=== PATIENT | male | born 1950 | race Caucasian/White ===

== ENCOUNTER → 2017-08-05 16:13 | Outpatient (CLI) | payer MEDICARE, OTHER, SELFPAY ==
[2017-08-05 18:33] LABS: ALB/GLOB Ratio 0.9 RATIO (0.9-2.4); AST(SGOT) 23 U/L (15-37); Alanine Aminotransfer ALT/SGPT 37 U/L (16-61); Albumin, Serum 3.6 g/dL (3.2-5.0); Alkaline Phosphatase 44 U/L (45-117); Anion Gap 8 (5-15); BUN 13 mg/dL (7-18); BUN/Creat Ratio 15.8 RATIO (10-20); Calcium,Total 9.3 mg/dL (8.5-10.1); Chloride 107 mmol/L (98-107); Creatinine, Serum 0.82 mg/dL (0.70-1.30); EST Glomerular Filtration Rate 99 mL/min (>60); Est Glom Filt Rate - Afr Amer 120 mL/min (>60); Globulin 3.8 g/dL (2.2-4.2); Glucose 101 mg/dL (74-106); Potassium 3.9 mmol/L (3.5-5.1); Protein, Total 7.4 g/dL (6.4-8.2); Sodium Level 143 mmol/L (136-145)
== END ==
PROVIDERS: Family Provider Family Medicine; PCP Family Medicine; Visit Provider Family Medicine
DX: B35.1 Tinea unguium (principal)
CPT/HCPCS: 36415; 80053

== ENCOUNTER → 2018-02-19 14:05 | Outpatient (CLI) | payer MEDICARE, OTHER, SELFPAY ==
[2018-02-19 16:17] LABS: Microalbumin,Random Urine 33.4 mg/L (NO RANGE EST.); Microalbumin:Creatinine Ratio 25.3 mg/g CRE (<30 mg/g CRE)
[2018-02-19 16:40] LABS: AST(SGOT) 34 U/L (15-37); Alanine Aminotransfer ALT/SGPT 45 U/L (16-61); Albumin, Serum 3.5 g/dL (3.2-5.0); Alkaline Phosphatase 46 U/L (45-117); Anion Gap 10 (5-15); BUN 20 mg/dL (7-18); BUN/Creat Ratio 20.8 RATIO (10-20); Bilirubin, Direct 0.09 mg/dL (0.00-0.30); Chloride 103 mmol/L (98-107); Cholesterol 228 mg/dL (200); Creatinine, Serum 0.96 mg/dL (0.70-1.30); EST Glomerular Filtration Rate 83 mL/min (>60); Est Glom Filt Rate - Afr Amer 100 mL/min (>60); Globulin 3.9 g/dL (2.2-4.2); Glucose 130 mg/dL (74-106); High Density Lipoprotein 30 mg/dL; Potassium 4.3 mmol/L (3.5-5.1); Protein, Total 7.4 g/dL (6.4-8.2); Sodium Level 140 mmol/L (136-145); Triglycerides 635 mg/dL
== END ==
PROVIDERS: Family Provider Family Medicine; PCP Family Medicine; Visit Provider Family Medicine
DX: E11.9 Type 2 diabetes mellitus without complications (principal); Z79.4 Long term (current) use of insulin
CPT/HCPCS: 36415; 80048; 80061; 80076; 82043; 82570

== ENCOUNTER → 2018-04-30 09:54 | Outpatient (CLI) | payer MEDICARE, OTHER, SELFPAY ==
[2017-11-23 15:59] VITALS: BMI 45.4
[2018-04-30 14:00] LABS: Anion Gap 9 (5-15); BUN 14 mg/dL (7-18); BUN/Creat Ratio 14.6 RATIO (10-20); Calcium,Total 9.2 mg/dL (8.5-10.1); Chloride 105 mmol/L (98-107); Cholesterol 118 mg/dL (200); Creatinine, Serum 0.96 mg/dL (0.70-1.30); EST Glomerular Filtration Rate 83 mL/min (>60); Est Glom Filt Rate - Afr Amer 100 mL/min (>60); Glucose 160 mg/dL (74-106); High Density Lipoprotein 26 mg/dL; Potassium 4.5 mmol/L (3.5-5.1); Sodium Level 139 mmol/L (136-145); Triglycerides 276 mg/dL; Very Low Density Lipoprotein 55 mg/dL (5-40)
--- OUTSIDE RECORDS SUMMARY | 2018-06-16 00:13 | XMS RPT_ITS ---
:1950 Author Organization OHIP Care Team Providers Name Role Phone Koko Hamilton Attending Unavailable Koko Hamilton Primary Care Unavailable Koko Hamilton Attending Unavailable Koko Hamilton Referring Unavailable Koko Hamilton Primary Care Unavailable Koko Hamilton Attending Unavailable Koko Hamilton Primary Care Unavailable Koko Wu Attending Unavailable Koko Hamilton Referring Unavailable Azeem Kincaid Attending Unavailable Koko Hamilton Referring Unavailable Alfonso, Koko Primary Care Unavailable Hamilton, Koko Attending Unavailable Hamilton, Koko Primary Care Unavailable PROBLEMS PROBLEMS DATE TYPE CONDITION / CODE ATTENDING STATUS SOURCE 05/14/2018 Unknown R79.89 - Other Koko Hamilton specified abnormal Community findings of blood Hospital chemistry / Repository R79.89(ICD-10) 04/30/2018 Unknown E11.9 - Type 2 Koko Hamilton diabetes mellitus Community without Hospital complications / Repository E11.9(ICD-10) 04/30/2018 Unknown E78.5 - Koko Hamilton Hyperlipidemia, Community unspecified / Hospital E78.5(ICD-10) Repository 04/30/2018 Unknown N52.9 - Male Koko Hamilton erectile Community dysfunction, Hospital unspecified / Repository N52.9(ICD-10) 08/25/2017 Unknown B35.1 - Tinea Koko Hamilton unguium / Community B35.1(ICD-10) Hospital Repository PROCEDURES PROCEDURES No Procedure Records FoundRESULTS RESULTS TESTOSTERONE, SERUM TOTAL Collected: 05/14/2018 Status: F Source: [place] 1:16 PM [facility] [place], [place] REPOSITORY TYPE CODE TESTS RESULT OUT OF REFERENCE UNITS RANGE LAB L509.3000 ng/dL Testosterone Normal 564.02 Result Comment: NORMAL REFERENCE RANGES MALE AGE <50 123.06 - 813.86 ng/dL MALE AGE >50 89.98 - 780.10 ng/dL FEMALE PREMENOPAUSE AGE 21 - 60 9.01 - 47.94 ng/dL FEMALE POSTMENOPAUSE AGE 45 - 89 <7.00 - 45.62 ng/dL REFERENCE RANGE AND METHODOLOGY CHANGED 05/06/2017 Performed By: #### L509.3000 #### [facility] [place], [address] BASIC METABOLIC Collected: 04/30/2018 Status: F Source: [place] PROFILE (BMP) 9:55 AM [facility] [place], [place] REPOSITORY TYPE CODE TESTS RESULT OUT OF RANGE REFERENCE UNITS LAB L501.0100 74-106 mg/dL High GLU 160 Result Comment: Fasting Glucose result greater than or equal to 126 mg/dL suggests DIABETES MELLITUS per A.D.A. criteria. Please note revised GLUCOSE reference range effective 2017. LAB L501.1000 7-18 mg/dL Normal BUN 14 LAB L501.1100 0.70-1.30 mg/dL Normal CREAT,SERUM 0.96 Result Comment: The validity of the calculated GFR AND GFRAA in patients over 70 years has not been determined. Clinical correlation is essential. LAB L501.1110 >60 mL/min Normal EST GFR 83 Result Comment: Non- GFR Calc LAB L501.1115 >60 mL/min Normal EST GFR - AA 100 Result Comment: GFR Calc LAB L501.1300 10-20 RATIO Normal BUN/CRE 14.6 LAB L501.2200 8.5-10.1 mg/dL CA Normal 9.2 LAB L501.5300 136-145 mmol/L NA Normal 139 LAB L501.5600 3.5-5.1 mmol/L K Normal 4.5 LAB L501.5900 98-107 mmol/L CL Normal 105 LAB L501.6100 21.0-32.0 mmol/L Normal CO2 25.0 LAB L501.6200 5-15 Normal GAP 9 Performed By: #### L500.2500, L500.4100 #### [facility] [address] [place], [address] LIPID PROFILE Collected: 04/30/2018 Status: F Source: [place] 9:55 AM [facility] [place], [place] REPOSITORY TYPE CODE TESTS RESULT OUT OF RANGE REFERENCE UNITS LAB L501.4900 200 mg/dL Normal CHOL 118 Result Comment: <200 mg/dL Desirable 200-240 mg/dL Borderline >240 mg/dL High Risk LAB L501.5000 mg/dL High TRIG 276 Result Comment: The drugs N-Acetylcysteine and Metamizole may falsely depress this assay. Serum Triglycerides Reference Interval Normal <150 mg/dL Borderline high 150 - 199 mg/dL High 200 - 499 mg/dL Very High > or = 500 mg/dL LAB L501.6400 mg/dL Low HDL 26 Result Comment: The drugs N-Acetylcysteine and Metamizole may falsely depress this assay. Reference Range HDL <40 mg/dL Low HDL Cholesterol HDL >or= 60 mg/dL High HDL Cholesterol LAB L501.6500 0-130 mg/dL Normal LDL 37 LAB L501.6600 5-40 mg/dL High VLDL 55 Performed By: #### L500.2500, L500.4100 #### [facility] [address] [place], [address] TESTOSTERONE, SERUM TOTAL Collected: 04/30/2018 Status: F Source: [place] 9:55 AM [facility] [place] [place] REPOSITORY TYPE CODE TESTS RESULT OUT OF REFERENCE UNITS RANGE LAB L509.3000 ng/dL Testosterone Normal 92.17 Result Comment: NORMAL REFERENCE RANGES MALE AGE <50 123.06 - 813.86 ng/dL MALE AGE >50 89.98 - 780.10 ng/dL FEMALE PREMENOPAUSE AGE 21 - 60 9.01 - 47.94 ng/dL FEMALE POSTMENOPAUSE AGE 45 - 89 <7.00 - 45.62 ng/dL REFERENCE RANGE AND METHODOLOGY CHANGED 05/06/2017 Performed By: #### L509.3000 #### [facility] [address] [place], [address] MICROALB:CREAT Collected: 02/19/2018 Status: F Source: [place] RATIO,RANDOM UR 2:06 PM [facility] [place], [place] REPOSITORY TYPE CODE TESTS RESULT OUT OF RANGE REFERENCE UNITS LAB L501.1200 NO RANGE EST. mg/dL Normal UR CREAT 132.00 LAB L502.0500 NO RANGE EST. mg/L Normal 33.4 MICROALBUMIN ,UR LAB L502.0600 <30 mg/g CRE mg/g CRE Normal 25.3 MALB:CREAT Performed By: #### L502.0250 #### [facility] [address] [place], [address] BASIC METABOLIC Collected: 02/19/2018 Status: F Source: [place] PROFILE (BMP) 2:06 PM [facility] [place] [place] REPOSITORY TYPE CODE TESTS RESULT OUT OF RANGE REFERENCE UNITS LAB L501.0100 74-106 mg/dL High GLU 130 Result Comment: Fasting Glucose result greater than or equal to 126 mg/dL suggests DIABETES MELLITUS per A.D.A. criteria. Please note revised GLUCOSE reference range effective 2017. LAB L501.1000 7-18 mg/dL High BUN 20 LAB L501.1100 0.70-1.30 mg/dL Normal CREAT,SERUM 0.96 Result Comment: The validity of the calculated GFR AND GFRAA in patients over 70 years has not been determined. Clinical correlation is essential. LAB L501.1110 >60 mL/min Normal EST GFR 83 Result Comment: Non- GFR Calc LAB L501.1115 >60 mL/min Normal EST GFR - AA 100 Result Comment: GFR Calc LAB L501.1300 10-20 RATIO High BUN/CRE 20.8 LAB L501.2200 8.5-10.1 mg/dL CA Normal 10.0 LAB L501.5300 136-145 mmol/L NA Normal 140 LAB L501.5600 3.5-5.1 mmol/L K Normal 4.3 LAB L501.5900 98-107 mmol/L CL Normal 103 LAB L501.6100 21.0-32.0 mmol/L Normal CO2 27.0 LAB L501.6200 5-15 Normal GAP 10 Performed By: #### L500.2500, L500.3400, L500.4100 #### [facility] [address] [place], [place], [id number] LIVER PROFILE Collected: 02/19/2018 Status: F Source: [place] 2:06 PM [facility] [place] [place] REPOSITORY TYPE CODE TESTS RESULT OUT OF RANGE REFERENCE UNITS LAB L501.1500 6.4-8.2 g/dL Normal T PROT 7.4 LAB L501.1800 3.2-5.0 g/dL Normal ALB 3.5 LAB L501.1950 2.2-4.2 g/dL Normal GLOB 3.9 LAB L501.4100 15-37 U/L Normal AST 34 LAB L501.4305 45-117 U/L Normal ALK P 46 LAB L501.4405 16-61 U/L Normal ALT 45 LAB L501.4600 0.20-1.00 mg/dL Normal T BILI 0.40 LAB L501.4700 0.00-0.30 mg/dL Normal D BILI 0.09 Performed By: #### L500.2500, L500.3400, L500.4100 #### [facility] [address] [place], [address] LIPID PROFILE Collected: 02/19/2018 Status: F Source: [place] 2:06 PM [facility] [place] [place] REPOSITORY TYPE CODE TESTS RESULT OUT OF RANGE REFERENCE UNITS LAB L501.4900 200 mg/dL High CHOL 228 Result Comment: <200 mg/dL Desirable 200-240 mg/dL Borderline >240 mg/dL High Risk LAB L501.5000 mg/dL High TRIG 635 Result Comment: The drugs N-Acetylcysteine and Metamizole may falsely depress this assay. TRIGLYCERIDE IS GREATER THAN 400 mg/dL. LDL RESULT IS INVALID AND WILL NOT BE REPORTED. Serum Triglycerides Reference Interval Normal <150 mg/dL Borderline high 150 - 199 mg/dL High 200 - 499 mg/dL Very High > or = 500 mg/dL LAB L501.6400 mg/dL Low HDL 30 Result Comment: The drugs N-Acetylcysteine and Metamizole may falsely depress this assay. Reference Range HDL <40 mg/dL Low HDL Cholesterol HDL >or= 60 mg/dL High HDL Cholesterol LAB L501.6500 0-130 mg/dL Test Normal not performed LDL LAB L501.6600 5-40 mg/dL Test Normal not performed VLDL Performed By: #### L500.2500, L500.3400, L500.4100 #### [facility] [address] [place], [address] CARDIOLOGY VISIT Observed: 11/24/2017 Status: F Source: [place] REPORT 8:06 AM [facility] [place], [place] REPOSITORY [facility] [address] [place] [address] OFFICE VISIT Date of Service: 11/23/17 MR#: [id number] Acct: [id number] Name: IAN ROCHA Rep #: [id number] : 1950 Provider: ROBBY Kincaid Age/Sex: 67/M Location: [facility] Status: Signed HPI HPI Details: IAN ROCHA, is a 67 M who presents to the office today for a cardiovascular outpatient follow-up. He has a history of coronary artery disease status post CABG with MERRITT to LAD, SVG to OM, and SVG to RCA in December 2010 and subsequent PCI to RCA and diagonal branch, ischemic mediated cardiomyopathy, aortic valve disease status post aortic valve replacement this bioprosthetic valve in 2010, hypertension, and hyperlipidemia. Pt. denies chest, arm, jaw, or neck discomfort. His exercise tolerance is stable. He is hoping to begin with Silver Sneakers. Pt. denies symptoms of CHF, palpitations, lightheadedness, dizziness, near syncope, or syncopal episodes. Pt. denies edema or claudication issues. Pt. denies orthopnea, PND, fever, chills, blood in urine, blood in stool, myalgia, or unexplainable fatigue. He states infrequent shock noted in his chest that resolves quickly. This occurs randomly and without any secondary symptoms. This occurs approximately 3 times a month. Intake Vital Signs11/23/17 Blood Pressure 140/80 Intake Visit Reasons: 6 M Room Service Attendant Required: No Accompanied by: none Is patient in pain?: No Allergies hydrocodone Allergy (Verified 11/23/17 16:01) rash morphine Allergy (Verified 11/23/17 16:01) Vomiting Medications furosemide 20 mg tablet 20 mg PO QDAY #90 tab 08/21/17 [Rx Confirmed 11/23/17] potassium chloride ER 10 mEq tablet,extended release 10 meq PO QDAY #90 tab 08/21/17 [Rx Confirmed 11/23/17] metoprolol tartrate 100 mg tablet 100 mg PO BID #180 tab 09/14/17 [Rx Confirmed 11/23/17] amoxicillin 500 mg tablet 2 g PO ONCE #8 tab 11/23/17 [Rx Confirmed 11/23/17] clopidogrel 75 mg tablet 75 mg PO QDAY 11/23/17 [History Confirmed 11/23/17] isosorbide mononitrate ER 60 mg tablet,extended release 24 hr 60 mg PO QDAY 11/23/17 [History Confirmed 11/23/17] lisinopril 10 mg tablet 10 mg PO QDAY 11/23/17 [History Confirmed 11/23/17] lysine 500 mg tablet 500 mg PO QDAY 11/23/17 [History Confirmed 11/23/17] metformin 1,000 mg tablet 1,000 mg PO BID 11/23/17 [History Confirmed 11/23/17] multivitamin,nz-zgky-kkainnob tablet 1 tab PO QDAY 11/23/17 [History Confirmed 11/23/17] Ejection fraction %: 50 to 54 PFSH Medical History HLD (hyperlipidemia) (Chronic) Hypertension (Chronic) Benign prostate hyperplasia (Chronic) Surgical History H/O aortic valve replacement (Resolved) Hx of CABG (Resolved) History of tonsillectomy (Resolved) Family History Father CAD (coronary artery disease) Mother CAD (coronary artery disease) Social History Smoking Status: Never smoker ROS Const Const: Negative for fatigue, weakness, body ache, fever(s) or chills ENT ENT: Negative for dizziness Cardio Chest Pain: No Palpitations: Yes Edema: None Muscle aches with walking: None Resp Respiratory: Negative for SOB with activity, SOB at rest, SOB orthopnea\SOB lying down or paroxysmal nocturnal dyspnea GI GI: Negative nausea, black,tarry stools, bright, red blood in stools or vomiting blood/hematemesis : Negative for hematuria or frequent nighttime urination/ nocturia Musc Musc: Negative for muscle aches/ myalgia Skin Skin: Negative non-healing lesions or rash Neuro Neuro: Negative for weakness, dizziness, lightheadedness, near syncope, syncope or orthostatic symptoms Endo Endo: Negative for fatigue Allergy Allergy/Immunology: Negative for rash Cardiology Exam Const Appearance: cooperative, healthy appearing, comfortable and no acute distress Nutritional Appearance: obese Orientation: alert, awake and oriented x3 Head Head: normal to inspection Ears: hearing grossly normal bilaterally Nose: external nose normal Face and Sinus: face symmetric Mouth: oral mucosae normal Eyes General: appearance normal, both eyes and all related structures Eyelids: eyelids normal Neck Neck: no JVD and normal visual inspection Carotids: normal carotid upstroke Chest Chest inspection: normal inspection of the chest and normal respiratory effort; negative cough Auscultation: Bilateral: Clear to Auscultation Cardio Rate: regular rate Rhythm: regular rhythm Heart sounds: S1 normal and S2 normal; negative rub or gallop GI GI: normal to inspection and obese Neuro General: alert, awake, oriented x3 and CN's II-XI intact bilaterally Skin Skin: no rashes or lesions noted Extremities Pulses: Normal: Right Posterior Tibial Pulse, Left Posterior Tibial Pulse, Right Radial Pulse, Left Radial Pulse Lower Extremity Edema: None: Bilateral Psych Psychological: normal affect Supplemental Info Echocardiogram from August 2016 showed mild segmental systolic dysfunction (see wall motion), estimated ejection fraction of 50%, mild mitral annular calcification, trivial mitral valve insufficiency, trivial tricuspid valve insufficiency,and aortic valve not well visualized, however, based upon the 2D echocardiographic images obtained and spectral Doppler information obtained, there appears to be a stable bioprosthetic aortic valve apparatus. Heart catheterization from May 2014 at [facility] showed patent MERRITT to LAD, patent stents diagonal branch stent placed in February 2014 as widely patent, patent SVG to OM with 50% lesion at the aortic anastomosis, patent stents to mid RCA, and SVG to RCA known to be occluded. Medical management was recommended. Stress test from April 2014 showed peak EKG with continued nonspecific ST and T-wave abnormality and nuclear images associated with myocardial ischemia involving portions of the basal to mid anterolateral segments as well as the basal towards distal lateral and inferolateral segments with ejection fraction reported 50%. Assessment AND Plan 1. Atherosclerosis of blackfeet coronary artery of blackfeet heart without angina pectoris I25.10 S/P CABG with MERRITT to LAD, SVG to OM, and SVG to RCA in December 2010; PCI to RCA and diagonal branch; Plan Patient heart catheterization from May 2014 showed patent MERRITT to LAD, patent stents to diagonal branch, patent SVG to OM with 50% lesion at the aortic anastomosis site, patent stents to mid RCA, and known occlusion of the SVG to RCA. Medical therapy was recommended. Patient denies any chest pain, arm pain, jaw pain, neck pain, worsening shortness of breath, or fatigue suggestive of angina at this time. We will continue to monitor this. We will not make any medication regimen changes and will continue risk factor modification. 2. Hx of CABG Z95.1 S/P MERRITT to LAD, SVG to OM, and SVG to RCA in December 2010; Plan He will continue current treatment plan as outlined above. 3. Ischemic cardiomyopathy I25.5 Plan Patient's most recent echocardiogram from August 2016 showed ejection fraction of 50%. Patient denies any worsening shortness of breath. He does acknowledge some baseline shortness of breath due to inactivity, previous extensive smoking history, and obesity. He will continue current beta-yohan, SYLVIA inhibitor, and diuretic. We will continue to monitor this through history, exam, and repeat echocardiogram as needed. 4. H/O aortic valve replacement Z95.2 S/P bioprosthetic aortic valve replacement; Plan Patient's most recent echocardiogram from August 2016 was a technically difficult study but showed a stable bioprosthetic aortic valve apparatus. He will continue current medications and we will continue to monitor this. He will continue with [facility] antibiotic prophylaxis. 5. Essential hypertension I10 Plan Patient's blood pressure remains on the higher end of expected range. He was asked to continue to monitor this and contact our office if it increases or remains elevated. Hopefully as he increases/improves his overall activity this will also improve his blood pressure. At this time we will not make any medication regimen changes and will continue to monitor. 6. Pure hypercholesterolemia E78.00; E78.0 Plan Patient states this is being monitored by primary care physician. His most recent lipid panel from January 2017 showed cholesterol 199, HDL: 37, LDL: 104, and triglycerides: 289. His statin medication has been adjusted/discontinued by primary care physician due to possible leg discomfort. He was asked to discuss non-statin medication with primary care physician. Plan Detail Other Medications New: Discontinued: Additional Comments Thank you for allowing us to participate in the patients plan of care, if you have any questions please do not hesitate to call. This note was generated using a voice recognition system and there may be incorrect words, spelling or punctuation that were not noted when reviewing the office note prior to saving. 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) Coding Level of Care Code Off vis,est,level 3 Diagnoses Atherosclerosis of blackfeet coronary artery of blackfeet heart without angina pectoris I25.10 Hx of CABG Z95.1 Ischemic cardiomyopathy I25.5 H/O aortic valve replacement Z95.2 Essential hypertension I10 Hypertension type: essential hypertension Pure hypercholesterolemia E78.00; E78.0 Hyperlipidemia type: pure hypercholesterolemia Coding Level of Care Code Off vis,est,level 3 Diagnoses Atherosclerosis of blackfeet coronary artery of blackfeet heart without angina pectoris I25.10 Hx of CABG Z95.1 Ischemic cardiomyopathy I25.5 H/O aortic valve replacement Z95.2 Essential hypertension I10 Hypertension type: essential hypertension Pure hypercholesterolemia E78.00; E78.0 Hyperlipidemia type: pure hypercholesterolemia 11/24/17 0806 <Electronically signed by Azeem EARL> Date Azeem EARL Cosigner Signature: Date (if applicable) CC: Koko Hamilton MD COMPREHENSIVE METABOLIC Collected: 08/05/2017 Status: F Source: [place] 4:15 PM [facility] [place] [place] REPOSITORY TYPE CODE TESTS RESULT OUT OF RANGE REFERENCE UNITS LAB L501.0100 74-106 mg/dL Normal GLU 101 Result Comment: Fasting Glucose result from 100 to 125 mg/dL suggests IMPAIRED HOMEOSTASIS per A.D.A. criteria. Please note revised GLUCOSE reference range effective 2017. LAB L501.1000 7-18 mg/dL Normal BUN 13 LAB L501.1100 0.70-1.30 mg/dL Normal CREAT,SERUM 0.82 Result Comment: The validity of the calculated GFR AND GFRAA in patients over 70 years has not been determined. Clinical correlation is essential. LAB L501.1110 >60 mL/min Normal EST GFR 99 Result Comment: Non- GFR Calc LAB L501.1115 >60 mL/min Normal EST GFR - AA 120 Result Comment: GFR Calc LAB L501.1300 10-20 RATIO Normal BUN/CRE 15.8 LAB L501.1500 6.4-8.2 g/dL T Normal PROT 7.4 LAB L501.1800 3.2-5.0 g/dL Normal ALB 3.6 LAB L501.1950 2.2-4.2 g/dL Normal GLOB 3.8 LAB L501.2000 0.9-2.4 RATIO Normal A/G 0.9 LAB L501.2200 8.5-10.1 mg/dL CA Normal 9.3 LAB L501.4100 15-37 U/L Normal AST 23 LAB L501.4305 45-117 U/L Low ALK P 44 LAB L501.4405 16-61 U/L Normal ALT 37 Result Comment: Please note revised ALT reference range effective 2017. LAB L501.4600 0.20-1.00 mg/dL Normal T BILI 0.30 LAB L501.5300 136-145 mmol/L Normal NA 143 LAB L501.5600 3.5-5.1 mmol/L Normal K 3.9 LAB L501.5900 98-107 mmol/L Normal CL 107 LAB L501.6100 21.0-32.0 mmol/L Normal CO2 28.0 LAB L501.6200 5-15 Normal GAP 8 Performed By: #### L500.4050 #### [facility] [address] [place], [address] ALLERGIES ALLERGIES DATE TYPE / CODE NAME / CODE REACTION SEVERITY SOURCE 11/23/2017 Drug morphine/F00 Vomiting Unknown [facility] Allergy/4160 [id number]([facility] [address]382(SNOMED RM) Repository CT) 11/23/2017 Drug hydrocodone/ Rash Unknown [facility] Allergy/4160 [id number]([facility] [address]1448(SNOMED XNORM) Repository CT) ENCOUNTERS ENCOUNTERS ADMIT/DISCHARGE ACCOUNT ADMITTING ENCOUNTER LOCATION SOURCE NUMBER CLASS 05/14/2018 [id number] Ambulatory [facility] 4 [facility] ing:MTLAB Repository 04/30/2018 [id number] Ambulatory [facility] 1 [facility] ing:MFPLAB Repository 02/19/2018 [id number] [facility] ing:MFPLAB Repository 11/23/2017/ [id number] Ambulatory B[facility]:[place] 8 8 [place] Repository 11/09/2017 [id number] Ambulatory [facility] [place] 7 [place] Repository 08/05/2017 [id number] Ambulatory [facility] 3 [facility] ing:MFPLAB Repository PAYERS PAYERS ENCOUNTER GUARANTOR PAYER SUBSCRIBER SOURCE 05/14/2018 IAN Hoffman Primary IAN [place] [id number] Insurance:MEDICARE BRITTB: [facility] JOSE JUAN, PART A olic [id number] [address]Xey: Number: Repository [id number] () Date:2018-05-14 05/14/2018 Secondary IAN [place] Insurance:ASHANTItin LOPEZ: [facility] Number: [id number] Hospital [id number] Repository Date:[id number], [place] [address]AA: 05/14/2018 Tertiary NOT GIVENUNK [place] Insurance:SELF PAY [facility] Number: Effective Repository Date:2018-05-14 04/30/2018 IAN E Primary IAN E [place] [id number] Insurance:MEDICARE COLLINSDOB: [facility] KAT QUISPE, PART A [facility] [id number] [address]Vcd: Number: Repository [id number] (HP) Date:2018-04-30 04/30/2018 Secondary IAN E [place] Insurance:AARPPolicy COLLINSDOB: Community Number: [id number] Hospital [id number] Repository Date:[id number] [facility] [address], [place] [address]LP: 04/30/2018 Tertiary NOT GIVENUNK [place] Insurance:SELF PAY [facility] Number: Effective Repository Date:2018-04-30 02/19/2018 IAN E Primary IAN E [place] [id number] Insurance:MEDICARE COLLINSDOB: [facility] KAT QUISPE, PART A [facility] [id number] [address]Kzv: Number: Repository [id number] (HP) Date:2018-02-19 02/19/2018 Secondary IAN E [place] Insurance:AARPPolicy COLLINSDOB: Community Number: [id number] Hospital [id number] Repository Date:[id number] [facility] [address], [place] [address]YU: 02/19/2018 Tertiary NOT GIVENUNK [place] Insurance:SELF PAY [facility] Number: Effective Repository Date:2018-02-19 11/23/2017 IAN E Primary IAN E [place] [id number] Insurance:MEDICARE COLLINSDOB: [facility] KAT QUISPE, PART A [facility] [id number] [facility] [address]Mnk: Number: Repository [id number] (HP) Date:2017-10-29 11/23/2017 Secondary IAN E [place] Insurance:AARPPolicy AJDOB: Community Number: [id number] Hospital [id number] Repository Date:6962-98-06YS [address], [place] [address]QG: 11/23/2017 Tertiary NOT GIVENUNK [place] Insurance:SELF PAY [facility]: Effective Repository Date:2017-11-23 11/09/2017 Ian E Primary Ian E [place] [id number] Insurance:AARPPolicy CollinsDOB: [facility] Kat Quispe, Number: [id number] [facility] [address]Wwd: [id number] Repository Date:3064-09-84[address], [place] [address]NH: 11/09/2017 Secondary Ian E Grace Insurance:MEDICARE CollinsDOB: Community PART A [facility] [id number] Hospital Number: Repository [id number] Date:2017-05-06 11/09/2017 Tertiary NOT GIVENUNK [place] Insurance:SELF PAY [facility] Number: Effective Repository Date:2017-05-06 08/05/2017 Ian E Primary Ian E Grace [id number] Insurance:MEDICARE [place]: [facility] Jose Juan, PART A [id number] [address]Muw: Number: Repository [id number] () Date:2017-08-05 08/05/2017 Secondary Ian E [place] Insurance:AARPPolicy [place]DOB: Community Number: [id number] [facility] [id number] Repository Date:[id number], [place] [address]XN: 08/05/2017 Tertiary NOT GIVENUNK [place] Insurance:SELF PAY [facility]: Effective Repository Date:2017-08-05
== END ==
PROVIDERS: Family Provider Family Medicine; PCP Family Medicine; Visit Provider Family Medicine
DX: E11.9 Type 2 diabetes mellitus without complications (principal); E78.5 Hyperlipidemia, unspecified; N52.9 Male erectile dysfunction, unspecified
CPT/HCPCS: 36415; 80048; 80061; 84403

== ENCOUNTER → 2018-05-14 13:07 | Outpatient (CLI) | payer MEDICARE, OTHER, SELFPAY ==
[2017-11-23 15:59] VITALS: BMI 45.4
== END ==
PROVIDERS: Family Provider Family Medicine; PCP Family Medicine; Referring Provider Family Medicine; Visit Provider Family Medicine
DX: R79.89 Other specified abnormal findings of blood chemistry (principal)
CPT/HCPCS: 36415; 84403

== ENCOUNTER → 2018-06-23 17:39 | Outpatient (CLI) | payer MEDICARE, OTHER, SELFPAY ==
[2017-11-23 15:59] VITALS: BMI 45.4
== END ==
PROVIDERS: Family Provider Family Medicine; PCP Family Medicine; Visit Provider Nurse Practitioner Family
DX: S31.809A Unspecified open wound of unspecified buttock, initial encounter (principal)
CPT/HCPCS: 87070; 87077; 87186; 87205

== ENCOUNTER → 2018-08-12 09:25 | Outpatient (CLI) | payer MEDICARE, OTHER, SELFPAY ==
[2018-07-08 08:45] VITALS: BMI 44.3
--- NOTE | 2018-08-12 09:27 | ECHOCS_ITS ---
Reason For Study: SOB Procedure This was a 2D Doppler, Color Flow transthoracic echocardiogram. The study was technically difficult. Contrast injection was performed. Exam performed in department. Left Ventricle Mild segmental systolic dysfunction (see wall motion). The estimated ejection fraction is 45 %. Diastolic function is indeterminate. Mid-Lateral : Hypokinetic. Mid-Posterior: Hypokinetic. Mid- Inferior: Hypokinetic. Mid-inferoseptal : Hypokinetic. Mid-anteroseptal : Hypokinetic. Anterior Mathias : Hypokinetic. Septal [place] : Hypokinetic. Right Ventricle Normal RV size. Normal systolic function. Atria The left atrium is mildly enlarged. Normal right atrium. No doppler evidence for ASD. Mitral Valve There is mild mitral annular calcification. Extension of the mitral annular calcification onto the posterior mitral valve leaflet. Trivial mitral valve insufficiency. Tricuspid Valve The tricuspid valve is not well visualized. Aortic Valve The aortic valve is not well visualized. Pulmonic Valve The pulmonic valve is not well visualized. Great Vessels Borderline enlarged aortic root. Pericardium/Pleural No pericardial effusion. Medication 22 gauge I.V. with prn adaptor inserted into right arm. Diluted definity 6ml given slow IV push to enhance endocardial definition. MMode/2D Measurements & Calculations LVOT diam: 2.2 cm Ao root diam: 3.9 cm LVOT area: 3.8 cm2 Doppler Measurements & Calculations MV E max slick: 49.5 cm/sec Lat Peak E' Slick: 5.9 cm/sec Med Peak E' Slick: 5.8 cm/sec MV A max slick: 82.6 cm/sec E/E' lat: 8.4 E/E' med: 8.5 MV E/A: 0.60 Ao V2 max: 239.8 cm/sec LV V1 max: 106.3 cm/sec SV(LVOT): 81.7 ml Ao max P.1 mmHg LV V1 max P.5 mmHg Ao V2 mean: 170.0 cm/sec LV V1 mean P.4 mmHg Ao mean P.9 mmHg LV V1 mean: 73.2 cm/sec Ao V2 VTI: 47.4 cm LV V1 VTI: 21.6 cm ABDI(I,D): 1.7 cm2 ABDI(V,D): 1.7 cm2 Interpretation Summary The study was technically difficult. Contrast injection was performed. Mild segmental systolic dysfunction (see wall motion). The estimated ejection fraction is 45 %. The left atrium is mildly enlarged. There is mild mitral annular calcification. Extension of the mitral annular calcification onto the posterior mitral valve leaflet. Trivial mitral valve insufficiency. The aortic valve is not well visualized, however, based upon the 2D echocardiographic imgaes obtained and spectral doppler information obtained, there appears to be a stable bioprosthetic aortic valve apparatus. Borderline enlarged aortic root. Diastolic function is indeterminate. Ordering Physician: Azeem Kincaid/Koko Wu Referring Physician: Koko Hamilton Performed By: Pearl Weaver RDCS
== END ==
PROVIDERS: Family Provider Family Medicine; PCP Family Medicine; Referring Provider Nurse Practitioner Family; Visit Provider Nurse Practitioner Family
DX: I25.10 Atherosclerotic heart disease of native coronary artery without angina pectoris (principal); R06.09 Other forms of dyspnea; Z95.2 Presence of prosthetic heart valve
CPT/HCPCS: 93306; Q9957; A4216; C8929

== ENCOUNTER → 2018-10-28 10:55 | Outpatient (CLI) | payer MEDICARE, OTHER, SELFPAY ==
[2018-07-08 08:45] VITALS: BMI 44.3
[2018-10-28 12:41] LABS: AST(SGOT) 23 U/L (15-37); Alanine Aminotransfer ALT/SGPT 31 U/L (16-61); Albumin, Serum 3.2 g/dL (3.2-5.0); Alkaline Phosphatase 52 U/L (45-117); Anion Gap 10 (5-15); BUN 17 mg/dL (7-18); BUN/Creat Ratio 20.1 RATIO (10-20); Bilirubin, Direct 0.13 mg/dL (0.00-0.30); Calcium,Total 9.5 mg/dL (8.5-10.1); Chloride 106 mmol/L (98-107); Cholesterol 136 mg/dL (200); Creatinine, Serum 0.85 mg/dL (0.70-1.30); EST Glomerular Filtration Rate 96 mL/min (>60); Est Glom Filt Rate - Afr Amer 116 mL/min (>60); Globulin 4.3 g/dL (2.2-4.2); Glucose 121 mg/dL (74-106); High Density Lipoprotein 32 mg/dL; PSA,Total - Annual Screen 2.08 ng/mL (0.00-4.00); Protein, Total 7.5 g/dL (6.4-8.2); Sodium Level 142 mmol/L (136-145); Triglycerides 197 mg/dL; Very Low Density Lipoprotein 39 mg/dL (5-40)
== END ==
PROVIDERS: Family Provider Family Medicine; PCP Family Medicine; Referring Provider Family Medicine; Visit Provider Family Medicine
DX: E11.9 Type 2 diabetes mellitus without complications (principal); N40.0 Benign prostatic hyperplasia without lower urinary tract symptoms; E29.1 Testicular hypofunction; Z12.5 Encounter for screening for malignant neoplasm of prostate
CPT/HCPCS: 36415; 80048; 80061; 80076; 84153; 84403; G0103

== ENCOUNTER → 2019-01-28 14:08 | Outpatient (CLI) | payer MEDICARE, OTHER, SELFPAY ==
[2018-12-22 15:57] VITALS: BMI 45.4
[2019-01-28 15:51] LABS: ALB/GLOB Ratio 0.9 RATIO (0.9-2.4); AST(SGOT) 28 U/L (15-37); Alanine Aminotransfer ALT/SGPT 38 U/L (16-61); Albumin, Serum 3.7 g/dL (3.2-5.0); Alkaline Phosphatase 51 U/L (45-117); Anion Gap 7 (5-15); BUN 21 mg/dL (7-18); BUN/Creat Ratio 21.2 RATIO (10-20); Calcium,Total 9.9 mg/dL (8.5-10.1); Chloride 109 mmol/L (98-107); Cholesterol 140 mg/dL (200); Creatinine, Serum 0.99 mg/dL (0.70-1.30); EST Glomerular Filtration Rate 80 mL/min (>60); Est Glom Filt Rate - Afr Amer 96 mL/min (>60); Globulin 4.2 g/dL (2.2-4.2); Glucose 115 mg/dL (74-106); High Density Lipoprotein 35 mg/dL; Magnesium 2.1 mg/dL (1.6-2.6); Potassium 4.5 mmol/L (3.5-5.1); Protein, Total 7.9 g/dL (6.4-8.2); Sodium Level 142 mmol/L (136-145); Triglycerides 240 mg/dL; Very Low Density Lipoprotein 48 mg/dL (5-40)
[2019-01-29 08:42] LABS: Vitamin B12 533 pg/mL (211-911)
== END ==
PROVIDERS: Family Provider Family Medicine; PCP Family Medicine; Referring Provider Family Medicine; Visit Provider Family Medicine
DX: E11.65 Type 2 diabetes mellitus with hyperglycemia (principal); I10 Essential (primary) hypertension; R25.2 Cramp and spasm
CPT/HCPCS: 36415; 80053; 80061; 82607; 83735

== ENCOUNTER → 2019-02-28 11:57 | Outpatient (CLI) | payer MEDICARE, OTHER, SELFPAY ==
[2018-12-22 15:57] VITALS: BMI 45.4
== END ==
PROVIDERS: Family Provider Family Medicine; PCP Family Medicine; Visit Provider Family Medicine
DX: R79.89 Other specified abnormal findings of blood chemistry (principal)
CPT/HCPCS: 36415; 84403

== ENCOUNTER → 2019-05-06 10:49 | Outpatient (CLI) | payer MEDICARE, OTHER, SELFPAY ==
[2018-12-22 15:57] VITALS: BMI 45.4
== END ==
PROVIDERS: Family Provider Family Medicine; PCP Family Medicine; Referring Provider Family Medicine; Visit Provider Family Medicine
DX: R79.89 Other specified abnormal findings of blood chemistry (principal)
CPT/HCPCS: 36415; 84403

== ENCOUNTER 2019-07-14 23:15 | Inpatient (IN) | payer MEDICARE, OTHER, SELFPAY ==
[2019-07-13 15:24] VITALS: BMI 45.7
[2019-07-14 23:15] VITALS: BP 156/95; PULSE 78; RESP 24; TEMP 35.7; O2SAT 85; BMI 46.3
[2019-07-14 23:20] VITALS: PULSE 75; RESP 12; RESP 24; O2SAT 97
[2019-07-14 23:22] VITALS: PULSE 75; RESP 24; O2SAT 94
--- NOTE | 2019-07-14 23:22 | EKG12_ITS ---
Test Reason : CP/SOB Blood Pressure : / mmHG Vent. Rate : 075 BPM Atrial Rate : 075 BPM P-R Int : 178 ms QRS Dur : 118 ms QT Int : 396 ms P-R-T Axes : 057 031 124 degrees QTc Int : 442 ms Normal sinus rhythm Incomplete left bundle branch block T wave abnormality, consider lateral ischemia vs IVCD Abnormal ECG Confirmed by JOSE ALBERTO VICENTE, JOSE JUAN ([id number]), graphics editor YESIKA FLORES ([id number]) on 07/18/2019 9:57:35 AM Referred By: NOAH Confirmed By:JOSE JUAN ABRAMS MD
--- NOTE | 2019-07-14 23:25 | RAD_ITS ---
STUDY: X-RAY CHEST REASON FOR EXAM: Male, 69 years old. Chest pain and shortness of breath. TECHNIQUE: Single AP portable view of the chest. COMPARISON: 06/09/2014. FINDINGS: The lungs are hyperexpanded. There are coarsened interstitial markings suggestive of mild chronic fibrosis. Stable small scattered granulomas. No gross focal infiltrates. No gross effusions. There is moderate cardiac enlargement. Previous median sternotomy. Normal mediastinum and paul. Normal visualized pulmonary arteries. Normal visualized aortic arch and descending thoracic aorta. Normal visualized thoracic spine. Normal visualized ribs, clavicles, and shoulders. There is no demonstrated abnormality of the visualized soft tissue structures of the upper abdomen. RAD/Chest 1 View (Portable) IMPRESSION: Probable COPD with mild fibrosis. Cardiomegaly. No gross acute chest disease. Electronically Signed: Justus Deal MD at 23:47 EST , Service support ,
[2019-07-14 23:26] VITALS: O2SAT 97
[2019-07-14 23:35] VITALS: BP 153/76; PULSE 75
[2019-07-14] MEDS: Nitroglycerin Oint 1 INCH PACKET TRANSDERM. (23:35)
[2019-07-14 23:51] LABS: Absolute Lymphocyte Count 1.53 X10^3/uL (0.83-4.51); Absolute Neutrophil Count 11.2 X10^3/uL (2.0-7.7); Basophil# 0.07 X10^3/uL; Basophil% 0.5 % (0-1); Eosinophil# 0.36 X10^3/uL; Eosinophils% 2.5 % (0-5); Hematocrit 54.9 % (40-54); Hemoglobin 16.9 g/dL (13.0-16.5); Lymphocyte # 1.53 X10^3/ul (4.0); Lymphocyte % 10.5 % (19-41); Mean Corp Hgb Conc 30.8 g/dL (32-36); Mean Corpuscular Hgb 27.5 pg (27.0-32.0); Mean Corpuscular Volume 89.4 fL (80-94); Mean Platelet Vol. 10.4 fl (6.2-12.0); Monocyte# 1.45 X10^3/uL; Monocyte% 9.9 % (0-10); NRBC Flagged by Analyzer 0 % (0-5); Neutrophil # 11.15 X10^3/uL (2.7-7.7); Neutrophil % 76.1 % (47-70); Platelet Count 208 K/mm3 (150-450); RBC Distribution Width CV 15.1 % (11.6-14.6); RBC Distribution Width SD 47.7 fl (35.1-43.9); Red Blood Count 6.14 M/mm3 (4.6-6.2); White Blood Count 14.6 K/mm3 (4.4-11.0)
[2019-07-14 23:53] LABS: Anion Gap 5 (5-15); BUN 20 mg/dL (7-18); BUN/Creat Ratio 16.5 RATIO (10-20); Chloride 107 mmol/L (98-107); Creatinine, Serum 1.21 mg/dL (0.70-1.30); EST Glomerular Filtration Rate 63 mL/min (>60); Est Glom Filt Rate - Afr Amer 76 mL/min (>60); Estimated Creatinine Clearance 61.37 ml/min; Glucose 137 mg/dL (74-106); Potassium 4.3 mmol/L (3.5-5.1); Sodium Level 140 mmol/L (136-145)
[2019-07-15] VITALS (18 sets, daily range): BP systolic 104–177; BP diastolic 55–97; PULSE 66–78; RESP 12–25; TEMP 36–36.9; O2SAT 92–97; BMI 44.4
[2019-07-15 00:01] LABS: Allen Test POS; Base Excess 2 mmol/L (-2 to +2); Bicarbonate 28.1 mmol/L (22-26); Blood Gas Specimen Type ART; EPAP 6; FI02 50; IPAP 15; PO2 116 mmHG (75-100); RR 12; SITE L Radial; SO2 98 % (95-99); Time Given 2348; Total Carbon Dioxide 30 mmol/L; pCO2 58.5 mmHg (35-45); pH 7.29 (7.35-7.45)
[2019-07-15 00:08] LABS: BNP,B-Type NATRIURETIC PEPTIDE 202.3 pg/mL (0-100)
--- NOTE | 2019-07-15 00:14 | CT_ITS ---
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 TECHNIQUE: CT angiogram images of the chest were obtained with 100 mL Isovue-370 IV contrast as per pulmonary angiogram protocol. 3D MIP images used to aid in evaluation for pulmonary embolism. Number of images including paperwork: [phone] A radiation dose optimization technique was used for this scan. COMPARISON: None FINDINGS: PULMONARY ARTERIES: No pulmonary arterial filling defects. AORTA AND GREAT VESSELS: Unremarkable. HEART/PERICARDIUM: Moderately enlarged. Coronary calcifications. Aortic valve prosthesis. MEDIASTINUM: Unremarkable. ADENOPATHY: No pathologic appearing adenopathy. THYROID: 11 mm low-density right thyroid lobe nodule. LUNG PARENCHYMA: Interstitial septal thickening and groundglass opacities, right greater than left and most pronounced in the upper lobes. PLEURAL SPACES: Small right pleural effusion. UPPER ABDOMEN: 1.9 x 0.9 cm left adrenal nodule, nonspecific by density measurement. OSSEOUS AND SOFT TISSUE STRUCTURES: No acute skeletal findings. Degenerative changes. CT/CTA Chest W/WO Contrast IMPRESSION: 1. No pulmonary embolus detected. 2. Interstitial infiltrates, possibly asymmetric edema, pneumonia or other cause of interstitial infiltrate. Individualized dose optimization techniques were used for this CT. at 0209 Reported and signed by: Maryuri Angel MD Electronically Signed: Maryuri Angel MD at 2:09 EST Tel , Service support ,
--- NOTE | 2019-07-15 00:17 | ED.VISSUMM ---
- ER Visit Summary Date of Service: 07/15/19 Chief Complaint: Shortness of breath and chest tightness History of Present Illness: The patient is a 69 M with shortness of breath and chest tightness. Symptoms started about an hour prior to arrival. Nothing seemed to bring them on or make them worse. He took nitro with no improvement. EMS found him to have a pulse ox of 50% on room air, and he was started on CPAP. Repeat pulse ox was 91%, and he was feeling better. He denies any history of CHF, COPD, PE. He does have a history of coronary disease with stents and bypass. He is on aspirin and Plavix. Former smoker. Physical Examination: Afebrile and vital signs unremarkable except for a respiratory rate of 24. Patient appears mildly short of breath, speaking in brief sentences. Lungs are coarse rales bilaterally. Heart regular. Abdomen soft. Lower extremities show 1+ pitting edema, symmetric, nontender. Test Results: EKG showed sinus rhythm at a rate of 75 with nonspecific T wave changes and incomplete left bundle branch block pattern. White count 14.6, hemoglobin 16.9, glucose 137, BUN 20, troponin normal, BNP 202. pH 7.29, CO2 58.5, O2 116. Chest x-ray showed chronic changes, enlarged cardiac silhouette, and findings suggestive of COPD. Emergency Department Course and Treatment: Patient presents with chest pain, shortness of breath, hypoxia, coarse breath sounds, and edema. There was concern for CHF. He was treated with aspirin and nitroglycerin topical. He was placed on BiPAP. He did well on BiPAP and was increasingly comfortable. He had normal vitals on reevaluation. X-ray and BNP were not consistent with CHF. He had an echo about a year ago that showed an ejection fraction of 45%. He may have some underlying COPD and was treated with Solu-Medrol. White count 14.6, but he has no other infectious symptoms, fevers, etc. Troponin normal. Patient has a respiratory acidosis. No signs of pneumonia, heart failure. He may have some underlying COPD. I was concerned with the acuity of this and the level of hypoxia. CTA was ordered. There was no PE. He has bilateral edema versus infiltrates on the right greater than the left. Not convinced that he has a sudden onset of pneumonia. He does not have fevers, cough, sputum. I discussed this with the hospitalist and we will not administer antibiotics at this time. Patient is stable and doing well on BiPAP. He will be admitted to the PCU. Treatment Plan: As above Disposition: Admit Impression: Hypoxic respiratory failure This note was generated with [employer] dictation software. It may contain incorrect words, spelling, and punctuation that were not noted in review of the chart prior to signing ED Disposition - Plan for ED Patient: Referrals: Koko Hamilton MD [Primary Care Provider] -
[2019-07-15] MEDS: MethylPREDNISolone 125 MG/2 ML Vial IV (00:42)
--- NOTE | 2019-07-15 05:24 | HP.PCM_ITS ---
History of Present Illness Date of Admission: 07/15/19 Chief Complaint: shortness of breath, chest pain The patient is a 69 year old M with a PMH as outlined. He was admitted via the ED on 07/14/2019 with a complaint of acute onset of shortness of breath. He was in bed ~ 9pm on the day of presentation when he suddenly became short of breath. He had associated chest pain which was pressurelike, with no aggravating or relieving factors. He had a cough, no dizziness or lightheadedness, palpitations, diarrhea or vomiting. Review of systems is otherwise negative. [] Past Medical History Past Medical History (Chronic Problems): Chronic Problems (Last Reviewed 12/22/18 @ 16:02 by Danica Savage) Presence of stent in coronary artery (Chronic ~03/03/14) PTCA/ANY to mid RCA 03/18/11 @ [facility]; PTCA/ANY to the mid RCA 06/20/11 @ [facility]; PTCA/ANY to diagonal branch of LAD 03/03/14 @ [facility] History of aortic valve replacement with bioprosthetic valve (Chronic ~01/09/11) 29mm Medtronic tissue valve 01/09/11 @ [facility] Pure hypercholesterolemia (Chronic) Essential hypertension (Chronic) Atherosclerosis of [place] coronary artery of [place] heart without angina pectoris (Chronic) S/P CABG with MERRITT to LAD, SVG to OM, and SVG to RCA in December 2010; PCI to RCA and diagonal branch; Medical History: Medical History (Last Reviewed 12/22/18 @ 16:02 by Danica Savage) Presence of stent in coronary artery (Chronic) Onset Date: ~03/03/14 Z95.5 PTCA/ANY to mid RCA 03/18/11 @ [facility]; PTCA/ANY to the mid RCA 06/20/11 @ [facility]; PTCA/ANY to diagonal branch of LAD 03/03/14 @ [facility] Pure hypercholesterolemia (Chronic) E78.00 Essential hypertension (Chronic) I10 Atherosclerosis of [place] coronary artery of [place] heart without angina pectoris (Chronic) I25.10 S/P CABG with MERRITT to LAD, SVG to OM, and SVG to RCA in December 2010; PCI to RCA and diagonal branch; Benign prostate hyperplasia Allergies hydrocodone Allergy (Verified 07/14/19 23:38) rash rash morphine Allergy (Verified 07/14/19 23:38) Vomiting Home Medications: Ambulatory Orders Medication Instructions Recorded clopidogrel 75 mg tablet 75 mg PO QDAY 11/23/17 lysine 500 mg tablet 500 mg PO QDAY 11/23/17 metformin 1,000 mg tablet 1,000 mg PO BID 11/23/17 multivitamin,nl-xkab-rgirayen 1 tab PO QDAY 11/23/17 ascorbic acid (vitamin C) 500 mg 500 mg PO DAILY 07/08/18 tablet aspirin 81 mg tablet,delayed 81 mg PO DAILY 07/08/18 release calcium carbonate-vitamin D3 600 1 tab PO BID 07/08/18 mg (1,500 mg)-800 unit tablet omega-3 fatty acids 1,000 mg 1,000 mg PO BID cap 07/08/18 capsule vitamin E (dl, acetate) 400 unit 400 unit PO DAILY 07/08/18 capsule docusate sodium 50 mg capsule 50 mg PO DAILY 12/22/18 glimepiride 1 mg tablet 1 mg PO QAM 12/22/18 lisinopril 20 mg tablet 20 mg PO DAILY 12/22/18 rosuvastatin 5 mg tablet 5 mg PO .4xweek tab 12/22/18 sennosides 8.6 mg tablet 8.6 mg PO DAILY tab 12/22/18 tamsulosin 0.4 mg capsule 0.4 mg PO DAILY 12/22/18 nitroglycerin 0.4 mg sublingual 0.4 mg SUBLINGUAL Q5-15M PRN #25 07/13/19 tablet tab Dapagliflozin Propanediol [Farxiga] 10 mg PO DAILY 07/14/19 Isosorbide Mononitrate [Isosorbide 60 mg PO QDAY 07/14/19 Mononitrate ER] Furosemide [Lasix] 20 mg PO QDAY 07/15/19 Metoprolol Tartrate [Lopressor 100 mg PO BID 07/15/19 (beta yohan)] Potassium Chloride [K-Tab ER] 10 meq PO QDAY 07/15/19 Surgical History: Surgical History (Last Reviewed 12/22/18 @ 16:02 by Danica Savage) History of aortic valve replacement with bioprosthetic valve (Chronic) Onset Date: ~01/09/11 Z95.3 29mm Medtronic tissue valve 01/09/11 @ [facility] Hx of CABG (Resolved) Onset Date: ~01/09/11 Z95.1 CABG x4- MERRITT to LAD, SVG to OM, and SVG to RCA 01/09/11 @ [facility] Presence of coronary angioplasty implant and graft Onset Date: ~03/03/14 Z95.5 PTCA/ANY to mid RCA 03/18/11 @ [facility]; PTCA/ANY to the mid RCA 06/20/11 @ [facility]; PTCA/ANY to diagonal branch of LAD 03/03/14 @ [facility] History of right hip replacement Onset Date: 03/28/09 Z96.641 History of tonsillectomy Z90.89 Surgical History: total hip arthroplasty Smoking Status: Former smoker Tobacco Use: Non-smoker Alcohol: None Drugs: None - *Family History Maternal Family History: Family History (Last Reviewed 12/22/18 @ 16:03 by Danica Savage) Father CAD (coronary artery disease) Mother CAD (coronary artery disease) Review of Systems Constitutional: Denies: Anorexia, Chills, Fever, Malaise, Weight Change HEENT: Denies: Head Aches, Sinus Congestion, Sinus Drainage Cardiovascular: Reports: Chest Pain. Denies: Chest Pressure, Chest Tightness, Heaviness, Light Headedness, Orthopnea, Palpitations, Paroxysmal Noc. Dyspnea, Syncope Respiratory: Reports: Shortness of Breath, Shortness of breath at rest, Shortness of breath upon exertion. Denies: Cough, Sputum production Gastrointestinal: Denies: Abdominal Pain, Nausea, Vomiting Genitourinary: Denies: Dysuria Musculoskeletal: Denies: Joint Pain, Joint Tenderness Skin: Denies: Rash, Wounds Neurological: Denies: Numbness, Tingling, Focal weakness Psychiatric: Denies: Anxiety, Depression, Homicidal Ideations, Suicidal Ideations Hematologic/ Lymphatic: Denies: Easy Bruising, Easy Bleeding VTE Information - Inpt Only VTE Present on Admission: No VTE Pharm Prophylaxis ordered?: Yes - Physical Exam Vitals/I&O's: Vital Signs Temp Pulse Resp BP Pulse Ox 98.4 F 77 22 H 164/82 H 94 07/15/19 04:41 07/15/19 04:41 07/15/19 04:41 07/15/19 04:41 07/15/19 04:41 Oxygen Delivery Method Bi-pap Weight: 327 lb 6.183 oz Body Mass Index (BMI) 44.4 General: Alert, Oriented x3, Cooperative, No apparent distress, - - obese HEENT: Atraumatic, PERRLA, EOMI, Normocephalic Oral: Moist Mucosa Neck: Supple, No JVD, Negative Carotid Bruits Lungs: - - decreased breath sounds bibasally, few coarse crackles bibasally. on BIPAP Cardiovascular: Regular rate, Regular Rhythm, Normal S1, Normal S2, No murmurs Abdomen: Bowel Sounds Present, Soft, Non Tender, Non-Distended, No Hepato- splenomegaly Extremities: No clubbing, No cyanosis, No edema, Capillary Refill Less than 3 Seconds Skin: No rashes, No breakdown Musculoskeletal: No Tenderness to Palpation of Joints or Extremities Lymphatic: No Cervical, Supraclavicular, or Inguinal Adenopathy Neurological: Cranial nerves II-XII grossly intact, Neuro grossly intact, Motor Exam 5/5 strength throughout Psych/Mental Status: Normal Affect, Appropriate, Alert and oriented to time, place, person, mood and affect Laboratory Results 07/14/19 23:25: WBC 14.6 H, RBC 6.14, Hgb 16.9 H, Hct 54.9 H, MCV 89.4, MCH 27.5, MCHC 30.8 L, RDW Std Deviation 47.7 H, RDW Coeff of Jacquelyn 15.1 H, Plt Count 208, MPV 10.4, Immature Gran % (Auto) 0.500, Neut % (Auto) 76.1 H, Lymph % (Auto) 10.5 L, [place] % (Auto) 9.9, Eos % (Auto) 2.5, Baso % (Auto) 0.5, Absolute Neuts (auto) 11.2 H, Absolute Lymphs (auto) 1.53, Nucleated RBC % 0 07/14/19 23:25: Sodium 140, Potassium 4.3, Chloride 107, Carbon Dioxide 28.0, Anion Gap 5, BUN 20 H, Creatinine 1.21, Estim Creat Clear Calc 61.37, Est GFR (MDRD) Af Amer 76, Est GFR (MDRD) Non-Af 63, BUN/Creatinine Ratio 16.5, Glucose 137 H, Calcium 9.0, Troponin I < 0.015 07/14/19 23:25: B-Natriuretic Peptide 202.3 H 07/14/19 23:55: Specimen Type ART, Sample Site L Radial, pH 7.29 L, Bicarbonate Actual 28.1 H, POC Total CO2 30, Base Excess 2, O2 Saturation 98, O2 % 50, ABG pCO2 58.5 H, ABG pO2 116 H, Pastor Test POS, Respiration Rate 12, O2 Delivery Device Bi / C PAP, EPAP 6, IPAP 15, Blood Gas Notified Whom ED MD, Blood Gas Notified Time 2344 Diagnostic Data Chest X-Ray 07/14/19 23:25 IMPRESSION: Probable COPD with mild fibrosis. Cardiomegaly. No gross acute chest disease. Electronically Signed: Justus Deal MD at 23:47 EST , Service support , Chest CTA 07/15/19 00:14 IMPRESSION: 1. No pulmonary embolus detected. 2. Interstitial infiltrates, possibly asymmetric edema, pneumonia or other cause of interstitial infiltrate. Individualized dose optimization techniques were used for this CT. at 0209 Reported and signed by: Maryuri Angel MD Electronically Signed: Maryuri Angel MD at 2:09 EST Tel , Service support , Current Medications Sodium Chloride () 10 - 40 ml IV UD PRN PRN Reason: SALINE FLUSH Assessment/Plan All Active Problems (Last Reviewed 12/22/18 @ 16:02 by Danica Savage) Hx of CABG (Resolved ~01/09/11) 69 y/o admitted with a complaint of shortness of breath and chest pain. 1. Acute on chronic HFrEF * admit to PCU with telemetry * BNP was 203 * CTA of chest showed no PE, but showed interstitial infiltrates, possibly asymmetric edema, pneumonia or other cause of interstitial infiltrate. * CXR showed probable COPD with mild fibrosis and cardiomegaly but no gross acute chest disease. * wbc is 14 * start diuresis with IV lasix 40mg bid; strict input output chart * fluid restriction to 1500 cc daily. * last 2D echo(08/03): EF of 45%, with indeterminate diastolic function, and mildly enlarge left atrium, with borderline enlarged aortic root, with stable bioprosthetic aortic valve apparatus * repeat 2D echo * will cycle troponins * even though wbc is 14, patient has no cough and no fever, and shortness of breath was acute. I don't suspect a pneumonia at this time,so will hold off on antibiotics. * BiPAP PRN, breathing treatments. Titrate oxygen to maintain saturation above 90%. * 2. Chest pain to rule out ACS: * Initial troponin was negative and EKG showed no acute ST changes. * We will cycle troponins. * If troponins are negative, for stress test in the morning. 3. CAD s/p stents and CABG. On aspirin and Plavix. Also on statin and lisinopril and metoprolol. 4. Type 2 diabetes mellitus: On dapagliflozin and glimepiride. Insulin sliding scale. Accu-Cheks AC at bedtime. 5. Hypertension: On metoprolol and lisinopril. 6. History of aortic stenosis status post aortic valve replacement bioprosthetic valve: Stable. 7. History of EILEEN: On CPAP at home. DVT prophylaxis: Lovenox. CODE STATUS: Full code * Patient counseled extensively about different types of CODE STATUS including full code, DNR CCA and DNR CCA. Patient elects to be full code. Total jozq-rv-[id number] time 16 minutes. Code Visit Inpatient E&M: 41108 Init Hosp L3 Procedures: 50898 Advncd Care Plan 30 Min
--- NOTE | 2019-07-15 05:55 | ECHOCS_ITS ---
Reason For Study: Dyspnea/SOB Procedure This was a 2D Doppler, Color Flow transthoracic echocardiogram. The study was technically difficult. Contrast injection was performed. Exam performed portable in patient room. Left Ventricle Normal LV size. Mild segmental systolic dysfunction (see wall motion). The estimated ejection fraction is 40 %. There is evidence of diastolic dysfunction. Anterio-Basal: Hypokinetic. Basal inferoseptal: Hypokinetic. Mid-Anterior : Hypokinetic. Mid-Posterior: Hypokinetic. Mid-Inferior: Hypokinetic. Mid-inferoseptal : Hypokinetic. Mid-anteroseptal : Hypokinetic. Anterior [place] : Hypokinetic. Inferior [place] : Hypokinetic. Septal [place] : Hypokinetic. Right Ventricle Normal RV size. Normal systolic function. Atria The left atrium is mildly enlarged. Normal right atrium. No doppler evidence for ASD. Mitral Valve There is mild to moderate mitral annular calcification. Extension of the mitral annular calcification onto the posterior mitral valve leaflet. Trivial mitral valve insufficiency. Tricuspid Valve The tricuspid valve is not well visualized. Trivial tricuspid valve insufficiency. Unable to estimate RV systolic pressure/pulmonary artery pressure due to technically difficult study. Aortic Valve The aortic valve is not well visualized. Pulmonic Valve The pulmonic valve is not well visualized. Great Vessels The aortic root is not well visualized. Pericardium/Pleural No pericardial effusion. Medication Diluted definity 3ml given slow IV push to enhance endocardial definition. MMode/2D Measurements & Calculations LVIDd: 5.6 cm FS: 22.4 % LVOT diam: 2.2 cm LVIDs: 4.3 cm LVOT area: 3.7 cm2 LAV(MOD-bp): 104.5 ml LA A4 area: 30.7 cm2 LAV(MOD-bp) Indexed: 39.8 ml/m2 LAV(MOD-sp2): 85.0 ml LAV(MOD-sp4): 122.1 ml Time Measurements MV dec time: 0.17 sec Doppler Measurements & Calculations MV E max slick: 125.7 cm/sec Lat Peak E' Slick: 6.1 cm/sec Med Peak E' Slick: 4.7 cm/sec MV A max slick: 65.9 cm/sec E/E' lat: 20.7 E/E' med: 26.7 MV E/A: 1.9 MV V2 max: 147.3 cm/sec MV P1/2t max slick: 148.3 cm/sec Ao V2 max: 344.8 cm/sec MV max P.7 mmHg MV P1/2t: 95.8 msec Ao max P.5 mmHg MV V2 mean: 65.6 cm/sec Ao V2 mean: 247.4 cm/sec MV mean P.2 mmHg MV dec slope: 453.3 cm/sec2 Ao mean P.9 mmHg MV V2 VTI: 47.1 cm MVA(P1/2t): 2.3 cm2 Ao V2 VTI: 89.3 cm MVA(VTI): 1.9 cm2 BADI(I,D): 0.99 cm2 ABDI(V,D): 1.1 cm2 LV V1 max: 105.2 cm/sec SV(LVOT): 88.6 ml PA V2 max: 101.1 cm/sec LV V1 max P.4 mmHg LV V1 mean P.3 mmHg LV V1 mean: 69.5 cm/sec LV V1 VTI: 23.9 cm Interpretation Summary The study was technically difficult. Contrast injection was performed. Mild segmental systolic dysfunction (see wall motion). The estimated ejection fraction is 40 %. The left atrium is mildly enlarged. There is mild to moderate mitral annular calcification. Extension of the mitral annular calcification onto the posterior mitral valve leaflet. Trivial mitral valve insufficiency. Trivial tricuspid valve insufficiency. Unable to estimate RV systolic pressure/pulmonary artery pressure due to technically difficult study. There is evidence of diastolic dysfunction. The aortic valve is not well visualized, however, based upon the 2D echocardiographic imgaes obtained there appears to be a stable bioprosthetic aortic valve apparatus with spectral Doppler findings compatible with moderate aortic valve stenosis. Ordering Physician: Flora Maldonado Referring Physician: Koko Hamilton Performed By: Josh Alberts RCS
[2019-07-15] MEDS: Insulin Lispro 100 UNIT/ML INSULN.PEN SC ×4 (06:18→21:02)
[2019-07-15 06:19] LABS: Anion Gap 7 (5-15); BUN 21 mg/dL (7-18); BUN/Creat Ratio 18.9 RATIO (10-20); Calcium,Total 8.7 mg/dL (8.5-10.1); Chloride 106 mmol/L (98-107); Creatinine, Serum 1.11 mg/dL (0.70-1.30); EST Glomerular Filtration Rate 70 mL/min (>60); Est Glom Filt Rate - Afr Amer 85 mL/min (>60); Estimated Creatinine Clearance 68.94 ml/min; Glucose 160 mg/dL (74-106); Potassium 5.2 mmol/L (3.5-5.1); Sodium Level 138 mmol/L (136-145)
[2019-07-15 07:01] LABS: Bedside Glucose 155 mg/dL (70-110)
--- NOTE | 2019-07-15 07:15 | NURSING ---
Pt states he is refusing stress test if that were to be ordered for the day.
[2019-07-15] MEDS: Multivitamins,Ther W-Minerals Tablet 1 TABLET PO (08:16)
[2019-07-15] MEDS: Glimepiride 1 MG Tablet PO (08:16)
[2019-07-15 08:18] LABS: Absolute Lymphocyte Count 0.65 X10^3/uL (0.83-4.51); Absolute Neutrophil Count 9.5 X10^3/uL (2.0-7.7); Basophil# 0.02 X10^3/uL; Basophil% 0.2 % (0-1); Hematocrit 55.4 % (40-54); Hemoglobin 17.2 g/dL (13.0-16.5); Lymphocyte # 0.65 X10^3/ul (4.0); Lymphocyte % 6.3 % (19-41); Mean Corpuscular Hgb 27.3 pg (27.0-32.0); Mean Corpuscular Volume 87.8 fL (80-94); Mean Platelet Vol. 9.9 fl (6.2-12.0); Monocyte# 0.08 X10^3/uL; Monocyte% 0.8 % (0-10); NRBC Flagged by Analyzer 0 % (0-5); Neutrophil # 9.51 X10^3/uL (2.7-7.7); Neutrophil % 92.1 % (47-70); Platelet Count 190 K/mm3 (150-450); RBC Distribution Width CV 14.9 % (11.6-14.6); RBC Distribution Width SD 46.4 fl (35.1-43.9); Red Blood Count 6.31 M/mm3 (4.6-6.2); White Blood Count 10.3 K/mm3 (4.4-11.0)
[2019-07-15] MEDS: Clopidogrel Bisulfate 75 MG Tablet PO (09:40)
[2019-07-15] MEDS: Ascorbic Acid 500 MG Tablet PO (09:40)
[2019-07-15] MEDS: Aspirin E.C. 81 MG Tablet PO (09:40)
[2019-07-15] MEDS: Isosorbide Mononitrate 60 MG Tablet PO (09:41)
[2019-07-15] MEDS: Metoprolol Tartrate 100 MG Tablet PO ×2 (09:41→21:01)
[2019-07-15] MEDS: Lisinopril 20 MG Tablet PO (09:41)
[2019-07-15] MEDS: Docusate Sodium 100 MG/10 ML UDC 50 MG PO (09:41)
[2019-07-15] MEDS: Tamsulosin HCl 0.4 MG Capsule PO (09:41)
[2019-07-15] MEDS: Vitamin E 400 UNITS Capsule PO (09:41)
[2019-07-15] MEDS: Empagliflozin 25 MG Tablet PO (09:42)
[2019-07-15] MEDS: Calcium Carb/Vitamin D 1 TABLET Tablet PO ×2 (09:43→21:01)
[2019-07-15] MEDS: Senna Tablet 1 TABLET PO (09:45)
[2019-07-15] MEDS: Furosemide 40 MG/4 ML Vial IV ×2 (09:45→16:52)
[2019-07-15 11:15] LABS: Bedside Glucose 267 mg/dL (70-110)
--- NOTE | 2019-07-15 11:20 | CASEMGMT ---
[facility] EVENT MARKETING COORDINATOR CM to room to meet with patient for initial transition planning/care coordination assessment. SCARLET ATWOOD introduced self and role at [facility]. Pt voices understanding and consents to assessment at this time. Pt sitting on edge of bed in no distress at this time. at bedside. Pt is A/O at this time and answers all questions appropriately. Care providers, pharmacy, and demographics verified/updated at this time. PCP: Dr Koko Hamilton Specialists: Dr Wu--cardiology Preferred Pharmacy: [facility] Prescription Benefit: Yes Living Will/HPOA: Has both LW and Healthcare POA, who is his , Joann. LNOK: , Joann Living Arrangements: Lives in one-story home w/his . Independent prior to admission. DME: States has the following DME: Glucometer, CPAP through [employer]. Does not have home O2 . Given list of local DME companies. Preference is [employer]. Pt states he also has available/but does not use: walker, cane, W/C. Pt states no need for further DME at this time. HHC/SNF: No history of SNF. Has had HHC in the past after hip surgery. Pt wishes to return home and states has no concerns with going home at time of discharge. Pt states does not smoke or drink ETOH. CM to follow for home oxygen needs and any further discharge planning/needs. Pt voices no further concerns/needs at this time. Advised pt to ask for CM if any further questions/concerns/needs arise. Voices understanding. PLAN: Home. May need home O2 testing completed prior to d/c. If qualifies for Home O2, preference is [employer]. Batsheva HINOJOSAN SCARLET ATWOOD
--- NOTE | 2019-07-15 11:33 | PCM.PN.BLA ---
Progress Note Patient is a 69-year-old gentleman who presented with progressive shortness of breath and assessment of acute congestive heart failure made admitted to monitored bed for further management GENERAL: cooperative HEENT: Atraumatic; EYES; Anicteric, Normal Conjunctiva NECK; supple, normal thyroid, RESPIRATORY: Diminished to auscultation CARDIOVASCULAR: Regular S1 S2, GI: soft, normoactive bowel sounds, : No Renal angle tenderness; EXTREMITIES: No edema, no clubbing, MUSCULOSKELETAL: no muscle waisting NEURO: Awake; no lateralizing signs. SKIN: No Rash PSYCH; Flat affect . Acute on chronic congestive heart failure with reduced ejection fraction ?Admitted to monitored bed managed with IV Lasix in addition to strict input and output fluid restriction with consultation placed to cardiology 2. Chest pain ?Admitted to monitored bed ordered serial cardiac enzymes to rule out NV 3. Coronary artery disease ?With previous stents and CABG patient is on dual antiplatelet therapy in addition to statin SYLVIA inhibitor is on beta-blockers 4. Diabetes mellitus type 2 Controlled continue patient home medication in addition to Accu-Cheks before meals and at bedtime with sliding scale coverage 5. Hypertension ~ blood pressure controlled, home medications continued with dose adjustment as needed 6. Obstructive sleep apnea ?On Pap at home 7. Valvular heart disease ?With history of aortic stenosis with previous aortic valve replacement with bioprosthetic material currently remained stable 8. DVT prophylaxis - Lovenox STROKE Vital Signs/Narrative: Vital Signs Temp Pulse Resp BP Pulse Ox 07/15/19 09:41 72 07/15/19 09:34 97.9 F 72 18 177/79 H 96 07/15/19 08:10 97.9 F 72 20 H 162/97 H 92
[2019-07-15 17:15] LABS: Bedside Glucose 159 mg/dL (70-110)
--- NOTE | 2019-07-15 18:36 | PCM.CONS.C ---
Problem List (1) CHF (congestive heart failure) Status: Acute Qualifiers: Heart failure type: systolic Heart failure chronicity: acute on chronic Qualified Code(s): I50.23 - Acute on chronic systolic (congestive) heart failure (2) Cardiomyopathy Status: Chronic (3) CAD (coronary artery disease) Status: Chronic Qualifiers: Coronary Disease-Associated Artery/Lesion type: [place] artery [place] vs. transplanted heart: [place] heart (4) Presence of stent in coronary artery Status: Chronic Comment: PTCA/ANY to mid RCA 03/18/11 @ [facility]; PTCA/ANY to the mid RCA 06/20/11 @ [facility]; PTCA/ANY to diagonal branch of LAD 03/03/14 @ [facility] (5) Hx of CABG Status: Resolved Comment: CABG x4- MERRITT to LAD, SVG to OM, and SVG to RCA 01/09/11 @ [facility] (6) History of aortic valve replacement with bioprosthetic valve Status: Chronic Comment: 29mm Medtronic tissue valve 01/09/11 @ [facility] (7) Pure hypercholesterolemia Status: Chronic (8) Essential hypertension Status: Chronic Reason for Consult Date of Consultation: 07/15/19 History of Present Illness: The patient is a 69 year old white male with a past medical history of CAD, ischemic mediated cardiomyopathy, chronic systolic CHF, PCI, CABG, status post AVR-bioprosthetic, hyperlipidemia, and hypertension who presents for findings of acute on chronic systolic mediated CHF. The patient states for some time now he has been feeling somewhat more short of breath and dyspneic. However he states last night it became very prominent. He asked his spouse to call the EMS and have him brought to the hospital. He was evaluated and thought to have findings of acute on chronic systolic mediated CHF. He states that he was feeling full in the chest. He was having more difficulty breathing. He did not necessarily have chest discomfort as he has had in the past with respect to his underlying CAD process. He did not complain of nausea, emesis, or diaphoresis. He states he has fat legs but did not think they were becoming edematous. He denies near syncope or syncope. He does note that he uses nitroglycerin sublingual at home on a as needed basis. This is not new for him. However he states his use increased recently somewhat. His troponin I levels have been negative. His BNP level was somewhat elevated. His ECG demonstrated sinus rhythm with the appearance of an incomplete left bundle branch block and nonspecific ST and T wave abnormality. His chest x-ray suggested findings compatible with CHF. He was placed in the PCU for further evaluation and care. He has been treated with diuretic therapy. He states overall since his diuresis he feels he is breathing so much better than he has over the last few weeks and/or 1 to 2 months. [] Past Medical History Allergies/Adverse Reactions: Allergies hydrocodone Allergy (Verified 07/14/19 23:38) rash rash morphine Allergy (Verified 07/14/19 23:38) Vomiting Home Medications: Ambulatory Orders Medication Instructions Recorded clopidogrel 75 mg tablet 75 mg PO QDAY 11/23/17 lysine 500 mg tablet 500 mg PO QDAY 11/23/17 metformin 1,000 mg tablet 1,000 mg PO BID 11/23/17 multivitamin,fj-wpef-[id number] 1 tab PO QDAY 11/23/17 ascorbic acid (vitamin C) 500 mg 500 mg PO DAILY 07/08/18 tablet aspirin 81 mg tablet,delayed 81 mg PO DAILY 07/08/18 release calcium carbonate-vitamin D3 600 1 tab PO BID 07/08/18 mg (1,500 mg)-800 unit tablet omega-3 fatty acids 1,000 mg 1,000 mg PO BID cap 07/08/18 capsule vitamin E (dl, acetate) 400 unit 400 unit PO DAILY 07/08/18 capsule docusate sodium 50 mg capsule 50 mg PO DAILY 12/22/18 glimepiride 1 mg tablet 1 mg PO QAM 12/22/18 lisinopril 20 mg tablet 20 mg PO DAILY 12/22/18 rosuvastatin 5 mg tablet 5 mg PO QHS tab 12/22/18 sennosides 8.6 mg tablet 8.6 mg PO DAILY tab 12/22/18 tamsulosin 0.4 mg capsule 0.4 mg PO DAILY 12/22/18 nitroglycerin 0.4 mg sublingual 0.4 mg SUBLINGUAL Q5-15M PRN #25 07/13/19 tablet tab Dapagliflozin Propanediol [Farxiga] 10 mg PO DAILY 07/14/19 Isosorbide Mononitrate [Isosorbide 60 mg PO QDAY 07/14/19 Mononitrate ER] Furosemide [Lasix] 20 mg PO QDAY 07/15/19 Metoprolol Tartrate [Lopressor 100 mg PO BID 07/15/19 (beta yohan)] Potassium Chloride [K-Tab ER] 10 meq PO QDAY 07/15/19 Past Medical History (Chronic Problems): Chronic Problems (Last Reviewed 12/22/18 @ 16:02 by Danica Savage) Cardiomyopathy (Chronic) CAD (coronary artery disease) (Chronic) Presence of stent in coronary artery (Chronic ~03/03/14) PTCA/ANY to mid RCA 03/18/11 @ [facility]; PTCA/ANY to the mid RCA 06/20/11 @ [facility]; PTCA/ANY to diagonal branch of LAD 03/03/14 @ [facility] History of aortic valve replacement with bioprosthetic valve (Chronic ~01/09/11) 29mm Medtronic tissue valve 01/09/11 @ [facility] Pure hypercholesterolemia (Chronic) Essential hypertension (Chronic) Atherosclerosis of [place] coronary artery of [place] heart without angina pectoris (Chronic) S/P CABG with MERRITT to LAD, SVG to OM, and SVG to RCA in December 2010; PCI to RCA and diagonal branch; Surgical History: total hip arthroplasty - *Family History Maternal Family History: Family History (Last Reviewed 12/22/18 @ 16:03 by Danica Savage) Father CAD (coronary artery disease) Mother CAD (coronary artery disease) Smoking Status: Former smoker Tobacco Use: Non-smoker Alcohol: None Drugs: None Review of Systems - Review of Systems General: Denies: Fever, Night Sweats, Fatigue Cardiovascular: Reports: Chest Discomfort, Shortness of Breath, Shortness of Breath at Rest, Shortness of Breath with Exertion, Peripheral Edema. Denies: Orthopnea, PND, Palpitations, Lightheadedness, Dizziness, Near Syncope, Syncope Respiratory: Reports: Cough, Shortness of Breath. Denies: Sputum Production, Hemoptysis Gastrointestinal: Denies: Hematemesis, Hematochezia, Melena Genitourinary: Denies: Dysuria, Hematuria Skin: Denies: Rash Subjectve: This is a 69-year-old white male who appears to be resting reasonably comfortably at the moment in no acute distress. Objective: Vital Signs Temp Pulse Resp BP Pulse Ox 98.3 F 72 18 116/59 L 92 07/15/19 15:34 07/15/19 15:34 07/15/19 15:34 07/15/19 15:34 07/15/19 15:34 Oxygen Flow Rate (L/min) 6 Oxygen Delivery Method Nasal Cannula Weight: 327 lb 6.183 oz Body Mass Index (BMI) 44.4 Intake and Output for Last 24 Hours 07/13/19 07/14/19 07/15/19 23:59 23:59 23:59 Intake Total 860 / 860 Output Total 3580 / 3580 Balance -2720 / -2720 General: Awake, Alert, Oriented x 3, Cooperative, No Acute Distress, Obese HEENT: Atraumatic, Normocephalic, PERRL, EOMI, Sclera Non Icteric Oral: Moist Mucosa Neck: Supple, Good ROM, No JVD Lungs: Diminished Rupesh Bases Cardiovascular: Regular Rhythm, Normal S1, Normal S2 Abdomen: Bowel Sounds Present, Soft, Non Tender Extremities: Mild RLE Edema, Mild LLE Edema Psych/Mental Status: Appropriate 07/14/19 23:25: WBC 14.6 H, RBC 6.14, Hgb 16.9 H, Hct 54.9 H, MCV 89.4, MCH 27.5, MCHC 30.8 L, Plt Count 208, MPV 10.4, Immature Gran % (Auto) 0.500, Neut % (Auto) 76.1 H, Lymph % (Auto) 10.5 L, [place] % (Auto) 9.9, Eos % (Auto) 2.5, Baso % (Auto) 0.5, Absolute Neuts (auto) 11.2 H, Nucleated RBC % 0 07/14/19 23:25: Sodium 140, Potassium 4.3, Chloride 107, Carbon Dioxide 28.0, Anion Gap 5, BUN 20 H, Creatinine 1.21, Est GFR (MDRD) Af Amer 76, Est GFR (MDRD) Non-Af 63, BUN/Creatinine Ratio 16.5, Glucose 137 H, Calcium 9.0, Troponin I < 0.015 07/14/19 23:25: B-Natriuretic Peptide 202.3 H 07/14/19 23:55: pH 7.29 L, Bicarbonate Actual 28.1 H, POC Total CO2 30, Base Excess 2, O2 Saturation 98, ABG pCO2 58.5 H, ABG pO2 116 H, Pastor Test POS 07/15/19 05:45: Sodium 138, Potassium 5.2 H, Chloride 106, Carbon Dioxide 25.0, Anion Gap 7, BUN 21 H, Creatinine 1.11, Est GFR (MDRD) Af Amer 85, Est GFR (MDRD) Non-Af 70, BUN/Creatinine Ratio 18.9, Glucose 160 H, Calcium 8.7, Troponin I < 0.015 07/15/19 08:00: WBC 10.3, RBC 6.31 H, Hgb 17.2 H, Hct 55.4 H, MCV 87.8, MCH 27.3, MCHC 31.0 L, Plt Count 190, MPV 9.9, Immature Gran % (Auto) 0.600, Neut % (Auto) 92.1 H, Lymph % (Auto) 6.3 L, [place] % (Auto) 0.8, Eos % (Auto) 0.0, Baso % (Auto) 0.2, Absolute Neuts (auto) 9.5 H, Nucleated RBC % 0 07/15/19 08:00: Troponin I < 0.015 07/15/19 11:27: Troponin I < 0.015 Rhythm: Sinus rhythm EKG: As noted above ECHO: 08-02-18 Interpretation Summary The study was technically difficult. Contrast injection was performed. Mild segmental systolic dysfunction (see wall motion). The estimated ejection fraction is 45 %. The left atrium is mildly enlarged. There is mild mitral annular calcification. Extension of the mitral annular calcification onto the posterior mitral valve leaflet. Trivial mitral valve insufficiency. The aortic valve is not well visualized, however, based upon the 2D echocardiographic imgaes obtained and spectral doppler information obtained, there appears to be a stable bioprosthetic aortic valve apparatus. Borderline enlarged aortic root. Diastolic function is indeterminate. Stress Test: 05-02-14 EXERCISE TOLERANCE TEST: The patient underwent pharmacologic (regadenoson) evaluation with a peak heart rate of 76 beats per minute (48% predicted maximum heart rate) and a peak blood pressure of 138/82 mmHg. The baseline ECG demonstrated sinus bradycardia with nonspecific ST and T-wave abnormality. The peak pharmacologic ECG demonstrated continued nonspecific ST and T-wave abnormality. There was an occasional PVC pretest, occasional PAC/PVC during infusion, and occasional PAC/PVC during recovery. There was no report of chest discomfort during pharmacologic infusion or recovery. The examination was discontinued secondary to completion of protocol. IMPRESSION: 1. Pharmacologic (regadenoson) evaluation. 2. Peak pharmacologic ECG with continued nonspecific ST and T-wave abnormality. 3. Occasional PVC pretest, occasional PAC/PVC during infusion, and occasional PAC/PVC during recovery. 4. Nuclear images pending. MYOCARDIAL PERFUSION IMAGING STUDY: TECHNIQUE: The patient was injected with 14.9 mCi of Tc99m Cardiolite and subsequently rest SPECT Cardiolite nuclear imaging was obtained in the horizontal long, vertical long, and short axes views. The patient underwent pharmacologic (regadenoson) evaluation with a peak heart rate of 76 beats per minute (48% predicted maximum heart rate) and a peak blood pressure of 138/82 mmHg. The patient was injected with 44.8 mCi of Tc99m Cardiolite and subsequently stress SPECT Cardiolite nuclear imaging was obtained in the horizontal long, vertical long, and short axes views. A gated Cardiolite study at peak stress was obtained. INTERPRETATION: Rest and stress SPECT Cardiolite nuclear imaging both demonstrate an element of extracardiac/hepatic and gastrointestinal tracer uptake near the inferior segments. Both images demonstrate diminished tracer uptake in portions of the basal anterior, anterolateral, and inferolateral segments which appears to extend into the mid segments and subsequently into the distal lateral inferolateral segments all of which appear to be more prominent following stress as opposed to rest. There are similar type findings on the resting and stress polar map images. There is notation of diminished end systolic thickening and brightening in the aforementioned mentioned areas. The gated Cardiolite study demonstrates myocardial thickening and inward wall motion. The reported LVEF is 50%. The aforementioned changes are potentially compatible with an area of previous myocardial injury/infarction in the basal towards mid inferolateral segments with associated myocardial ischemia involving portions of the basal towards mid anterior/anterolateral segments as well as the basal towards distal lateral/inferolateral segments. IMPRESSION: 1. Rest and stress SPECT Cardiolite nuclear imaging demonstrate myocardial perfusion changes appearing compatible with an area of previous myocardial injury/infarction involving portions of the basal towards mid inferolateral segments with associated changes compatible with myocardial ischemia involving portions of the basal to mid anterolateral segments as well as the basal towards distal lateral and inferolateral segments. 2. The gated Cardiolite study reports an LVEF of 50%. Cardiac Cath: May,: [facility] Summary: Patent MERRITT to the LAD, patent stents to the diagonal branch placed in February 2014, patent SVG to the OM with 50% lesion at the aortic anastomosis, patent stents to the mid RCA, SVG to the RCA known to be occluded CT Surgery: December,: MERRITT to the LAD, SVG to the OM, and SVG to the RCA Chest x-ray: As noted above: Please see official report Assessment/Plan 1. Acute on chronic systolic mediated CHF The patient has acute on chronic systolic mediated CHF. Based upon his history this may have been progressing for some time now and became more prominent last night. At the present time he is being monitored. He is being treated medically with IV diuretics. He has had improvement in his symptoms with diuresis. He will continue medical management with adjustment. 2. Ischemic mediated cardiomyopathy He does have an underlying ischemic mediated cardiomyopathy. In the past it has been mild. This can be reassessed with an echocardiogram based upon his ongoing acute symptoms, etc. This may help guide further evaluation and care. 3. CAD status post PCI status post CABG He has extensive underlying coronary artery disease/graft vessel disease. He has been evaluated in the past at [facility] in the cardiac catheterization laboratory. At the present time his troponin I levels are negative. He will continue to be monitored. He will continue medical therapy. He will have a follow-up echocardiogram in an attempt to reassess his left ventricular wall motion and systolic function. If the patient requires reevaluation in the cardiac catheterization laboratory then he should be considered for transfer back to [facility], based upon his complex cardiovascular disease process requiring tertiary care center evaluation/intervention in the past, for further evaluation and care. 4. Aortic valve replacement-bioprosthetic He does have a bioprosthetic aortic valve. He will need to be followed. An echocardiogram can reassess his valvular anatomy and function as best as possible. He will continue AHA antibiotic prophylaxis. 5. Hyperlipidemia He will continue risk factor modification medical therapy. 6. Hypertension His blood pressure can be followed. His medications can be adjusted as needed. Comment: The patient's case has been discussed and reviewed with the patient and his spouse. This note was generated using a voice recognition system and there may be incorrect words, spelling or punctuation that were not noted when reviewing the office note prior to saving.
--- NOTE | 2019-07-15 20:24 | CPS ---
pt on own cpap machine with 6L bled in
[2019-07-15] MEDS: Atorvastatin Calcium 10 MG Tablet PO (21:01)
[2019-07-15 21:46] LABS: Bedside Glucose 213 mg/dL (70-110)
[2019-07-16] VITALS (15 sets, daily range): BP systolic 102–140; BP diastolic 52–66; PULSE 56–76; RESP 15–17; TEMP 36.6–36.9; O2SAT 91–96
[2019-07-16 06:36] LABS: Bedside Glucose 127 mg/dL (70-110)
[2019-07-16 07:04] LABS: Anion Gap 7 (5-15); BUN 43 mg/dL (7-18); BUN/Creat Ratio 29.3 RATIO (10-20); Calcium,Total 8.6 mg/dL (8.5-10.1); Chloride 104 mmol/L (98-107); Creatinine, Serum 1.47 mg/dL (0.70-1.30); EST Glomerular Filtration Rate 51 mL/min (>60); Est Glom Filt Rate - Afr Amer 61 mL/min (>60); Estimated Creatinine Clearance 52.06 ml/min; Glucose 126 mg/dL (74-106); Potassium 4.3 mmol/L (3.5-5.1); Sodium Level 140 mmol/L (136-145)
[2019-07-16] MEDS: Glimepiride 1 MG Tablet PO (08:10)
[2019-07-16] MEDS: Multivitamins,Ther W-Minerals Tablet 1 TABLET PO (08:10)
[2019-07-16] MEDS: Docusate Sodium 100 MG/10 ML UDC 50 MG PO (10:14)
[2019-07-16] MEDS: Aspirin E.C. 81 MG Tablet PO (10:15)
[2019-07-16] MEDS: Tamsulosin HCl 0.4 MG Capsule PO (10:15)
[2019-07-16] MEDS: Isosorbide Mononitrate 60 MG Tablet PO (10:15)
[2019-07-16] MEDS: Vitamin E 400 UNITS Capsule PO (10:15)
[2019-07-16] MEDS: Calcium Carb/Vitamin D 1 TABLET Tablet PO ×2 (10:16→22:04)
[2019-07-16] MEDS: Ascorbic Acid 500 MG Tablet PO (10:16)
[2019-07-16] MEDS: Senna Tablet 1 TABLET PO (10:16)
[2019-07-16] MEDS: Clopidogrel Bisulfate 75 MG Tablet PO (10:17)
[2019-07-16] MEDS: Metoprolol Tartrate 100 MG Tablet PO ×2 (10:17→22:04)
[2019-07-16] MEDS: Enoxaparin 40 MG/0.4 ML Syringe SC (10:20)
[2019-07-16 11:11] LABS: Bedside Glucose 197 mg/dL (70-110)
[2019-07-16] MEDS: Insulin Lispro 100 UNIT/ML INSULN.PEN SC ×2 (12:13→17:46)
--- NOTE | 2019-07-16 13:30 | PCM.PROGNOTE ---
<Leila Younger - Last Filed: 07/16/19 13:39> Patient Problems: Active and Suspected Problems (Last Reviewed 12/22/18 @ 16:02 by Danica Savage) CHF (congestive heart failure) (Acute) Subjective: Patient seen and examined. Reports improvement in breathing. Denies chest pain or other complaints. - Physical Exam Vitals/I&O's: Vital Signs Temp Pulse Resp BP Pulse Ox 98.2 F 68 17 102/52 L 93 07/16/19 10:07 07/16/19 10:17 07/16/19 10:07 07/16/19 10:17 07/16/19 10:07 Oxygen Flow Rate (L/min) 2 Oxygen Delivery Method Nasal Cannula Weight: 327 lb 6.183 oz Body Mass Index (BMI) 44.4 Intake and Output for Last 24 Hours 07/14/19 07/15/19 07/16/19 23:59 23:59 23:59 Intake Total 1220 / 1220 865 / 865 Output Total 4380 / 4380 1000 / 1000 Balance -3160 / -3160 -135 / -135 General: Alert, Oriented x3, Cooperative HEENT: Atraumatic, PERRLA, EOMI, Normocephalic Neck: Supple, No JVD, Negative Carotid Bruits Lungs: Clear to auscultation, Normal air movement Cardiovascular: Regular rate, Regular Rhythm, Normal S1, Normal S2, No murmurs Abdomen: Bowel Sounds Present, Soft, Non Tender, Non-Distended, Obese Extremities: No clubbing, No cyanosis, No edema, Capillary Refill Less than 3 Seconds Skin: No rashes, No breakdown Musculoskeletal: No Tenderness to Palpation of Joints or Extremities Neurological: Cranial nerves II-XII grossly intact, Neuro grossly intact Psych/Mental Status: Normal Affect, Appropriate Laboratory Results 07/15/19 16:51: POC Glucose 159 H 07/15/19 20:59: POC Glucose 213 H 07/16/19 06:11: Sodium 140, Potassium 4.3, Chloride 104, Carbon Dioxide 29.0, Anion Gap 7, BUN 43 H, Creatinine 1.47 H, Estim Creat Clear Calc 52.06, Est GFR (MDRD) Af Amer 61, Est GFR (MDRD) Non-Af 51 L, BUN/Creatinine Ratio 29.3 H, Glucose 126 H, Calcium 8.6 07/16/19 06:32: POC Glucose 127 H 07/16/19 11:05: POC Glucose 197 H Current Medications Acetaminophen (Tylenol) 650 mg PO Q6H PRN PRN PRN Reason: Pain Score 1-10/Temp > 100.7 F Albuterol Sulfate (Ventolin Aerosols) 2.5 mg INHALATION Q2H PRN PRN PRN Reason: SOB/Wheezing Ascorbic Acid (Vitamin C) 500 mg PO DAILY [facility] Last Admin: 07/16/19 10:16 Dose: 500 mg Documented by: Aspirin (Ecotrin) 81 mg PO DAILY [facility] Last Admin: 07/16/19 10:15 Dose: 81 mg Documented by: Atorvastatin Calcium (Lipitor) 10 mg PO QHS [facility] Last Admin: 07/15/19 21:01 Dose: 10 mg Documented by: Calcium/Vitamin D (Os-Guero 500mg + D) 1 tablet PO BID [facility] Last Admin: 07/16/19 10:16 Dose: 1 tablet Documented by: Clopidogrel Bisulfate (Plavix) 75 mg PO DAILY [facility] Last Admin: 07/16/19 10:17 Dose: 75 mg Documented by: Docusate Sodium (Colace Syrup) 50 mg PO DAILY [facility] Last Admin: 07/16/19 10:14 Dose: 50 mg Documented by: Empagliflozin (Jardiance) 25 mg PO MoWeFr [facility] Last Admin: 07/15/19 09:42 Dose: 25 mg Documented by: Enoxaparin Sodium (Lovenox) 40 mg SC DAILY [facility] Last Admin: 07/16/19 10:20 Dose: 40 mg Documented by: Furosemide (Lasix) 40 mg IV BIDLX [facility] Last Admin: 07/16/19 12:53 Dose: Not Given Documented by: Glimepiride (Amaryl) 1 mg PO DAILYCM [facility] Last Admin: 07/16/19 08:10 Dose: 1 mg Documented by: Glucagon () 1 mg IM .X1 PRN PRN Reason: Hypoglycemia Guaifenesin (Robitussin) 20 ml PO Q4H PRN PRN PRN Reason: COUGH Dextrose (Dextrose 10%-Water) 250 mls @ 999 mls/hr IV .Q16M PRN; Protocol PRN Reason: HYPOGLYCEMIA Insulin Human Lispro (Humalog Kwmanjulapen (Bkc)) 0 unit [facility]; Protocol Last Admin: 07/16/19 12:13 Dose: 2 u Documented by: Isosorbide Mononitrate (Imdur) 60 mg PO DAILY [facility] Last Admin: 07/16/19 10:15 Dose: 60 mg Documented by: Lisinopril (Zestril) 20 mg PO DAILY [facility] Last Admin: 07/16/19 12:53 Dose: Not Given Documented by: Metoprolol Tartrate (Lopressor (Beta Wong)) 100 mg PO BID [facility] Last Admin: 07/16/19 10:17 Dose: 100 mg Documented by: Multivitamins/Minerals (Multivitamin With Minerals (Bkc)) 1 tablet PO DAILY@0800 [facility] Last Admin: 07/16/19 08:10 Dose: 1 tablet Documented by: Nitroglycerin (Nitrostat) 0.4 mg SUBLINGUAL Q5M PRN PRN Reason: CARDIAC/CHEST PAIN Ondansetron HCl (Zofran) 4 mg IV Q8H PRN PRN PRN Reason: NAUSEA/VOMITING Potassium Chloride (K-Dur) 10 meq PO DAILY [facility] Last Admin: 07/16/19 10:15 Dose: 10 meq Documented by: Senna (Senokot) 1 tablet PO DAILY [facility] Last Admin: 07/16/19 10:16 Dose: 1 tablet Documented by: Sodium Chloride () 10 - 40 ml IV UD PRN PRN Reason: SALINE FLUSH Tamsulosin HCl (Flomax) 0.4 mg PO DAILY [facility] Last Admin: 07/16/19 10:15 Dose: 0.4 mg Documented by: Vitamin E (Vitamin E) 400 units PO DAILY [facility] Last Admin: 07/16/19 10:15 Dose: 400 units Documented by: Medical Necessity - Tobacco Use Smoking Status: Former smoker Tobacco Use: Non-smoker Assessment/Plan All Active Problems (Last Reviewed 12/22/18 @ 16:02 by Danica Savage) CHF (congestive heart failure) (Acute) Hx of CABG (Resolved ~01/09/11) 1. Acute on chronic systolic CHF with acute hypoxic respiratory insufficiency-echocardiogram demonstrates an EF of 40%, stable bioprosthetic aortic valve. IV Lasix discontinued due to increasing creatinine. Transition to Lasix 40 mg p.o. twice daily. Cardiology following. Continue supplement oxygen to maintain O2 at or above 90%. Continue lisinopril. Strict I&O. Daily weight. Further recommendations per cardiology. 2. CAD with history of CABG and PCI-continue aspirin, statin, Plavix, beta-wong. Per cardiology, if patient requires repeat heart cath, recommendation will be to have this done at [facility] given complex history of cardiovascular disease. Troponin negative. EKG without acute changes. 3. Acute kidney injury-secondary to IV diuretic regimen. IV Lasix discontinued. Trend BMP. 4. History of aortic valve replacement with bioprosthetic valve 5. Hypertension-stable, continue metoprolol, lisinopril, isosorbide regimen. 6. Hyperlipidemia-continue statin. 7. Type 2 diabetes mellitus-continue oral regimen. Accu-Cheks with sliding scale insulin. 8. Morbid obesity-encouraged diet lifestyle modifications. 9. EILEEN-continue home CPAP regimen. 10. BPH-continue Flomax regimen. DVT prophylaxis- Lovenox sc This patient was seen by RAJAT Booker under the supervision of Dr. Streeter. <Junior Streeter - Last Filed: 07/16/19 14:28> - Physical Exam Vitals/I&O's: Vital Signs Temp Pulse Resp BP Pulse Ox 98.2 F 68 17 102/52 L 93 07/16/19 10:07 07/16/19 10:17 07/16/19 10:07 07/16/19 10:17 07/16/19 10:07 Oxygen Flow Rate (L/min) 2 Oxygen Delivery Method Nasal Cannula Weight: 148.5 kg Body Mass Index (BMI) 44.4 Intake and Output for Last 24 Hours 07/14/19 07/15/19 07/16/19 23:59 23:59 23:59 Intake Total 1220 / 1220 865 / 865 Output Total 4380 / 4380 1000 / 1000 Balance -3160 / -3160 -135 / -135 Laboratory Results 07/15/19 16:51: POC Glucose 159 H 07/15/19 20:59: POC Glucose 213 H 07/16/19 06:11: Sodium 140, Potassium 4.3, Chloride 104, Carbon Dioxide 29.0, Anion Gap 7, BUN 43 H, Creatinine 1.47 H, Estim Creat Clear Calc 52.06, Est GFR (MDRD) Af Amer 61, Est GFR (MDRD) Non-Af 51 L, BUN/Creatinine Ratio 29.3 H, Glucose 126 H, Calcium 8.6 07/16/19 06:32: POC Glucose 127 H 07/16/19 11:05: POC Glucose 197 H Current Medications Acetaminophen (Tylenol) 650 mg PO Q6H PRN PRN PRN Reason: Pain Score 1-10/Temp > 100.7 F Albuterol Sulfate (Ventolin Aerosols) 2.5 mg INHALATION Q2H PRN PRN PRN Reason: SOB/Wheezing Ascorbic Acid (Vitamin C) 500 mg PO DAILY [facility] Last Admin: 07/16/19 10:16 Dose: 500 mg Documented by: Aspirin (Ecotrin) 81 mg PO DAILY [facility] Last Admin: 07/16/19 10:15 Dose: 81 mg Documented by: Atorvastatin Calcium (Lipitor) 10 mg PO QHS [facility] Last Admin: 07/15/19 21:01 Dose: 10 mg Documented by: Calcium/Vitamin D (Os-Guero 500mg + D) 1 tablet PO BID [facility] Last Admin: 07/16/19 10:16 Dose: 1 tablet Documented by: Clopidogrel Bisulfate (Plavix) 75 mg PO DAILY [facility] Last Admin: 07/16/19 10:17 Dose: 75 mg Documented by: Docusate Sodium (Colace Syrup) 50 mg PO DAILY [facility] Last Admin: 07/16/19 10:14 Dose: 50 mg Documented by: Empagliflozin (Jardiance) 25 mg PO MoWeFr [facility] Last Admin: 07/15/19 09:42 Dose: 25 mg Documented by: Enoxaparin Sodium (Lovenox) 40 mg SC DAILY [facility] Last Admin: 07/16/19 10:20 Dose: 40 mg Documented by: Furosemide (Lasix) 40 mg PO BID@1000,1800 [facility] Furosemide (Lasix) 40 mg IV DAILY [facility] Last Admin: 07/16/19 08:10 Dose: 1 mg Documented by: Glucagon () 1 mg IM .X1 PRN PRN Reason: Hypoglycemia Guaifenesin (Robitussin) 20 ml PO Q4H PRN PRN PRN Reason: COUGH Dextrose (Dextrose 10%-Water) 250 mls @ 999 mls/hr IV .Q16M PRN; Protocol PRN Reason: HYPOGLYCEMIA Insulin Human Lispro (Humalog Kwikpen (Bkc)) 0 unit [facility]; Protocol Last Admin: 07/16/19 12:13 Dose: 2 u Documented by: Isosorbide Mononitrate (Imdur) 60 mg PO DAILY [facility] Last Admin: 07/16/19 10:15 Dose: 60 mg Documented by: Lisinopril (Zestril) 20 mg PO DAILY [facility] Last Admin: 07/16/19 12:53 Dose: Not Given Documented by: Metoprolol Tartrate (Lopressor (Beta Wong)) 100 mg PO BID [facility] Last Admin: 07/16/19 10:17 Dose: 100 mg Documented by: Multivitamins/Minerals (Multivitamin With Minerals (Bkc)) 1 tablet PO DAILY@0800 [facility] Last Admin: 07/16/19 08:10 Dose: 1 tablet Documented by: Nitroglycerin (Nitrostat) 0.4 mg SUBLINGUAL Q5M PRN PRN Reason: CARDIAC/CHEST PAIN Ondansetron HCl (Zofran) 4 mg IV Q8H PRN PRN PRN Reason: NAUSEA/VOMITING Potassium Chloride (K-Dur) 10 meq PO DAILY [facility] Last Admin: 07/16/19 10:15 Dose: 10 meq Documented by: Senna (Senokot) 1 tablet PO DAILY [facility] Last Admin: 07/16/19 10:16 Dose: 1 tablet Documented by: Sodium Chloride () 10 - 40 ml IV UD PRN PRN Reason: SALINE FLUSH Tamsulosin HCl (Flomax) 0.4 mg PO DAILY [facility] Last Admin: 07/16/19 10:15 Dose: 0.4 mg Documented by: Vitamin E (Vitamin E) 400 units PO DAILY [facility] Last Admin: 07/16/19 10:15 Dose: 400 units Documented by: Assessment/Plan This patient was seen in conjunction with RAJAT Booker . I have independently interviewed and examined the patient and reviewed pertinent historical, laboratory, and other data. Please refer to RAJAT Booker note for details of this patient's presentation, findings, and recommendations. I have reviewed RAJAT Booker note and concur with documented findings. In brief, patient a 69-year-old gentleman who presented with progressive shortness of breath and assessment of acute congestive heart failure made admitted to monitored bed for further management 07/16/2019: Patient kidney function did worsen with diuretics Lasix dose subsequently adjusted repeat labs ordered for a.m. for subsequent monitoring Physical Examination: GENERAL: cooperative HEENT: Atraumatic; EYES; Anicteric, Normal Conjunctiva NECK; supple, normal thyroid, RESPIRATORY: Diminished to auscultation CARDIOVASCULAR: Regular S1 S2, GI: soft, normoactive bowel sounds, : No Renal angle tenderness; EXTREMITIES: No edema, no clubbing, MUSCULOSKELETAL: no muscle waisting NEURO: Awake; no lateralizing signs. SKIN: No Rash PSYCH; Flat affect Assessment: 1. Acute on chronic congestive heart failure with reduced ejection fraction 2. Chest pain 3. Coronary artery disease?With previous stents and CABG 4. Diabetes mellitus type 2 5. Hypertension 6. Obstructive sleep apnea 7. Valvular heart disease?With history of aortic stenosis with previous aortic valve replacement with bioprosthetic 8. DVT prophylaxis Recommendations: 1. I have discussed the results of my overview and impressions with the patient 2. Options for management were reviewed Code Visit Inpatient E&M: 80886 Subs Hosp L3
--- NOTE | 2019-07-16 16:24 | PCM.PN.CARD ---
Subjectve: The patient is awake and alert. He does believe his breathing has improved overall. He describes no other ongoing chest discomfort, nausea, emesis, or diaphoretic spells. Objective: Vital Signs Temp Pulse Resp BP Pulse Ox 98.2 F 67 17 102/52 L 93 07/16/19 10:07 07/16/19 15:17 07/16/19 10:07 07/16/19 10:17 07/16/19 10:07 Oxygen Flow Rate (L/min) 4 Oxygen Delivery Method Nasal Cannula Weight: 327 lb 6.183 oz Body Mass Index (BMI) 44.4 Intake and Output for Last 24 Hours 07/14/19 07/15/19 07/16/19 23:59 23:59 23:59 Intake Total 1220 / 1220 865 / 865 Output Total 4380 / 4380 1000 / 1000 Balance -3160 / -3160 -135 / -135 General: Awake, Alert, Oriented x 3, Cooperative, No Acute Distress, Obese HEENT: Atraumatic, Normocephalic, PERRL, EOMI, Sclera Non Icteric Oral: Moist Mucosa Neck: Supple, Good ROM, No JVD Lungs: Rales - Rupesh Bases Cardiovascular: Regular Rhythm, Normal S1, Normal S2 Abdomen: Bowel Sounds Present, Soft, Non Tender Extremities: Trace RLE Edema, Trace LLE Edema Psych/Mental Status: Appropriate 07/16/19 06:11: Sodium 140, Potassium 4.3, Chloride 104, Carbon Dioxide 29.0, Anion Gap 7, BUN 43 H, Creatinine 1.47 H, Est GFR (MDRD) Af Amer 61, Est GFR (MDRD) Non-Af 51 L, BUN/Creatinine Ratio 29.3 H, Glucose 126 H, Calcium 8.6 Rhythm: Sinus rhythm ECHO: Interpretation Summary The study was technically difficult. Contrast injection was performed. Mild segmental systolic dysfunction (see wall motion). The estimated ejection fraction is 40 %. The left atrium is mildly enlarged. There is mild to moderate mitral annular calcification. Extension of the mitral annular calcification onto the posterior mitral valve leaflet. Trivial mitral valve insufficiency. Trivial tricuspid valve insufficiency. Unable to estimate RV systolic pressure/pulmonary artery pressure due to technically difficult study. There is evidence of diastolic dysfunction. The aortic valve is not well visualized, however, based upon the 2D echocardiographic imgaes obtained there appears to be a stable bioprosthetic aortic valve apparatus with spectral Doppler findings compatible with moderate aortic valve stenosis. Medical Necessity - Tobacco Use Smoking Status: Former smoker Tobacco Use: Non-smoker Assessment/Plan 1. Acute on chronic systolic mediated CHF The patient has acute on chronic systolic mediated CHF. Based upon his history this may have been progressing for some time now and became more prominent last night. At the present time he is being monitored. He is being treated medically with diuretics. He has had improvement in his symptoms with diuresis. He will continue medical management with adjustment. 2. Ischemic mediated cardiomyopathy He does have an underlying ischemic mediated cardiomyopathy. In the past it has been mild. Based upon his transthoracic echocardiogram his estimated LVEF appears to be approximately 40%. He is continuing medical management at this time. 3. CAD status post PCI status post CABG He has extensive underlying coronary artery disease/graft vessel disease. He has been evaluated in the past at [facility] in the cardiac catheterization laboratory. At the present time his troponin I levels are negative. He will continue to be monitored. He will continue medical therapy. He will have a follow-up echocardiogram in an attempt to reassess his left ventricular wall motion and systolic function. If the patient requires reevaluation in the cardiac catheterization laboratory then he should be considered for transfer back to [facility], based upon his complex cardiovascular disease process requiring tertiary care center evaluation/intervention in the past, for further evaluation and care. 4. Aortic valve replacement-bioprosthetic He does have a bioprosthetic aortic valve. He will need to be followed. Based upon his transthoracic echocardiogram, as best as can be visualized, his aortic valve appears to be stable at this time. There does appear to be an element of bioprosthetic aortic valve related aortic stenosis, however, not severe or critical. He will continue AHA antibiotic prophylaxis. 5. Hyperlipidemia He will continue risk factor modification medical therapy. 6. Hypertension His blood pressure can be followed. His medications can be adjusted as needed. Overall, at the present time, the patient will continue to be monitored. He will continue medical therapy with diuresis in order to improve his pulmonary disease process. He states he would like to continue medical therapy and hopefully not have to be further evaluated with diagnostic cardiac catheterization. Comment: The patient's case has been discussed and reviewed with the patient and his spouse. This note was generated using a voice recognition system and there may be incorrect words, spelling or punctuation that were not noted when reviewing the office note prior to saving.
[2019-07-16 17:45] LABS: Bedside Glucose 173 mg/dL (70-110)
[2019-07-16] MEDS: Furosemide 40 MG Tablet PO (17:46)
[2019-07-16] MEDS: Atorvastatin Calcium 10 MG Tablet PO (22:04)
[2019-07-16 22:30] LABS: Bedside Glucose 137 mg/dL (70-110)
[2019-07-17] VITALS (15 sets, daily range): BP systolic 98–126; BP diastolic 43–69; PULSE 56–76; RESP 15–18; TEMP 36.6–36.9; O2SAT 84–96
[2019-07-17 07:05] LABS: Bedside Glucose 95 mg/dL (70-110)
[2019-07-17 07:54] LABS: Anion Gap 5 (5-15); BUN 43 mg/dL (7-18); BUN/Creat Ratio 38.4 RATIO (10-20); Calcium,Total 8.9 mg/dL (8.5-10.1); Chloride 106 mmol/L (98-107); Creatinine, Serum 1.12 mg/dL (0.70-1.30); EST Glomerular Filtration Rate 69 mL/min (>60); Est Glom Filt Rate - Afr Amer 84 mL/min (>60); Estimated Creatinine Clearance 68.32 ml/min; Glucose 103 mg/dL (74-106); Potassium 4.3 mmol/L (3.5-5.1); Sodium Level 140 mmol/L (136-145)
[2019-07-17] MEDS: Glimepiride 1 MG Tablet PO (07:59)
[2019-07-17] MEDS: Multivitamins,Ther W-Minerals Tablet 1 TABLET PO (07:59)
[2019-07-17] MEDS: Enoxaparin 40 MG/0.4 ML Syringe SC (09:22)
[2019-07-17] MEDS: Calcium Carb/Vitamin D 1 TABLET Tablet PO ×2 (09:22→21:54)
[2019-07-17] MEDS: Senna Tablet 1 TABLET PO (09:23)
[2019-07-17] MEDS: Docusate Sodium 100 MG/10 ML UDC 50 MG PO (09:23)
[2019-07-17] MEDS: Ascorbic Acid 500 MG Tablet PO (09:23)
[2019-07-17] MEDS: Vitamin E 400 UNITS Capsule PO (09:23)
[2019-07-17] MEDS: Clopidogrel Bisulfate 75 MG Tablet PO (09:24)
[2019-07-17] MEDS: Tamsulosin HCl 0.4 MG Capsule PO (09:24)
[2019-07-17] MEDS: Aspirin E.C. 81 MG Tablet PO (09:24)
[2019-07-17] MEDS: Isosorbide Mononitrate 60 MG Tablet PO (09:25)
[2019-07-17] MEDS: Furosemide 40 MG/4 ML Vial IV ×2 (10:33→20:38)
[2019-07-17] MEDS: Metoprolol Tartrate 100 MG Tablet PO ×2 (10:33→21:54)
[2019-07-17] MEDS: 0.9% Saline Lock 10 ML Syringe IV ×2 (10:34→20:37)
[2019-07-17] MEDS: Insulin Lispro 100 UNIT/ML INSULN.PEN SC ×2 (11:40→21:54)
[2019-07-17 11:46] LABS: Bedside Glucose 170 mg/dL (70-110)
--- NOTE | 2019-07-17 12:10 | PN.CARD_ITS ---
Subjectve: The patient is awake and alert. He had been up and ambulating. He states overall his breathing has improved. However, without oxygen his O2 levels were reported as dropping to approximately 84%. Objective: Vital Signs Temp Pulse Resp BP Pulse Ox 97.8 F 71 17 126/69 H 95 07/17/19 09:01 07/17/19 10:33 07/17/19 09:01 07/17/19 10:33 07/17/19 09:18 Oxygen Flow Rate (L/min) [ 2 AMBULATION with Oxygen] Oxygen Flow Rate (L/min) 4 Oxygen Delivery Method Room Air Weight: 324 lb 8.327 oz Body Mass Index (BMI) 44.4 Intake and Output for Last 24 Hours 07/15/19 07/16/19 07/17/19 23:59 23:59 23:59 Intake Total 1220 / 1220 1165 / 1615 1150 / 1150 Output Total 4380 / 4380 1700 / 2550 2750 / 2750 Balance -3160 / -3160 -535 / -935 -1600 / -1600 General: Awake, Alert, Oriented x 3, Cooperative, No Acute Distress, Obese HEENT: Atraumatic, Normocephalic, PERRL, EOMI, Sclera Non Icteric Oral: Moist Mucosa Neck: Supple, Good ROM, No JVD Lungs: Diminished Rupesh Bases Cardiovascular: Regular Rhythm, Normal S1, Normal S2 Abdomen: Bowel Sounds Present, Soft, Non Tender, Obese Extremities: Trace RLE Edema, Trace LLE Edema Neurological: No Focal Motor or Sensory Deficit Psych/Mental Status: Appropriate 07/17/19 06:56: Sodium 140, Potassium 4.3, Chloride 106, Carbon Dioxide 29.0, Anion Gap 5, BUN 43 H, Creatinine 1.12, Est GFR (MDRD) Af Amer 84, Est GFR (MDRD) Non-Af 69, BUN/Creatinine Ratio 38.4 H, Glucose 103, Calcium 8.9 Rhythm: Sinus rhythm Medical Necessity - Tobacco Use Smoking Status: Former smoker Tobacco Use: Non-smoker Assessment/Plan 1. Acute on chronic systolic mediated CHF The patient has acute on chronic systolic mediated CHF. Based upon his history this may have been progressing for some time now and became more prominent last night. At the present time he is being monitored. He is being treated medically with diuretics. He has had improvement in his symptoms with diuresis. However, he still has diminished breath sounds and he becomes hypoxic upon ambulation without oxygen therapy. Present time he will continue diuretic management. Hopefully this will help improve his volume status and pulmonary/oxygenation status. 2. Ischemic mediated cardiomyopathy He does have an underlying ischemic mediated cardiomyopathy. In the past it has been mild. Based upon his transthoracic echocardiogram his estimated LVEF appears to be approximately 40%. He is continuing medical management at this time. 3. CAD status post PCI status post CABG He has extensive underlying coronary artery disease/graft vessel disease. He has been evaluated in the past at [facility] in the cardiac catheterization laboratory. At the present time his troponin I levels are negative. He will continue to be monitored. He will continue medical therapy. If the patient requires reevaluation in the cardiac catheterization laboratory then he should be considered for transfer back to [facility], based upon his complex cardiovascular disease process requiring tertiary care center evaluation/intervention in the past, for further evaluation and care. However, at the present time, the patient states he wants to continue conservative medical management and not proceed with repeat invasive evaluation. 4. Aortic valve replacement-bioprosthetic He does have a bioprosthetic aortic valve. He will need to be followed. Based upon his transthoracic echocardiogram, as best as can be visualized, his aortic valve appears to be stable at this time. There does appear to be an element of bioprosthetic aortic valve related aortic stenosis, however, not severe or critical. He will continue AHA antibiotic prophylaxis. 5. Hyperlipidemia He will continue risk factor modification medical therapy. 6. Hypertension His blood pressure can be followed. His medications can be adjusted as needed. Comment: The patient's case has been discussed and reviewed with the patient. This note was generated using a voice recognition system and there may be i ncorrect words, spelling or punctuation that were not noted when reviewing the office note prior to saving.
--- NOTE | 2019-07-17 13:05 | PCM.PROGNOTE ---
<Leila Younger - Last Filed: 07/17/19 13:08> Patient Problems: Active and Suspected Problems (Last Reviewed 12/22/18 @ 16:02 by Danica Savage) CHF (congestive heart failure) (Acute) Subjective: Patient seen and examined. Denies shortness of breath. Lower extremity swelling improved. Patient was noted to be hypoxic, 84% with ambulation. Plan to continue IV Lasix through today and reassess oxygen testing tomorrow. - Physical Exam Vitals/I&O's: Vital Signs Temp Pulse Resp BP Pulse Ox 97.8 F 72 17 126/69 H 95 07/17/19 09:01 07/17/19 12:45 07/17/19 09:01 07/17/19 10:33 07/17/19 09:18 Oxygen Flow Rate (L/min) [ 2 AMBULATION with Oxygen] Oxygen Flow Rate (L/min) 4 Oxygen Delivery Method Room Air Weight: 324 lb 8.327 oz Body Mass Index (BMI) 44.4 Intake and Output for Last 24 Hours 07/15/19 07/16/19 07/17/19 23:59 23:59 23:59 Intake Total 1220 / 1220 1165 / 1615 1150 / 1150 Output Total 4380 / 4380 1700 / 2550 2750 / 2750 Balance -3160 / -3160 -535 / -935 -1600 / -1600 General: Alert, Oriented x3, Cooperative HEENT: Atraumatic, PERRLA, EOMI, Normocephalic Neck: Supple, No JVD, Negative Carotid Bruits Lungs: Clear to auscultation, Normal air movement Cardiovascular: Regular rate, Regular Rhythm, Normal S1, Normal S2, No murmurs Abdomen: Bowel Sounds Present, Soft, Non Tender, Non-Distended Extremities: No clubbing, No cyanosis, No edema, Capillary Refill Less than 3 Seconds Skin: No rashes, No breakdown Musculoskeletal: No Tenderness to Palpation of Joints or Extremities Neurological: Cranial nerves II-XII grossly intact, Neuro grossly intact Psych/Mental Status: Normal Affect, Appropriate Laboratory Results 07/16/19 17:42: POC Glucose 173 H 07/16/19 22:21: POC Glucose 137 H 07/17/19 06:56: Sodium 140, Potassium 4.3, Chloride 106, Carbon Dioxide 29.0, Anion Gap 5, BUN 43 H, Creatinine 1.12, Estim Creat Clear Calc 68.32, Est GFR (MDRD) Af Amer 84, Est GFR (MDRD) Non-Af 69, BUN/Creatinine Ratio 38.4 H, Glucose 103, Calcium 8.9 07/17/19 07:00: POC Glucose 95 07/17/19 11:36: POC Glucose 170 H Current Medications Acetaminophen (Tylenol) 650 mg PO Q6H PRN PRN PRN Reason: Pain Score 1-10/Temp > 100.7 F Albuterol Sulfate (Ventolin Aerosols) 2.5 mg INHALATION Q2H PRN PRN PRN Reason: SOB/Wheezing Ascorbic Acid (Vitamin C) 500 mg PO DAILY [facility] Last Admin: 07/17/19 09:23 Dose: 500 mg Documented by: Aspirin (Ecotrin) 81 mg PO DAILY [facility] Last Admin: 07/17/19 09:24 Dose: 81 mg Documented by: Atorvastatin Calcium (Lipitor) 10 mg PO QHS [facility] Last Admin: 07/16/19 22:04 Dose: 10 mg Documented by: Calcium/Vitamin D (Os-Guero 500mg + D) 1 tablet PO BID [facility] Last Admin: 07/17/19 09:22 Dose: 1 tablet Documented by: Clopidogrel Bisulfate (Plavix) 75 mg PO DAILY [facility] Last Admin: 07/17/19 09:24 Dose: 75 mg Documented by: Docusate Sodium (Colace Syrup) 50 mg PO DAILY [facility] Last Admin: 07/17/19 09:23 Dose: 50 mg Documented by: Empagliflozin (Jardiance) 25 mg PO MoWeFr [facility] Last Admin: 07/15/19 09:42 Dose: 25 mg Documented by: Enoxaparin Sodium (Lovenox) 40 mg SC DAILY [facility] Last Admin: 07/17/19 09:22 Dose: 40 mg Documented by: [facility] ([facility]l) [facility] Last Admin: 07/17/19 07:59 Dose: 1 mg Documented by: Glucagon () 1 mg IM .X1 PRN PRN Reason: Hypoglycemia Guaifenesin (Robitussin) 20 ml PO Q4H PRN PRN PRN Reason: COUGH Dextrose (Dextrose 10%-Water) 250 mls @ 999 mls/hr IV .Q16M PRN; Protocol PRN Reason: HYPOGLYCEMIA Insulin Human Lispro (Humalog Kwikpen (Bkc)) 0 unit SC ACHS [facility]; Protocol Last Admin: 07/17/19 11:40 Dose: 2 u Documented by: Isosorbide Mononitrate (Imdur) 60 mg PO DAILY [facility] Last Admin: 07/17/19 09:25 Dose: 60 mg Documented by: Lisinopril (Zestril) 10 mg PO DAILY [facility] Metoprolol Tartrate (Lopressor (Beta Wong)) 100 mg PO BID [facility] Last Admin: 07/17/19 10:33 Dose: 100 mg Documented by: Multivitamins/Minerals (Multivitamin With Minerals (Bkc)) 1 tablet PO DAILY@0800 [facility] Last Admin: 07/17/19 07:59 Dose: 1 tablet Documented by: Nitroglycerin (Nitrostat) 0.4 mg SUBLINGUAL Q5M PRN PRN Reason: CARDIAC/CHEST PAIN Ondansetron HCl (Zofran) 4 mg IV Q8H PRN PRN PRN Reason: NAUSEA/VOMITING Potassium Chloride (K-Dur) 10 meq PO DAILY [facility] Last Admin: 07/17/19 09:23 Dose: 10 meq Documented by: Senna (Senokot) 1 tablet PO DAILY [facility] Last Admin: 07/17/19 09:23 Dose: 1 tablet Documented by: Sodium Chloride () 10 - 40 ml IV UD PRN PRN Reason: SALINE FLUSH Last Admin: 07/17/19 10:34 Dose: 20 ml Documented by: Tamsulosin HCl (Flomax) 0.4 mg PO DAILY [facility] Last Admin: 07/17/19 09:24 Dose: 0.4 mg Documented by: Vitamin E (Vitamin E) 400 units PO DAILY [facility] Last Admin: 07/17/19 09:23 Dose: 400 units Documented by: Medical Necessity - Tobacco Use Smoking Status: Former smoker Tobacco Use: Non-smoker Assessment/Plan All Active Problems (Last Reviewed 12/22/18 @ 16:02 by Danica Savage) CHF (congestive heart failure) (Acute) Hx of CABG (Resolved ~01/09/11) 1. Acute on chronic systolic CHF with acute hypoxic respiratory insufficiency-echocardiogram demonstrates an EF of 40%, stable bioprosthetic aortic valve. Continue IV Lasix 40 mg twice daily today with transition to oral Lasix 40 mg twice daily tomorrow which will continue at discharge. Cardiology following. Continue supplement oxygen to maintain O2 at or above 90%. Continue lisinopril. Strict I&O. Daily weight. Patient was noted to be hypoxic with ambulation today. Will need ambulatory pulse ox prior to discharge. 2. CAD with history of CABG and PCI-continue aspirin, statin, Plavix, beta-wong. Per cardiology, if patient requires repeat heart cath, recommendation will be to have this done at [facility] given complex history of cardiovascular disease. Troponin negative. EKG without acute changes. 3. Acute kidney injury-resolved, trend BMP. 4. History of aortic valve replacement with bioprosthetic valve 5. Hypertension-stable, continue metoprolol, lisinopril, isosorbide regimen. 6. Hyperlipidemia-continue statin. 7. Type 2 diabetes mellitus-continue oral regimen. Accu-Cheks with sliding scale insulin. 8. Morbid obesity-encouraged diet lifestyle modifications. 9. EILEEN-continue home CPAP regimen. 10. BPH-continue Flomax regimen. DVT prophylaxis- Lovenox sc This patient was seen by RAJAT Booker under the supervision of Dr. Streeter. <Junior Streeter - Last Filed: 07/17/19 13:28> - Physical Exam Vitals/I&O's: Vital Signs Temp Pulse Resp BP Pulse Ox 97.8 F 72 17 126/69 H 95 07/17/19 09:01 07/17/19 12:45 07/17/19 09:01 07/17/19 10:33 07/17/19 09:18 Oxygen Flow Rate (L/min) [ 2 AMBULATION with Oxygen] Oxygen Flow Rate (L/min) 4 Oxygen Delivery Method Room Air Weight: 147.2 kg Body Mass Index (BMI) 44.4 Intake and Output for Last 24 Hours 07/15/19 07/16/19 07/17/19 23:59 23:59 23:59 Intake Total 1220 / 1220 1165 / 1615 1150 / 1150 Output Total 4380 / 4380 1700 / 2550 2750 / 2750 Balance -3160 / -3160 -535 / -935 -1600 / -1600 Laboratory Results 07/16/19 17:42: POC Glucose 173 H 07/16/19 22:21: POC Glucose 137 H 07/17/19 06:56: Sodium 140, Potassium 4.3, Chloride 106, Carbon Dioxide 29.0, Anion Gap 5, BUN 43 H, Creatinine 1.12, Estim Creat Clear Calc 68.32, Est GFR (MDRD) Af Amer 84, Est GFR (MDRD) Non-Af 69, BUN/Creatinine Ratio 38.4 H, Glucose 103, Calcium 8.9 07/17/19 07:00: POC Glucose 95 07/17/19 11:36: POC Glucose 170 H Current Medications Acetaminophen (Tylenol) 650 mg PO Q6H PRN PRN PRN Reason: Pain Score 1-10/Temp > 100.7 F Albuterol Sulfate (Ventolin Aerosols) 2.5 mg INHALATION Q2H PRN PRN PRN Reason: SOB/Wheezing Ascorbic Acid (Vitamin C) 500 mg PO DAILY [facility] Last Admin: 07/17/19 09:23 Dose: 500 mg Documented by: Aspirin (Ecotrin) 81 mg PO DAILY [facility] Last Admin: 07/17/19 09:24 Dose: 81 mg Documented by: Atorvastatin Calcium (Lipitor) 10 mg PO QHS [facility] Last Admin: 07/16/19 22:04 Dose: 10 mg Documented by: Calcium/Vitamin D (Os-Guero 500mg + D) 1 tablet PO BID [facility] Last Admin: 07/17/19 09:22 Dose: 1 tablet Documented by: Clopidogrel Bisulfate (Plavix) 75 mg PO DAILY [facility] Last Admin: 07/17/19 09:24 Dose: 75 mg Documented by: Docusate Sodium (Colace Syrup) 50 mg PO DAILY [facility] Last Admin: 07/17/19 09:23 Dose: 50 mg Documented by: Empagliflozin (Jardiance) 25 mg PO MoWeFr [facility] Last Admin: 07/15/19 09:42 Dose: 25 mg Documented by: Enoxaparin Sodium (Lovenox) 40 mg SC DAILY [facility] Last Admin: 07/17/19 09:22 Dose: 40 mg Documented by: Furosemide (Lasix) 40 mg IV BID [facility] Glimepiride (Amaryl) [facility] Last Admin: 07/17/19 07:59 Dose: 1 mg Documented by: Glucagon () 1 mg IM .X1 PRN PRN Reason: Hypoglycemia Guaifenesin (Robitussin) 20 ml PO Q4H PRN PRN PRN Reason: COUGH Dextrose (Dextrose 10%-Water) 250 mls @ 999 mls/hr IV .Q16M PRN; Protocol PRN Reason: HYPOGLYCEMIA Insulin Human Lispro (Humalog Kwikpen (Bkc)) 0 unit SC ACHS [facility]; Protocol Last Admin: 07/17/19 11:40 Dose: 2 u Documented by: Isosorbide Mononitrate (Imdur) 60 mg PO DAILY [facility] Last Admin: 07/17/19 09:25 Dose: 60 mg Documented by: Lisinopril (Zestril) 10 mg PO DAILY [facility] Metoprolol Tartrate (Lopressor (Beta Wong)) 100 mg PO BID [facility] Last Admin: 07/17/19 10:33 Dose: 100 mg Documented by: Multivitamins/Minerals (Multivitamin With Minerals (Bkc)) 1 tablet PO DAILY@0800 [facility] Last Admin: 07/17/19 07:59 Dose: 1 tablet Documented by: Nitroglycerin (Nitrostat) 0.4 mg SUBLINGUAL Q5M PRN PRN Reason: CARDIAC/CHEST PAIN Ondansetron HCl (Zofran) 4 mg IV Q8H PRN PRN PRN Reason: NAUSEA/VOMITING Potassium Chloride (K-Dur) 10 meq PO DAILY [facility] Last Admin: 07/17/19 09:23 Dose: 10 meq Documented by: Senna (Senokot) 1 tablet PO DAILY [facility] Last Admin: 07/17/19 09:23 Dose: 1 tablet Documented by: Sodium Chloride () 10 - 40 ml IV UD PRN PRN Reason: SALINE FLUSH Last Admin: 07/17/19 10:34 Dose: 20 ml Documented by: Tamsulosin HCl (Flomax) 0.4 mg PO DAILY [facility] Last Admin: 07/17/19 09:24 Dose: 0.4 mg Documented by: Vitamin E (Vitamin E) 400 units PO DAILY [facility] Last Admin: 07/17/19 09:23 Dose: 400 units Documented by: Assessment/Plan This patient was seen in conjunction with RAJAT Booker . I have independently interviewed and examined the patient and reviewed pertinent historical, laboratory, and other data. Please refer to RAJAT Booker note for details of this patient's presentation, findings, and recommendations. I have reviewed RAJAT Booker note and concur with documented findings. In brief, patient a 69-year-old gentleman who presented with progressive shortness of breath and assessment of acute congestive heart failure made admitted to monitored bed for further management 07/16/2019: Patient kidney function did worsen with diuretics Lasix dose subsequently adjusted repeat labs ordered for a.m. for subsequent monitoring 07/17/2019: Patient seen admits to improvements in his breathing status however still remains significantly hypoxic. Did discuss with cardiology plan is to observe patient for at least one additional day. Patient will be assessed for home oxygen if need be on 07/18/2019. Physical Examination: GENERAL: cooperative HEENT: Atraumatic; EYES; Anicteric, Normal Conjunctiva NECK; supple, normal thyroid, RESPIRATORY: Diminished to auscultation CARDIOVASCULAR: Regular S1 S2, GI: soft, normoactive bowel sounds, : No Renal angle tenderness; EXTREMITIES: No edema, no clubbing, MUSCULOSKELETAL: no muscle waisting NEURO: Awake; no lateralizing signs. SKIN: No Rash PSYCH; Flat affect Assessment: 1. Acute on chronic congestive heart failure with reduced ejection fraction 2. Chest pain 3. Coronary artery disease?With previous stents and CABG 4. Diabetes mellitus type 2 5. Hypertension 6. Obstructive sleep apnea 7. Valvular heart disease?With history of aortic stenosis with previous aortic valve replacement with bioprosthetic 8. DVT prophylaxis Recommendations: 1. I have discussed the results of my overview and impressions with the patient 2. Options for management were reviewed Code Visit Inpatient E&M: 44129 Subs Hosp L2
[2019-07-17 17:11] LABS: Bedside Glucose 120 mg/dL (70-110)
[2019-07-17] MEDS: Atorvastatin Calcium 10 MG Tablet PO (21:54)
[2019-07-17 21:55] LABS: Bedside Glucose 180 mg/dL (70-110)
--- NOTE | 2019-07-17 22:01 | CPS ---
pt using own cpap machine. bleeding in 2L o2
[2019-07-18] VITALS (10 sets, daily range): BP systolic 108–130; BP diastolic 58–79; PULSE 58–78; RESP 18; TEMP 36.5–36.8; O2SAT 85–94
[2019-07-18 06:34] LABS: Anion Gap 8 (5-15); BUN 39 mg/dL (7-18); BUN/Creat Ratio 33.9 RATIO (10-20); Chloride 104 mmol/L (98-107); Creatinine, Serum 1.15 mg/dL (0.70-1.30); EST Glomerular Filtration Rate 67 mL/min (>60); Est Glom Filt Rate - Afr Amer 81 mL/min (>60); Estimated Creatinine Clearance 66.54 ml/min; Glucose 125 mg/dL (74-106); Sodium Level 140 mmol/L (136-145)
[2019-07-18 06:36] LABS: Bedside Glucose 120 mg/dL (70-110)
[2019-07-18] MEDS: Glimepiride 1 MG Tablet PO (08:15)
[2019-07-18] MEDS: Multivitamins,Ther W-Minerals Tablet 1 TABLET PO (08:15)
--- NOTE | 2019-07-18 09:24 | PCM.PN.CARD ---
Subjectve: The patient is awake and alert. He states his breathing is better overall. He has ambulated. When he ambulates his O2 saturation decreases to less than 90%. Objective: Vital Signs Temp Pulse Resp BP Pulse Ox 97.9 F 58 L 18 122/61 H 93 07/18/19 02:10 07/18/19 02:59 07/18/19 02:10 07/18/19 02:10 07/18/19 07:38 Oxygen Flow Rate (L/min) [ 3 AMBULATION with Oxygen] Oxygen Flow Rate (L/min) [ 0 AMBULATING on Room Air] Oxygen Flow Rate (L/min) [At 0 REST on Room Air] Oxygen Flow Rate (L/min) 2 Oxygen Delivery Method Nasal Cannula Weight: 324 lb 8.327 oz Body Mass Index (BMI) 44.4 Intake and Output for Last 24 Hours 07/16/19 07/17/19 07/18/19 23:59 23:59 23:59 Intake Total 1165 / 1615 1630 / 1630 370 / 370 Output Total 1700 / 2550 3900 / 3900 1725 / 1725 Balance -535 / -935 -2270 / -2270 -1355 / -1355 General: Awake, Alert, Oriented x 3, Cooperative, No Acute Distress, Obese HEENT: Atraumatic, Normocephalic, PERRL, EOMI, Sclera Non Icteric Oral: Moist Mucosa Neck: Supple, Good ROM, No JVD Lungs: Clear to auscultation Cardiovascular: Regular Rhythm, Normal S1, Normal S2 Abdomen: Bowel Sounds Present, Soft, Non Tender Extremities: Trace RLE Edema, Trace LLE Edema Neurological: No Focal Motor or Sensory Deficit Psych/Mental Status: Appropriate 07/18/19 05:26: Sodium 140, Potassium 4.0, Chloride 104, Carbon Dioxide 28.0, Anion Gap 8, BUN 39 H, Creatinine 1.15, Est GFR (MDRD) Af Amer 81, Est GFR (MDRD) Non-Af 67, BUN/Creatinine Ratio 33.9 H, Glucose 125 H, Calcium 9.0 Rhythm: Sinus rhythm Medical Necessity - Tobacco Use Smoking Status: Former smoker Tobacco Use: Non-smoker Assessment/Plan 1. Acute on chronic systolic mediated CHF The patient has acute on chronic systolic mediated CHF. Based upon his history this may have been progressing for some time now and became more prominent last night. At the present time he is being monitored. He is being treated medically with diuretics. He has had improvement in his symptoms with diuresis. However, he still has diminished breath sounds and he becomes hypoxic upon ambulation without oxygen therapy. He will continue medical therapy, however, he may need home O2 therapy as well. 3. CAD status post PCI status post CABG He has extensive underlying coronary artery disease/graft vessel disease. He has been evaluated in the past at [facility] in the cardiac catheterization laboratory. At the present time his troponin I levels are negative. He will continue to be monitored. He will continue medical therapy. If the patient requires reevaluation in the cardiac catheterization laboratory then he should be considered for transfer back to [facility], based upon his complex cardiovascular disease process requiring tertiary care center evaluation/intervention in the past, for further evaluation and care. However, at the present time, the patient states he wants to continue conservative medical management and not proceed with repeat invasive evaluation. 4. Aortic valve replacement-bioprosthetic He does have a bioprosthetic aortic valve. He will need to be followed. Based upon his transthoracic echocardiogram, as best as can be visualized, his aortic valve appears to be stable at this time. There does appear to be an element of bioprosthetic aortic valve related aortic stenosis, however, not severe or critical. He will continue AHA antibiotic prophylaxis. 5. Hyperlipidemia He will continue risk factor modification medical therapy. 6. Hypertension His blood pressure can be followed. His medications can be adjusted as needed. Comment: The patient's case has been discussed and reviewed with the patient. This note was generated using a voice recognition system and there may be incorrect words, spelling or punctuation that were not noted when reviewing the office note prior to saving.
[2019-07-18] MEDS: Docusate Sodium 100 MG/10 ML UDC 50 MG PO (10:13)
[2019-07-18] MEDS: Aspirin E.C. 81 MG Tablet PO (10:13)
[2019-07-18] MEDS: Isosorbide Mononitrate 60 MG Tablet PO (10:13)
[2019-07-18] MEDS: Tamsulosin HCl 0.4 MG Capsule PO (10:13)
[2019-07-18] MEDS: Furosemide 40 MG/4 ML Vial IV (10:14)
[2019-07-18] MEDS: Empagliflozin 25 MG Tablet PO (10:14)
[2019-07-18] MEDS: Enoxaparin 40 MG/0.4 ML Syringe SC (10:14)
[2019-07-18] MEDS: Metoprolol Tartrate 100 MG Tablet PO (10:14)
[2019-07-18] MEDS: Vitamin E 400 UNITS Capsule PO (10:15)
[2019-07-18] MEDS: Senna Tablet 1 TABLET PO (10:15)
[2019-07-18] MEDS: Calcium Carb/Vitamin D 1 TABLET Tablet PO (10:15)
[2019-07-18] MEDS: Ascorbic Acid 500 MG Tablet PO (10:15)
[2019-07-18] MEDS: Clopidogrel Bisulfate 75 MG Tablet PO (10:15)
[2019-07-18] MEDS: 0.9% Saline Lock 10 ML Syringe IV (10:21)
[2019-07-18] MEDS: Lisinopril 10 MG Tablet PO (10:29)
--- NOTE | 2019-07-18 10:30 | CASEMGMT ---
Addendum entered by Ольга Klein 07/18/19 13:30: Pt is agreeable to OP therapy at [facility] and would like order faxed to them at this time. [facility]. Pt already had etank delivered and pt states no further questions/concerns/needs at this time. Jw NOVAK CM Original Note: Pt does qualify for home oxygen at this time, 3liters with ambulation, and preference is for [employer]. Referral faxed to [facility] at this time and call to [employer] to notify of referral at this time and discharge. This [facility] to check in with pt regarding OP therapy recommendations at discharge and to update on home oxygen. Jw NOVAK CM
[2019-07-18 11:40] LABS: Bedside Glucose 138 mg/dL (70-110)
--- NOTE | 2019-07-18 11:55 | PCM.DC ---
- Discharge Diagnoses Current Active Problems: Current Active and Chronic Problems (Last Reviewed 12/22/18 @ 16:02 by Danica Savage) CHF (congestive heart failure) (Acute) Cardiomyopathy (Chronic) CAD (coronary artery disease) (Chronic) You will use the following diet at home:: Cardiac Discharge Activity: Return to Normal Activity Call your doctor if you observe: Shortness of breath, Dizziness, Fainting spells, Chest pain Additional Instructions: Home Lasix regimen increased to 40 mg twice daily. No Rx given due to patient having large supply of 20 mg tablets at home. Allergies/Adverse Reactions: Allergies hydrocodone Allergy (Verified 07/14/19 23:38) rash rash morphine Allergy (Verified 07/14/19 23:38) Vomiting Medications to take at Discharge clopidogrel 75 mg tablet 75 mg PO QDAY 11/23/17 lysine 500 mg tablet 500 mg PO QDAY 11/23/17 metformin 1,000 mg tablet 1,000 mg PO BID 11/23/17 multivitamin,[id number] 1 tab PO QDAY 11/23/17 ascorbic acid (vitamin C) 500 mg tablet 500 mg PO DAILY 07/08/18 aspirin 81 mg tablet,delayed release 81 mg PO DAILY 07/08/18 calcium carbonate-vitamin D3 600 mg (1,500 mg)-800 unit tablet 1 tab PO BID 07/08/18 omega-3 fatty acids 1,000 mg capsule 1,000 mg PO BID cap 07/08/18 vitamin E (dl, acetate) 400 unit capsule 400 unit PO DAILY 07/08/18 docusate sodium 50 mg capsule 50 mg PO DAILY 12/22/18 glimepiride 1 mg tablet 1 mg PO QAM 12/22/18 rosuvastatin 5 mg tablet 5 mg PO QHS tab 12/22/18 sennosides 8.6 mg tablet 8.6 mg PO DAILY tab 12/22/18 tamsulosin 0.4 mg capsule 0.4 mg PO DAILY 12/22/18 nitroglycerin 0.4 mg sublingual tablet 0.4 mg SUBLINGUAL Q5-15M PRN #25 tab 07/13/19 Dapagliflozin Propanediol [Farxiga] 10 mg PO DAILY 07/14/19 Isosorbide Mononitrate [Isosorbide Mononitrate ER] 60 mg PO QDAY 07/14/19 Metoprolol Tartrate [Lopressor (beta yohan)] 100 mg PO BID 07/15/19 Potassium Chloride [K-Tab ER] 10 meq PO QDAY 07/15/19 Furosemide [Lasix] 40 mg PO BID #0 07/18/19 Lisinopril [Zestril] 10 mg PO DAILY #30 tab 07/18/19 The following prescriptions were given: Lisinopril [Zestril] 10 mg PO DAILY #30 tab Transmission Status: Pending to [facility] Primary Care Physician: Koko Hamilton MD [Primary Care Provider] - Please follow up with your Primary Care Physician in: 1 Week Test Results: Test results from this visit will be discussed in further detail at your follow-up appointment, if applicable. Please Follow Up With: Azeem Kincaid NP-C When: 2 Weeks Proposed Discharge Date: 07/18/19
--- NOTE | 2019-07-18 12:00 | PCM.DC.SUM ---
<Leila Younger - Last Filed: 07/18/19 12:12> Discharge Date and Diagnosis Date of Admission: 07/15/19 Date of Discharge: 07/18/19 - Primary Discharge Diagnosis Active and Suspected Problems (Last Reviewed 12/22/18 @ 16:02 by Danica Savage) 1. Acute on chronic systolic CHF with acute hypoxic respiratory insufficiency 2. CAD with history of CABG and PCI 3. Acute kidney injury-resolved. 4. History of aortic valve replacement with bioprosthetic valve 5. Hypertension 6. Hyperlipidemia 7. Type 2 diabetes mellitus 8. Morbid obesity 9. EILEEN 10. BPH - Secondary Discharge Diagnosis Chronic Problems (Last Reviewed 12/22/18 @ 16:02 by Danica Savage) Cardiomyopathy (Chronic) CAD (coronary artery disease) (Chronic) Presence of stent in coronary artery (Chronic ~03/03/14) PTCA/ANY to mid RCA 03/18/11 @ [facility]; PTCA/ANY to the mid RCA 06/20/11 @ [facility]; PTCA/ANY to diagonal branch of LAD 03/03/14 @ [facility] History of aortic valve replacement with bioprosthetic valve (Chronic ~01/09/11) 29mm Medtronic tissue valve 01/09/11 @ [facility] Pure hypercholesterolemia (Chronic) Essential hypertension (Chronic) Atherosclerosis of upper [place] coronary artery of upper [place] heart without angina pectoris (Chronic) S/P CABG with MERRITT to LAD, SVG to OM, and SVG to RCA in December 2010; PCI to RCA and diagonal branch; Hospital Course and Treatment Imaging Results: Diagnostic Data Chest X-Ray 07/14/19 23:25 IMPRESSION: Probable COPD with mild fibrosis. Cardiomegaly. No gross acute chest disease. Electronically Signed: Justus Deal MD at 23:47 EST , Service support , Chest CTA 07/15/19 00:14 IMPRESSION: 1. No pulmonary embolus detected. 2. Interstitial infiltrates, possibly asymmetric edema, pneumonia or other cause of interstitial infiltrate. Individualized dose optimization techniques were used for this CT. at 0209 Reported and signed by: Maryuri Angel MD Electronically Signed: Maryuri Angel MD at 2:09 EST Tel , Service support , Dr. Wu- Cardiology Operations: None Procedures: 2-D Echocardiogram Summary of Care Provided: The patient is a 69 year old M admitted 07/15/2019 due to shortness of breath and chest pain. 1. Acute on chronic systolic CHF with acute hypoxic respiratory insufficiency-echocardiogram demonstrates an EF of 40%, stable bioprosthetic aortic valve. Cardiology consulted during admission, patient follows with Dr. Wu. Patient continues to have hypoxia with exertion and will require supplemental oxygen at discharge. Continue 3 L nasal cannula with exertion. Oxygen stable at rest. Patient is ambulatory in the home. Home Lasix increased to 40 mg twice daily. Continue lisinopril at reduced 10 mg daily. Follow-up with cardiology in 2 weeks. 2. CAD with history of CABG and PCI-continue aspirin, statin, Plavix, beta-wong. Per cardiology, if patient requires repeat heart cath, recommendation will be to have this done at [facility] given complex history of cardiovascular disease. Troponin negative. EKG without acute changes. Continue outpatient follow-up. 3. Acute kidney injury-resolved. 4. History of aortic valve replacement with bioprosthetic valve 5. Hypertension-stable, continue metoprolol, lisinopril, isosorbide regimen. 6. Hyperlipidemia-continue statin. 7. Type 2 diabetes mellitus-continue oral regimen. 8. Morbid obesity-encouraged diet lifestyle modifications. 9. EILEEN-continue home CPAP regimen. 10. BPH-continue Flomax regimen. General: Alert, Oriented x3, Cooperative HEENT: Atraumatic, PERRLA, EOMI, Normocephalic Neck: Supple, No JVD, Negative Carotid Bruits Lungs: Clear to auscultation, Normal air movement Cardiovascular: Regular rate, Regular Rhythm, Normal S1, Normal S2, No murmurs Abdomen: Bowel Sounds Present, Soft, Non Tender, Non-Distended Extremities: No clubbing, No cyanosis, No edema, Capillary Refill Less than 3 Seconds Skin: No rashes, No breakdown Musculoskeletal: No Tenderness to Palpation of Joints or Extremities Neurological: Cranial nerves II-XII grossly intact, Neuro grossly intact Psych/Mental Status: Normal Affect, Appropriate Patient seen and examined prior to discharge. Physical assessment as noted above. Patient is stable for discharge with follow up recommendations as noted above. This patient was seen by RAJAT Booker under the supervision of Dr. Medrano. - Physical Exam Vitals/I&O's: Vital Signs Temp Pulse Resp BP Pulse Ox 97.7 F L 66 18 130/79 H 92 07/18/19 10:10 07/18/19 10:14 07/18/19 10:10 07/18/19 10:10 07/18/19 10:10 Oxygen Flow Rate (L/min) [ 3 AMBULATION with Oxygen] Oxygen Flow Rate (L/min) [ 0 AMBULATING on Room Air] Oxygen Flow Rate (L/min) [At 0 REST on Room Air] Oxygen Flow Rate (L/min) 2 Oxygen Delivery Method Room Air Weight: 324 lb 8.327 oz Body Mass Index (BMI) 44.4 Intake and Output for Last 24 Hours 07/16/19 07/17/19 07/18/19 23:59 23:59 23:59 Intake Total 1165 / 1615 1630 / 1630 370 / 370 Output Total 1700 / 2550 3900 / 3900 1725 / 1725 Balance -535 / -935 -2270 / -2270 -1355 / -1355 Laboratory Results 07/17/19 17:07: POC Glucose 120 H 07/17/19 21:49: POC Glucose 180 H 07/18/19 05:26: Sodium 140, Potassium 4.0, Chloride 104, Carbon Dioxide 28.0, Anion Gap 8, BUN 39 H, Creatinine 1.15, Estim Creat Clear Calc 66.54, Est GFR (MDRD) Af Amer 81, Est GFR (MDRD) Non-Af 67, BUN/Creatinine Ratio 33.9 H, Glucose 125 H, Calcium 9.0 07/18/19 06:28: POC Glucose 120 H 07/18/19 11:36: POC Glucose 138 H Current Medications Acetaminophen (Tylenol) 650 mg PO Q6H PRN PRN PRN Reason: Pain Score 1-10/Temp > 100.7 F Albuterol Sulfate (Ventolin Aerosols) 2.5 mg INHALATION Q2H PRN PRN PRN Reason: SOB/Wheezing Ascorbic Acid (Vitamin C) 500 mg PO DAILY [facility] Last Admin: 07/18/19 10:15 Dose: 500 mg Documented by: Aspirin (Ecotrin) 81 mg PO DAILY [facility] Last Admin: 07/18/19 10:13 Dose: 81 mg Documented by: Atorvastatin Calcium (Lipitor) 10 mg PO QHS [facility] Last Admin: 07/17/19 21:54 Dose: 10 mg Documented by: Calcium/Vitamin D (Os-Guero 500mg + D) 1 tablet PO BID [facility] Last Admin: 07/18/19 10:15 Dose: 1 tablet Documented by: Clopidogrel Bisulfate (Plavix) 75 mg PO DAILY [facility] Last Admin: 07/18/19 10:15 Dose: 75 mg Documented by: Docusate Sodium (Colace Syrup) 50 mg PO DAILY [facility] Last Admin: 07/18/19 10:13 Dose: 50 mg Documented by: Empagliflozin (Jardiance) 25 mg PO MoWeFr [facility] Last Admin: 07/18/19 10:14 Dose: 25 mg Documented by: Enoxaparin Sodium (Lovenox) 40 mg SC DAILY [facility] Last Admin: 07/18/19 10:14 Dose: 40 mg Documented by: Furosemide (Lasix) 40 mg IV BID [facility] Last Admin: 07/18/19 10:14 Dose: 40 mg Documented by: Glimepiride (Amaryl) 1 mg PO DAILYCM [facility] Last Admin: 07/18/19 08:15 Dose: 1 mg Documented by: Glucagon () 1 mg IM .X1 PRN PRN Reason: Hypoglycemia Guaifenesin (Robitussin) 20 ml PO Q4H PRN PRN PRN Reason: COUGH Dextrose (Dextrose 10%-Water) 250 mls @ 999 mls/hr IV .Q16M PRN; Protocol PRN Reason: HYPOGLYCEMIA Insulin Human Lispro (Humalog Kwikpen (Bkc)) 0 unit SC ACHS [facility]; Protocol Last Admin: 07/18/19 11:43 Dose: Not Given Documented by: Isosorbide Mononitrate (Imdur) 60 mg PO DAILY [facility] Last Admin: 07/18/19 10:13 Dose: 60 mg Documented by: Lisinopril (Zestril) 10 mg PO DAILY [facility] Last Admin: 07/18/19 10:29 Dose: 10 mg Documented by: Metoprolol Tartrate (Lopressor (Beta Wong)) 100 mg PO BID [facility] Last Admin: 07/18/19 10:14 Dose: 100 mg Documented by: Multivitamins/Minerals (Multivitamin With Minerals (Bkc)) 1 tablet PO DAILY@0800 [facility] Last Admin: 07/18/19 08:15 Dose: 1 tablet Documented by: Nitroglycerin (Nitrostat) 0.4 mg SUBLINGUAL Q5M PRN PRN Reason: CARDIAC/CHEST PAIN Ondansetron HCl (Zofran) 4 mg IV Q8H PRN PRN PRN Reason: NAUSEA/VOMITING Potassium Chloride (K-Dur) 10 meq PO DAILY [facility] Last Admin: 07/18/19 10:14 Dose: 10 meq Documented by: Senna (Senokot) 1 tablet PO DAILY [facility] Last Admin: 07/18/19 10:15 Dose: 1 tablet Documented by: Sodium Chloride () 10 - 40 ml IV UD PRN PRN Reason: SALINE FLUSH Last Admin: 07/18/19 10:21 Dose: 10 ml Documented by: Tamsulosin HCl (Flomax) 0.4 mg PO DAILY [facility] Last Admin: 07/18/19 10:13 Dose: 0.4 mg Documented by: Vitamin E (Vitamin E) 400 units PO DAILY [facility] Last Admin: 07/18/19 10:15 Dose: 400 units Documented by: Discharge Diet: Low fat/ Low Cholesterol, 8 Cup Fluid Restriciton, 2000 mg Sodium Diet Discharge Activity: Return to Normal Activity Call your doctor if you observe: Shortness of breath, Dizziness, Fainting spells, Chest pain Home Medications: Medications to take at Discharge clopidogrel 75 mg tablet 75 mg PO QDAY 11/23/17 lysine 500 mg tablet 500 mg PO QDAY 11/23/17 metformin 1,000 mg tablet 1,000 mg PO BID 11/23/17 multivitamin,ib-ynnl-aenmmpau 1 tab PO QDAY 11/23/17 ascorbic acid (vitamin C) 500 mg tablet 500 mg PO DAILY 07/08/18 aspirin 81 mg tablet,delayed release 81 mg PO DAILY 07/08/18 calcium carbonate-vitamin D3 600 mg (1,500 mg)-800 unit tablet 1 tab PO BID 07/08/18 omega-3 fatty acids 1,000 mg capsule 1,000 mg PO BID cap 07/08/18 vitamin E (dl, acetate) 400 unit capsule 400 unit PO DAILY 07/08/18 docusate sodium 50 mg capsule 50 mg PO DAILY 12/22/18 glimepiride 1 mg tablet 1 mg PO QAM 12/22/18 rosuvastatin 5 mg tablet 5 mg PO QHS tab 12/22/18 sennosides 8.6 mg tablet 8.6 mg PO DAILY tab 12/22/18 tamsulosin 0.4 mg capsule 0.4 mg PO DAILY 12/22/18 nitroglycerin 0.4 mg sublingual tablet 0.4 mg SUBLINGUAL Q5-15M PRN #25 tab 07/13/19 Dapagliflozin Propanediol [Farxiga] 10 mg PO DAILY 07/14/19 Isosorbide Mononitrate [Isosorbide Mononitrate ER] 60 mg PO QDAY 07/14/19 Metoprolol Tartrate [Lopressor (beta wong)] 100 mg PO BID 07/15/19 Potassium Chloride [K-Tab ER] 10 meq PO QDAY 07/15/19 Furosemide [Lasix] 40 mg PO BID #0 07/18/19 Lisinopril [Zestril] 10 mg PO DAILY #30 tab 07/18/19 Following Prescrptions Were Given to Patient: Lisinopril [Zestril] 10 mg PO DAILY #30 tab Transmission Status: Received by [facility] Primary Care Physician: Koko Hamilton MD [Primary Care Provider] - Please follow up with your Primary Care Physician in: 1 Week Please Follow Up With: Azeem Kincaid NP-C When: 2 Weeks Disposition: Home Minutes spent on discharge:: 35 Patient Condition:: Stable Medical Necessity - Tobacco Use Smoking Status: Former smoker Tobacco Use: Non-smoker Meaningful Use Info Meaningful Use Diagnoses (Choose all that apply): CHF - CHF SYLVIA/ARB ordered at discharge?: Yes Documented LVEF (%): 40 <True Medrano - Last Filed: 07/18/19 16:51> Discharge Date and Diagnosis - Secondary Discharge Diagnosis Chronic Problems (Last Reviewed 12/22/18 @ 16:02 by Danica Savage) Cardiomyopathy (Chronic) CAD (coronary artery disease) (Chronic) Presence of stent in coronary artery (Chronic ~03/03/14) PTCA/ANY to mid RCA 03/18/11 @ [facility]; PTCA/ANY to the mid RCA 06/20/11 @ [facility]; PTCA/ANY to diagonal branch of LAD 03/03/14 @ [facility] History of aortic valve replacement with bioprosthetic valve (Chronic ~01/09/11) 29mm Medtronic tissue valve 01/09/11 @ [facility] Pure hypercholesterolemia (Chronic) Essential hypertension (Chronic) Atherosclerosis of [place] coronary artery of [place] heart without angina pectoris (Chronic) S/P CABG with MERRITT to LAD, SVG to OM, and SVG to RCA in December 2010; PCI to RCA and diagonal branch; Hospital Course and Treatment Operations: None Procedures: 2-D Echocardiogram Summary of Care Provided: Patient seen and examined independently. Data reviewed. I agree with the above note by the nurse practitioner. The patient is a 69 year old M presents with shortness of breath and chest pain. Patient was found to have CHF. Echocardiogram showed ejection fraction of 40%. Cardiology was consulted. Patient's furosemide was increased to 40 mg twice daily. Patient to follow-up with cardiology as outpatient. Patient did have some chest pain but the troponins were negative. Cardiology recommended patient does have recurrent chest pain to follow-up with cardiology at [facility] given his complex cardiac history. [] - Physical Exam Vitals/I&O's: Vital Signs Temp Pulse Resp BP Pulse Ox 36.8 C 69 18 108/58 L 93 07/18/19 15:22 07/18/19 15:22 07/18/19 15:22 07/18/19 15:22 07/18/19 15:22 Oxygen Flow Rate (L/min) [ 3 AMBULATION with Oxygen] Oxygen Flow Rate (L/min) [ 0 AMBULATING on Room Air] Oxygen Flow Rate (L/min) [At 0 REST on Room Air] Oxygen Flow Rate (L/min) 2 Oxygen Delivery Method Room Air Weight: 147.2 kg Body Mass Index (BMI) 44.4 Intake and Output for Last 24 Hours 07/16/19 07/17/19 07/18/19 23:59 23:59 23:59 Intake Total 1165 / 1615 1630 / 1630 985 / 985 Output Total 1700 / 2550 3900 / 3900 3600 / 3600 Balance -535 / -935 -2270 / -2270 -2615 / -2615 General: Alert, No apparent distress HEENT: Atraumatic, Normocephalic Oral: Moist Mucosa, No Gingival or Mucosal Lesions/ Ulcerations Neck: No Nodes, Trachea Midline Lungs: Clear to auscultation, Normal air movement, No rhonchi, No wheeze, No rales Cardiovascular: Regular rate, Regular Rhythm, Normal S1, Normal S2 Abdomen: Bowel Sounds Present, Soft, Non Tender, Non-Distended, No Hepato-splenomegaly, Obese Laboratory Results 07/17/19 17:07: POC Glucose 120 H 07/17/19 21:49: POC Glucose 180 H 07/18/19 05:26: Sodium 140, Potassium 4.0, Chloride 104, Carbon Dioxide 28.0, Anion Gap 8, BUN 39 H, Creatinine 1.15, Estim Creat Clear Calc 66.54, Est GFR (MDRD) Af Amer 81, Est GFR (MDRD) Non-Af 67, BUN/Creatinine Ratio 33.9 H, Glucose 125 H, Calcium 9.0 07/18/19 06:28: POC Glucose 120 H 07/18/19 11:36: POC Glucose 138 H Discharge Diet: Low fat/ Low Cholesterol, 8 Cup Fluid Restriciton, 2000 mg Sodium Diet Discharge Activity: Return to Normal Activity Call your doctor if you observe: Shortness of breath, Dizziness, Fainting spells, Chest pain Minutes spent on discharge:: 35 Patient Condition:: Stable Medical Necessity - Tobacco Use Smoking Status: Former smoker Tobacco Use: Non-smoker Meaningful Use Info Meaningful Use Diagnoses (Choose all that apply): CHF - CHF SYLVIA/ARB ordered at discharge?: Yes Documented LVEF (%): 40 Code Visit Inpatient E&M: 45005 Disch Hosp
--- NOTE | 2019-07-18 12:30 | PHA.DC.MR ---
Pharmacy Service has performed discharge medication reconciliation for this patient. The patient's discharge medication list was reviewed for discrepancies and discrepancies were resolved. Home Medications clopidogrel 75 mg tablet 75 mg PO QDAY 11/23/17 lysine 500 mg tablet 500 mg PO QDAY 11/23/17 metformin 1,000 mg tablet 1,000 mg PO BID 11/23/17 multivitamin,ml-okib-eoncsfrk 1 tab PO QDAY 11/23/17 ascorbic acid (vitamin C) 500 mg tablet 500 mg PO DAILY 07/08/18 aspirin 81 mg tablet,delayed release 81 mg PO DAILY 07/08/18 calcium carbonate-vitamin D3 600 mg (1,500 mg)-800 unit tablet 1 tab PO BID 07/08/18 omega-3 fatty acids 1,000 mg capsule 1,000 mg PO BID cap 07/08/18 vitamin E (dl, acetate) 400 unit capsule 400 unit PO DAILY 07/08/18 docusate sodium 50 mg capsule 50 mg PO DAILY 12/22/18 glimepiride 1 mg tablet 1 mg PO QAM 12/22/18 rosuvastatin 5 mg tablet 5 mg PO QHS tab 12/22/18 sennosides 8.6 mg tablet 8.6 mg PO DAILY tab 12/22/18 tamsulosin 0.4 mg capsule 0.4 mg PO DAILY 12/22/18 nitroglycerin 0.4 mg sublingual tablet 0.4 mg SUBLINGUAL Q5-15M PRN #25 tab 07/13/19 Dapagliflozin Propanediol [Farxiga] 10 mg PO DAILY 07/14/19 Isosorbide Mononitrate [Isosorbide Mononitrate ER] 60 mg PO QDAY 07/14/19 Metoprolol Tartrate [Lopressor (beta yohan)] 100 mg PO BID 07/15/19 Potassium Chloride [K-Tab ER] 10 meq PO QDAY 07/15/19 Furosemide [Lasix] 40 mg PO BID #0 07/18/19 Lisinopril [Zestril] 10 mg PO DAILY #30 tab 07/18/19
--- NOTE | 2019-07-19 15:44 | CASEMGMT ---
[facility] Discharge F/U Phone Call LACE: 11 Strata: 3 Discharge date: 07/18/19 Call date: 07/19/19 Call time: 1544 Duration: 2 min Admission dx: CHF exacerbation Pt states is doing 'just fine' since discharge. Pt states no questions regarding discharge instructions or medications at this time. Pt states has f/u with PCP on 07/22/19 and then cardiology next week. Pt states plans to keep appt's. Pt states no suggestions for [facility] at this time and states 'Everything went pretty well.' Pt voices no further questions/concerns/needs at this time. SStaten [facility]
== END 2019-07-18 15:59 | disposition home or self-care (01) | DRG 291 ==
LOC: ED 07-15 02:13 → PCU 07-15 03:37
PROVIDERS: Internal Medicine; Internal Medicine Cardiovascular Disease; Nurse Practitioner Family; Admitting Provider Student in an Organized Health Care Education/Training Program; Emergency Provider Emergency Medicine; PCP Family Medicine
DX: I11.0 Hypertensive heart disease with heart failure (principal); J96.01 Acute respiratory failure with hypoxia; Z68.41 Body mass index [BMI] 40.0-44.9, adult; N17.9 Acute kidney failure, unspecified; I50.23 Acute on chronic systolic (congestive) heart failure; G47.33 Obstructive sleep apnea (adult) (pediatric); E11.9 Type 2 diabetes mellitus without complications; I25.10 Atherosclerotic heart disease of native coronary artery without angina pectoris; I25.5 Ischemic cardiomyopathy; E78.5 Hyperlipidemia, unspecified; E66.01 Morbid (severe) obesity due to excess calories; N40.0 Benign prostatic hyperplasia without lower urinary tract symptoms; Z95.1 Presence of aortocoronary bypass graft; Z95.3 Presence of xenogenic heart valve; Z87.891 Personal history of nicotine dependence; Z79.84 Long term (current) use of oral hypoglycemic drugs; Z95.5 Presence of coronary angioplasty implant and graft
CPT/HCPCS: 36415; 36600; 71045; 71275; 80048; 82803; 82962; 83880; 84484; 85025; 93005; 93306; 94002; 94003; 97110; 97116; 97162; 97165; 97530; 99251; 99285; Q9957; Q9967; A4216; C8929; G0463; J1940

== ENCOUNTER 2019-07-29 07:55 | Outpatient (RCR) | payer MEDICARE, OTHER, SELFPAY ==
[2019-07-15 04:00] VITALS: BMI 44.4
--- NOTE | 2019-07-29 08:49 | HP.PTEVAL ---
Patient's Visit Information JUNIOR ROCHA is a 69 year old M referred to Physical Therapy by RAJAT Booker with a diagnosis of Debility CHF. Date of Evaluation: 07/29/19 Physical Therapist: True Henry, TERRYT, OCS, CSCS - Visit Plan Frequency: 3x /Week Duration: 2-4 Weeks Plan: 3x/week for 3-4 weeks for ... 1. machine based adn Nustep/recumbent bike strength and conditioning f LE and core adn Posture adn progress to I ensuring safety with oxygen and HR. HS and gastroc stretching. - Subjective Subjective: 2 weeks ago yesterday had respiratory heart failure. sOB for years and oxygen level at 92% for years. Got a lot of fluid on lungs and went to hospital and in there four days and put on oxygen. Then went home. Not feeling too bad. SOB walking 200 feet to [facility] room. Now on oxygen 2l/min. Now eating better at home. Activities are similar but was not doing alot. 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 Basic ADLs are getting done. Outdoor work would be tough right now and has hired it done for last 2-3 years. Sleep is fairly well, up 2-3 x at night which is normal for him. Stairs at home are 3 to get in house without railing and not a problem. Holds door jamb. No regular exercises. 2008 YUNIER R, no running alowed, no other precautions. Had CABGx 4 and stents 9-10 years ago. No precautions from heart doctor, careful with drinking. Would like to join and continue when done. - Objective 92 spo2 at rest on oxygen and 76 HR. at rest. After steps and 400 feet walking recovered to these numbers within one minute. Walks I carrying oxygen tank. Transfers without UE I. Steps with one rail reciprocally I. Needed a 2 minutes rest after 200 feet of walking due to back pain which is common for hime when standing or walking.. Mild SOB after walking steps but not bad. LE strength 4+/5 in knees and hip flexion, 4- in abd and ext. 4/5 in ankles. LE aROM WFL but HS and gastrocs moderately tight. UE AROM WFL except for right external rotation limited to neutral. Strength UE 4-/5 except external rotation 3-. Has h/o RC problems for ten years and this movement is typical for him. 2/3 patella and achilles reflexes. Sensation LE WNL to gross light touch. coordination to reciprocal toe and heel tap is good. VOR walking is safe and I. - Balance Scores Functional Gait Assessment Score: 26 % Disability: 13.3400 CATSIB Score (Max score 120 seconds): 120 - Goals Goal 1:: 28/30 FGA to limit fall risk Goal Time Frame: 4-6 Weeks Goal 2:: I appropr gym based ex to help minimize future problems Goal Time Frame: 4-6 Weeks Goal 3:: Pt feel 75% back to normal with mobility and ex Goal Time Frame: 4-6 Weeks Goal 4:: LEFS < 50% disability Goal Time Frame: 4-6 Weeks - Rehabilitation Potential Physical Therapy Diagnosis: debility Rehabilitation Potential: Fair - Anticipated Interventions Patient/Client Instruction: Educate patient on: Condition, Plan of Care For the Purpose of:: To improve muscle performance and motor function, To increase tolerance to activity/condition/position, To improve ability of physical actions for home/community/work/leisure Therapeutic Exercise to Include: Strength training, Flexibilty training, Gait and locomotor training, Dynamic Lumbar Stabilization For the Purpose of:: To improve muscle performance and motor function, To increase tolerance to activity/condition/position, To improve ability of physical actions for home/community/work/leisure Thank you for the opportunity to evaluate your patient. For Medicare and Medicare HMO plans, please review the plan of care and approve it. It will need to be FAXED BACK to us at [phone] for Medicare purposes. For Medicare only, by signing this I certify the plan of care. Please let me know if there are questions or concerns regarding this plan of care. Physician Signature: Date:
--- NOTE | 2019-08-02 13:59 | HP.OTEVAL_ITS ---
Patient's Visit Information JUNIOR ROCHA is a 69 year old M, referred to Occupational Therapy by RAJAT Booker, with a diagnosis of debility. Date of Evaluation: 07/29/19 Occupational Therapist: Danica Slade, KURTIS/Phil, CHT - Subjective Subjective: This 69 year old male was seen for OT eval for debility- pt states he was in the hospital for CHF for 4 days. pt states he was not on O2 prior to admit to hospital. pt states he can not stand for a length of time. Pt states he has ad. eq. from his hip replacement, walker,cane but does not use. right THR 2008. Open heart sx in 2010. 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 pt states he would like to get out and walk more- pt reports he does get SOB with ADLS but not more than prior to admit to hospital. - ROM ROM Comments: pt demo BUE ROM WNL - Strength Elbow: right 4+/5 left 4+/5 Home Health Manager: right 60# left 65# Lateral Pinch: right 12# left 10# Tripod Pinch: right 10# left 10# - Quick DASH-Disab of Arm,Shoulder& Hand Quick DASH Score: 18.1800 - Rehabilitation General Assessment: pt denies need for skilled OT services but to cont. with PT for gerneral strength/endurance to return to his PLOF. OT spoke with PT and Pt both agree with POC. - Visit Plan TEXT: Thank you for the opportunity to evaluate your patient. For Medicare and Medicare HMO plans, please review the plan of care and approve it. It will need to be FAXED BACK to us at [phone] for Medicare purposes. Please let me know if there are questions or concerns regarding this plan of care. Physician Signature: Date:
--- NOTE | 2020-01-13 08:11 | HP.PT.NRP ---
JUNIOR ROCHA was seen in my office for initial evaluation on 07/29/19. The following Plan of Care was established for this patient: Initial Frequency: 3x /Week Initial Duration: 2-4 Weeks Patient/Client Instruction: Educate patient on: Condition, Plan of Care For the Purpose of:: To improve muscle performance and motor function, To increase tolerance to activity/condition/position, To improve ability of physical actions for home/community/work/leisure Therapeutic Exercise to Include: Strength training, Flexibilty training, Gait and locomotor training, Dynamic Lumbar Stabilization For the Purpose of:: To improve muscle performance and motor function, To increase tolerance to activity/condition/position, To improve ability of physical actions for home/community/work/leisure This patient was last seen in our office 07/29/19. Pertinent comments regarding their Physical therapy will appear below: Pt seen for eval and POC established. He cancelled all visits due to virus scare. He was to call to return when desired. at this point, it has been over 5 months and I will discontinue due to nonattendance btu would be happy to see him again if found appropriate by physicain and if desired. At this point I will be discontinuing this patient from physical therapy. I would be happy to see this patient again in the future if found appropriate by the physician. Thank you! True Henry, DPT, OCS, CSCS
== END 2019-07-29 19:00 | disposition home or self-care (01) ==
LOC: PT 07:55
PROVIDERS: PCP Family Medicine; Referring Provider Family Medicine; Visit Provider Family Medicine
DX: I50.9 Heart failure, unspecified (principal); I42.9 Cardiomyopathy, unspecified; R53.81 Other malaise
CPT/HCPCS: 97162; 97166

== ENCOUNTER → 2020-11-15 08:43 | Outpatient (CLI) | payer MEDICARE, OTHER, SELFPAY ==
[2020-11-07 14:52] VITALS: BMI 43.5
--- NOTE | 2020-11-15 08:47 | ECHOCS_ITS ---
Reason For Study: AVR Procedure This was a 2D Doppler, Color Flow transthoracic echocardiogram. The exam was of poor technical quality due to body habitus and poor acoustic windows. The study was technically difficult. Contrast injection was performed. Exam performed in department. Left Ventricle Normal LV size. Mild segmental systolic dysfunction (see wall motion). The estimated ejection fraction is 45 %. Diastolic function is indeterminate. Mid-Anterior : Hypokinetic. Mid-Lateral : Hypokinetic. Mid-Posterior: Hypokinetic. Mid-inferoseptal : Hypokinetic. Mid-anteroseptal : Hypokinetic. Anterior [place] : Hypokinetic. Septal [place] : Hypokinetic. Right Ventricle Normal RV size. Normal systolic function. Atria The left atrium is mildly enlarged. Normal right atrium. No doppler evidence for ASD. Mitral Valve There is mild mitral annular calcification. Extension of the mitral annular calcification on the base of the posterior mitral valve leaflet. Trivial mitral valve insufficiency. Tricuspid Valve The tricuspid valve is not well visualized. Aortic Valve Based upon the 2D echocardiographic images obtained there appears to be a stable bioprosthetic aortic valve apparatus with mild focal aortic valve calcification and spectral Doppler findings compatible with mild to moderate aortic valve stenosis. Pulmonic Valve The pulmonic valve is not well visualized. Great Vessels The aortic root is not well visualized. Pericardium/Pleural No pericardial effusion. Medication 22 gauge I.V. with prn adaptor inserted into right arm. Diluted definity 6ml given slow IV push to enhance endocardial definition. MMode/2D Measurements & Calculations LVIDd: 5.0 cm IVSd: 0.97 cm LVOT diam: 2.2 cm LVIDs: 3.9 cm LVPWd: 1.1 cm RVDd: 3.5 cm FS: 22.3 % LVOT area: 3.7 cm2 LAV(MOD-bp): 83.8 ml LA A4 area: 22.5 cm2 LA dimension(2D): 5.7 cm LAV(MOD-bp) Indexed: 32.2 ml/m2 LAV(MOD-sp2): 105.6 ml LAV(MOD-sp4): 64.7 ml RA A4 area: 17.9 cm2 Time Measurements MV dec time: 0.18 sec Doppler Measurements & Calculations MV E max silck: 81.0 cm/sec Lat Peak E' Slick: 8.5 cm/sec Med Peak E' Slick: 4.3 cm/sec MV A max slick: 105.7 cm/sec E/E' lat: 9.6 E/E' med: 18.7 MV E/A: 0.77 MV V2 max: 103.6 cm/sec Ao V2 max: 266.8 cm/sec LV V1 max: 93.6 cm/sec MV max P.3 mmHg Ao max P.6 mmHg LV V1 max P.5 mmHg MV V2 mean: 62.7 cm/sec Ao V2 mean: 204.0 cm/sec LV V1 mean P.0 mmHg MV mean P.8 mmHg Ao mean P.1 mmHg LV V1 mean: 65.7 cm/sec MV V2 VTI: 24.1 cm Ao V2 VTI: 55.8 cm LV V1 VTI: 19.1 cm MVA(VTI): 3.0 cm2 ABDI(I,D): 1.3 cm2 ABDI(V,D): 1.3 cm2 SV(LVOT): 71.5 ml PA V2 max: 80.7 cm/sec ECHO/Echo Complete W/ Contrast Interpretation Summary The study was technically difficult. Contrast injection was performed. Mild segmental systolic dysfunction (see wall motion). The estimated ejection fraction is 45 %. The left atrium is mildly enlarged. There is mild mitral annular calcification. Extension of the mitral annular calcification on the base of the posterior mitr al valve leaflet. Trivial mitral valve insufficiency. Based upon the 2D echocardiographic images obtained there appears to be a stabl e bioprosthetic aortic valve apparatus with mild focal aortic valve calcification and spectral Doppler findings compatible with mild to moderate aortic valve stenosis. Diastolic function is indeterminate. Ordering Physician: Azeem Kincaid/Koko Wu Referring Physician: KOKO BARNES Performed By: Jeniffer Messer, RDCS, RVT
== END ==
PROVIDERS: PCP Family Medicine; Referring Provider Internal Medicine Cardiovascular Disease; Visit Provider Internal Medicine Cardiovascular Disease
DX: I25.10 Atherosclerotic heart disease of native coronary artery without angina pectoris (principal); E78.00 Pure hypercholesterolemia, unspecified; I10 Essential (primary) hypertension; I44.7 Left bundle-branch block, unspecified; I45.10 Unspecified right bundle-branch block; Z95.3 Presence of xenogenic heart valve; Z95.5 Presence of coronary angioplasty implant and graft; Z95.1 Presence of aortocoronary bypass graft
CPT/HCPCS: 93225; 93226; 93306; Q9957; A4216; C8929; J3490

== ENCOUNTER → 2021-03-04 09:08 | Outpatient (CLI) | payer MEDICARE, OTHER, SELFPAY ==
[2021-03-04 09:37] LABS: Bacteria 0 SEEN /hpf (None Seen); Mucous, Urine 0 SEEN /hpf (<or=2+); Red Blood Cells-Urine 0 SEEN /hpf (0-5); Squamous Epithelial Cells - UA 0 SEEN /hpf (0-5)
[2021-03-04 12:01] LABS: Hemoglobin 15.7 g/dL (13.0-16.5); Mean Corp Hgb Conc 34.1 g/dL (32-36); Mean Corpuscular Volume 93.7 fL (80-94); Mean Platelet Vol. 10.9 fl (6.2-12.0); Platelet Count 220 K/mm3 (150-450); RBC Distribution Width CV 12.5 % (11.6-14.6); RBC Distribution Width SD 42.8 fl (35.1-43.9); Red Blood Count 4.91 M/mm3 (4.6-6.2); White Blood Count 13.1 K/mm3 (4.4-11.0)
[2021-03-04 12:08] LABS: Color, Urine Yellow (Yellow); Glucose, Dipstick 250 mg/dl (Normal); Ketone-Dipstick Negative (Negative); Leukocyte Esterase-Dipstick 25 /ul (Negative); Nitrite-Dipstick Negative (Negative); Occult Blood-Urine Negative /ul (Negative); Protein-Dipstick Negative (Negative); Urine Bilirubin Dipstick Negative (Negative); Urine Clarity Clear (Clear); Urine Urobilinogen Normal (Normal)
[2021-03-04 12:12] LABS: Prothrombin Time (Protime)PT. 12.8 SECONDS (11.7-14.9)
[2021-03-04 12:14] LABS: White Blood Cells 0-5 SEEN /hpf (0-5)
[2021-03-04 13:14] LABS: Anion Gap 16 (5-15); BUN 34 mg/dL (7-18); BUN/Creat Ratio 25.8 RATIO (10-20); Calcium,Total 10.6 mg/dL (8.5-10.1); Chloride 97 mmol/L (98-107); Creatinine, Serum 1.32 mg/dL (0.70-1.30); EST Glomerular Filtration Rate 57 mL/min (>60); Est Glom Filt Rate - Afr Amer 69 mL/min (>60); Glucose 318 mg/dL (74-106); Potassium 4.5 mmol/L (3.5-5.1); Sodium Level 135 mmol/L (136-145)
== END ==
PROVIDERS: Nurse Practitioner Family; PCP Family Medicine; Referring Provider Physician Assistant Medical; Visit Provider Physician Assistant Medical
DX: I25.10 Atherosclerotic heart disease of native coronary artery without angina pectoris (principal); I25.5 Ischemic cardiomyopathy; I45.2 Bifascicular block; Z95.1 Presence of aortocoronary bypass graft; Z95.3 Presence of xenogenic heart valve; Z95.5 Presence of coronary angioplasty implant and graft
CPT/HCPCS: 36415; 80048; 81001; 85027; 85610

== ENCOUNTER 2021-03-07 08:04 | Day surgery (SDC) | payer MEDICARE, OTHER, SELFPAY ==
[2021-03-06 07:07] VITALS: BMI 42.5
--- NOTE | 2021-03-07 12:58 | PCM.OP.BLANK ---
Operative Report Date of Procedure: 03/07/21 The patient is referred for electrophysiology testing to evaluate change in the QRS pattern from his baseline right bundle branch block pattern. After informed consent the right and left groins were prepped and draped in usual sterile manner. Intermittent boluses of Versed and fentanyl used for sedation and analgesia. 1% subcutaneous like lidocaine was used for local anesthetic. Using the Seldinger technique a 12 [place] Tri-Port sheath was inserted into the right femoral vein. A 4 [place] quadripolar catheter was positioned in the high right atrium His bundle and the RV apex. Programmed stimulation was completed the high right atrium and the ventricle to assess the sinus AV node and ventricular conduction. The results of the EP study are as follows: WA 176, QRS 150 with a right bundle branch block pattern, QT 390. Sinus cycle length 890 AH 115 HV 68 to 74 ms. The maximum SNRT equals 1190, the corrected sinus node recovery time equals 300, the AV block cycle length equals 420 there was decremental retrograde conduction. The VA block cycle length equals 490 the AV node effective refractory period is [address] of 600 ms there is no infranodal block there is no splitting out of the hiss bundle. There is no inducible supraventricular or ventricular arrhythmias. Electrophysiologic testing was repeated during dobutamine 15 mcg/kg/min the AH was 80 the HV was 68 the sinus cycle length was 610 ms the AV block cycle length was 340 the AV node effective refractory period was less than [address] of 600 ms. Again there was no evidence of intra- or intrahis conduction delay there is no inducible supraventricular or ventricular arrhythmia Patient does not require a permanent pacemaker. Post procedure the 12 [place] sheath was removed and hemostasis was obtained..
== END 2021-03-07 15:31 | disposition home or self-care (01) ==
LOC: CLSP 08:05
PROVIDERS: Physician Assistant Medical; PCP Family Medicine; Referring Provider Internal Medicine Cardiovascular Disease; Visit Provider Internal Medicine Cardiovascular Disease
DX: I45.10 Unspecified right bundle-branch block (principal); J44.9 Chronic obstructive pulmonary disease, unspecified; Z95.1 Presence of aortocoronary bypass graft; Z95.2 Presence of prosthetic heart valve; I10 Essential (primary) hypertension; K21.9 Gastro-esophageal reflux disease without esophagitis; E11.9 Type 2 diabetes mellitus without complications; E78.5 Hyperlipidemia, unspecified; G47.33 Obstructive sleep apnea (adult) (pediatric)
CPT/HCPCS: 87635; 93620; 93623; 99152; 99153; C1730; C1894; C9803; J7030; J7040; Q9967; U0005; U0003

== ENCOUNTER → 2021-05-08 12:19 | Outpatient (CLI) | payer MEDICARE, OTHER, SELFPAY ==
[2021-05-08 15:34] LABS: AST(SGOT) 34 U/L (15-37); Alanine Aminotransfer ALT/SGPT 42 U/L (16-61); Albumin, Serum 3.3 g/dL (3.2-5.0); Alkaline Phosphatase 51 U/L (45-117); Anion Gap 10 (5-15); BUN 33 mg/dL (7-18); BUN/Creat Ratio 23.9 RATIO (10-20); Bilirubin, Direct 0.14 mg/dL (0.00-0.30); Calcium,Total 9.8 mg/dL (8.5-10.1); Chloride 100 mmol/L (98-107); Cholesterol 128 mg/dL (200); Creatinine, Serum 1.38 mg/dL (0.70-1.30); EST Glomerular Filtration Rate 54 mL/min (>60); Est Glom Filt Rate - Afr Amer 65 mL/min (>60); Globulin 4.1 g/dL (2.2-4.2); Glucose 422 mg/dL (74-106); High Density Lipoprotein 25 mg/dL; Potassium 4.9 mmol/L (3.5-5.1); Protein, Total 7.4 g/dL (6.4-8.2); Sodium Level 133 mmol/L (136-145); Triglycerides 529 mg/dL
== END ==
PROVIDERS: PCP Family Medicine; Referring Provider Family Medicine; Visit Provider Family Medicine
DX: E11.9 Type 2 diabetes mellitus without complications (principal)
CPT/HCPCS: 36415; 80048; 80061; 80076

== ENCOUNTER 2021-05-27 08:08 | Outpatient (CLI) | payer MEDICARE, OTHER, SELFPAY | END 2021-05-27 23:59 | disposition short-term general hospital (02) | LOC: LABSPEC 05-28 08:08 | PROVIDERS: Referring Provider Family Medicine; Visit Provider Family Medicine | DX: Z20.822 Contact with and (suspected) exposure to COVID-19 (principal) | CPT/HCPCS: 87635; U0003; U0005 ==

== ENCOUNTER 2021-07-16 06:42 | Day surgery (SDC) | payer MEDICARE, OTHER, SELFPAY ==
--- NOTE | 2021-07-16 | COLBX_PTH ---
PATIENT: JUNIOR ROCHA LOC: EN U#:[id number] AGE/SX: 71/M ROOM: RE07/16/[address]: Dr. Handy Cervantes MD : 1950 BED: DIS: 07/16/2021 SPEC #: [id number] RECD: 07/16/21 09:23 STATUS: RAHEL RODRIGUEZ #: [id number] PHILL: 07/16/21 00:[address]: Handy Cervantes DEPT: SURGICAL PATHOLOGY RECD BY: Bradley Barger ENTERED: 07/16/21 10:55 SP TYPE: COLON BX OTHR DR: Dr. Koko Hamilton MD Tissues: Cecum, NOS Procedures: Surgery Specimen Level IV HEADER OPERATION: Colonoscopy (MAC) PRE-OP DIAGNOSIS: Screen for colon cancer TISSUE SUBMITTED: Cecum polyp MICROSCOPIC DIAGNOSIS Cecal polyp, biopsy: Fragment of benign colonic mucosa. Fecal debris. AM:rosa 07/17/2021 MICROSCOPIC DESCRIPTION Slides are reviewed. GROSS DESCRIPTION Received in fixative is one container labeled with the patient's name and designated cecum polyp. The specimen consists of multiple irregular fragments of vergara soft tissue mixed with fecal material that in aggregate measure 2.5 x 0.2 x 0.1 cm. The specimen is totally submitted in one cassette. / SJ:rg 07/16/2021 TC:5 CPT: 75825
[2021-07-16 07:03] VITALS: BP 144/67; PULSE 62; RESP 16; TEMP 35.8; O2SAT 96; BMI 40.9
[2021-07-16] MEDS: Lactated Ringers 1,000 ML 15 ML IV (07:11)
--- NOTE | 2021-07-16 07:13 | PCM.HP.BLA ---
History and Physical Date of Admission: 07/16/21 Intake Vital Signs 07/08/21 10:17 Height 6 ft Weight: 304 lb BMI 41.2 BP 114/68 Blood Pressure Location Rt brachial Position Sitting Respiration 18 Intake Visit Reasons: COLONOSCOPY Chief Complaint: SOB Allergies hydrocodone Allergy (Verified 07/08/21 10:09) rash morphine Allergy (Verified 07/08/21 10:09) Vomiting Medications clopidogrel 75 mg tablet 75 mg PO QDAY 11/23/17 [History Confirmed 07/08/21] lysine 500 mg tablet 500 mg PO QDAY 11/23/17 [History Confirmed 07/08/21] metformin 1,000 mg tablet 1,000 mg PO BID 11/23/17 [History Confirmed 07/08/21] multivitamin,px-bvkp-mucvukbn 1 tab PO QDAY 11/23/17 [History Confirmed 07/08/21] ascorbic acid (vitamin C) 500 mg tablet 500 mg PO DAILY 07/08/18 [History Confirmed 07/08/21] aspirin 81 mg tablet,delayed release 81 mg PO DAILY 07/08/18 [History Confirmed 07/08/21] omega-3 fatty acids 1,000 mg capsule 1,000 mg PO BID cap 07/08/18 [History Confirmed 07/08/21] vitamin E (dl, acetate) 180 mg (400 unit) capsule 400 unit PO DAILY 07/08/18 [History Confirmed 07/08/21] docusate sodium 50 mg capsule 50 mg PO DAILY 12/22/18 [History Confirmed 07/08/21] glimepiride 1 mg tablet 1 mg PO QAM 12/22/18 [History Confirmed 07/08/21] sennosides 8.6 mg tablet 8.6 mg PO DAILY tab 12/22/18 [History Confirmed 07/08/21] tamsulosin 0.4 mg capsule 0.4 mg PO DAILY 12/22/18 [History Confirmed 07/08/21] lisinopril 10 mg tablet 10 mg PO DAILY #90 tab 08/15/19 [Rx Confirmed 07/08/21] allopurinol 100 mg tablet 100 mg PO DAILY 05/02/20 [History Confirmed 07/08/21] calcium carbonate 600 mg-vitamin D3 20 mcg (800 unit) tablet 1 tab PO DAILY tab 05/02/20 [History Confirmed 07/08/21] rosuvastatin 5 mg tablet 5 mg PO 4XW tab 05/02/20 [History Confirmed 07/08/21] sitagliptin 50 mg tablet 50 mg PO DAILY 05/02/20 [History Confirmed 07/08/21] metoprolol tartrate 100 mg tablet 100 mg PO BID #180 tab 08/13/20 [Rx Confirmed 07/08/21] nitroglycerin 0.4 mg sublingual tablet 0.4 mg SUBLINGUAL Q5-15M PRN #25 tab 10/09/20 [Rx Confirmed 07/08/21] potassium chloride 10 mEq tablet,extended release 10 meq PO DAILY #90 tab 12/10/20 [Rx Confirmed 07/08/21] isosorbide mononitrate 60 mg tablet,extended release 24 hr 60 mg PO QDAY #90 tab 03/07/21 [Rx Confirmed 07/08/21] furosemide 40 mg tablet 40 mg PO BID #180 tab 06/14/21 [Rx Confirmed 07/08/21] cholecalciferol (vitamin D3) 50 mcg (2,000 unit) capsule 50 mcg PO DAILY 07/08/21 [History Confirmed 07/08/21] [facility] Medical History Atherosclerosis of [place] coronary artery of [place] heart without angina pectoris Benign prostate hyperplasia Essential hypertension Presence of stent in coronary artery (~03/03/14) Pure hypercholesterolemia Surgical History History of aortic valve replacement with bioprosthetic valve (~01/09/11) History of right hip replacement (03/28/09) History of tonsillectomy Hx of CABG (~01/09/11) Presence of coronary angioplasty implant and graft (~03/03/14) Family History Father CAD (coronary artery disease) Mother CAD (coronary artery disease) Social History Smoking Status: Former smoker how long ago did patient quit smokin.5 years ago alcohol intake: current alcohol intake frequency: holidays/special occasions only caffeine: Yes Type: coffee Number of servings: 1 HPI HPI HPI: JUNIOR ROCHA, is a 71 M who presents to the office today for screening colonoscopy. The patient's last colonoscopy was 12 years ago. Patient is not having any abdominal pain or blood in his stool. Patient has no family history of colon cancer. ROS General General: Yes weight change and fatigue; No appetite, colon cancer, breast cancer or weakness HEENT HEENT: No difficulty swallowing, eye injury, eye surgery, swollen glands or hoarseness Endo Endocrine: Yes diabetes mellitus; No thyroid disease, thyroid cancer, Hair loss, heat intolerance or cold intolerance Skin Skin: No rash or changing moles Breast Breast: No left breast lump, right breast lump, nipple discharge, breast pain, abnormal mammogram, abnormal US or breast enlargement Musc Musculoskeletal: Yes back problems and gout; No arthritis, rheumatoid arthritis or joint pain Cardio Cardiovascular: Yes murmur, heart disease, high blood pressure and heart stent; No pacemaker, atrial fibrillation, heart attack, palpitations, shortness of breat with exertion or chest pain Psych Psychiatric: No depression, anxiety or hearing voices Resp Respiratory: Yes shortness of breath, Yes sleep apnea, No cough, Yes COPD, No asthma, No emphysema and No wheezing Gastro Gastrointestinal: No abdominal pain, No nausea or vomiting, Yes diarrhea, Yes constipation, No blood in stool, Yes acid reflux, No hemorrhoids, No ulcers, No gallbladder problem and No black,tarry stools [place] Hematologic: Yes blood thinners, No blood disorders, No bleeding, No anemia and No blood clots Neuro Neurologic: No system reviewed and no additional complaints, except as documented, No as per HPI, No abnormal gait, No abnormal hearing, No abnormal movements, No abnormal speech, No behavioral changes, No burning sensations, No confusion, No convulsions, No disequilibrium, No dizziness, No localized weakness, No frequent falls, No headache(s), No lack of coordination, No loss of vision, No memory loss, No numbness, No other visual disturbances, No radicular pain, No restless legs, No sensory deficit, No syncope, No tingling, No tremor(s), No weakness and No other Exam Const General: cooperative Orientation: alert and oriented x3 HENMT Head: normal to inspection Neck Neck: normal visual inspection and full ROM Chest Chest palpation & inspection: normal inspection of the chest Resp Effort & Inspection: normal respiratory effort Auscultation: clear to auscultation bilaterally Cardio Rate: regular rate Rhythm: regular rhythm GI Inspection: non-distended Palpation: soft and nontender Skin General: no rashes or lesions noted Neuro General: patient alert and patient oriented x3 Extrem General: full ROM Psych Appearance: grossly normal Mental Status: mental status grossly normal Assessment and Plan Assessment and Plan (1) Screen for colon cancer: Status: Acute Plan - Dr. Handy Cervantes MD: Patient requires screening colonoscopy. I discussed performing this on Plavix as the risk of bleeding is low for screening procedure and he does have a heart history. I explained endoscopy in detail to the patient. I explained the risks including but not limited to stroke or heart attack with anesthesia, perforation of the GI tract, bleeding, infection. I explained that any of these could necessitate further emergency surgery. The patient understands and all questions were answered sufficiently. The patient wishes to proceed with procedure. Handy Cervantes MD Pager: [facility] [address] [place] [address], [address] [place] [address] Office: I have re-examined the patient. There are no clinical changes since date of exam.
[2021-07-16 07:31] LABS: Bedside Glucose 137 mg/dL (70-110)
--- NOTE | 2021-07-16 08:13 | OP.COLON_ITS ---
Patient Name: Ian Daugherty Procedure Date: 07/16/2021 7:49 AM Date of : 1950 Age: 71 Procedure: Colonoscopy Indications: Screening for colorectal malignant neoplasm Providers: Handy Cervantes MD Medicines: Monitored Anesthesia Care Patient Profile: This is a 71 year old male. Refer to note in patient chart for documentation of history and physical. Last Colonoscopy: 10 years ago. Complications: No immediate complications. Procedure: Pre-Anesthesia Assessment: - Prior to the procedure, a History and Physical was performed, and patient medications and allergies were reviewed. The patient's tolerance of previous anesthesia was also reviewed. The risks and benefits of the procedure and the sedation options and risks were discussed with the patient. All questions were answered, and informed consent was obtained. Prior Anticoagulants: The patient has taken Plavix (clopidogrel), last dose was day of procedure. After reviewing the risks and benefits, the patient was deemed in satisfactory condition to undergo the procedure. After I obtained informed consent, the scope was passed under direct vision. Throughout the procedure, the patient's blood pressure, pulse, and oxygen saturations were monitored continuously. The pediatric colonoscope was introduced through the anus and advanced to the cecum, identified by appendiceal orifice and ileocecal valve. The colonoscopy was performed without difficulty. The patient tolerated the procedure well. The quality of the bowel preparation was good. Scope In: 7:56:24 AM Scope Withdrawal Time 0 hours 7 minutes 46 seconds Scope Out: 8:09:10 AM Total Procedure Duration Time 0 hours 12 minutes 46 seconds Findings: A small polyp was found in the cecum. The polyp was removed with a hot snare. Resection and retrieval were complete. The exam was otherwise without abnormality on direct and retroflexion views. Impression: - One small polyp in the cecum, removed with a hot snare. Resected and retrieved. - The examination was otherwise normal on direct and retroflexion views. Recommendation: - Discharge patient to home. - Resume previous diet. - Continue present medications. - Await pathology results. - Repeat colonoscopy in 5 years for surveillance. Procedure Code(s): --- Professional --- 61374, 33, Colonoscopy, flexible; with removal of tumor(s), polyp(s), or other lesion(s) by snare technique Diagnosis Code(s): --- Professional --- Z12.11, Encounter for screening for malignant neoplasm of colon D12.0, Benign neoplasm of cecum CPT copyright 2017 [employer]. All rights reserved. The codes documented in this report are preliminary and upon master barber review may be revised to meet current compliance requirements. Handy Cervantes MD 07/16/2021 8:13:16 AM This report has been signed electronically. Number of Addenda: 0 Note Initiated On: 07/16/2021 7:49 AM
--- NOTE | 2021-07-16 08:14 | OP.CCLET_ITS ---
07/16/2021 Koko Hamilton MD [address] [place] [address] Re : Colonoscopy procedure for Ian Daugherty Dear Dr. Hamilton This procedure was performed on Friday, July 16, 2021. My impressions and recommendations are as follows: Impressions : - One small polyp in the cecum, removed with a hot snare. Resected and retrieved. - The examination was otherwise normal on direct and retroflexion views. Recommendations : - Discharge patient to home. - Resume previous diet. - Continue present medications. - Await pathology results. - Repeat colonoscopy in 5 years for surveillance. My findings are described in the full procedure note, which is enclosed. If I can be of further assistance, please feel free to contact me at Doctor phone number(s): , Work: . Sincerely, Handy Cervantes MD 07/16/2021 8:13:16 AM This report has been signed electronically.
[2021-07-16 08:15] VITALS: BP 144/67; BP 76/46; PULSE 58; RESP 16; TEMP 36.4; O2SAT 92
[2021-07-16 08:20] VITALS: BP 144/67; BP 92/59; PULSE 61; RESP 16; O2SAT 94
[2021-07-16 08:25] VITALS: BP 100/62; BP 144/67; PULSE 60; RESP 16; O2SAT 92
[2021-07-16 08:30] VITALS: BP 101/63; BP 144/67; PULSE 60; RESP 16; TEMP 36.1; O2SAT 95
[2021-07-16 08:50] VITALS: BP 144/67
== END 2021-07-16 23:59 | disposition home or self-care (01) ==
LOC: EN 06:44 → AC 06:46
PROVIDERS: PCP Family Medicine; Referring Provider Family Medicine; Visit Provider Surgery
PROC: 0DJD8ZZ Inspection of Lower Intestinal Tract, Via Natural or Artificial Opening Endoscopic (ICD-10-PCS; CPT 45378; principal; 2021-07-16 07:55)
DX: Z12.11 Encounter for screening for malignant neoplasm of colon (principal); D12.0 Benign neoplasm of cecum; R06.02 Shortness of breath; I10 Essential (primary) hypertension; E78.00 Pure hypercholesterolemia, unspecified; N40.0 Benign prostatic hyperplasia without lower urinary tract symptoms; I25.10 Atherosclerotic heart disease of native coronary artery without angina pectoris; Z87.891 Personal history of nicotine dependence
CPT/HCPCS: 45385; 82962; 88305; J7120

== ENCOUNTER 2021-08-20 11:29 | Outpatient (CLI) | payer MEDICARE, OTHER, SELFPAY ==
[2021-08-20 15:35] LABS: Hemoglobin A1c 8.3 % (3.8-5.6)
== END 2021-08-20 23:59 | disposition home or self-care (01) ==
LOC: MFPLAB 11:36
PROVIDERS: PCP Family Medicine; Referring Provider Family Medicine; Visit Provider Family Medicine
DX: E11.9 Type 2 diabetes mellitus without complications (principal)
CPT/HCPCS: 36415; 83036

== ENCOUNTER → 2021-09-17 | Outpatient (CLI) | payer MEDICARE, OTHER, SELFPAY ==
[2021-09-17 12:43] LABS: Anion Gap 10 (5-15); BUN 18 mg/dL (7-18); BUN/Creat Ratio 16.1 RATIO (10-20); Calcium,Total 9.6 mg/dL (8.5-10.1); Chloride 104 mmol/L (98-107); Creatinine, Serum 1.12 mg/dL (0.70-1.30); EST Glomerular Filtration Rate 69 mL/min (>60); Est Glom Filt Rate - Afr Amer 83 mL/min (>60); Glucose 171 mg/dL (74-106); Potassium 4.1 mmol/L (3.5-5.1); Sodium Level 138 mmol/L (136-145)
== END | disposition home or self-care (01) ==
LOC: MFPLAB 10:43
PROVIDERS: PCP Family Medicine; Referring Provider Family Medicine; Visit Provider Family Medicine
DX: M79.606 Pain in leg, unspecified (principal)
CPT/HCPCS: 36415; 80048

== ENCOUNTER → 2021-10-24 | Outpatient (CLI) | payer MEDICARE, OTHER, SELFPAY ==
[2021-10-24 12:45] LABS: Microalbumin,Random Urine 6.2 mg/L (NO RANGE EST.)
[2021-10-24 13:06] LABS: Anion Gap 9 (5-15); BUN 24 mg/dL (7-18); BUN/Creat Ratio 21.2 RATIO (10-20); Calcium,Total 10.3 mg/dL (8.5-10.1); Chloride 102 mmol/L (98-107); Cholesterol 219 mg/dL (200); Creatinine, Serum 1.13 mg/dL (0.70-1.30); EST Glomerular Filtration Rate 68 mL/min (>60); Est Glom Filt Rate - Afr Amer 82 mL/min (>60); Glucose 169 mg/dL (74-106); High Density Lipoprotein 32 mg/dL; Potassium 4.1 mmol/L (3.5-5.1); Sodium Level 137 mmol/L (136-145); Triglycerides 383 mg/dL; Very Low Density Lipoprotein 77 mg/dL (5-40)
[2021-10-24 13:18] LABS: Hemoglobin A1c 8.6 % (3.8-5.6)
== END | disposition home or self-care (01) ==
LOC: MFPLAB 11:09
PROVIDERS: PCP Family Medicine; Referring Provider Family Medicine; Visit Provider Family Medicine
DX: E11.9 Type 2 diabetes mellitus without complications (principal)
CPT/HCPCS: 36415; 80048; 80061; 82043; 82570; 83036

== ENCOUNTER → 2021-11-29 | Outpatient (CLI) | payer MEDICARE, OTHER, SELFPAY | END | disposition home or self-care (01) | LOC: US 08:23 | PROVIDERS: PCP Family Medicine; Referring Provider Internal Medicine Cardiovascular Disease; Visit Provider Internal Medicine Cardiovascular Disease | DX: I25.10 Atherosclerotic heart disease of native coronary artery without angina pectoris (principal) ==

== ENCOUNTER → 2022-02-13 | Outpatient (CLI) | payer MEDICARE, OTHER, SELFPAY ==
[2022-02-13 12:55] LABS: AST(SGOT) 19 U/L (15-37); Alanine Aminotransfer ALT/SGPT 25 U/L (16-61); Albumin, Serum 3.4 g/dL (3.2-5.0); Alkaline Phosphatase 47 U/L (45-117); Cholesterol 145 mg/dL (200); Globulin 4.3 g/dL (2.2-4.2); High Density Lipoprotein 37 mg/dL; Protein, Total 7.7 g/dL (6.4-8.2); Triglycerides 266 mg/dL; Very Low Density Lipoprotein 53 mg/dL (5-40)
== END | disposition home or self-care (01) ==
LOC: LAB 11:16
PROVIDERS: PCP Family Medicine; Referring Provider Internal Medicine Cardiovascular Disease; Visit Provider Internal Medicine Cardiovascular Disease
DX: E78.00 Pure hypercholesterolemia, unspecified (principal); I25.10 Atherosclerotic heart disease of native coronary artery without angina pectoris
CPT/HCPCS: 36415; 80061; 80076

== ENCOUNTER → 2022-02-27 | Outpatient (CLI) | payer MEDICARE, OTHER, SELFPAY | END | disposition home or self-care (01) | LOC: SL 11:32 | PROVIDERS: PCP Family Medicine; Referring Provider Internal Medicine Critical Care Medicine; Visit Provider Internal Medicine Critical Care Medicine | DX: R09.02 Hypoxemia (principal) | CPT/HCPCS: 94762 ==

== ENCOUNTER → 2022-03-12 | Outpatient (CLI) | payer MEDICARE, OTHER, SELFPAY ==
--- NOTE | 2022-03-12 17:21 | PFTCOMP_ITS ---
COMPLETE PULMONARY FUNCTION TEST INTERPRETATION Brief HPI: Patient is a 71-year-old male, currently under the care of myself, who presents to [facility] for complete pulmonary function tests secondary to diagnosis of hypoxemia. Respiratory therapist reports good effort and reproducible results. Interpretation: Forced expiration spirometry shows a moderately severe large airways obstructive ventilatory defect with an FEV1 of 57% predicted. There is no significant bronchodilator response by strict ATS criteria. Spirograms are of good quality and plateau slowly, indicating slowly emptying areas of the lungs. The respiratory flow volume loop shows decreased expiratory flow rates at all lung volumes consistent with airway obstruction. Lung volumes by body plethysmography show a decreased total lung capacity at 5.05 L, 72% predicted. All other lung volumes are reduced symmetrically. Diffusion capacity by carbon monoxide is decreased at 60% predicted. The airway resistance is slightly elevated. No previous pulmonary function tests were available for review. Impression: Irreversible moderately severe mixed ventilatory defect with a symmetric reduction diffusing capacity
== END | disposition home or self-care (01) ==
LOC: PSN 06:52
PROVIDERS: PCP Family Medicine; Referring Provider Internal Medicine Critical Care Medicine; Visit Provider Internal Medicine Critical Care Medicine
DX: R09.02 Hypoxemia (principal)
CPT/HCPCS: 94060; 94726; 94729

== ENCOUNTER → 2022-03-14 | Outpatient (CLI) | payer MEDICARE, OTHER, SELFPAY ==
[2022-03-14 12:52] VITALS: PULSE 64; PULSE 67; PULSE 69; PULSE 71; PULSE 76; PULSE 81; PULSE 89; O2SAT 88; O2SAT 91; O2SAT 92; O2SAT 93; O2SAT 94; O2SAT 95
--- NOTE | 2022-03-14 12:54 | CPS ---
Patient stated that he is a new setup for oxygen at night with his CPAP, he will be wearing 3 lpm HS. Testing was started on room air, SpO2 93%. Patient walked about 250 ft by the 2nd minute, SpO2 91%. Patient wanted to take a break at this time. SpO2 dropped to 88% while sitting and maintained 88% for 30 seconds. Placed patient on 2 lpm O2 before starting to walk again. Patient then walked another consecutive 268 ft on 2 lpm O2 before wanting to take another break, SpO2 94%. Patient did not want to start again before the 6 minutes ended. [place] SpO2 while on oxygen 91%. Patient stated that is the extent of his normal exertion.
--- NOTE | 2022-03-18 10:06 | PCM.PSN.6M ---
PSN 6 Minute Walk Test 6 Minute Walk Test 6 Minute Walk Test: 6 Minute Walk Test PSN:6-Minute Walk Test Start: 03/14/22 12:52 Freq: Status: Active Protocol: RESP.6MINW Document 03/14/22 12:52 ROB (Rec: 03/14/22 13:03 ROB [id number]) 6 Minute Walk Test Date Performed 03/14/22 Time Performed 12:30 Height 6 ft Weight: 295 lb Weight in Pounds 295.[address]: Yusef Singleton Assistive device used: None Pre-test Oxygen Delivery Method Room Air Pulse Ox (%) 93 Pulse Rate (60-100 beats/min) 64 Dyspnea Gretta Scale (0-10) 0 Exertion Gretta Scale (6-20) 6 1st minute Oxygen Delivery Method Room Air Pulse Ox (%) 92 Pulse Rate (60-100 beats/min) 81 2nd minute Oxygen Delivery Method Room Air Pulse Ox (%) 91 Pulse Rate (60-100 beats/min) 89 3rd minute Oxygen Delivery Method Room Air Pulse Ox (%) 88 Pulse Rate (60-100 beats/min) 76 Dyspnea Gretta Scale (0-10) 4 Number of Rests Taken 1 4th minute Oxygen Flow Rate (L/min) (L/min) 2 Oxygen Delivery Method Nasal Cannula Pulse Ox (%) 94 Pulse Rate (60-100 beats/min) 81 5th minute Oxygen Flow Rate (L/min) (L/min) 2 Oxygen Delivery Method Nasal Cannula Pulse Ox (%) 91 Pulse Rate (60-100 beats/min) 71 6th minute Oxygen Flow Rate (L/min) (L/min) 2 Oxygen Delivery Method Nasal Cannula Pulse Ox (%) 93 Pulse Rate (60-100 beats/min) 69 Dyspnea Gretta Scale (0-10) 4 Exertion Gretta Scale (6-20) 14 Number of Rests Taken 1 Post-test Oxygen Flow Rate (L/min) (L/min) 2 Oxygen Delivery Method Nasal Cannula Pulse Ox (%) 95 Pulse Rate (60-100 beats/min) 67 Full Laps Walked 8 Partial Lap, Number of Tiles Walked 46 Total Distance Walked (ft) 518 03/14/22 12:54 Cardiopulmonary Services by Anna Ramirez Patient stated that he is a new setup for oxygen at night with his CPAP, he will be wearing 3 lpm HS. Testing was started on room air, SpO2 93%. Patient walked about 250 ft by the 2nd minute, SpO2 91%. Patient wanted to take a break at this time. SpO2 dropped to 88% while sitting and maintained 88% for 30 seconds. Placed patient on 2 lpm O2 before starting to walk again. Patient then walked another consecutive 268 ft on 2 lpm O2 before wanting to take another break, SpO2 94%. Patient did not want to start again before the 6 minutes ended. Kasia SpO2 while on oxygen 91%. Patient stated that is the extent of his normal exertion. Initialized on 03/14/22 12:54 - END OF NOTE Interpretation Interpretation: 100The patient ambulated 18 feet over the course of 6 minutes beginning on room air without assistive devices. Pretesting oxygen saturation was noted to be 93% on room air. With ambulation, the kasia oxygen saturation was 88%. 2 L/min of supplemental oxygen was applied and the patient was able to complete the remainder of the test while maintaining appropriate oxygen saturations. Recommendations Recommendations: 2 L/min of supplemental oxygen should be utilized with exertion.
== END | disposition home or self-care (01) ==
LOC: PSN 12:22
PROVIDERS: PCP Family Medicine; Visit Provider Internal Medicine Critical Care Medicine
DX: R09.02 Hypoxemia (principal)
CPT/HCPCS: 94618

== ENCOUNTER → 2022-06-03 | Outpatient (CLI) | payer MEDICARE, OTHER, SELFPAY ==
--- NOTE | 2022-06-03 10:50 | ECHOCS_ITS ---
Reason For Study: CHF Procedure This was a 2D Doppler, Color Flow transthoracic echocardiogram. The study was technically difficult. Due to body habitus. Contrast injection was performed. Exam performed in department. Left Ventricle Based upon the 2D echocardiographic and contrast enhanced images obtained there appears to be grossly normal left ventricular size with left ventricular regional wall motion abnormalities and mild left ventricular systolic dysfunction. The estimated ejection fraction is 50 %. Diastolic function is indeterminate. Mid-Anterior : Hypokinetic. Mid-Lateral : Hypokinetic. Mid-Inferior: Hypokinetic. Mid-inferoseptal : Hypokinetic. Mid-anteroseptal : Hypokinetic. Right Ventricle Based upon the 2D echocardiographic images obtained there appears to be grossly normal right ventricular size and systolic function. Atria The left atrium is mildly enlarged. Normal right atrium. No doppler evidence for ASD. Mitral Valve There is mild mitral annular calcification. Extension of the mitral annular calcification onto the base of the posterior mitral valve leaflet. Trivial mitral valve insufficiency. Tricuspid Valve Normal tricuspid valve. Trivial tricuspid valve insufficiency. Aortic Valve The aortic valve apparatus is not well visualized, however, based upon the 2D echocardiographic images obtained and spectral Doppler information obtained there appears to be a stable bioprosthetic aortic valve apparatus with mild to moderate associated aortic valve stenosis. Pulmonic Valve The pulmonic valve is not well visualized. Great Vessels The aortic root is not well visualized. Pericardium/Pleural No pericardial effusion. Medication 22 gauge I.V. with prn adaptor inserted into right arm. Diluted definity 3.5ml given slow IV push to enhance endocardial definition. MMode/2D Measurements & Calculations LVOT diam: 2.2 cm LAV(MOD-bp): 84.3 ml LVAd ap4: 47.4 cm2 LVOT area: 3.9 cm2 LAV(MOD-bp) Indexed: 33.2 ml/m2 LVLd ap4: 9.3 cm LAV(MOD-sp2): 97.5 ml EDV(MOD-sp4): 205.8 ml LAV(MOD-sp4): 72.1 ml EDV(sp4-el): 204.2 ml LVAs ap4: 32.9 cm2 LVLs ap4: 8.3 cm ESV(MOD-sp4): 111.0 ml ESV(sp4-el): 110.9 ml EF(MOD-sp4): 46.1 % EF(sp4-el): 45.7 % LVAd ap2: 28.6 cm2 SV(MOD-sp4): 94.8 ml SV(MOD-sp2): 37.6 ml LVLd ap2: 8.8 cm EDV(MOD-sp2): 79.5 ml EDV(sp2-el): 78.8 ml LVAs ap2: 18.9 cm2 LVLs ap2: 7.2 cm ESV(MOD-sp2): 41.9 ml ESV(sp2-el): 42.2 ml EF(MOD-sp2): 47.2 % SV(sp4-el): 93.3 ml LA A4 area: 22.6 cm2 RA A4 area: 19.5 cm2 Time Measurements MV dec time: 0.18 sec Doppler Measurements & Calculations MV E max slick: 83.1 cm/sec Lat Peak E' Slick: 6.7 cm/sec Med Peak E' Slick: 4.8 cm/sec MV A max slick: 87.9 cm/sec E/E' lat: 12.4 E/E' med: 17.3 MV E/A: 0.95 Ao V2 max: 276.9 cm/sec LV V1 max: 77.8 cm/sec MV dec slope: 449.3 cm/sec2 Ao max P.7 mmHg LV V1 max P.4 mmHg Ao V2 mean: 206.5 cm/sec LV V1 mean P.6 mmHg Ao mean P.8 mmHg LV V1 mean: 60.3 cm/sec Ao V2 VTI: 63.6 cm LV V1 VTI: 18.8 cm AV (velocity ratio): 0.30 ABDI(I,D): 1.2 cm2 ABDI(V,D): 1.1 cm2 SV(LVOT): 74.2 ml PA V2 max: 101.9 cm/sec ECHO/Echo Complete W/ Contrast Interpretation Summary The study was technically difficult. Contrast injection was performed. Based upon the 2D echocardiographic and contrast enhanced images obtained there appears to be grossly normal left ventricular size with left ventricular regional wall motion abnormalities and mild left ventricular systolic dysfunction. The estimated ejection fraction is 50 %. The left atrium is mildly enlarged. There is mild mitral annular calcification. Extension of the mitral annular calcification onto the base of the posterior mi tral valve leaflet. Trivial mitral valve insufficiency. Trivial tricuspid valve insufficiency. The aortic valve apparatus is not well visualized, however, based upon the 2D e chocardiographic images obtained and spectral Doppler information obtained there appears to be a stable bioprosthetic aortic valve apparatus with mild to moderate associated aortic valve stenosis. Diastolic function is indeterminate. Ordering Physician: Koko Wu Referring Physician: Koko Hamilton Performed By: Nancy Herzog, RDCS, RVT
== END | disposition home or self-care (01) ==
LOC: CVS 10:49
PROVIDERS: PCP Family Medicine; Visit Provider Internal Medicine Cardiovascular Disease
DX: I50.23 Acute on chronic systolic (congestive) heart failure (principal); I25.5 Ischemic cardiomyopathy; I45.10 Unspecified right bundle-branch block; Z95.5 Presence of coronary angioplasty implant and graft; Z95.3 Presence of xenogenic heart valve; I10 Essential (primary) hypertension; I25.10 Atherosclerotic heart disease of native coronary artery without angina pectoris; Z95.1 Presence of aortocoronary bypass graft; E78.00 Pure hypercholesterolemia, unspecified
CPT/HCPCS: 93306; Q9957; A4216; C8929

== ENCOUNTER → 2022-08-08 | Outpatient (CLI) | payer MEDICARE, OTHER, SELFPAY ==
[2022-08-08 16:04] LABS: AST(SGOT) 30 U/L (15-37); Alanine Aminotransfer ALT/SGPT 37 U/L (16-61); Albumin, Serum 3.4 g/dL (3.2-5.0); Alkaline Phosphatase 46 U/L (45-117); Anion Gap 8 (5-15); BUN 36 mg/dL (7-18); BUN/Creat Ratio 29.8 RATIO (10-20); Bilirubin, Direct 0.11 mg/dL (0.00-0.30); Calcium,Total 9.1 mg/dL (8.5-10.1); Chloride 103 mmol/L (98-107); Cholesterol 147 mg/dL (200); Creatinine, Serum 1.21 mg/dL (0.70-1.30); EST Glomerular Filtration Rate 63 mL/min (>60); Est Glom Filt Rate - Afr Amer 76 mL/min (>60); Globulin 3.9 g/dL (2.2-4.2); Glucose 204 mg/dL (74-106); High Density Lipoprotein 33 mg/dL; Protein, Total 7.3 g/dL (6.4-8.2); Sodium Level 137 mmol/L (136-145); Triglycerides 339 mg/dL; Very Low Density Lipoprotein 68 mg/dL (5-40)
== END | disposition home or self-care (01) ==
LOC: MFPLAB 11:41
PROVIDERS: Internal Medicine Cardiovascular Disease; PCP Family Medicine; Visit Provider Family Medicine
DX: I10 Essential (primary) hypertension (principal)
CPT/HCPCS: 36415; 80048; 80061; 80076

== ENCOUNTER → 2022-12-03 | Outpatient (CLI) | payer MEDICARE, OTHER, SELFPAY ==
[2022-12-03 16:50] LABS: Absolute Lymphocyte Count 2.03 X10^3/uL (0.83-4.51); Absolute Neutrophil Count 9.9 X10^3/uL (2.0-7.7); Basophil# 0.05 X10^3/uL; Basophil% 0.4 % (0-1); Eosinophil# 0.57 X10^3/uL; Eosinophils% 4.1 % (0-5); Hemoglobin 14.1 g/dL (13.0-16.5); Lymphocyte # 2.03 X10^3/ul (0.83-4.51); Lymphocyte % 14.6 % (19-41); Mean Corp Hgb Conc 32.8 g/dL (32-36); Mean Corpuscular Hgb 31.4 pg (27.0-32.0); Mean Corpuscular Volume 95.8 fL (80-94); Mean Platelet Vol. 9.9 fl (6.2-12.0); Monocyte# 1.37 X10^3/uL; Monocyte% 9.8 % (0-10); NRBC Flagged by Analyzer 0 % (0-5); Neutrophil # 9.85 X10^3/uL (2.7-7.7); Neutrophil % 70.7 % (47-70); Platelet Count 190 K/mm3 (150-450); RBC Distribution Width CV 13.4 % (11.6-14.6); RBC Distribution Width SD 46.9 fl (35.1-43.9); Red Blood Count 4.49 M/mm3 (4.6-6.2); White Blood Count 13.9 K/mm3 (4.4-11.0)
[2022-12-03 17:14] LABS: Anion Gap 7 (5-15); BNP,B-Type NATRIURETIC PEPTIDE 102.9 pg/mL (0-100); BUN 24 mg/dL (7-18); BUN/Creat Ratio 22.2 RATIO (10-20); Calcium,Total 9.2 mg/dL (8.5-10.1); Chloride 106 mmol/L (98-107); Creatinine, Serum 1.08 mg/dL (0.70-1.30); EST Glomerular Filtration Rate 71 mL/min (>60); Est Glom Filt Rate - Afr Amer 86 mL/min (>60); Glucose 89 mg/dL (74-106); Potassium 4.5 mmol/L (3.5-5.1); Sodium Level 142 mmol/L (136-145)
== END | disposition home or self-care (01) ==
LOC: LAB 16:07
PROVIDERS: PCP Family Medicine; Referring Provider Physician Assistant Medical; Visit Provider Physician Assistant Medical
DX: R06.09 Other forms of dyspnea (principal); I50.23 Acute on chronic systolic (congestive) heart failure
CPT/HCPCS: 36415; 80048; 83880; 85025

== ENCOUNTER 2022-12-31 19:28 | Emergency (ER) | payer MEDICARE, OTHER, SELFPAY ==
[2022-12-31] VITALS (7 sets, daily range): BP systolic 110–163; BP diastolic 65–72; PULSE 81–86; RESP 16–18; TEMP 36.6; O2SAT 88–94; BMI 41.8
--- NOTE | 2022-12-31 19:42 | EKG12_ITS ---
Test Reason : CP Blood Pressure : / mmHG Vent. Rate : 083 BPM Atrial Rate : 083 BPM P-R Int : 206 ms QRS Dur : 156 ms QT Int : 424 ms P-R-T Axes : 061 204 044 degrees QTc Int : 498 ms Normal sinus rhythm Right bundle branch block Lateral infarct , age undetermined Abnormal ECG Confirmed by SUYAPA DANIELLE ([id number]), primer expeditor and drier ANUPAM CARRIZALES ([id number]) on 01/01/2023 11:34:37 AM Referred By: Jumana Confirmed By:SUYAPA DANIELLE
--- NOTE | 2022-12-31 19:47 | ED.VIS.CHEST ---
HPI History of Present Illness Chief Complaint: Chest Pain Informant: patient and spouse/S.O. Narrative Narrative: Transient chest pain a little over an hour ago while driving. Reports pressure in his chest relieved with 1 nitro. He takes aspirin and Plavix at home history of coronary disease. Four-vessel bypass 12 years ago subsequent to stent since then last time was 10 years ago. He is currently followed by Dr. Godinez. Last seen 3 to 4 weeks ago in the office. COPD CHF history of chronic 3 L oxygen at night then as needed. He was driving with his oxygen came in with continued oxygen. Denies cough. Currently asymptomatic. CVD Risk Factors: Positive for Hypertension, Diabetes, Hypercholesterolemia and Smoking [facility] Medical History Alcohol use Arthritis Atherosclerosis of [place] coronary artery of [place] heart without angina pectoris Back pain Benign prostate hyperplasia CAD (coronary artery disease) Cardiology follow-up encounter COPD (chronic obstructive pulmonary disease) CPAP (continuous positive airway pressure) dependence Diabetes Dietary restriction Essential hypertension Former smoker Gastric reflux High cholesterol History of CHF (congestive heart failure) History of echocardiogram History of Holter monitoring History of pain when walking Left bundle branch block Leg cramps Loss of consciousness Loss of hearing Presence of stent in coronary artery (~03/03/14) Prostate disease Pure hypercholesterolemia Shortness of breath on exertion Wears dentures Wears glasses Home Medications clopidogrel 75 mg tablet (Plavix) 75 mg PO QDAY antiplatelet 11/23/17 [History Last Taken Unknown] lysine 500 mg tablet 500 mg PO QDAY supplement 11/23/17 [History Last Taken Unknown] metformin 1,000 mg tablet 1,000 mg PO BID diabetes 11/23/17 [History Last Taken Unknown] multivitamin,nd-oviu-mfspqqur (Complete Multivitamin tablet) 1 tab PO QDAY supplement 11/23/17 [History Last Taken Unknown] ascorbic acid (vitamin C) 500 mg tablet 500 mg PO DAILY supplement 07/08/18 [History Last Taken Unknown] aspirin 81 mg tablet,delayed release (Adult Low Dose Aspirin) 81 mg PO DAILY antiplatelet 07/08/18 [History Last Taken Unknown] omega-3 fatty acids 1,000 mg capsule (Fish Oil Concentrate) 1,000 mg PO BID supplement 07/08/18 [History Last Taken Unknown] vitamin E (dl, acetate) 180 mg (400 unit) capsule 400 unit PO DAILY supplement 07/08/18 [History Last Taken Unknown] docusate sodium 50 mg capsule (Colace Clear) 50 mg PO .4XW stool softener 12/22/18 [History Last Taken Unknown] glimepiride 1 mg tablet 1 mg PO BID diabetes 12/22/18 [History Last Taken Unknown] sennosides 8.6 mg tablet (senna) 8.6 mg PO DAILY Check with primary doctor 12/22/18 [History Last Taken Unknown] tamsulosin 0.4 mg capsule 0.4 mg PO DAILY Check with primary doctor 12/22/18 [History Last Taken Unknown] lisinopril 10 mg tablet 10 mg PO DAILY #90 tabs 08/15/19 [Rx Last Taken 07/16/21] allopurinol 100 mg tablet 100 mg PO DAILY 05/02/20 [History Last Taken Unknown] calcium carbonate 600 mg-vitamin D3 20 mcg (800 unit) tablet 1 tab PO DAILY supplement 05/02/20 [History Last Taken Unknown] rosuvastatin 5 mg tablet 5 mg PO DAILY cholesterol 05/02/20 [History Last Taken Unknown] nitroglycerin 0.4 mg sublingual tablet (Nitrostat) 0.4 mg sublingual Q5-15M PRN chest pain #25 tabs 10/09/20 [Rx Last Taken Unknown] cholecalciferol (vitamin D3) 50 mcg (2,000 unit) capsule 50 mcg PO DAILY 07/08/21 [History Last Taken Unknown] valacyclovir 500 mg tablet 500 mg PO PRN PRN Cold Sores 07/15/21 [History Last Taken Unknown] finasteride 5 mg tablet 5 mg PO DAILY 11/08/21 [History Last Taken Unknown] famotidine 20 mg tablet (Pepcid) 20 mg PO .3XWEEK PRN 05/21/22 [History Last Taken Unknown] sitagliptin phosphate 50 mg tablet (Januvia) 50 mg PO DAILY 05/21/22 [History Last Taken Unknown] furosemide 40 mg tablet 40 mg PO BID #180 tabs 06/23/22 [Rx Last Taken Unknown] metoprolol tartrate 100 mg tablet 100 mg PO BID heart rate #180 tabs 09/08/22 [Rx Last Taken Unknown] potassium chloride 10 mEq tablet,extended release See Rx Instructions .Route .COMPLEX #90 tabs 11/05/22 [Rx Last Taken Unknown] insulin glargine 100 unit/mL subcutaneous solution (Lantus U-100 Insulin) 20 unit subcut DAILY 12/03/22 [History Last Taken Unknown] isosorbide mononitrate 60 mg tablet,extended release 24 hr 60 mg PO QDAY bp #90 tabs 12/05/22 [Rx Last Taken Unknown] Allergy/AdvReac Type Severity Reaction Status Date / Time hydrocodone Allergy rash Verified 12/31/22 19:29 morphine Allergy Vomiting Verified 12/31/22 19:29 Family History Father CAD (coronary artery disease) Mother CAD (coronary artery disease) Surgical History History of aortic valve replacement with bioprosthetic valve (~01/09/11) History of right hip replacement (03/28/09) History of tonsillectomy Hx of CABG (~01/09/11) Presence of coronary angioplasty implant and graft (~03/03/14) Social History Smoking Status: Former smoker how long ago did patient quit smokin.5 years ago alcohol intake: current alcohol intake frequency: holidays/special occasions only caffeine: Yes Type: coffee Number of servings: 1 ROS ROS ED Constitutional Constitutional ED: Denies chills, fever(s) or sweats Eyes Eyes: Denies change in vision ENT ENT ED: Denies dysphagia or sore throat Cardiovascular Cardiovascular: Reports chest pain; Denies leg edema, palpitations or racing heartbeat Respiratory/Chest Respiratory/Chest: Denies cough, dyspnea or dyspnea on exertion Gastrointestinal Gastrointestinal: Denies abdominal pain, diarrhea, nausea or vomiting Genitourinary Genitourinary ED: Denies dysuria, hematuria or urinary frequency Musculoskeletal Musculoskeletal: Denies back pain, extremity pain or neck pain Integumentary Denies rash or wounds Neurologic Neurologic: Denies headache(s), paresthesias or weakness EXAM Physical Exam Const Vital Signs: 12/31/22 19:29 12/31/22 19:28 12/31/22 19:28 Temperature 97.8 F Temperature Source Temporal Pulse Rate 86 Respiratory Rate 16 Respiratory Effort Normal Non-Labored Blood Pressure 163/72 H Blood Pressure Mean 102 Pulse Ox 88 91 Oxygen Delivery Method Room Air Nasal Cannula Oxygen Flow Rate (L/min) 3 12/31/22 19:49 12/31/22 20:28 12/31/22 21:28 Temperature Temperature Source Pulse Rate 82 83 Respiratory Rate 16 16 Respiratory Effort Blood Pressure 110/65 117/65 Blood Pressure Mean 80 82 Pulse Ox 94 93 93 Oxygen Delivery Method Nasal Cannula Room Air Room Air Oxygen Flow Rate (L/min) 2 12/31/22 22:40 12/31/22 22:56 Temperature Temperature Source Pulse Rate 81 83 Respiratory Rate 18 18 Respiratory Effort Blood Pressure 138/70 H 141/72 H Blood Pressure Mean 92 Pulse Ox 94 93 Oxygen Delivery Method Room Air Oxygen Flow Rate (L/min) Positive well nourished and well developed General Appearance ED: well developed and NAD HEENT Reports moist mucous membranes normocephalic and atraumatic Eyes PERRL, EOMs intact bilaterally and conjunctivae normal General Eye ED: Yes normal appearance of both eyes Neck no lymphadenopathy and supple General: Negative for tenderness Chest Wall Chest: Negative for tenderness Resp normal respiratory effort and normal air movement Effort and Inspection: symmetric chest movement; Negative for respiratory distress Cardio regular rate, regular rhythm and no murmurs Peripheral Pulses: pulses 2+ throughout GI normal to inspection, nondistended, normoactive bowel sounds and non-tender Palpation: Negative for guarding or rebound tenderness present Back/Spine no CVA tenderness and no thoracic nor lumbar tenderness Extremity normal to inspection General Extremety ED: Negative for edema or tenderness General Extremity: Negative for edema Neuro oriented x3 and no sensory deficits noted Sensorium / Orientation: awake and alert Skin no rashes or lesions noted and no wounds MDM MDM MDM Narrative Medical decision making narrative: Interventions / MDM: Differential diagnosis: Chest pain, right bundle branch block Diagnosis considered but do not suspect: No clinical heart failure, no clinical pneumonia My EKG interpretation: Sinus rate of 83, no ST changes. The right bundle branch block similar from EKG back in February 2021. Imaging independently reviewed and interpreted by myself: 2 view chest x-ray: No acute process also read by radiology. External documents reviewed: Test considered but not ordered:N/A ED course: Chest pain resolved. History of coronary disease. EKG chronic findings. Cardiac work-up initiated. Chest x-ray negative troponin negative x2. He remains symptom-free. Re-evaluation: stable discussed negative work-up outpatient follow-up with his cardiology team with strict return precautions. All questions were answered., Disposition discussed with patient/family/significant other: Patient and spouse Case discussed with consulting clinician: N/A This note was generated with [employer] dictation software. It may contain incorrect words, spelling, and punctuation that were not noted in checking the note before signing. Lab Data Attestation: I reviewed the patient's lab results. Labs: Laboratory Results - last 24 hr 12/31/22 12/31/22 19:35 22:10 WBC 10.4 RBC 4.61 Hgb 14.4 Hct 44.4 MCV 96.3 H MCH 31.2 MCHC 32.4 RDW Std Deviation 45.9 H RDW Coeff of Jacquelyn 13.1 Plt Count 170 MPV 10.8 Immature Gran % (Auto) 0.400 Neut % (Auto) 67.9 Lymph % (Auto) 17.7 L [place] % (Auto) 9.8 Eos % (Auto) 3.7 Baso % (Auto) 0.5 Absolute Neuts (auto) 7.1 Absolute Lymphs (auto) 1.84 Nucleated RBC % 0 Sodium 139 Potassium 4.1 Chloride 106 Carbon Dioxide 27.0 Anion Gap 6 BUN 29 H Creatinine 1.30 Estim Creat Clear Calc 56.38 Est GFR (MDRD) Af Amer 70 Est GFR (MDRD) Non-Af 58 L BUN/Creatinine Ratio 22.3 H Glucose 315 H Calcium 9.0 Troponin I High Sens 21 20 Radiography Diagnostic Testing: Clinical Impression(s) from Imaging Studies Chest X-Ray 12/31/22 20:10 IMPRESSION: No active pulmonary disease. Cardiomegaly. Electronically Signed: Ian Crook MD at 20:41 EDT , Discharge Plan Triage Chief Complaint: Chest Pain ED Provider: Elfego Denney Dx/Rx/DC Orders Clinical Impression: Chest pain, CAD (coronary artery disease), Right bundle branch block Instructions: ED Chest Pain, Uncertain Cause Prescriptions: No Action lysine 500 mg tablet 500 mg PO QDAY multivitamin,jt-dqot-pcnytvij tablet tablet 1 tab PO QDAY metformin 1,000 mg tablet 1,000 mg PO BID clopidogrel [Plavix] 75 mg tablet 75 mg PO QDAY tamsulosin 0.4 mg capsule 0.4 mg PO DAILY glimepiride 1 mg tablet 1 mg PO BID Colace Clear 50 mg capsule 50 mg PO .4XW sennosides [senna] 8.6 mg tablet 8.6 mg PO DAILY rosuvastatin 5 mg tablet 5 mg PO DAILY ascorbic acid (vitamin C) 500 mg tablet 500 mg PO DAILY vitamin E (dl, acetate) 400 unit capsule 400 unit PO DAILY omega-3 fatty acids [Fish Oil Concentrate] 1,000 mg capsule 1,000 mg PO BID aspirin [Adult Low Dose Aspirin] 81 mg tablet,delayed release (DR/EC) 81 mg PO DAILY calcium carbonate-vitamin D3 600 mg(1,500mg) -800 unit tablet 1 tab PO DAILY allopurinol 100 mg tablet 100 mg PO DAILY Januvia 50 mg tablet 50 mg PO DAILY finasteride 5 mg tablet 5 mg PO DAILY cholecalciferol (vitamin D3) 50 mcg (2,000 unit) capsule 50 mcg PO DAILY insulin glargine [Lantus U-100 Insulin] 100 unit/mL solution 20 unit subcut DAILY Rx Instructions: 40 units valacyclovir 500 mg Tablet 500 mg PO PRN PRN (Reason: Cold Sores) famotidine [Pepcid] 20 mg tablet 20 mg PO .3XWEEK PRN lisinopril 10 mg tablet 10 mg PO DAILY Qty: 90 3RF nitroglycerin [Nitrostat] 0.4 mg tablet, sublingual 0.4 mg SUBLINGUAL Q5-15M PRN (Reason: chest pain) Qty: 25 3RF furosemide 40 mg tablet 40 mg PO BID Qty: 180 3RF metoprolol tartrate 100 mg tablet 100 mg PO BID Qty: 180 3RF potassium chloride 10 mEq tablet extended release See Rx Instructions .ROUTE .COMPLEX Qty: 90 3RF Dose Instruction: TAKE 1 TABLET BY MOUTH EVERY DAY Rx Instructions: TAKE 1 TABLET BY MOUTH EVERY DAY isosorbide mononitrate 60 mg tablet extended release 24 hr 60 mg PO QDAY Qty: 90 3RF Primary Care Provider: Koko Hamilton Referrals: Tucker Godinez MD [Med Staff - Active Staff] - 3-5 Days Koko Hamilton MD [Primary Care Provider] - Activity Restrictions/Additional Instructions: Your cardiac work-up is negative today. EKG with known right bundle branch block. Chest x-ray negative. 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 Return if recurrent or worsening symptoms. Disposition Disposition: Home, Self Care Discharge Date/Time: 12/31/22 23:11
[2022-12-31 20:02] LABS: Absolute Lymphocyte Count 1.84 X10^3/uL (0.83-4.51); Absolute Neutrophil Count 7.1 X10^3/uL (2.0-7.7); Basophil# 0.05 X10^3/uL; Basophil% 0.5 % (0-1); Eosinophil# 0.38 X10^3/uL; Eosinophils% 3.7 % (0-5); Hematocrit 44.4 % (40-54); Hemoglobin 14.4 g/dL (13.0-16.5); Lymphocyte # 1.84 X10^3/ul (0.83-4.51); Lymphocyte % 17.7 % (19-41); Mean Corp Hgb Conc 32.4 g/dL (32-36); Mean Corpuscular Hgb 31.2 pg (27.0-32.0); Mean Corpuscular Volume 96.3 fL (80-94); Mean Platelet Vol. 10.8 fl (6.2-12.0); Monocyte# 1.02 X10^3/uL; Monocyte% 9.8 % (0-10); NRBC Flagged by Analyzer 0 % (0-5); Neutrophil # 7.06 X10^3/uL (2.7-7.7); Neutrophil % 67.9 % (47-70); Platelet Count 170 K/mm3 (150-450); RBC Distribution Width CV 13.1 % (11.6-14.6); RBC Distribution Width SD 45.9 fl (35.1-43.9); Red Blood Count 4.61 M/mm3 (4.6-6.2); White Blood Count 10.4 K/mm3 (4.4-11.0)
--- NOTE | 2022-12-31 20:10 | RAD_ITS ---
STUDY: X-RAY CHEST REASON FOR EXAM: Male, 72 years old. chest pain TECHNIQUE: PA and lateral views of the chest. COMPARISON: 07/14/2019 FINDINGS: Status post median sternotomy. The lungs are clear and expanded. There is no demonstrated pleural abnormality. There is moderate cardiac enlargement. Normal mediastinum and paul. Normal visualized pulmonary arteries. Normal visualized aortic arch and descending thoracic aorta. Normal visualized thoracic spine. Normal visualized ribs, clavicles, and shoulders. There is no demonstrated abnormality of the visualized soft tissue structures of the upper abdomen. RAD/Chest PA and Lateral IMPRESSION: No active pulmonary disease. Cardiomegaly. Electronically Signed: Ian Crook MD at 20:41 EDT ,
[2022-12-31 20:22] LABS: Anion Gap 6 (5-15); BUN 29 mg/dL (7-18); BUN/Creat Ratio 22.3 RATIO (10-20); Chloride 106 mmol/L (98-107); EST Glomerular Filtration Rate 58 mL/min (>60); Est Glom Filt Rate - Afr Amer 70 mL/min (>60); Estimated Creatinine Clearance 56.38 ml/min; Glucose 315 mg/dL (74-106); Potassium 4.1 mmol/L (3.5-5.1); Sodium Level 139 mmol/L (136-145); Troponin-I HS (w/2H Reflex) 21 pg/mL (3.0-78.0)
--- NOTE | 2022-12-31 21:40 | ED.RN ---
PT ASKED THIS RN IF HE COULD TAKE HIS NIGHT TIME MEDICATION. DR. DUONG SAID IT WAS OK AT THIS TIME. PT ASKED IF WE SUPPLY HIS MEDICATION. RN INFORMED HIM WE DO NOT UNLESS HE WOULD BE ADMITTED TO HOSPITAL. PT INFORMED HE CAN TAKE MEDICATION WHEN HE IS D/C HOME
[2022-12-31 21:50] LABS: Reflex Troponin-HS? (from REC) Y
[2022-12-31 22:34] LABS: Troponin-I HS 20 pg/mL (3.0-78.0)
== END 2022-12-31 23:11 | disposition home or self-care (01) ==
PROVIDERS: Emergency Provider Emergency Medicine; PCP Family Medicine; Visit Provider Emergency Medicine
DX: R07.9 Chest pain, unspecified (principal); J44.9 Chronic obstructive pulmonary disease, unspecified; I11.0 Hypertensive heart disease with heart failure; I50.9 Heart failure, unspecified; E11.9 Type 2 diabetes mellitus without complications; Z79.4 Long term (current) use of insulin; Z87.891 Personal history of nicotine dependence; I25.10 Atherosclerotic heart disease of native coronary artery without angina pectoris; E78.00 Pure hypercholesterolemia, unspecified; I45.10 Unspecified right bundle-branch block; Z79.82 Long term (current) use of aspirin; Z79.02 Long term (current) use of antithrombotics/antiplatelets; Z99.81 Dependence on supplemental oxygen; Z79.899 Other long term (current) drug therapy; Z79.84 Long term (current) use of oral hypoglycemic drugs; N40.0 Benign prostatic hyperplasia without lower urinary tract symptoms; K21.9 Gastro-esophageal reflux disease without esophagitis; Z95.3 Presence of xenogenic heart valve; Z96.641 Presence of right artificial hip joint; Z95.5 Presence of coronary angioplasty implant and graft
CPT/HCPCS: 71046; 80048; 84484; 85025; 93005; 99284; A4216

== ENCOUNTER → 2023-01-14 | Outpatient (CLI) | payer MEDICARE, OTHER, SELFPAY ==
--- NOTE | 2023-01-14 12:27 | STRESSREP_ITS ---
Stress Test Report Date: 01/14/2023 Procedure: Pharmacologic stress nuclear imaging study Indications: Chest pain Consent: Per the patient Procedure: The patient underwent pharmacologic (Regadenoson 0.4mg ) evaluation with a peak heart rate of 81 beats per minute (54%predicted maximal heart rate) and a peak blood pressure of 162/74 mmHg. The baseline ECG demonstrated sinus rhythm with right bundle branch block. The peak pharmacologic ECG demonstrated no ischemic changes. There were no cardiac dysrhythmias pretest, during pharmacologic infusion, or recovery. There was no complaint of chest discomfort during pharmacologic infusion or recovery. The patient was injected with 14.8 millicuries of technetium 99m Cardiolite and subsequently rest SPECT Cardiolite nuclear imaging was obtained in the horizontal long, vertical long, and short axis views. The patient underwent pharmacologic (Regadenoson) evaluation. The patient was injected with 44.7 millicuries of technetium 99m Cardiolite and subsequently stress SPECT Cardiolite nuclear imaging was obtained in the horizontal long, vertical long, and short axis views. A gated Cardiolite study at peak stress was obtained. The examination was stopped secondary to completion of protocol. Rest and stress SPECT Cardiolite nuclear imaging status post realignment, normalization, and attenuation correction demonstrate moderate size mid lateral wall infarct with moderate dianelys-infarct ischemia. There is end systolic thickening and brightening. The gated Cardiolite study demonstrates myocardial thickening and inward wall motion. The reported LVEF is 43%. Impression: 1. Pharmacologic (Regadenoson) evaluation 2. Peak pharmacologic ECG with no ischemic changes. 3. There were no cardiac dysrhythmias pretest, during pharmacologic infusion, or recovery. 5. Lateral infarct with moderate dianelys-infarct ischemia. 6. The gated Cardiolite study reports an LVEF of 43%. This note was generated with Se[employer] software. It may contain incorrect words, spelling, and punctuation that were not noted in checking the note before signing.
== END | disposition home or self-care (01) ==
LOC: CVS 06:06
PROVIDERS: PCP Family Medicine; Referring Provider Physician Assistant Medical; Visit Provider Physician Assistant Medical
DX: R07.9 Chest pain, unspecified (principal); I25.10 Atherosclerotic heart disease of native coronary artery without angina pectoris; Z95.5 Presence of coronary angioplasty implant and graft
CPT/HCPCS: 78452; 93017; A9500; A4216; J2785

== ENCOUNTER → 2023-04-22 | Outpatient (CLI) | payer MEDICARE, OTHER, SELFPAY ==
--- NOTE | 2023-04-24 13:46 | PFTCOMP_ITS ---
COMPLETE PULMONARY FUNCTION TEST INTERPRETATION Brief HPI: Patient is a 72-year-old male, currently under the care of myself, who presents to [facility] for complete pulmonary function tests secondary to diagnosis of hypoxemia. Respiratory therapist reports good effort and reproducible results. Interpretation: Forced expiration spirometry shows a mild large airways obstructive ventilatory defect with an FEV1 of 76% predicted. There is no significant bronchodilator response by strict ATS criteria. Spirograms are of good quality and plateau slowly, indicating slowly emptying areas of the lungs. The respiratory flow volume loop shows decreased expiratory flow rates at high lung volumes consistent with small airways obstruction. Lung volumes by body plethysmography show a normal total lung capacity at 5.72 L, 91% predicted. All other lung volumes are within normal limits. Diffusion capacity by carbon monoxide is severely decreased at 44% predicted. The airway resistance is elevated. Compared to previous pulmonary function tests from 03/12/2022, there is been a significant improvement in spirometry and lung volumes, but DLCO is decreased. Impression: Irreversible mild large airways obstructive ventilatory defect with a disproportionate reduction in diffusion capacity and changes compared to previous study
== END | disposition home or self-care (01) ==
LOC: PSN 07:51
PROVIDERS: PCP Family Medicine; Referring Provider Internal Medicine Critical Care Medicine; Visit Provider Internal Medicine Critical Care Medicine
DX: R09.02 Hypoxemia (principal)
CPT/HCPCS: 94060; 94726; 94729

== ENCOUNTER → 2023-04-29 | Outpatient (CLI) | payer MEDICARE, OTHER, SELFPAY ==
[2023-04-29 12:27] LABS: Anion Gap 8 (5-15); BUN 26 mg/dL (7-18); Calcium,Total 9.1 mg/dL (8.5-10.1); Chloride 108 mmol/L (98-107); Cholesterol 131 mg/dL (200); Creatinine, Serum 1.13 mg/dL (0.70-1.30); EST Glomerular Filtration Rate 68 mL/min (>60); Est Glom Filt Rate - Afr Amer 82 mL/min (>60); Glucose 111 mg/dL (74-106); High Density Lipoprotein 34 mg/dL; Potassium 4.3 mmol/L (3.5-5.1); Sodium Level 141 mmol/L (136-145); Triglycerides 255 mg/dL; Very Low Density Lipoprotein 51 mg/dL (5-40)
== END | disposition home or self-care (01) ==
LOC: MFPLAB 10:34
PROVIDERS: PCP Family Medicine; Visit Provider Family Medicine
DX: E11.65 Type 2 diabetes mellitus with hyperglycemia (principal)
CPT/HCPCS: 36415; 80048; 80061

== ENCOUNTER → 2023-11-04 | Outpatient (CLI) | payer MEDICARE, OTHER, SELFPAY ==
[2023-11-04 13:02] LABS: Anion Gap 10 (5-15); BUN 28 mg/dL (7-18); BUN/Creat Ratio 21.4 RATIO (10-20); Calcium,Total 9.8 mg/dL (8.5-10.1); Chloride 110 mmol/L (98-107); Cholesterol 139 mg/dL (200); Creatinine, Serum 1.31 mg/dL (0.70-1.30); EST Glomerular Filtration Rate 57 mL/min (>60); Est Glom Filt Rate - Afr Amer 69 mL/min (>60); Glucose 125 mg/dL (74-106); High Density Lipoprotein 37 mg/dL; Potassium 4.5 mmol/L (3.5-5.1); Sodium Level 143 mmol/L (136-145); Triglycerides 208 mg/dL; Very Low Density Lipoprotein 42 mg/dL (5-40)
== END | disposition home or self-care (01) ==
LOC: MFPLAB 09:52
PROVIDERS: PCP Family Medicine; Visit Provider Family Medicine
DX: E11.9 Type 2 diabetes mellitus without complications (principal)
CPT/HCPCS: 36415; 80048; 80061

== ENCOUNTER → 2024-02-01 | Outpatient (CLI) | payer MEDICARE, OTHER, SELFPAY ==
[2024-02-01 15:27] LABS: Hemoglobin A1c 6.8 % (3.8-5.6)
[2024-02-01 15:34] LABS: Anion Gap 7 (5-15); BUN 25 mg/dL (7-18); BUN/Creat Ratio 19.8 RATIO (10-20); Calcium,Total 9.1 mg/dL (8.5-10.1); Chloride 106 mmol/L (98-107); Cholesterol 149 mg/dL (200); Creatinine, Serum 1.26 mg/dL (0.70-1.30); EST Glomerular Filtration Rate 60 mL/min (>60); Est Glom Filt Rate - Afr Amer 72 mL/min (>60); Glucose 108 mg/dL (74-106); High Density Lipoprotein 38 mg/dL; Potassium 4.1 mmol/L (3.5-5.1); Sodium Level 139 mmol/L (136-145); Triglycerides 307 mg/dL; Very Low Density Lipoprotein 61 mg/dL (5-40)
== END | disposition home or self-care (01) ==
LOC: MFPLAB 11:05
PROVIDERS: PCP Family Medicine; Visit Provider Registered Nurse
DX: Z12.5 Encounter for screening for malignant neoplasm of prostate (principal); E11.9 Type 2 diabetes mellitus without complications
CPT/HCPCS: 36415; 80048; 80061; 83036; 84153; G0103

== ENCOUNTER → 2024-02-17 | Outpatient (CLI) | payer MEDICARE, OTHER, SELFPAY ==
--- NOTE | 2024-02-17 14:38 | CT_ITS ---
STUDY: LOW DOSE CT LUNG CANCER SCREENING REASON FOR EXAM: Male, 73 years old. screening. RADIATION DOSAGE (If Supplied By Facility): CTDIvol = ( 3.18 ) mGy, DLP = ( 112.78 ) mGycm TECHNIQUE: No contrast was administered. Low dose technique was utilized (average mAS-38 and kVp 120). 1.25 mm axial source images with a slice interval of 1.25-mm were reconstructed in lung windows. 2.5 mm axial source images with a slice interval of 2.5-mm were reconstructed in lung windows. 5.0 mm axial source images with a slice interval of 5.0-mm were reconstructed in soft tissue windows. COMPARISON: 07/15/2019 Emphysema: Mild emphysema. No noncalcified nodule or mass. Endobronchial lesion: None Aorta: Calcified plaque within the aortic arch but no thoracic aortic aneurysm. CORONARY ARTERIES: Coronary artery calcification is seen. Heart: No cardiomegaly. Pulmonary artery: Normal Mediastinal nodes: Normal Other chest and abdominal findings: Status post median sternotomy. CT/Low Dose CT Lung Screening IMPRESSION: Lung-RADS category 1 - Continue annual screening with LDCT in 12 months. IMPORTANT NOTES FOR USE: ACR Lung-RADS Version 1.1 Assessment Categories Release Date: 2018 Category: Coded 0-4 bases on nodule(s) with highest degree of suspicion. Negative screen is defined as categories 1 and 2; a positive screen is defined as categories 3 and 4. Category 3 and 4A nodules that are unchanged on interval CT should be coded as category 2, and individuals returned to screening in 12 months. Category 4X: Category 3 or 4 nodules with additional imaging findings that increase the suspicion of lung cancer, such as spiculation, GGN that doubles in size in 1 year, enlarged lymph notes, etc. Category Modifiers: S (significant finding unrelated to lung cancer) Electronically Signed: Ian Crook MD at 13:49 EDT ,
== END | disposition home or self-care (01) ==
LOC: CT 14:36
PROVIDERS: PCP Family Medicine; Referring Provider Registered Nurse; Visit Provider Registered Nurse
DX: Z12.2 Encounter for screening for malignant neoplasm of respiratory organs (principal); Z87.891 Personal history of nicotine dependence
CPT/HCPCS: 71271

== ENCOUNTER → 2024-07-28 | Outpatient (CLI) | payer MEDICARE, OTHER, SELFPAY ==
[2024-07-28 15:30] LABS: Microalbumin,Random Urine < 12.0 mg/L (NO RANGE EST.); Microalbumin:Creatinine Ratio UNABLE TO CALCULATE mg/g CRE
[2024-07-28 20:47] LABS: ALB/GLOB Ratio 1.1 RATIO (0.9-2.4); AST(SGOT) 20 U/L (<=37); Alanine Aminotransfer ALT/SGPT 10 U/L (<=46); Albumin, Serum 4.1 g/dL (3.4-4.8); Alkaline Phosphatase 55 U/L (40-129); Anion Gap 19 (5-15); BUN 33 mg/dL (4-19); BUN/Creat Ratio 23.9 RATIO (10-20); Carbon Dioxide 20.8 mmol/L (21.0-32.0); Chloride 100 mmol/L (98-108); Cholesterol 140 mg/dL (<=200); Creatinine, Serum 1.37 mg/dL (0.70-1.20); EST Glomerular Filtration Rate 54 (>60); Globulin 3.8 g/dL (2.2-4.2); Glucose 45 mg/dL (70-99); High Density Lipoprotein 37 mg/dL; Low Density Lipoprotein Calc. 60 mg/dL; Potassium 4.6 mmol/L (3.3-5.1); Protein, Total 7.9 g/dL (5.9-8.4); Sodium Level 140 mmol/L (133-145); Total Bilirubin 0.28 mg/dL (0.00-1.30); Triglycerides 215 mg/dL; Very Low Density Lipoprotein 43 mg/dL (5-40); cholesterol:hdl ratio screen 3.83
== END | disposition home or self-care (01) ==
LOC: MFPLAB 11:20
PROVIDERS: PCP Family Medicine; Referring Provider Family Medicine; Visit Provider Family Medicine
DX: E11.65 Type 2 diabetes mellitus with hyperglycemia (principal)
CPT/HCPCS: 36415; 80053; 80061; 82043; 82570

== ENCOUNTER 2024-10-05 09:32 | Inpatient (IN) | payer MEDICARE, OTHER, SELFPAY ==
[2024-10-05] VITALS (21 sets, daily range): BP systolic 96–124; BP diastolic 41–90; PULSE 16–117; RESP 13–20; TEMP 36.6–37.6; O2SAT 86–98; BMI 41.9; BMI 42.2
--- NOTE | 2024-10-05 09:35 | EDS_ITS ---
HPI History of Present Illness Chief Complaint: Chest Pain [facility] Medical History (Reviewed 07/22/24 @ 12:59 by Allison Jordan [employer]IC GENERAL WORKER, L[employer]OGRAPHIC GENERAL WORKER-C) Loss of hearing Wears glasses Wears dentures Alcohol use Diabetes Arthritis Prostate disease High cholesterol Back pain Loss of consciousness Dietary restriction Gastric reflux Former smoker CPAP (continuous positive airway pressure) dependence COPD (chronic obstructive pulmonary disease) Shortness of breath on exertion Leg cramps History of pain when walking History of Holter monitoring History of echocardiogram Cardiology follow-up encounter History of CHF (congestive heart failure) Left bundle branch block CAD (coronary artery disease) Presence of stent in coronary artery (~03/03/14) Pure hypercholesterolemia Essential hypertension Atherosclerosis of [place] coronary artery of shosh[place]ann[place] heart without angina pe ctoris Benign prostate hyperplasia Home Medications ?Medication ?Instructions ?Recorded ?Last Taken ?Type clopidogrel 75 mg tablet (Plavix) 75 mg PO QDAY antipl atelet 11/23/17 Unknown History lysine 500 mg tablet 500 mg PO QDAY supplement Unknown History metformin 1,000 mg tablet 1,000 mg PO BID diabetes 02/02 Unknown History multivitamin,[id number]-fwtt-[id number] 1 tab PO QDAY supplement 11/23/17 Unknown History (Complete Multivitamin tablet) ascorbic acid (vitamin C) 500 mg 500 mg PO DAILY suppl ement 07/08/18 Unknown History tablet aspirin 81 mg tablet,delayed 81 mg PO DAILY antiplatel et 07/08/18 Unknown History release (Adult Low Dose Aspirin) omega-3 fatty acids 1,000 mg 1,000 mg PO BID supplemen t 07/08/18 Unknown History capsule (Fish Oil Concentrate) vitamin E (dl, acetate) 180 mg 400 unit PO DAILY suppl ement 07/08/18 Unknown History (400 unit) capsule docusate sodium 50 mg capsule 50 mg PO .4XW stool soft ener 12/22/18 Unknown History (Colace Clear) sennosides 8.6 mg tablet (senna) 8.6 mg PO DAILY Check with primary 12/22/18 Unknown History doctor tamsulosin 0.4 mg capsule 0.4 mg PO DAILY Check with p rimary 12/22/18 Unknown History doctor lisinopril 10 mg tablet 10 mg PO DAILY #90 tabs 07/1820 07/16/21 Rx allopurinol 100 mg tablet 100 mg PO DAILY 05/02/20 Unk nown History calcium 600 mg (as 1 tab PO DAILY supplement Unknown History carbonate)-vitamin D3 20 mcg (800 unit) tablet rosuvastatin 5 mg tablet 5 mg PO DAILY cholesterol Unknown History cholecalciferol (vitamin D3) 50 50 mcg PO DAILY Unknown History mcg (2,000 unit) capsule valacyclovir 500 mg tablet 500 mg PO PRN PRN Cold Sore s 07/15/21 Unknown History finasteride 5 mg tablet 5 mg PO DAILY 11/08/21 Unkno wn History famotidine 20 mg tablet (Pepcid) 20 mg PO .3XWEEK PRN 05/21/22 Unknown History metoprolol tartrate 100 mg tablet 100 mg PO BID heart rate #180 tabs 07/01/23 Unknown Rx nitroglycerin 0.4 mg sublingual 0.4 mg sublingual Q5-1 5M PRN chest 08/04/23 Unknown Rx tablet (Nitrostat) pain #25 tabs potassium chloride 10 mEq See Rx Instructions .Route 0 09/07/23 Unknown Rx tablet,extended release .COMPLEX #90 tabs isosorbide mononitrate 60 mg 60 mg PO DAILY #90 TABLET S 11/23/23 Unknown Rx tablet,extended release 24 hr furosemide 40 mg tablet 40 mg PO BID #180 TABLETS Unknown Rx amoxicillin 875 mg-potassium 1 tab PO BID 07/22/24 Unk nown History clavulanate 125 mg tablet glimepiride 4 mg tablet 4 mg PO BID 07/22/24 Unknown History insulin glargine 100 unit/mL (3 50 unit subcut QDAY Unknown History mL) subcutaneous pen (Lantus Solostar U-100 Insulin) sitagliptin phosphate 100 mg 100 mg PO QDAY 07/22/24 U nknown History tablet (Januvia) Allergy/AdvReac Type Severity Reaction Status Date / Time hydrocodone Allergy rash Verified 10/05/24 09:33 morphine Allergy Vomiting Verified 10/05/24 09:33 Family History Father CAD (coronary artery disease) Mother CAD (coronary artery disease) Other Atherosclerosis of [place] coronary artery of sh[place] heart without angina pectoris Surgical History (Reviewed 07/22/24 @ 12:59 by Allison Jordan L[employer]APHIC GENERAL WORKER, LITHOGRAPHIC GENERAL WORKER-C) Presence of coronary angioplasty implant and graft (~03/03/14) History of aortic valve replacement with bioprosthetic valve (~01/09/11) History of right hip replacement (03/28/09) Hx of CABG (~01/09/11) History of tonsillectomy Social History (Reviewed 07/22/24 @ 12:59 by Allison Jordan L[employer]OGRAPHIC GENERAL WORKER, LITHOGRAPHIC GENERAL WORKER-C) Smoking Status: Former smoker how long ago did patient quit smokin.5 years ago alcohol intake: current alcohol intake frequency: holidays/special occasions only caffeine: Yes Type: coffee Number of servings: 1 EXAM Physical Exam Const Vital Signs: 10/05/24 09:34 10/05/24 09:38 10/05/24 09:42 Temperature 98.4 F Temperature Source Oral Pulse Rate 101 H Respiratory Rate 18 Respiratory Effort Normal Blood Pressure 124/73 H Blood Pressure Mean 90 Pulse Ox 86 93 Oxygen Delivery Method Room Air Nasal Cannula Oxygen Flow Rate (L/min) 4 10/05/24 10:02 10/05/24 10:14 10/05/24 10:32 Temperature 98.6 F 98.4 F Temperature Source Oral Oral Pulse Rate 16 L 85 Respiratory Rate 18 18 Respiratory Effort Blood Pressure 111/90 H 106/78 Blood Pressure Mean 97 87 Pulse Ox 94 92 Oxygen Delivery Method Nasal Cannula Room Air Nasal Cannula Oxygen Flow Rate (L/min) 4 2 10/05/24 10:35 10/05/24 11:00 10/05/24 11:30 Temperature 98.6 F 98.4 F Temperature Source Oral Oral Pulse Rate 85 78 Respiratory Rate 20 H 16 Respiratory Effort Blood Pressure 108/71 104/68 Blood Pressure Mean 83 80 Pulse Ox 92 88 98 Oxygen Delivery Method Nasal Cannula Nasal Cannula Room Air Oxygen Flow Rate (L/min) 1 3 10/05/24 12:00 10/05/24 12:30 10/05/24 13:00 Temperature Temperature Source Pulse Rate 89 82 80 Respiratory Rate 18 20 H 15 Respiratory Effort Blood Pressure 109/76 103/62 Blood Pressure Mean 87 75 Pulse Ox 98 96 93 Oxygen Delivery Method Room Air Nasal Cannula Oxygen Flow Rate (L/min) 4 10/05/24 13:30 10/05/24 14:00 Temperature Temperature Source Pulse Rate 79 80 Respiratory Rate 18 20 H Respiratory Effort Blood Pressure 106/57 L 108/66 Blood Pressure Mean 73 79 Pulse Ox 93 92 Oxygen Delivery Method Oxygen Flow Rate (L/min) [facility] [place] Narrative Medical decision making narrative: HISTORY OF PRESENT ILLNESS: Chief complaint: Chest pain, right leg pain 74-year-old male presents with chest pain and right leg pain. Patient states over the last 2 weeks that intermittent to a 10 chest pain that is not exertional and does not pleuritic or radiating. He notes no chest pain currently did have a touch this morning. He really presented because he has severe right leg pain that started couple days ago. No inciting event. No falls. Notes pain from his right knee down to his mid calf. Notes slight swelling in the right leg. Denies history of blood clots. Denies history of peripheral vascular disease. REVIEW OF SYSTEMS: Pertinent positives: Chest pain, right leg pain Pertinent negatives: New shortness of breath, cough, fever, syncope PHYSICAL EXAM: Nursing triage notes reviewed, Vital signs reviewed Constitutional: please see mdm HENT: MMM, nasal cannula in place Eyes: Pupils equal round and reactive to light, Extraocular muscles intact Neck: No stridor, no JVD, full neck ROM Lungs: Clear to auscultation, No wheezing or rales. No increased work of breathing, no conversational dyspnea, no accessory muscle use, no nasal flaring. No respiratory distress noted Heart: Regular rate and rhythm, No murmurs, No rubs and No gallops, 2+ distal pulses (radial, femoral, posterior tibial) in all extremities Abdomen: Soft, there is no tenderness, rigidity, rebound or guarding, no obvious peritoneal signs, no palpable pulsatile abdominal masses, no auscultated abdominal bruit : No CVAT Extremities: Slight swelling in right lower extremity compared to left, bilateral lower extremities are warm and well-perfused. Right knee TTP. Right knee TTP with flexion extension, pain limited range of motion. Right knee with palpable effusion, no obvious overlying cellulitis noted. Noted dopplerable and palpable pulse right lower extremity. Neuro: No new focal neurological deficits, cranial nerves II through XII intact, 5/5 strength in all present extremities. Intact sensation to light touch in all present extremities, 2+ reflexes bilateral patella tendons. Skin: No rash or lesions noted MEDICAL DECISION MAKING: Chief Complaint: please see HPI External records reviewed: Reviewed echocardiogram from 2022 with a ejection fraction of 50% Factors affecting care: Hyperlipidemia, COPD, CHF, CAD status post stent in 2014 status post CABG, hyperlipidemia, hypertension. Reviewed prior cardiology note from 2022 Social determinants of health: Former smoker History obtained from others: Consults: Hospitalist (Dr. Gimenez) MDM Narrative: Patient was initially hemodynamically stable saturating well on his home oxygen. Lungs were clear. He did have right knee and right calf pain. Right lower extremity well-perfused. I was able to Doppler and palpate pulses in the right lower extremity had good capillary refill (less than 2 seconds). The right knee did appear tender to palpation, slightly edematous. I considered the following differential diagnosis: ACS, arrhythmia, anemia, PE, aortic dissection, arterial occlusion, DVT, septic arthritis, muscle strain I obtained a broad lab and imaging workup to further elucidate etiology of his complaints. Initially treat the patient's pain with IV Dilaudid and Zofran. ALL IMAGES (IF OBTAINED) HAVE BEEN PERSONALLY REVIEWED AND INTERPRETED BY MYSELF. EKG with normal sinus rhythm rate of 98, left axis deviation, right bundle branch block, no STEMI CBC with leukocytosis suggestive of systemic inflammation, mild anemia, similar to baseline, no thrombocytopenia D-dimer elevated consistent with Increased clot breakdown will perform CT scan of the chest abdomen pelvis given report of chest pain and leg pain BMP without significant electrolyte abnormalities, baseline CKD High-sensitivity troponin is negative, no evidence of myocardial ischemia BNP elevated consistent with volume overload Chest x-ray was read reviewed personally myself showed evidence of pulmonary edema. Radiologist showed cardiomegaly and pulmonary venous congestion co nsistent with likely CHF exacerbation CTA of the chest abdomen pelvis read was r communicated verbally by Dr. Landin and noted no obvious aortic dissection or PE. On reassessment patient's right knee still is tender, palpable effusion was noted. Slightly warm. His pain was out of report exam given he cannot fully flex his right knee. Given white count and no other explanation I did perform arthrocentesis to rule out septic arthritis and gouty arthritis. Arthrocentesis fluid analysis pending at this time. Discussed with hospitalist. We both agreed not to start antibiotics as the patient does have history of gout it could very well be gouty arthritis. Given the cell count and Gram stain come back within 1 to 2 hours without it was reasonable to wait on antibiotics at this time. Patient be admitted and hospitalist will follow-up on arthrocentesis studies and initiate appropriate microbial therapy as indicated. The procedure was performed by myself. Location: Right knee Consent: Questions were sought and answered, and consent was given for the procedure. Benefits and Risk: The risks (including but not limited pain, bleeding and infection) and benefits of arthrocentesis were discussed with the patient. Preparation: Under sterile technique the joint area was prepped and draped in standard bedside fashion. Anesthesia: The skin and deeper tissue was anesthetized with 1% lidocaine. Needle Wagner: 18-gauge Procedure Description: Patient was cleansed with chlorhexidine and Betadine. Right knee was placed in slight flexed position approximately 30 degrees. Sterile gloves were used to instill approximate 5 cc of 1% lidocaine with a 25- gauge needle. An 18-gauge needle was then used to aspirate the right knee joint with return of yellow fluid. Ultrasound Guidance: None Fluid Description: Yellow, slightly thick turbid and opaque looking synovial fluid. Wound Treatment: Dressing applied. The patient tolerated the procedure well without complications and my repeat neurovascular exam post-procedure is unchanged. The patient and/or family, caregivers express understanding. The patient and/or family, caregivers agrees with the plan. Shared decision making: I will have a discussion with the patient and or visitors regarding risk/benefits of further testing or admission. They will be made aware of of the risk/benefits inherent in this decision they will be given the opportunity to voice understanding. Total critical care time today provided was at least 0 minutes. This excludes separately billable procedures. Critical care time (if documented) is secondary to the patient having high probability of clinically significant/life threatening deterioration in the patient's condition which required my urgent intervention. Impression: 1. Chest pain 2. Acute right leg pain 3. History of CAD 4. History of gout 5. CHF exacerbation Dispo: Admit to PCU discussed with hospitalist This note was generated with iDub[employer] dictation software. It may contain incorrect words, spelling, and punctuation that were not noted in review of the chart prior to signing. Lab Data Labs: Laboratory Results - last 24 hr 10/05/24 10/05/24 09:27 12:35 WBC 16.4 H RBC 4.34 L Hgb 12.7 L Hct 39.5 L MCV 91.0 MCH 29.3 MCHC 32.2 RDW Std Deviation 50.4 H RDW Coeff of Jacquelyn 15.3 H Plt Count 240 MPV 9.7 Immature Gran % (Auto) 0.600 Neut % (Auto) 78.5 H Lymph % (Auto) 7.4 L Atkinson % (Auto) 11.4 H Eos % (Auto) 1.8 Baso % (Auto) 0.3 Absolute Neuts (auto) 12.9 H Absolute Lymphs (auto) 1.21 Nucleated RBC % 0 D-Dimer Quant (PE/DVT) 2.53 H* Sodium 140 Potassium 4.6 Chloride 102 Carbon Dioxide 22.8 Anion Gap 15 BUN 27 H Creatinine 1.30 H Estim Creat Clear Calc 72.37 Est GFR (MDRD) Non-Af 58 L BUN/Creatinine Ratio 21.1 H Glucose 209 H Calcium 9.5 Troponin T High Sens 39 H Troponin T Hi Sens 2 Hr 44 H NT pro BNP II 1832 H Radiography Diagnostic Testing: Clinical Impression(s) from Imaging Studies Chest X-Ray 10/05/24 09:49 IMPRESSION: Cardiomegaly with mild congestion. Reading Location: [facility] Knee X-Ray 10/05/24 09:50 IMPRESSION: Healing fracture of the proximal fibula. Reading Location: [facility] Discharge Plan Triage Chief Complaint: Chest Pain ED Provider: Kwesi Tilley Dx/Rx/DC Orders Prescriptions: No Action lysine 500 mg tablet 500 mg PO QDAY multivitamin,cw-[id number] [Complete Multivitamin] tablet 1 tab PO QDAY metformin 1,000 mg tablet 1,000 mg PO BID clopidogrel [Plavix] 75 mg tablet 75 mg PO QDAY tamsulosin 0.4 mg capsule 0.4 mg PO DAILY Colace Clear 50 mg capsule 50 mg PO .4XW sennosides [senna] 8.6 mg tablet 8.6 mg PO DAILY rosuvastatin 5 mg tablet 5 mg PO DAILY ascorbic acid (vitamin C) 500 mg tablet 500 mg PO DAILY vitamin E (dl, acetate) 400 unit capsule 400 unit PO DAILY omega-3 fatty acids [Fish Oil Concentrate] 1,000 mg capsule 1,000 mg PO BID aspirin [Adult Low Dose Aspirin] 81 mg tablet,delayed release (DR/EC) 81 mg PO DAILY calcium carbonate-vitamin D3 600 mg(1,500mg) -800 unit tablet 1 tab PO DAILY allopurinol 100 mg tablet 100 mg PO DAILY finasteride 5 mg tablet 5 mg PO DAILY cholecalciferol (vitamin D3) 50 mcg (2,000 unit) capsule 50 mcg PO DAILY glimepiride 4 mg tablet 4 mg PO BID Januvia 100 mg tablet 100 mg PO QDAY insulin glargine [Lantus Solostar U-100 Insulin] 100 unit/mL (3 mL) insulin pen 50 unit subcut QDAY amoxicillin-pot clavulanate 875-125 mg tablet 1 tab PO BID valacyclovir 500 mg Tablet 500 mg PO PRN PRN (Reason: Cold Sores) famotidine [Pepcid] 20 mg tablet 20 mg PO .3XWEEK PRN lisinopril 10 mg tablet 10 mg PO DAILY Qty: 90 3RF metoprolol tartrate 100 mg tablet 100 mg PO BID Qty: 180 3RF nitroglycerin [Nitrostat] 0.4 mg tablet, sublingual 0.4 mg SUBLINGUAL Q5-15M PRN (Reason: chest pain) Qty: 25 3RF potassium chloride 10 mEq tablet extended release See Rx Instructions .ROUTE .COMPLEX Qty: 90 3RF Dose Instruction: TAKE 1 TABLET BY MOUTH EVERY DAY Rx Instructions: TAKE 1 TABLET BY MOUTH EVERY DAY isosorbide mononitrate 60 mg tablet extended release 24 hr 60 mg PO DAILY Qty: 90 3RF furosemide 40 mg tablet 40 mg PO BID Qty: 180 3RF Primary Care Provider: Koko Hamilton Referrals: Koko Hamilton MD [Primary Care Provider] - Print Language: Indonesian
--- NOTE | 2024-10-05 09:49 | RAD_ITS ---
EXAM: XR Chest, 1 View CLINICAL INDICATION: CHEST PAIN TECHNIQUE: Frontal view of the chest. COMPARISON: No relevant prior studies available. FINDINGS: LUNGS AND PLEURAL SPACES: See below. HEART: Cardiomegaly with mild congestion. MEDIASTINUM: Unremarkable. Normal mediastinal contour. BONES/JOINTS: Unremarkable. No acute fracture. RAD/Chest 1 View (Portable) IMPRESSION: Cardiomegaly with mild congestion. Reading [facility]
--- NOTE | 2024-10-05 09:49 | EKG12_ITS ---
Test Reason : Blood Pressure : */* mmHG Vent. Rate : 98 BPM Atrial Rate : 98 BPM P-R Int : 190 ms QRS Dur : 152 ms QT Int : 380 ms P-R-T Axes : 37 181 28 degrees QTcB Int : 485 ms Normal sinus rhythm Right bundle branch block Lateral infarct , age undetermined Abnormal ECG Confirmed by KIRBY VICENTE, EASTON ([id number]), editor sound YESIKA FLORES ([id number]) on 10/11/2024 6:40:49 AM Referred By: Confirmed By: EASTON ORR MD
--- NOTE | 2024-10-05 09:49 | VDLE_ITS ---
Reason For Study Reason For Study: Right leg swelling RIGHT LEFT GSV is normal. CFV is compressible, spontaneous, phasic, competent, CFV is compressible, spontaneous, phasic, competent and demonstrates normal augmentation. and demonstrates normal augmentation. FV is compressible, spontaneous, phasic, competent and demonstrates normal augmentation. POP V is compressible, spontaneous, phasic, competent and demonstrates normal augmentation. T/P Trunk is compressible. PTV is compressible. RT PerV is compressible. Procedure This is a venous duplex using B-mode, color flow and spectral Doppler. Exam performed portable in ED. A preliminary report was called and/or faxed to [facility]. VL/Venous Duplex US, Unilateral Interpretation Summary Deep veins of the right lower extremity are patent and compressible segmentally . There is no evidence of right lower extremity deep vein thrombosis. The right great saphenous vein appears patent a nd compressible segmentally. Ordering Physician: Kwesi Tilley Referring Physician: Koko Hamilton Performed By: Ольга Hills RVT
--- NOTE | 2024-10-05 09:50 | RAD_ITS ---
EXAM: XR Right Knee Complete, 4 or More Views CLINICAL INDICATION: RIGHT KNEE PAIN TECHNIQUE: Four or more views of the right knee. COMPARISON: No relevant prior studies available. FINDINGS: BONES/JOINTS: Healing fracture of the proximal fibula. No dislocation. Severe degenerative changes of the femoropatellar joint space. SOFT TISSUES: Unremarkable. RAD/Knee 4 or More Views IMPRESSION: Healing fracture of the proximal fibula. Reading Location: [facility]
[2024-10-05] MEDS: Ondansetron 4 MG/2 ML Vial IV ×2 (10:01→19:44)
[2024-10-05] MEDS: HYDROmorphone 0.5 MG/0.5 ML SYRINGE IV (10:02)
[2024-10-05 10:03] LABS: Absolute Lymphocyte Count 1.21 X10^3/uL (0.83-4.51); Absolute Neutrophil Count 12.9 X10^3/uL (2.0-7.7); Basophil# 0.05 X10^3/uL; Basophil% 0.3 % (0-1); Eosinophil# 0.29 X10^3/uL; Eosinophils% 1.8 % (0-5); Hematocrit 39.5 % (40-54); Hemoglobin 12.7 g/dL (13.0-16.5); Lymphocyte # 1.21 X10^3/ul (0.83-4.51); Lymphocyte % 7.4 % (19-41); Mean Corp Hgb Conc 32.2 g/dL (32-36); Mean Corpuscular Hgb 29.3 pg (27.0-32.0); Mean Platelet Vol. 9.7 fl (6.2-12.0); Monocyte# 1.87 X10^3/uL; Monocyte% 11.4 % (0-10); NRBC Flagged by Analyzer 0 % (0-5); Neutrophil # 12.89 X10^3/uL (2.7-7.7); Neutrophil % 78.5 % (47-70); POSITIVE DIFFERENTIAL YES; Platelet Count 240 K/mm3 (150-450); RBC Distribution Width CV 15.3 % (11.6-14.6); RBC Distribution Width SD 50.4 fl (35.1-43.9); Red Blood Count 4.34 M/mm3 (4.6-6.2); White Blood Count 16.4 K/mm3 (4.4-11.0)
[2024-10-05 10:12] LABS: Differential Indicated SCAN CRITERIA MET
[2024-10-05 10:38] LABS: D-Dimer Quantitative (DVT/PE) 2.53 FEU/ug/m (0.27-0.49)
[2024-10-05 10:44] LABS: Anion Gap 15 (5-15); BUN 27 mg/dL (4-19); BUN/Creat Ratio 21.1 RATIO (10-20); Calcium,Total 9.5 mg/dL (7.6-11.0); Carbon Dioxide 22.8 mmol/L (21.0-32.0); Chloride 102 mmol/L (98-108); EST Glomerular Filtration Rate 58 (>60); Estimated Creatinine Clearance 72.37 ml/min (50-250); Glucose 209 mg/dL (70-99); Potassium 4.6 mmol/L (3.3-5.1); Sodium Level 140 mmol/L (133-145)
--- NOTE | 2024-10-05 11:04 | CT_ITS ---
PROCEDURE: CTA CHST, ABD, PEL W AND/OR WO 10/05/2024 REASON FOR EXAM: CHEST AND LEG PAIN, ELEVATED DIMER R/O DISSECT, PE TECHNIQUE: Chest abdomen and pelvis CT with intravenous contrast. Coronal and Sagittal reconstruction series were provided. One or more dose reduction techniques were used (e.g., Automated exposure control, adjustment of the mA and/or kV according to patient size, use of iterative reconstruction technique. PATIENT PREPARATION: Per protocol ORAL CONTRAST TYPE: None. CONTRAST: Isovue 370 VOLUME: 100 mL RADIATION DOSE SUMMARY: CTDlvol: 17.3 mGy DLP: 1509.03 mGycm COMPARISON: Prior chest radiograph done earlier in the day. FINDINGS: CHEST: Lines and tubes: None Mediastinum: Calcified mediastinal lymph nodes. Heart: Prior CABG. Coronary artery calcification. Thoracic Aorta: No thoracic aortic aneurysm or dissection. Atherosclerotic plaque formation of the aortic arch and descending thoracic aorta. Lungs and Airways: Mild linear scarring at the lung bases. Pleura: No pleural effusion. Bones: Degenerative changes of the spine. ABDOMEN AND PELVIS: Liver: Borderline hepatomegaly. Gallbladder: Small gallstones are seen along the dependent portion of the gallbladder lumen. Spleen: Calcified splenic granulomas. Pancreas: Normal size without evidence of mass surrounding inflammation or ductal dilation. Adrenals: Hypertrophy of the left adrenal gland. Kidneys: Normal renal sizes. No hydronephrosis. Bladder: Unremarkable Bowel: There is a 2.5 cm fat containing polyp in the 3rd portion of the duodenum. Vasculature: Mild diffuse atherosclerotic calcifications are noted. Peritoneum / Retroperitoneum: Unremarkable Bones: Degenerative changes of the spine. Status post right hip replacement. CT/CTA Chst, Abd, Pel W and/or WO IMPRESSION: No evidence of aortic dissection. No evidence of pulmonary embolism. Findings suggestive of a fat containing polyp in the 3rd portion of the duodenu m. Reading Location: [place] [id number]
[2024-10-05 11:09] LABS: Pro- Brain NATRIURETIC PEPTIDE 1832 pg/mL (<=900); Troponin T High Sensitivity 39 ng/L (<=22)
[2024-10-05 13:34] LABS: Troponin T High Sens 2 HR 44 ng/L (<=22)
[2024-10-05] MEDS: Lidocaine 1% (20 ml mdv) 20 ML Vial 5 ML INFILT (14:14)
[2024-10-05] MEDS: Furosemide 40 MG/4 ML Vial IV ×2 (14:41→17:33)
--- NOTE | 2024-10-05 14:50 | HP.PCM.HOS_ITS ---
HPI - General General Date of Admission: 10/05/24 Date of Service: 10/05/24 Chief Complaint: SOB, R knee pain HPI Narrative JUNIOR ROCHA, is a 74-year-old male with history of COPD with chronic hypoxic respiratory failure on 3 L home O2, CHF, CAD with stenting and CABG as well as previous aortic valve repair, BPH, EILEEN, diabetes, hypertension, gout who presented [facility] ED 10/05/2024 with chest pain and right leg pain. Over the past 2 weeks patient's had intermittent chest pain that is not exertional or radiating. Had no chest pain at the time of arrival but did have a touch this morning. Primary complaint is severe right leg pain that started a couple of days ago with no inciting incident or falls. The pain is from right knee down to mid calf with swelling. On arrival to the ED temperature 98.4 with heart rate of 101, blood pressure 124/73, respiratory rate 18 and pulse ox 86% on room air necessitating 4 L nasal cannula to achieve a saturation 93%, patient is on 3 L of home O2. Patient with white blood cell count of 16.4, hemoglobin 12.7, BUN of 27 with a creatinine of 1.3 which seems to be baseline. D-dimer 2.53 and troponin of 39 with a BNP of 1800. X-ray of the right lower extremity showed a healing fracture of the proximal fibula and severe degenerative changes of femoral patellar joint space. Chest x-ray revealed cardiomegaly with mild congestion. Patient had right knee arthrocentesis with culture studies pending. Additionally had CTA chest/abdomen/pelvis that per verbal report did not show any PE or dissection. Patient given a dose of IV Lasix for heart failure exacerbation and hospitalist contacted for admission for IV Lasix as well as further workup and management of right knee pain. Patient evaluated at bedside and reports that he has been worked up for TAVR and had a heart cath 2 weeks ago and did not require any stenting and has the TAVR scheduled for the of next month. He does note increased shortness of breath over the past several days, did have a little bit of cough yesterday that looked like cottage cheese. He reports when he has the feelings of chest discomfort they are very brief in nature and then are gone. The right knee started swelling and being painful a couple of days ago as well with no inciting injury. Patient feels slightly better after fluid aspiration but has not been up and walked on it. Patient receiving Lasix at time of exam. Denies any fevers or chills at home but did report earlier today he felt lightheaded and like he had blurred vision and he thought it was because he had not eaten [facility] Medical History (Reviewed 07/22/24 @ 12:59 by Allison Jordan CERTIFIED LEGAL SECRETARY SPECIALIST, CERTIFIED LEGAL SECRETARY SPECIALIST-C) Loss of hearing Wears glasses Wears dentures Alcohol use Diabetes Arthritis Prostate disease High cholesterol Back pain Loss of consciousness Dietary restriction Gastric reflux Former smoker CPAP (continuous positive airway pressure) dependence COPD (chronic obstructive pulmonary disease) Shortness of breath on exertion Leg cramps History of pain when walking History of Holter monitoring History of echocardiogram Cardiology follow-up encounter History of CHF (congestive heart failure) Left bundle branch block CAD (coronary artery disease) Presence of stent in coronary artery (~03/03/14) Pure hypercholesterolemia Essential hypertension Atherosclerosis of [place] coronary artery of [place] heart without angina pectoris Benign prostate hyperplasia Home Medications ?Medication ?Instructions ?Recorded ?Last Taken ?Type clopidogrel 75 mg tablet (Plavix) 75 mg PO QDAY antipl atelet 11/23/17 Unknown History lysine 500 mg tablet 500 mg PO QDAY supplement Unknown History metformin 1,000 mg tablet 1,000 mg PO BID diabetes 02/02 Unknown History multivitamin,[id number] 1 tab PO QDAY supplement 11/23/17 Unknown History (Complete Multivitamin tablet) ascorbic acid (vitamin C) 500 mg 500 mg PO DAILY suppl ement 07/08/18 Unknown History tablet aspirin 81 mg tablet,delayed 81 mg PO DAILY antiplatel et 07/08/18 Unknown History release (Adult Low Dose Aspirin) omega-3 fatty acids 1,000 mg 1,000 mg PO BID supplemen t 07/08/18 Unknown History capsule (Fish Oil Concentrate) vitamin E (dl, acetate) 180 mg 400 unit PO DAILY suppl ement 07/08/18 Unknown History (400 unit) capsule docusate sodium 50 mg capsule 50 mg PO .4XW stool soft ener 12/22/18 Unknown History (Colace Clear) sennosides 8.6 mg tablet (senna) 8.6 mg PO DAILY Check with primary 12/22/18 Unknown History doctor tamsulosin 0.4 mg capsule 0.4 mg PO DAILY Check with p herbie 12/22/18 Unknown History doctor lisinopril 10 mg tablet 10 mg PO DAILY #90 tabs 03/3 020 07/16/21 Rx allopurinol 100 mg tablet 100 mg PO Q12H 05/02/20 Unkn own History calcium 600 mg (as 1 tab PO DAILY supplement Unknown History carbonate)-vitamin D3 20 mcg (800 unit) tablet rosuvastatin 5 mg tablet 5 mg PO DAILY cholesterol Unknown History cholecalciferol (vitamin D3) 50 50 mcg PO DAILY Unknown History mcg (2,000 unit) capsule valacyclovir 500 mg tablet 500 mg PO PRN PRN Cold Sore s 07/15/21 Unknown History finasteride 5 mg tablet 5 mg PO DAILY 11/08/21 Unkno wn History famotidine 20 mg tablet (Pepcid) 20 mg PO .3XWEEK PRN 05/21/22 Unknown History metoprolol tartrate 100 mg tablet 100 mg PO BID heart rate #180 tabs 07/01/23 Unknown Rx nitroglycerin 0.4 mg sublingual 0.4 mg sublingual Q5-1 5M PRN chest 08/04/23 Unknown Rx tablet (Nitrostat) pain #25 tabs potassium chloride 10 mEq See Rx Instructions .Route 0 09/07/23 Unknown Rx tablet,extended release .COMPLEX #90 tabs isosorbide mononitrate 60 mg 60 mg PO DAILY #90 TABLET S 11/23/23 Unknown Rx tablet,extended release 24 hr furosemide 40 mg tablet 40 mg PO BID #180 TABLETS Unknown Rx amoxicillin 875 mg-potassium 1 tab PO BID 07/22/24 Unk nown History clavulanate 125 mg tablet glimepiride 4 mg tablet 4 mg PO BID 07/22/24 Unknown History insulin glargine 100 unit/mL (3 50 unit subcut QDAY Unknown History mL) subcutaneous pen (Lantus Solostar U-100 Insulin) sitagliptin phosphate 100 mg 100 mg PO QDAY 07/22/24 U nknown History tablet (Januvia) ergocalciferol (vitamin D2) 1,250 1,250 mcg PO QWEEK 0 10/05/24 Unknown History mcg (50,000 unit) capsule (Vitamin D2) Allergy/AdvReac Type Severity Reaction Status Date / Time hydrocodone Allergy rash Verified 10/05/24 09:33 morphine Allergy Vomiting Verified 10/05/24 09:33 Family History (Reviewed 07/22/24 @ 12:59 by Allison Jordan CERTIFIED LEGAL SECRETARY SPECIALIST, CERTIFIED LEGAL SECRETARY SPECIALIST-C) Father CAD (coronary artery disease) Mother CAD (coronary artery disease) Other Atherosclerosis [place] coronary artery of [place] heart without angina pectoris Surgical History (Reviewed 07/22/24 @ 12:59 by Allison Jordan CERTIFIED LEGAL SECRETARY SPECIALIST, CERTIFIED LEGAL SECRETARY SPECIALIST-C) Presence of coronary angioplasty implant and graft (~03/03/14) History of aortic valve replacement with bioprosthetic valve (~01/09/11) History of right hip replacement (03/28/09) Hx of CABG (~01/09/11) History of tonsillectomy Social History Smoking Status: Former smoker how long ago did patient quit smokin.5 years ago alcohol intake: current alcohol intake frequency: holidays/special occasions only caffeine: Yes Type: coffee Number of servings: 1 ROS ROS Narrative General: Denies fever/chills HENT: Denies headache, denies stuffy nose, denies sore throat EYES: Denies changes in vision Resp: Has had some cough for couple of days, also more short of breath Cardiac: Intermittently will get short episodes of chest discomfort with no association or radiation GI: Denies abdominal pain, denies changes in bowel : Denies changes in urination Extremity: Does not necessarily think he has more peripheral swelling MSK: Denies weakness, right knee pain and swelling Neuro: Denies any numbness/tingling Heme: Denies any bleeding or bruising Skin: Denies rashes Psychiatric: No complaints voiced Vital Signs Vital Signs Vital Signs: 10/05/24 09:34 10/05/24 09:38 10/05/24 09:42 Temperature 98.4 F Temperature Source Oral Pulse Rate 101 H Respiratory Rate 18 Respiratory Effort Normal Blood Pressure 124/73 H Blood Pressure Mean 90 Pulse Ox 86 93 Oxygen Delivery Method Room Air Nasal Cannula Oxygen Flow Rate (L/min) 4 10/05/24 10:02 10/05/24 10:14 10/05/24 10:32 Temperature 98.6 F 98.4 F Temperature Source Oral Oral Pulse Rate 16 L 85 Respiratory Rate 18 18 Respiratory Effort Blood Pressure 111/90 H 106/78 Blood Pressure Mean 97 87 Pulse Ox 94 92 Oxygen Delivery Method Nasal Cannula Room Air Nasal Cannula Oxygen Flow Rate (L/min) 4 2 10/05/24 10:35 10/05/24 11:00 10/05/24 11:30 Temperature 98.6 F 98.4 F Temperature Source Oral Oral Pulse Rate 85 78 Respiratory Rate 20 H 16 Respiratory Effort Blood Pressure 108/71 104/68 Blood Pressure Mean 83 80 Pulse Ox 92 88 98 Oxygen Delivery Method Nasal Cannula Nasal Cannula Room Air Oxygen Flow Rate (L/min) 1 3 10/05/24 12:00 10/05/24 12:30 10/05/24 13:00 Temperature Temperature Source Pulse Rate 89 82 80 Respiratory Rate 18 20 H 15 Respiratory Effort Blood Pressure 109/76 103/62 Blood Pressure Mean 87 75 Pulse Ox 98 96 93 Oxygen Delivery Method Room Air Nasal Cannula Oxygen Flow Rate (L/min) 4 10/05/24 13:30 10/05/24 14:00 10/05/24 14:30 Temperature Temperature Source Pulse Rate 79 80 84 Respiratory Rate 18 20 H 13 Respiratory Effort Blood Pressure 106/57 L 108/66 106/65 Blood Pressure Mean 73 79 78 Pulse Ox 93 92 93 Oxygen Delivery Method Nasal Cannula Oxygen Flow Rate (L/min) 4 Weight Weight: 140.2 kg Body Mass Index (BMI) 41.9 Physical Exam Narrative General: Alert, oriented, no apparent distress HEENT: Atraumatic, normocephalic Eyes: Anicteric, normal conjunctiva, extraocular movements grossly intact Neck: Supple Respiratory: Slight increased respiratory effort, diminished at the bases but suspect this is largely due to body habitus Cardiovascular: Regular rate and rhythm GI: Soft, nontender, nondistended Extremities: Trace bilateral lower extremity pitting edema Musculoskeletal: Moving all extremities but does have pain in the right knee with effusion noted, not overtly warm compared to left side Neuro: No overt focal neurological deficits Skin: No rashes appreciated Psych: Cooperative Results Lab / Micro Data 10/05/24 09:27 10/05/24 09:27 Labs: Laboratory Results - last 24 hr 10/05/24 09:27: WBC 16.4 H, RBC 4.34 L, Hgb 12.7 L, Hct 39.5 L, MCV 91.0, MCH 29.3, MCHC 32.2, RDW Std Deviation 50.4 H, RDW Coeff of Jacquelyn 15.3 H, Plt Count 240, MPV 9.7, Immature Gran % (Auto) 0.600, Neut % (Auto) 78.5 H, Lymph % (Auto) 7.4 L, [place] % (Auto) 11.4 H, Eos % (Auto) 1.8, Baso % (Auto) 0.3, Absolute Neuts (auto) 12.9 H, Absolute Lymphs (auto) 1.21, Nucleated RBC % 0, D-Dimer Quant (PE/DVT) 2.53 H*, Sodium 140, Potassium 4.6, Chloride 102, Carbon Dioxide 22.8, Anion Gap 15, BUN 27 H, Creatinine 1.30 H, Estim Creat Clear Calc 72.37, Est GFR (MDRD) Non-Af 58 L, BUN/Creatinine Ratio 21.1 H, Glucose 209 H, Calcium 9.5, T roponin T High Sens 39 H, NT pro BNP II 1832 H 10/05/24 12:35: Troponin T Hi Sens 2 Hr 44 H Imaging Radiology Impression Chest X-Ray 10/05/24 09:49 IMPRESSION: Cardiomegaly with mild congestion. Reading Location: [facility] Knee X-Ray 10/05/24 09:50 IMPRESSION: Healing fracture of the proximal fibula. Reading Location: [facility] Assessment & Plan Assessment/Plan (1) Acute exacerbation of chronic heart failure: (2) Effusion, right knee: PLAN: Plan #Acute exacerbation of chronic heart failure of unclear subtype -Admit to telemetry -proBNP 1800 -CXR with mild congestion patient does have symptoms with increased shortness of breath and elevated BNP -Continue IV lasix, patient indicates he is on 40 p.o. of Lasix twice daily, will start 40 IV twice dailyLX -Last echo in our system 06/03/2022 with EF of 50% with wall motion abnormalities -Repeat echo ordered -Daily weights, I's and O's -heart healthy diet #Hx COPD with chronic hypoxic respiratory failure on 3 L home O2 -Continue home inhalers -Incentive spirometer # Right knee pain and effusion -Clinically seem to have effusion and had arthrocentesis in ED -Fluid studies pending -Patient does have history of gout, unclear if this could be a crystal arthropathy or septic arthritis -Pending lab results and studies will determine further workup, abx, and if further consultation necessary acutely -ESR, CRP, Pro-Guero, uric acid ordered -Supportive care -Pain control - Also had finding of healing fracture proximal fibula on the x-ray, unclear significance, patient with no trauma reported does not seem to be acute in nature # Elevated troponin -Suspect secondary to hypoxia and not primary process -First troponin 39 with second troponin 44 -Patient's intermittent chest pain suspected to be due to fluid overload intermittent hypoxia #EILEEN -Continue home NIPPV #Hypertension - BP borderline in ED , holding home antihypertensives #Hx of CAD -w/ previous stenting and CABG -Continue home medications once med rec updated #Type 2 diabetes mellitus -Glucose checks and sliding scale insulin -Continue home long acting at slightly lower dosing to avoid hypoglycemia #Morbid obesity -BMI documented as 41.9 kg/m? at time of admission -Complicates treatment, prognosis, outcomes -Recommend weight loss and lifestyle changes #Chronic BPH with obstruction -Continue home medications #Gout -Continue home allopurinol #DVT ppx: Lovenox subcu twice daily Sona Gimenez MD Charges/Coding Visit Charges Inpatient E&M: 83005 Init Hosp L2
--- NOTE | 2024-10-05 15:31 | ECHOD_ITS ---
Reason For Study Reason For Study: CHF Procedure This was a 2D Doppler, Color Flow transthoracic echocardiogram. The study was technically difficult. Study ended early due to patient vomiting. Exam performed portable in patient room. Left Ventricle Normal LV size. The estimated ejection fraction is 55 %. Unable to assess diastolic dysfunction. No regional wall motion abnormalities noted. Right Ventricle Normal RV size. Normal systolic function. Atria There is mild biatrial dilatation. Mitral Valve There is severe mitral annular calcification. There is no mitral valve stenosis. No mitral valve insufficiency. Tricuspid Valve There is no tricuspid stenosis. No tricuspid valve insufficiency. Aortic Valve The aortic valve is not well visualized. unable to assess. No aortic valve insufficiency. Pulmonic Valve There is no pulmonic valvular stenosis. No pulmonic valve insufficiency. Great Vessels Normal sized aortic root. Pericardium/Pleural No pericardial effusion. MMode/2D Measurements & Calculations LAV(MOD-bp): 96.0 ml LA A4 area: 27.8 cm2 RA A4 area: 16.2 cm2 LAV(MOD-bp) Indexed: 37.4 ml/m2 LAV(MOD-sp2): 62.1 ml LAV(MOD-sp4): 108.8 ml Time Measurements MV dec time: 0.07 sec Doppler Measurements & Calculations MV E max slick: 90.1 cm/sec Lat Peak E' Slick: 13.9 cm/sec Med Peak E' Slick: 7.5 cm/sec MV A max slick: 102.6 cm/sec E/E' lat: 6.5 E/E' med: 12.0 MV E/A: 0.88 MV dec slope: 1291 cm/sec2 Ao V2 max: 305.1 cm/sec Ao max P.8 mmHg Ao V2 mean: 220.6 cm/sec Ao mean P.5 mmHg Ao V2 VTI: 57.8 cm ECHO/Echo Complete Interpretation Summary The estimated ejection fraction is 55 %. Unable to assess diastolic dysfunction. Ordering Physician: Sona Gimenez Referring Physician: Koko Hamilton Performed By: Purvi Hurtado RCS
[2024-10-05 15:53] LABS: Procalcitonin 0.09 ng/mL (<=0.10); Uric Acid 12.3 mg/dL (3.5-7.2)
[2024-10-05 16:19] LABS: Pathologist Comment May follow
[2024-10-05 16:32] LABS: Synovial Fld Mononuclear WBC # 2.297 10^3/ul; Synovial Fld Mononuclear WBC % 7.9 %; Synovial Fld Polynuclear WBC # 26.953 10^3/uL; Synovial Fld Polynuclear WBC % 92.1 %
[2024-10-05 16:35] LABS: Erythrocyte Sedimentation Rate 61 mm/hr (0-20)
[2024-10-05 17:06] LABS: RBC /Synovial Fluid 0.003 10^6/uL (0)
[2024-10-05 17:14] LABS: AUTO B FLUID DILUENT BKGD CT WBC <0.1 RBC <0.01 (W<.1,R<.01)
[2024-10-05 17:15] LABS: Source / Synovial Fluid RT ANKLE; Source- Body Fluid SYNOVIAL
[2024-10-05] MEDS: 0.9% Saline Lock 10 ML Syringe IV ×2 (17:33→19:44)
[2024-10-05 17:44] LABS: Bedside Glucose 78 mg/dL (74-106)
[2024-10-05 18:11] LABS: Troponin T High Sensitivity 48 ng/L (<=22)
--- NOTE | 2024-10-05 18:22 | PCM.HOSP.N ---
Hospitalist Note Synovial fluid analysis thus far seems more consistent with other inflammatory process than septic arthritis, Gram stain with no organisms seen. Patient afebrile, Pro-Guero negative, history of gout and has elevated uric acid, higher suspicion of gout flare and will treat as such at this time with colchicine, will avoid systemic steroids and given patient's cardiac history will avoid NSAIDs. If patient worsens or becomes febrile or any increased concern for septic arthritis, or cultures positive, will start antibiotics and consult orthopedics
[2024-10-05 19:13] LABS: Troponin T High Sens 2 HR 47 ng/L (<=22)
[2024-10-05] MEDS: Colchicine 0.6 MG TABLET 1.2 MG PO (19:25)
[2024-10-05] MEDS: Senna/Docusate Sodium 1 Tablet PO (19:25)
--- NOTE | 2024-10-05 20:04 | EKG12_ITS ---
Test Reason : RHYTHM CHANGE Blood Pressure : */* mmHG Vent. Rate : 96 BPM Atrial Rate : 96 BPM P-R Int : 192 ms QRS Dur : 152 ms QT Int : 386 ms P-R-T Axes : 57 189 40 degrees QTcB Int : 487 ms Sinus rhythm with Premature supraventricular complexes Right bundle branch block Lateral infarct , age undetermined Abnormal ECG When compared with ECG of 05-Oct-2024 09:36, MANUAL COMPARISON REQUIRED DATA IS UNCONFIRMED Confirmed by KIRBY VICENTE, EASTON ([id number]), staff editor YESIKA FLORES ([id number]) on 10/11/2024 6:57:46 AM Referred By: Confirmed By: EASTON ORR MD
[2024-10-05 20:43] LABS: Magnesium 1.9 mg/dL (1.5-2.2); Phosphorus 4.4 mg/dL (2.7-4.5)
[2024-10-05 21:31] LABS: Troponin T High Sens 4 HR 52 ng/L (<=22)
[2024-10-05] MEDS: Colchicine 0.6 MG TABLET PO (21:49)
[2024-10-05] MEDS: Atorvastatin Calcium 10 MG Tablet PO (21:50)
[2024-10-05] MEDS: Allopurinol 100 MG Tablet PO (21:51)
[2024-10-05] MEDS: Insulin Glargine-YFGN 100 UNIT/ML Pen 35 UNIT SC (21:51)
[2024-10-05] MEDS: Senna Tablet 1 TABLET PO (21:51)
[2024-10-05] MEDS: Enoxaparin 40 MG/0.4 ML Syringe SC (21:51)
[2024-10-05 21:56] LABS: Lymph 1 %; Monocyte /Synovial Fluid 2 %; Neutrophil 97 % (0-25)
[2024-10-05 21:58] LABS: Appearance /Synovial Fluid Clear (CLEAR); Color / Synovial Fluid Yellow (Pale Yellow)
[2024-10-05 21:59] LABS: Body Fluid QC Type(s) BF1Q,BF2Q
[2024-10-05] MEDS: Insulin Lispro 100 UNIT/ML INSULN.PEN SC (22:02)
[2024-10-05 22:11] LABS: CRYSTALS, BODY FLUID See PATH REV
[2024-10-05 22:32] LABS: Bedside Glucose 203 mg/dL (74-106)
[2024-10-06] VITALS (21 sets, daily range): BP systolic 85–127; BP diastolic 57–75; PULSE 72–117; RESP 17–28; TEMP 36.4–38.9; O2SAT 91–99; BMI 42.4
--- NOTE | 2024-10-06 04:38 | RAD_ITS ---
PROCEDURE: CHEST 1 VIEW (PORTABLE) 10/06/2024 REASON FOR EXAM: FEVER TECHNIQUE: Frontal view of the chest. COMPARISON: 10/05/2024 FINDINGS: The lungs appear clear. No evidence of pleural effusion. Status post median sternotomy again noted. The cardiac and mediastinal contours appear unchanged. Shoulder degenerative changes. RAD/Chest 1 View (Portable) IMPRESSION: No evidence of acute disease. Reading Location: [id number]
[2024-10-06] MEDS: Vancomycin HCl 2,000 MG in 0.9% Normal Saline (500mL Bag) 500 ML 250 MG IV (05:34)
[2024-10-06] MEDS: Piperacil/Tazobactam 3.375 GM in 0.9% Normal Saline (50mL MB+) 50 ML IV ×3 (05:41→21:58)
[2024-10-06] MEDS: 0.9% Saline Lock 10 ML Syringe IV (05:41)
[2024-10-06 05:43] LABS: Absolute Lymphocyte Count 0.58 X10^3/uL (0.83-4.51); Absolute Neutrophil Count 15.8 X10^3/uL (2.0-7.7); Basophil# 0.03 X10^3/uL; Basophil% 0.2 % (0-1); Hematocrit 38.4 % (40-54); Hemoglobin 12.4 g/dL (13.0-16.5); Lymphocyte # 0.58 X10^3/ul (0.83-4.51); Mean Corp Hgb Conc 32.3 g/dL (32-36); Mean Corpuscular Hgb 29.5 pg (27.0-32.0); Mean Corpuscular Volume 91.2 fL (80-94); Mean Platelet Vol. 9.6 fl (6.2-12.0); Monocyte# 2.53 X10^3/uL; Monocyte% 13.3 % (0-10); NRBC Flagged by Analyzer 0 % (0-5); Neutrophil # 15.77 X10^3/uL (2.7-7.7); Neutrophil % 82.7 % (47-70); POSITIVE DIFFERENTIAL YES; Platelet Count 227 K/mm3 (150-450); RBC Distribution Width CV 15.2 % (11.6-14.6); RBC Distribution Width SD 50.7 fl (35.1-43.9); Red Blood Count 4.21 M/mm3 (4.6-6.2); White Blood Count 19.1 K/mm3 (4.4-11.0)
[2024-10-06] MEDS: Ondansetron 4 MG/2 ML Vial IV (05:57)
--- NOTE | 2024-10-06 06:16 | PCM.RX.CS ---
Consult Antibiotic Management Pharmacy has been consulted to manage selected antibiotic: Vancomycin Type of Intervention Type of Consult: New start Microbiology Microbiology: Microbiology 10/05/24 14:25 Fluid - Synovial (joint) Gram Stain - Final Dosing Weight Weight used for dosin kg Estimated Creatinine Clearance Estimated Creatinine Clearance: 72 Goal Trough Goal Trough: 15-20 mcg/mL Pharmacy Plan for Drug Dosing Pharmacy Plan for Drug Dosing: Pharmacy Service will continue to monitor and adjust dosing as required. Follow-Up Labs Follow-Up Labs: Trough: Vancomycin Date/Time Labs Ordered Labs to be done on [date and time ordered]: 10/07/24 @1700
[2024-10-06 06:19] LABS: Lactic Acid < 1.0 mmol/L (0.0-2.0)
[2024-10-06 06:22] LABS: Anion Gap 15 (5-15); BUN 32 mg/dL (4-19); BUN/Creat Ratio 18.8 RATIO (10-20); Calcium,Total 9.4 mg/dL (7.6-11.0); Carbon Dioxide 25.8 mmol/L (21.0-32.0); Chloride 98 mmol/L (98-108); Creatinine, Serum 1.72 mg/dL (0.70-1.20); EST Glomerular Filtration Rate 41 (>60); Glucose 205 mg/dL (70-99); Potassium 4.5 mmol/L (3.3-5.1); Sodium Level 139 mmol/L (133-145)
[2024-10-06 06:39] LABS: Differential Indicated SCAN CRITERIA MET
[2024-10-06] MEDS: Insulin Lispro 100 UNIT/ML INSULN.PEN SC ×3 (06:40→21:49)
[2024-10-06] MEDS: Acetaminophen 500 MG Tablet 1000 MG PO (06:41)
[2024-10-06 07:05] LABS: Bedside Glucose 226 mg/dL (74-106)
[2024-10-06 07:25] LABS: Platelet Morphology LARGE
[2024-10-06] MEDS: Magnesium Sulfate 2 GM in Dextrose 5%-Water (100mL Bag) 100 ML IV (08:18)
--- NOTE | 2024-10-06 08:32 | PN.HOSP_ITS ---
Reason for Visit Reason for Visit: General malaise, right knee pain Subjective Subjective Patient with several episodes of cardiac pauses with the longest being about 9 seconds. Patient with some brief unresponsiveness when the events occur and his heart rate picks back up again he awakens and then has nausea and vomiting. Still complains of some right knee pain. Had fevers overnight and was started on antibiotics and blood cultures were obtained. Objective Data Objective Data Vital Signs: Vital Signs Temp Pulse Resp BP Pulse Ox O2 Del Method O2 Flow Rate 97.6 F L 104 H 28 H 127/71 H 94 CPAP 5 10/06/24 08:20 10/06/24 08:20 10/06/24 08:20 10/06/24 08:20 10/06/24 08:20 10/06/24 08:20 10/06/24 08:20 Oxygen Flow Rate (L/min) 5 Oxygen Delivery Method CPAP Weight: 138 kg Body Mass Index (BMI) 42.4 Intake & Output: Intake and Output for Last 24 Hours 10/04/24 10/05/24 10/06/24 23:59 23:59 23:59 Intake Total 440 / 440 540 / 540 Output Total 500 / 500 750 / 750 Balance -60 / -60 -210 / -210 Lab / Micro Data 10/06/24 05:14 10/06/24 05:14 Labs: Laboratory Results - last 24 hr 10/05/24 09:27: WBC 16.4 H, RBC 4.34 L, Hgb 12.7 L, Hct 39.5 L, MCV 91.0, MCH 29.3, MCHC 32.2, RDW Std Deviation 50.4 H, RDW Coeff of Jacquelyn 15.3 H, Plt Count 240, MPV 9.7, Immature Gran % (Auto) 0.600, Neut % (Auto) 78.5 H, Lymph % (Auto) 7.4 L, [place] % (Auto) 11.4 H, Eos % (Auto) 1.8, Baso % (Auto) 0.3, Absolute Neuts (auto) 12.9 H, Absolute Lymphs (auto) 1.21, Nucleated RBC % 0, ESR 61 H, D-Dimer Quant (PE/DVT) 2.53 H*, Sodium 140, Potassium 4.6, Chloride 102, Carbon Dioxide 22.8, Anion Gap 15, BUN 27 H, Creatinine 1.30 H, Estim Creat Clear Calc 72.37, E st GFR (MDRD) Non-Af 58 L, BUN/Creatinine Ratio 21.1 H, Glucose 209 H, Uric Acid 12.3 H, Calcium 9.5, Troponin T High Sens 39 H, C-React Prot Ext Range 89.80 H, NT pro BNP II 1832 H, Procalcitonin 0.09 10/05/24 12:35: Troponin T Hi Sens 2 Hr 44 H 10/05/24 14:25: Fluid Crystals See PATH REV, Fluid Crystal Source SYNOVIAL, Fl Crystal Path Review Will follow, Synovial Source RT ANKLE, Synovial Color Yellow, Synovial Appearance Clear, Synovial WBC 29.3150 H, Synovial RBC 0.003 H, Synovial Tot Cell Ct 29.3700 H, Synov Polynuclear WBCs 26.953, Synov Mononuclear WBCs 2.297, Synovial Neutrophils 97 H, Synovial Lymphocytes 1, Synovial Monocytes 2, Synovial Polynuclear % 92.1, Synovial Mononuclear % 7.9, Synovial Path Comment May follow 10/05/24 16:13: POC Glucose 78 10/05/24 17:00: Troponin T High Sens 48 H D 10/05/24 18:54: Troponin T Hi Sens 2 Hr 47 H 10/05/24 20:15: Phosphorus 4.4, Magnesium 1.9 10/05/24 21:05: Troponin T Hi Sens 4Hr 52 H 10/05/24 21:54: POC Glucose 203 H 10/06/24 05:14: WBC 19.1 H, RBC 4.21 L, Hgb 12.4 L, Hct 38.4 L, MCV 91.2, MCH 29.5, MCHC 32.3, RDW Std Deviation 50.7 H, RDW Coeff of Jacquelyn 15.2 H, Plt Count 227, MPV 9.6, Immature Gran % (Auto) 0.800, Neut % (Auto) 82.7 H, Lymph % (Auto) 3.0 L, [place] % (Auto) 13.3 H, Eos % (Auto) 0.0, Baso % (Auto) 0.2, Absolute Neuts (auto) 15.8 H, Absolute Lymphs (auto) 0.58 L, Nucleated RBC % 0, Plt Morphology Comment LARGE, Sodium 139, Potassium 4.5, Chloride 98, Carbon Dioxide 25.8, Anion Gap 15, BUN 32 H, Creatinine 1.72 H, Estim Creat Clear Calc 53.50, Est GFR (MDRD) Non-Af 41 L, BUN/Creatinine Ratio 18.8, Glucose 205 H, Lactic Acid < 1.0, Calcium 9.4 10/06/24 06:39: POC Glucose 226 H Micro: Microbiology 10/05/24 14:25 Fluid - Synovial (joint) Gram Stain - Final Radiography Diagnostic Testing: Radiology Impression Chest X-Ray 10/05/24 09:49 IMPRESSION: Cardiomegaly with mild congestion. Reading Location: [facility] Venous Doppler Study 10/05/24 09:49 Interpretation Summary Deep veins of the right lower extremity are patent and compressible segmentally. There is no evidence of right lower extremity deep vein thrombosis. The right great saphenous vein appears patent and compressible segmentally. Ordering Physician: Kwesi Tilley Referring Physician: Koko Hamilton Performed By: Ольга Hills RVT Knee X-Ray 10/05/24 09:50 IMPRESSION: Healing fracture of the proximal fibula. Reading Location: [facility] Chest/Abdomen/Pelvis CTA 10/05/24 11:04 IMPRESSION: No evidence of aortic dissection. No evidence of pulmonary embolism. Findings suggestive of a fat containing polyp in the 3rd portion of the duodenum. Reading Location: [facility] Chest X-Ray 10/06/24 04:38 IMPRESSION: No evidence of acute disease. Reading Location: [id number] Physical Exam Const alert, oriented x3 and well nourished; Negative for no apparent distress, average body habitus or healthy appearing Constitutional Narrative: Morbidly obese, white male, sitting up in bed, at bedside, patient appears as if he is not feeling well HEENT head/scalp atraumatic and moist oral mucous membranes HEENT Narrative: Mallampati is 4, no thrush Head and Scalp: normocephalic Eyes EOMs intact bilaterally and conjunctivae normal Eyes Narrative: No scleral icterus Neck supple Neck Narrative: Trachea midline, no thyroid enlargement Resp normal respiratory effort, no retractions, no use of accessory muscles and clear to auscultation bilaterally Auscultation: Negative for rales, rhonchi or wheezes Cardio regular rate, regular rhythm, S1 normal heart sound, S2 normal heart sound, no murmurs, no rub, no gallops and no clicks GI normal to inspection, nondistended, normoactive bowel sounds, soft to palpation and non-tender GI Narrative: Large protuberant abdomen Extremity no clubbing, cyanosis or edema Extremity Narrative: 2+ pedal pulses, right knee with effusion, tender to palpation but no increased tissue temperature Skin skin turgor normal, no jaundice, no petechiae and no mottling Skin Narrative: Diaphoretic Neuro oriented x3, moves all extremities and no focal motor deficits Speech: speech normal Psych Psych Narrative: Affect is flat but appropriate for the situation Assessment & Plan Assessment/Plan (1) Sepsis: (2) Effusion, right knee: (3) Syncope: (4) Gout: PLAN: Plan Sepsis with unknown source - Patient with tachycardia, tachypnea, white count greater than 19,000, fever with initial suspected source is his right knee - Patient with fever overnight so vancomycin and Zosyn was started - Blood cultures obtained - Will obtain urine culture - Chest x-ray does not show any infiltrate patient not having any respiratory issues - Will consult ID Syncope - Patient with several episodes of syncope and ventricular pauses on telemetry associated with his syncope - Discontinue beta-yohan - Initially felt possibly vasovagal however patient was then having symptoms prior to vomiting so unclear-check echocardiogram - Cardiology consulted for temporary pacemaker placement Right knee gout with history of gout - Initial concern for septic arthritis however crystals were finally resulted and positive for birefringent crystals - Continue colchicine as ordered - Continue home allopurinol Acute on chronic heart failure with preserved ejection fraction - Serum creatinine trended up with diuretic so we will stop - Initial proBNP was elevated slightly at 1800 - Chest x-ray did show mild congestion - Patient seems to be better with regards to his shortness of breath and I am wondering whether or not his shortness of breath may be related to his syncope as noted above next-will continue to monitor - Echocardiogram performed and shows an EF of 55% and was otherwise unremarkable Elevated troponin - Secondary to demand ischemia - Echocardiogram without any wall motion abnormality CKD stage IIIb - Slight bump in creatinine however does not qualify for CHAR - Discontinue IV diuretics - Avoid nephrotoxin - Repeat chemistry in a.m. EILEEN - Continue home CPAP CAD/essential hypertension/hyperlipidemia - Antihypertensives are currently on hold - Will reevaluate tomorrow and reinitiate if able - Continue home statin DM-2 - Continue home basal insulin as ordered - Hold home oral agents - Accu-Cheks as ordered - SSI as ordered - Reevaluate need of basal insulin in a.m. BPH with obstruction - Flomax and Proscar Chronic constipation - Continue home stool softeners and laxatives Morbid obesity - BMI is 42.4 - Recommend weight loss - Complicates treatment, prognosis, outcomes DVT prophylaxis - Continue subcu Lovenox 40 twice daily CODE STATUS Full code Sepsis Attestation Sepsis Alert: Yes Sepsis Attestation: Agree w/Sepsis Date exam was performed: 10/06/24 Time exam was performed: 08:33 Possible Source of Sepsis: Bone/joint Supportive Findings: Patient has traditional Medicare A and B. CMS uses Sep 1 criteria for sepsis. Patient had a temperature 102, tachycardia, tachypnea with respiratory rate 28, white count greater than 12,000 and suspected source of joint infection. Patient is not hypotensive and shows no significant signs of endorgan damage at this time does meet sepsis criteria per CMS guidelines. Fluid Resuscitation Fluid Resuscitation ordered: Fluids not indicated Sepsis Note Date exam was performed: 10/06/24 Time exam was performed: 12:00 Sepsis Attestation: Sepsis re-evaluation was performed (Patient with stable blood pressure and we will hold off on any fluid resuscitation at this time) Charges/Coding Visit Charges Inpatient E&M: 29818 Subs Hosp L3
[2024-10-06] MEDS: Finasteride 5 MG Tablet PO (10:33)
[2024-10-06] MEDS: Aspirin E.C. 81 MG Tablet PO (10:34)
[2024-10-06] MEDS: Metoprolol Tartrate 50 MG Tablet PO (10:34)
[2024-10-06] MEDS: Clopidogrel Bisulfate 75 MG Tablet PO (10:34)
[2024-10-06] MEDS: Potassium Chloride Oral Tablet 10 MEQ PO (10:34)
[2024-10-06] MEDS: Tamsulosin HCl 0.4 MG Capsule PO (10:34)
[2024-10-06] MEDS: Colchicine 0.6 MG TABLET PO ×2 (10:35→21:43)
[2024-10-06] MEDS: Allopurinol 100 MG Tablet PO ×2 (10:35→21:48)
[2024-10-06] MEDS: Enoxaparin 40 MG/0.4 ML Syringe SC ×2 (10:35→21:48)
[2024-10-06] MEDS: Isosorbide Mononitrate 30 MG Tablet PO (10:35)
[2024-10-06] MEDS: Senna/Docusate Sodium 1 Tablet PO (10:35)
[2024-10-06 12:00] LABS: Bedside Glucose 253 mg/dL (74-106)
[2024-10-06] MEDS: proMETHazine 25 MG/ML Syringe 12.5 MG IM (12:26)
--- NOTE | 2024-10-06 12:35 | CASEMGMT ---
RN CM Face to Face with patient for initial transition planning/care coordination assessment. RN CM introduced self and role at [facility]. Patient lying in bed, alert and oriented, at bedside. Patient willing to participate in assessment and is able to answer all questions appropriately. Care providers, pharmacy, and demographics verified. Strata: 1 PCP: Alfonso Specialists: Bryce, book solicitor; Tay Webber, roll changer; [facility]: [facility], [employer] Prescription Benefit: yes Living Will/HPOA: yes, Joann Daugherty LNOK: , adelina Living Arrangements: Patient lives with in a story home with 3 steps to enter. Patient states he is independent at home. Transportation: self, DME/HHC: Pateint has cane, walker, wheelchair, cpap, pulse ox, glucometer with supplies, and home oxygen with portability through [employer]. No previous SNF. Patient has had HHC in the past but could not recall agency. Patient wishes to discharge home, denies need for home health at this time, will monitor progress with therapy. Patient states he has no further needs or concerns at this time. CM to follow for discharge planning needs that may arise. Disposition Plan: Paitent to discharge home with family support and follow-up plans in place. Will monitor for increase in home oxygen and possible therapy at discharge. Ольга CARVER, RN, CM
--- NOTE | 2024-10-06 13:04 | PN.ORTHO_ITS ---
Subjective Subjective R knee pain. Objective Data Objective Data Vital Signs: Vital Signs Temp Pulse Resp BP Pulse Ox O2 Del Method O2 Flow Rate 98.5 F 96 24 H 126/62 H 92 Nasal Cannula 4 10/06/24 12:05 10/06/24 12:05 10/06/24 12:05 10/06/24 12:05 10/06/24 12:05 10/06/24 12:05 10/06/24 12:05 Oxygen Flow Rate (L/min) 4 Oxygen Delivery Method Nasal Cannula Weight: 304 lb 3.806 oz Body Mass Index (BMI) 42.4 Intake & Output: Intake and Output for Last 24 Hours 10/04/24 10/05/24 10/06/24 23:59 23:59 23:59 Intake Total 440 / 440 934 / 934 Output Total 500 / 500 900 / 900 Balance -60 / -60 34 / 34 Lab / Micro Data Attestation: I reviewed the patient's lab results. 10/06/24 05:14 10/06/24 05:14 Labs: Laboratory Results - last 24 hr 10/05/24 09:27: ESR 61 H, Uric Acid 12.3 H, C-React Prot Ext Range 89.80 H, Procalcitonin 0.09 10/05/24 12:35: Troponin T Hi Sens 2 Hr 44 H 10/05/24 14:25: Fluid Crystals See PATH REV, Fluid Crystal Source SYNOVIAL, Fl Crystal Path Review Will follow, Synovial Source RT ANKLE, Synovial Color Yellow, Synovial Appearance Clear, Synovial WBC 29.3150 H, Synovial RBC 0.003 H, Synovial Tot Cell Ct 29.3700 H, Synov Polynuclear WBCs 26.953, Synov Mononuclear WBCs 2.297, Synovial Neutrophils 97 H, Synovial Lymphocytes 1, Synovial Monocytes 2, Synovial Polynuclear % 92.1, Synovial Mononuclear % 7.9, Synovial Path Comment May follow 10/05/24 16:13: POC Glucose 78 10/05/24 17:00: Troponin T High Sens 48 H D 10/05/24 18:54: Troponin T Hi Sens 2 Hr 47 H 10/05/24 20:15: Phosphorus 4.4, Magnesium 1.9 10/05/24 21:05: Troponin T Hi Sens 4Hr 52 H 10/05/24 21:54: POC Glucose 203 H 10/06/24 05:14: WBC 19.1 H, RBC 4.21 L, Hgb 12.4 L, Hct 38.4 L, MCV 91.2, MCH 29.5, MCHC 32.3, RDW Std Deviation 50.7 H, RDW Coeff of Jacquelyn 15.2 H, Plt Count 227, MPV 9.6, Immature Gran % (Auto) 0.800, Neut % (Auto) 82.7 H, Lymph % (Auto) 3.0 L, [place] % (Auto) 13.3 H, Eos % (Auto) 0.0, Baso % (Auto) 0.2, Absolute Neuts (auto) 15.8 H, Absolute Lymphs (auto) 0.58 L, Nucleated RBC % 0, Plt Morphology Comment LARGE, Sodium 139, Potassium 4.5, Chloride 98, Carbon Dioxide 25.8, Anion Gap 15, BUN 32 H, Creatinine 1.72 H, Estim Creat Clear Calc 53.50, Est GFR (MDRD) Non-Af 41 L, BUN/Creatinine Ratio 18.8, Glucose 205 H, Lactic Acid < 1.0, Calcium 9.4 10/06/24 06:39: POC Glucose 226 H 10/06/24 11:31: POC Glucose 253 H Micro: Microbiology 10/05/24 14:25 Fluid - Synovial (joint) Gram Stain - Final Radiography Diagnostic Testing: Radiology Impression Venous Doppler Study 10/05/24 09:49 Interpretation Summary Deep veins of the right lower extremity are patent and compressible segmentally. There is no evidence of right lower extremity deep vein thrombosis. The right great saphenous vein appears patent and compressible segmentally. Ordering Physician: Kwesi Tilley Referring Physician: Koko Hamilton Performed By: Ольга Hills RVT Chest/Abdomen/Pelvis CTA 10/05/24 11:04 IMPRESSION: No evidence of aortic dissection. No evidence of pulmonary embolism. Findings suggestive of a fat containing polyp in the 3rd portion of the duodenum. Reading Location: [facility] Echocardiogram 10/05/24 15:31 Interpretation Summary The estimated ejection fraction is 55 %. Unable to assess diastolic dysfunction. Ordering Physician: Sona Gimenez Referring Physician: Koko Hamilton Performed By: Purvi Hurtado RCS Chest X-Ray 10/06/24 04:38 IMPRESSION: No evidence of acute disease. Reading Location: [facility] Physical Exam Narrative did not examine the patient - no my consult Assessment & Plan Assessment/Plan (1) Right knee pain: PLAN: 74 yr M with right knee pain. I was called by this patient's PCU nurse today at 12 noon. They were unaware of the exact nature of the consult but stated the patient had knee pain the Nurse was unaware if the patient had an aspiration or if this was for a septic joint cellulitis or other consultation. I asked to speak to the providing physician that was Dhara Kelly. They called me back at 1 PM. I spoke with Dr. Kelly in regards to this patient who they are concerned about gout in the knee. Luz stated that Dr. Aceves was already called and consulted in the chart as of yesterday (he is listed for no doc call that day and the patient presented yesterday) - he had spoken to the emergency department yesterday in regards to this patient but there is no note in the chart that I could find. I clarified that typically that would mean that they should follow-up with Dr. Aceves in regards to managing this patient if there is a need for surgical intervention. That being said I also followed up in the chart to see if there was a crystal analysis done on the synovial fluid at this point (called the lab at 1210pm - put on hold, and 1217pm - told they would call me back). The sample appears to have been additionally missed labeled as from the ankle rather than the knee. I was called by Dr. Marquse at 105pm - on my prompt they gave her the sample to run - this turns out to be positive for mixed crystal - positive and negative birefringent crystals. Looking at the cell count that appears to be around 30,000 with a neutrophil predominance and a negative Gram stain. Given all this upon reviewing the chart my recommendation would be to treat this as an acute gout flare (prednosine or indomethacin per provider preference) and if there are need for acute surgical intervention then to call the originally consulting surgeon, Dr. Aceves. Will not follow this patient.
--- NOTE | 2024-10-06 13:15 | CON.PCM.CA_ITS ---
Assessment & Plan Assessment/Plan (1) Syncope: QUALIFIERS: Syncope type: vasovagal syncope Qualified Code(s): R 55 - Syncope and collapse PLAN: This appears to be vasovagal related to patient's nausea. Continue to treat underlying nausea and vomiting. However, patient has had 3 syncopal episodes. I think it will be reasonable to support the patient with a temporary pacemaker at this time as the frequency of pauses/syncope seem to be increasing at this time. Patient is also on 100 mg p.o. twice daily of metoprolol which I recommend holding at this time. Risks and benefits discussed with the patient and his in detail. HPI Consult Data Date of Consult: 10/06/24 HPI Narrative Reason for Consultation: Ventricular pauses HPI Narrative: JUNIOR ROCHA, is a 74 M who presents with what appears to be septic arthritis and is being treated for that. Since last evening he has been having nausea and vomiting. Patient states that he has had about 8-10 episodes of vomiting. She has had at least 3 episodes of long pauses (greater than 6 seconds). The first 1 appears to have been around 7:30 PM yesterday. He had 2 episodes between 11 AM and 12 PM this morning. During these episodes patient had brief loss of consciousness. When he regained consciousness he started throwing up. Patient does not have any prior episodes of syncope and denies having this degree of nausea and vomiting in the past. He denies any chest pain or shortness of breath. Patient has history of coronary artery disease status post CABG with MERRITT to LAD, SVG to OM, and SVG to RCA in December 2010 and subsequent PCI to RCA and diagonal branch in February 2014, ischemic mediated cardiomyopathy, aortic valve disease status post aortic valve replacement with a bioprosthetic valve in 2010, hyperlipidemia, and hypertension. He had an EP study in 2020 to see if he required a permanent pacemaker at that time and it was felt that he did not require a permanent pacemaker. The EP study was done at that time as he was noted to have right bundle branch block but there were reports where incomplete left bundle branch block was reported. There was suspicion that he could be having alternating bundle branch block. It did not appear that he was having any symptoms that could be related to bradycardia at that time. [facility] Medical History (Updated 10/06/24 @ 13:[address] Anneliese Parekh MD) Right knee pain Loss of hearing Wears glasses Wears dentures Alcohol use Diabetes Arthritis Prostate disease High cholesterol Back pain Loss of consciousness Dietary restriction Gastric reflux Former smoker CPAP (continuous positive airway pressure) dependence COPD (chronic obstructive pulmonary disease) Shortness of breath on exertion Leg cramps History of pain when walking History of Holter monitoring History of echocardiogram Cardiology follow-up encounter History of CHF (congestive heart failure) Left bundle branch block CAD (coronary artery disease) Presence of stent in coronary artery (~03/03/14) Pure hypercholesterolemia Essential hypertension Atherosclerosis of [place] coronary artery of [place] heart without angina pectoris Benign prostate hyperplasia Home Medications ?Medication ?Instructions ?Recorded ?Last Taken ?Type clopidogrel 75 mg tablet (Plavix) 75 mg PO QDAY antipl atelet 11/23/17 10/05/24 History metformin 1,000 mg tablet 1,000 mg PO BID diabetes 02/0210/05/24 History multivitamin,[id number] 1 tab PO QDAY supplement 11/23/17 10/05/24 History (Complete Multivitamin tablet) aspirin 81 mg tablet,delayed 81 mg PO DAILY antiplatel et 07/08/18 Unknown History release (Adult Low Dose Aspirin) omega-3 fatty acids 1,000 mg 1,000 mg PO BID supplemen t 07/08/18 10/05/24 History capsule (Fish Oil Concentrate) vitamin E (dl, acetate) 180 mg 400 unit PO DAILY suppl ement 07/08/18 10/05/24 History (400 unit) capsule lisinopril 10 mg tablet 10 mg PO DAILY bp #90 tabs 0 08/15/19 10/05/24 Rx allopurinol 100 mg tablet 100 mg PO Q12H gout 05/02/20 10/05/24 History rosuvastatin 5 mg tablet 5 mg PO DAILY cholesterol 10/04/24 History finasteride 5 mg tablet 5 mg PO DAILY bph 11/08/21 0 10/05/24 History metoprolol tartrate 100 mg tablet 100 mg PO BID heart rate #180 tabs 07/01/23 10/05/24 Rx furosemide 40 mg tablet 40 mg PO BID chf #180 TABLET S 04/27/24 10/05/24 Rx ascorbic acid (vitamin C) 1,000 mg 1 g PO DAILY supple ment 10/05/24 10/05/24 History tablet (Vitamin C) ergocalciferol (vitamin D2) 1,250 1,250 mcg PO DAILY s upplement 10/05/24 10/05/24 History mcg (50,000 unit) capsule (Vitamin D2) glimepiride 1 mg tablet 1 mg PO DAILY dm 10/05/24 Un known History insulin glargine 100 unit/mL (3 50 unit subcut QHS mauricio betes 10/05/24 10/04/24 History mL) subcutaneous pen (Basaglar KwikPen U-100 Insulin) isosorbide mononitrate 30 mg 30 mg PO DAILY heart heal th 10/05/24 10/05/24 History tablet,extended release 24 hr lysine 500 mg tablet 500 mg PO DAILY supplement 0 10/05/24 10/05/24 History potassium chloride 10 mEq 10 meq PO DAILY supplement 0 10/05/24 10/05/24 History tablet,extended release sennosides 25 mg tablet (Laxative 25 mg PO QHS mowefrs a 10/05/24 Unknown History (sennosides)) sennosides 8.6 mg-docusate sodium 1 tab-cap PO DAILY c onstipation 10/05/24 10/04/24 History 50 mg tablet sitagliptin 50 mg tablet 50 mg PO DAILY dm 10/05/24 0 10/04/24 History tamsulosin 0.4 mg capsule 0.4 mg PO DAILY bph 10/05/24 10/05/24 History Allergy/AdvReac Type Severity Reaction Status Date / Time hydrocodone Allergy rash Verified 10/05/24 09:33 morphine Allergy Vomiting Verified 10/05/24 09:33 Family History (Updated 10/05/24 @ 15:49 by Isha Garcia) Father CAD (coronary artery disease) Mother CAD (coronary artery disease) Sister Cancer Other Atherosclerosis of [place] coronary artery of [place] heart without angina pectoris Surgical History Presence of coronary angioplasty implant and graft (~03/03/14) History of aortic valve replacement with bioprosthetic valve (~01/09/11) History of right hip replacement (03/28/09) Hx of CABG (~01/09/11) History of tonsillectomy Social History (Reviewed 07/22/24 @ 12:59 by Allison Jordan INTERNAL CONTROLS CONSULTANT, INTERNAL CONTROLS CONSULTANT-C) Smoking Status: Former smoker how long ago did patient quit smokin.5 years ago alcohol intake: current alcohol intake frequency: holidays/special occasions only caffeine: Yes Type: coffee Number of servings: 1 Physical Exam Const alert and oriented x3 HEENT normocephalic Eyes no scleral icterus Resp normal respiratory effort Cardio regular rate Risk Stratification Risk Stratification Applicable: No Objective Data Vital Signs: Vital Signs Temp Pulse Resp BP Pulse Ox O2 Del Method O2 Flow Rate 98.5 F 96 24 H 126/62 H 92 Nasal Cannula 4 10/06/24 12:05 10/06/24 12:05 10/06/24 12:05 10/06/24 12:05 10/06/24 12:05 10/06/24 12:05 10/06/24 12:05 Oxygen Flow Rate (L/min) 4 Oxygen Delivery Method Nasal Cannula Weight: 304 lb 3.806 oz Body Mass Index (BMI) 42.4 Intake & Output: Intake and Output for Last 24 Hours 10/04/24 10/05/24 10/06/24 23:59 23:59 23:59 Intake Total 440 / 440 934 / 934 Output Total 500 / 500 900 / 900 Balance -60 / -60 34 / 34 Lab / Micro Data 10/06/24 05:14 10/06/24 05:14 Labs: Laboratory Results - last 24 hr 10/05/24 09:27: ESR 61 H, Uric Acid 12.3 H, C-React Prot Ext Range 89.80 H, Procalcitonin 0.09 10/05/24 12:35: Troponin T Hi Sens 2 Hr 44 H 10/05/24 14:25: Fluid Crystals See PATH REV, Fluid Crystal Source SYNOVIAL, Fl Crystal Path Review Will follow, Synovial Source RT ANKLE, Synovial Color Yellow, Synovial Appearance Clear, Synovial WBC 29.3150 H, Synovial RBC 0.003 H, Synovial Tot Cell Ct 29.3700 H, Synov Polynuclear WBCs 26.953, Synov Mononuclear WBCs 2.297, Synovial Neutrophils 97 H, Synovial Lymphocytes 1, Synovial Monocytes 2, Synovial Polynuclear % 92.1, Synovial Mononuclear % 7.9, Synovial Path Comment May follow 10/05/24 16:13: POC Glucose 78 10/05/24 17:00: Troponin T High Sens 48 H D 10/05/24 18:54: Troponin T Hi Sens 2 Hr 47 H 10/05/24 20:15: Phosphorus 4.4, Magnesium 1.9 10/05/24 21:05: Troponin T Hi Sens 4Hr 52 H 10/05/24 21:54: POC Glucose 203 H 10/06/24 05:14: WBC 19.1 H, RBC 4.21 L, Hgb 12.4 L, Hct 38.4 L, MCV 91.2, MCH 29.5, MCHC 32.3, RDW Std Deviation 50.7 H, RDW Coeff of Jacqu[place] 15.2 H, Plt Count 227, MPV 9.6, Immature Gran % (Auto) 0.800, Neut % (Auto) 82.7 H, Lymph % (Auto) 3.0 L, [place] % (Auto) 13.3 H, Eos % (Auto) 0.0, Baso % (Auto) 0.2, Absolute Neuts (auto) 15.8 H, Absolute Lymphs (auto) 0.58 L, Nucleated RBC % 0, Plt Morphology Comment LARGE, Sodium 139, Potassium 4.5, Chloride 98, Carbon Dioxide 25.8, Anion Gap 15, BUN 32 H, Creatinine 1.72 H, Estim Creat Clear Calc 53.50, Est GFR (MDRD) Non-Af 41 L, BUN/Creatinine Ratio 18.8, Glucose 205 H, Lactic Acid < 1.0, Calcium 9.4 10/06/24 06:39: POC Glucose 226 H 10/06/24 11:31: POC Glucose 253 H Micro: Microbiology 10/05/24 14:25 Fluid - Synovial (joint) Gram Stain - Final Cardiology Labs/Tests 10/05/24 09:27: Uric Acid 12.3 H 10/05/24 20:15: Phosphorus 4.4, Magnesium 1.9 10/06/24 05:14: WBC 19.1 H, RBC 4.21 L, Hgb 12.4 L, Hct 38.4 L, MCV 91.2, MCH 29.5, MCHC 32.3, Plt Count 227, MPV 9.6, Immature Gran % (Auto) 0.800, Neut % (Auto) 82.7 H, Lymph % (Auto) 3.0 L, [place] % (Auto) 13.3 H, Eos % (Auto) 0.0, Baso % (Auto) 0.2, Absolute Neuts (auto) 15.8 H, Nucleated RBC % 0, Sodium 139, Potassium 4.5, Chloride 98, Carbon Dioxide 25.8, Anion Gap 15, BUN 32 H, C reatinine 1.72 H, Est GFR (MDRD) Non-Af 41 L, BUN/Creatinine Ratio 18.8, Glucose 205 H, Lactic Acid < 1.0, Calcium 9.4 Rhythm: EKG: ECHO: Stress Test: Cardiac Cath: PCI: CT Surgery: Holter monitor: EPS: PPM: CXR: Chest CT Scan: Radiography Diagnostic Testing: Radiology Impression Venous Doppler Study 10/05/24 09:49 Interpretation Summary Deep veins of the right lower extremity are patent and compressible segmentally. There is no evidence of right lower extremity deep vein thrombosis. The right great saphenous vein appears patent and compressible segmentally. Ordering Physician: Kwesi Tilley Referring Physician: Koko Hamilton Performed By: Ольга Hills RVT Chest/Abdomen/Pelvis CTA 10/05/24 11:04 IMPRESSION: No evidence of aortic dissection. No evidence of pulmonary embolism. Findings suggestive of a fat containing polyp in the 3rd portion of the duodenum. Reading Location: [facility] Echocardiogram 10/05/24 15:31 Interpretation Summary The estimated ejection fraction is 55 %. Unable to assess diastolic dysfunction. Ordering Physician: Sona Gimenez Referring Physician: Koko Hamilton Performed By: Purvi Hurtdao RCS Chest X-Ray 10/06/24 04:38 IMPRESSION: No evidence of acute disease. Reading Location: [facility]
[2024-10-06 13:28] LABS: Pathologist Review Reviewed
--- NOTE | 2024-10-06 13:54 | NURSING ---
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
--- NOTE | 2024-10-06 14:07 | PCM.PN.BLA ---
Progress Note Procedure note Procedure: Temporary transvenous pacemaker placement Indication: Syncope with long pauses Procedure description: Right common femoral vein access was obtained and the sheath was inserted. A balloontipped transvenous pacemaker was then inserted into the RV. The pacemaker had intermittent capture at 3 mV and continuous capture about that. The pacemaker was set at 70 bpm, 10mv. Patient tolerated the procedure well. There were no complications.
--- NOTE | 2024-10-06 16:03 | EKG12_ITS ---
Test Reason : temp pacer Blood Pressure : */* mmHG Vent. Rate : 100 BPM Atrial Rate : 100 BPM P-R Int : 192 ms QRS Dur : 152 ms QT Int : 390 ms P-R-T Axes : * 203 55 degrees QTcB Int : 503 ms Suspect arm lead reversal, interpretation assumes no reversal Sinus rhythm with occasional ventricular-paced complexes Right bundle branch block Lateral infarct , age undetermined Abnormal ECG Confirmed by David Krishnamurthy ([id number]), brands editor ANUPAM CARRIZALES ([id number]) on 10/17/2024 1:25:04 PM Referred By: Iglesia Confirmed By: David Krishnamurthy
[2024-10-06 16:31] LABS: Bacteria 0 SEEN /hpf (None Seen); Mucous, Urine 0 SEEN /hpf (<or=2+)
[2024-10-06 16:50] LABS: Bedside Glucose 217 mg/dL (74-106)
[2024-10-06] MEDS: Vancomycin HCl 1,250 MG in 0.9% Normal Saline (250mL Bag) 250 ML 167 MG IV (16:57)
[2024-10-06 17:25] LABS: Color, Urine Yellow (Yellow); Glucose, Dipstick Normal (Normal); Ketone-Dipstick Negative (Negative); Leukocyte Esterase-Dipstick Negative /ul (Negative); Nitrite-Dipstick Negative (Negative); Occult Blood-Urine Negative /ul (Negative); Protein-Dipstick 30 mg/dl (Negative); Specific Gravity, Urine 1.025 (1.002-1.030); Urine Bilirubin Dipstick Negative (Negative); Urine Clarity Sl. Cloudy (Clear); Urine Urobilinogen Normal (Normal)
[2024-10-06 17:48] LABS: Red Blood Cells-Urine 0-5 SEEN /hpf (0-5); Squamous Epithelial Cells - UA 5-10 SEEN /hpf (0-5); White Blood Cells 0-5 SEEN /hpf (0-5)
--- NOTE | 2024-10-06 20:17 | CPS ---
Patient on home PAP machine for the night with 6L oxygen bleed.
[2024-10-06] MEDS: Atorvastatin Calcium 10 MG Tablet PO (21:42)
[2024-10-06] MEDS: Senna Tablet 1 TABLET PO (21:49)
[2024-10-06 22:21] LABS: Bedside Glucose 159 mg/dL (74-106)
[2024-10-07] VITALS (20 sets, daily range): BP systolic 94–146; BP diastolic 40–72; PULSE 79–100; RESP 13–24; TEMP 36.6–37.2; O2SAT 89–100; BMI 42.0
[2024-10-07] MEDS: Vancomycin HCl 1,250 MG in 0.9% Normal Saline (250mL Bag) 250 ML 167 MG IV (04:54)
[2024-10-07] MEDS: Piperacil/Tazobactam 3.375 GM in 0.9% Normal Saline (50mL MB+) 50 ML IV (06:12)
[2024-10-07] MEDS: 0.9% Saline Lock 10 ML Syringe IV ×3 (06:13→19:52)
[2024-10-07 07:21] LABS: Absolute Lymphocyte Count 1.02 X10^3/uL (0.83-4.51); Absolute Neutrophil Count 13.5 X10^3/uL (2.0-7.7); Basophil# 0.06 X10^3/uL; Basophil% 0.4 % (0-1); Eosinophil# 0.19 X10^3/uL; Eosinophils% 1.1 % (0-5); Hematocrit 35.3 % (40-54); Hemoglobin 11.1 g/dL (13.0-16.5); Lymphocyte # 1.02 X10^3/ul (0.83-4.51); Lymphocyte % 6.1 % (19-41); Mean Corp Hgb Conc 31.4 g/dL (32-36); Mean Corpuscular Hgb 29.3 pg (27.0-32.0); Mean Corpuscular Volume 93.1 fL (80-94); Mean Platelet Vol. 9.8 fl (6.2-12.0); Monocyte# 1.74 X10^3/uL; Monocyte% 10.5 % (0-10); NRBC Flagged by Analyzer 0 % (0-5); Neutrophil # 13.53 X10^3/uL (2.7-7.7); Neutrophil % 81.4 % (47-70); POSITIVE DIFFERENTIAL YES; Platelet Count 205 K/mm3 (150-450); RBC Distribution Width CV 15.3 % (11.6-14.6); RBC Distribution Width SD 52.4 fl (35.1-43.9); Red Blood Count 3.79 M/mm3 (4.6-6.2); White Blood Count 16.6 K/mm3 (4.4-11.0)
[2024-10-07 07:23] LABS: Differential Indicated SCAN CRITERIA MET
[2024-10-07 07:58] LABS: ALB/GLOB Ratio 0.8 RATIO (0.9-2.4); AST(SGOT) 16 U/L (<=37); Alanine Aminotransfer ALT/SGPT 7 U/L (<=46); Albumin, Serum 3.2 g/dL (3.4-4.8); Alkaline Phosphatase 46 U/L (40-129); Anion Gap 12 (5-15); BUN 46 mg/dL (4-19); BUN/Creat Ratio 24.1 RATIO (10-20); Carbon Dioxide 27.2 mmol/L (21.0-32.0); Chloride 102 mmol/L (98-108); Creatinine, Serum 1.91 mg/dL (0.70-1.20); EST Glomerular Filtration Rate 36 (>60); Estimated Creatinine Clearance 47.96 ml/min (50-250); Globulin 3.7 g/dL (2.2-4.2); Glucose 100 mg/dL (70-99); Potassium 4.4 mmol/L (3.3-5.1); Protein, Total 6.9 g/dL (5.9-8.4); Sodium Level 141 mmol/L (133-145); Total Bilirubin 0.49 mg/dL (0.00-1.30)
--- NOTE | 2024-10-07 08:10 | PCM.PN.HOSP ---
Reason for Visit Reason for Visit: General malaise, right knee pain Objective Data Objective Data Vital Signs: Vital Signs Temp Pulse Resp BP Pulse Ox O2 Del Method O2 Flow Rate 98.3 F 83 17 111/59 L 100 CPAP 3 10/07/24 05:00 10/07/24 07:00 10/07/24 07:00 10/07/24 07:00 10/07/24 07:37 10/07/24 07:37 10/07/24 07:37 Oxygen Flow Rate (L/min) 3 Oxygen Delivery Method CPAP Weight: 136.9 kg Body Mass Index (BMI) 42.0 Intake & Output: Intake and Output for Last 24 Hours 10/05/24 10/06/24 10/07/24 23:59 23:59 23:59 Intake Total 440 / 440 1259 / 1259 325 / 325 Output Total 500 / 500 1050 / 1150 350 / 350 Balance -60 / -60 209 / 109 -25 / -25 Lab / Micro Data 10/07/24 07:02 10/07/24 07:02 Labs: Laboratory Results - last 24 hr 10/05/24 14:25: Fl Crystal Path Review Reviewed 10/06/24 11:31: POC Glucose 253 H 10/06/24 16:24: Urine Color Yellow, Urine Clarity Sl. Cloudy, Urine pH 5.0, Ur Specific [place] 1.025, Urine Protein 30 H, Urine Glucose (UA) Normal, Urine Ketones Negative, Urine Occult Blood Negative, Urine Nitrite Negative, Urine Bilirubin Negative, Urine Urobilinogen Normal, Ur Leukocyte Esterase Negative, Urine RBC 0-5 SEEN, Urine WBC 0-5 SEEN, Ur Squamous Epith Cells 5-10 SEEN, Urine Bacteria 0 SEEN, Urine Mucus 0 SEEN 10/06/24 16:32: POC Glucose 217 H 10/06/24 21:46: POC Glucose 159 H 10/07/24 07:02: WBC 16.6 H, RBC 3.79 L, Hgb 11.1 L, Hct 35.3 L, MCV 93.1, MCH 29.3, MCHC 31.4 L, RDW Std Deviation 52.4 H, RDW Coeff of Jacquelyn 15.3 H, Plt Count 205, MPV 9.8, Immature Gran % (Auto) 0.500, Neut % (Auto) 81.4 H, Lymph % (Auto) 6.1 L, [place] % (Auto) 10.5 H, Eos % (Auto) 1.1, Baso % (Auto) 0.4, Absolute Neuts (auto) 13.5 H, Absolute Lymphs (auto) 1.02, Nucleated RBC % 0, Differential Comment COMMENT, Sodium 141, Potassium 4.4, Chloride 102, Carbon Dioxide 27.2, Anion Gap 12, BUN 46 H, Creatinine 1.91 H, Estim Creat Clear Calc 47.96 L, Est GFR (MDRD) Non-Af 36 L, BUN/Creatinine Ratio 24.1 H, Glucose 100 H, Calcium 9.0, Total Bilirubin 0.49, AST 16, ALT 7, Alkaline Phosphatase 46, Total Protein 6.9, Albumin 3.2 L, Globulin 3.7, Albumin/Globulin Ratio 0.8 L Micro: Microbiology 10/05/24 14:25 Fluid - Synovial (joint) Gram Stain - Final Radiography Diagnostic Testing: Radiology Impression Echocardiogram 10/05/24 15:31 Interpretation Summary The estimated ejection fraction is 55 %. Unable to assess diastolic dysfunction. Ordering Physician: Sona Gimenez Referring Physician: Koko Hamilton Performed By: Purvi Hurtado RCS Physical Exam Const alert, oriented x3, no apparent distress and well nourished; Negative for average body habitus or healthy appearing Constitutional Narrative: Morbidly obese, white male, sitting up in bed, at bedside, patient on BiPAP, watching television, appears much better than yesterday HEENT head/scalp atraumatic and moist oral mucous membranes HEENT Narrative: Nasal BiPAP in place, Mallampati is 3-4, no thrush Head and Scalp: normocephalic Resp normal respiratory effort, no retractions, no use of accessory muscles and clear to auscultation bilaterally Auscultation: Negative for rales, rhonchi or wheezes Cardio regular rate, regular rhythm, S1 normal heart sound, S2 normal heart sound, no murmurs, no rub, no gallops and no clicks GI normal to inspection, nondistended, normoactive bowel sounds, soft to palpation and non-tender GI Narrative: Large protuberant abdomen Extremity no clubbing, cyanosis or edema Extremity Narrative: 2+ pedal pulses, bilateral knee with effusion, tender to palpation but no increased tissue temperature Neuro oriented x3, moves all extremities and no focal motor deficits Speech: speech normal Psych affect normal Psych Narrative: Eye contact is good, patient interacts appropriately, appears if he is feeling much better Assessment & Plan Assessment/Plan (1) Sepsis: (2) Effusion, right knee: (3) Syncope: (4) Gout: (5) CHAR (acute kidney injury): PLAN: Plan Sepsis with unknown source - Patient with tachycardia, tachypnea, white count greater than 19,000, fever with initial suspected source is his right knee - Continue broad-spectrum antibiotics - Blood cultures pending - urine culture pending -ID to evaluate the patient today Syncope -No further episodes of syncope or ventricular pauses - Suspect vasovagal - Pacemaker is not currently pacing the patient and has not had any episodes - Anticipate removal of pacemaker - Add back beta-yohan at the discretion of cardiology - Echocardiogram showed EF of 55% Acute right knee gout with history of gout -Continue colchicine as ordered - Will add prednisone as patient does not get any significant pain relief - Patient has known history of gout we will continue home allopurinol Acute on chronic heart failure with preserved ejection fraction - Serum creatinine trended up with diuretic so we will stop - Initial proBNP was elevated slightly at 1800 - Chest x-ray did show mild congestion - Patient seems to be better with regards to his shortness of breath and I am wondering whether or not his shortness of breath may be related to his syncope as noted above next-will continue to monitor - Echocardiogram performed and shows an EF of 55% and was otherwise unremarkable Elevated troponin - Secondary to demand ischemia - Echocardiogram without any wall motion abnormality CHAR CKD stage IIIb -Serum creatinine is now up to 1.91 which is greater than 0.3 above baseline -Will gently hydrate - Avoid nephrotoxin - Repeat chemistry in a.m. EILEEN - Continue home CPAP CAD/essential hypertension/hyperlipidemia -Continue to hold antihypertensives as blood pressures are still on the soft side - Will reevaluate tomorrow and reinitiate if able - Continue home statin DM-2 - Continue home basal insulin as ordered -Fasting sugar 100 this morning -May need to make dose adjustments with addition of steroids - Hold home oral agents - Accu-Cheks as ordered - SSI as ordered BPH with obstruction - Flomax and Proscar Chronic constipation - Continue home stool softeners and laxatives Morbid obesity - BMI is 42.1 - Recommend weight loss - Complicates treatment, prognosis, outcomes DVT prophylaxis - Continue subcu Lovenox 40 twice daily CODE STATUS Full code Charges/Coding Visit Charges Inpatient E&M: 00567 Subs Hosp L2
[2024-10-07] MEDS: Clopidogrel Bisulfate 75 MG Tablet PO (09:23)
[2024-10-07] MEDS: Isosorbide Mononitrate 30 MG Tablet PO (09:23)
[2024-10-07] MEDS: Allopurinol 100 MG Tablet PO ×2 (09:23→20:56)
[2024-10-07] MEDS: Potassium Chloride Oral Tablet 10 MEQ PO (09:24)
[2024-10-07] MEDS: Aspirin E.C. 81 MG Tablet PO (09:24)
[2024-10-07] MEDS: Senna/Docusate Sodium 1 Tablet PO (09:24)
[2024-10-07] MEDS: Colchicine 0.6 MG TABLET PO ×2 (09:24→20:56)
[2024-10-07] MEDS: Tamsulosin HCl 0.4 MG Capsule PO (09:24)
[2024-10-07] MEDS: Enoxaparin 40 MG/0.4 ML Syringe SC ×2 (09:25→20:56)
[2024-10-07] MEDS: Finasteride 5 MG Tablet PO (09:25)
[2024-10-07] MEDS: oxyCODONE 5 MG Tablet PO (09:29)
[2024-10-07] MEDS: Lactated Ringers 1,000 ML 150 ML IV ×2 (09:29→16:02)
[2024-10-07] MEDS: predniSONE 20 MG Tablet 40 MG PO (11:23)
--- NOTE | 2024-10-07 11:42 | CON.PCM.ID_ITS ---
Assessment & Plan Assessment/Plan (1) Right knee pain: (2) Gout: PLAN: suspect gout as source of fever and leukocytosis. Other infectious workup neg so far. Fluid cx ngtd. Will stop zosyn. Cont vanc, but ok to stop if fluid cx are still negative tomororw. Will follow, thank you, d/w Dr. Kelly HPI Consult Data Date of Consult: 10/07/24 HPI Narrative Reason for Consultation: fever HPI Narrative: JUNIOR ROCHA, is a 74 M with h/o COPD, gout, CAD with CABG, presented 10/05 with 2 weeks progressive chest pain and acute onset R knee severe pain with some swelling and warmth. No known trauma to knee. Came to ED, admitted on vanc/zosyn. Seen by ortho, aspiration done. Feeling better. Full ROS performed and neg except as noted above. [facility] Medical History Right knee pain Loss of hearing Wears glasses Wears dentures Alcohol use Diabetes Arthritis Prostate disease High cholesterol Back pain Loss of consciousness Dietary restriction Gastric reflux Former smoker CPAP (continuous positive airway pressure) dependence COPD (chronic obstructive pulmonary disease) Shortness of breath on exertion Leg cramps History of pain when walking History of Holter monitoring History of echocardiogram Cardiology follow-up encounter History of CHF (congestive heart failure) Left bundle branch block CAD (coronary artery disease) Presence of stent in coronary artery (~03/03/14) Pure hypercholesterolemia Essential hypertension Atherosclerosis of [place] coronary artery of [place] heart without angina pectoris Benign prostate hyperplasia Home Medications ?Medication ?Instructions ?Recorded ?Last Taken ?Type clopidogrel 75 mg tablet (Plavix) 75 mg PO QDAY antipl atelet 11/23/17 10/05/24 History metformin 1,000 mg tablet 1,000 mg PO BID diabetes 02/0210/05/24 History multivitamin,vt-vuzg-buqnamef 1 tab PO QDAY supplement 11/23/17 10/05/24 History (Complete Multivitamin tablet) aspirin 81 mg tablet,delayed 81 mg PO DAILY antiplatel et 07/08/18 Unknown History release (Adult Low Dose Aspirin) omega-3 fatty acids 1,000 mg 1,000 mg PO BID supplemen t 07/08/18 10/05/24 History capsule (Fish Oil Concentrate) vitamin E (dl, acetate) 180 mg 400 unit PO DAILY suppl ement 07/08/18 10/05/24 History (400 unit) capsule lisinopril 10 mg tablet 10 mg PO DAILY bp #90 tabs 0 08/15/19 10/05/24 Rx allopurinol 100 mg tablet 100 mg PO Q12H gout 05/02/20 10/05/24 History rosuvastatin 5 mg tablet 5 mg PO DAILY cholesterol 10/04/24 History finasteride 5 mg tablet 5 mg PO DAILY bph 11/08/21 0 10/05/24 History metoprolol tartrate 100 mg tablet 100 mg PO BID heart rate #180 tabs 07/01/23 10/05/24 Rx furosemide 40 mg tablet 40 mg PO BID chf #180 TABLET S 04/27/24 10/05/24 Rx ascorbic acid (vitamin C) 1,000 mg 1 g PO DAILY supple ment 10/05/24 10/05/24 History tablet (Vitamin C) ergocalciferol (vitamin D2) 1,250 1,250 mcg PO DAILY s upplement 10/05/24 10/05/24 History mcg (50,000 unit) capsule (Vitamin D2) glimepiride 1 mg tablet 1 mg PO DAILY dm 10/05/24 Un known History insulin glargine 100 unit/mL (3 50 unit subcut QHS mauricio betes 10/05/24 10/04/24 History mL) subcutaneous pen (Richardaglar PavithraPen U-100 Insulin) isosorbide mononitrate 30 mg 30 mg PO DAILY heart heal th 10/05/24 10/05/24 History tablet,extended release 24 hr lysine 500 mg tablet 500 mg PO DAILY supplement 0 10/05/24 10/05/24 History potassium chloride 10 mEq 10 meq PO DAILY supplement 0 10/05/24 10/05/24 History tablet,extended release sennosides 25 mg tablet (Laxative 25 mg PO QHS mowefrs a 10/05/24 Unknown History (sennosides)) sennosides 8.6 mg-docusate sodium 1 tab-cap PO DAILY c onstipation 10/05/24 10/04/24 History 50 mg tablet sitagliptin 50 mg tablet 50 mg PO DAILY dm 10/05/24 0 10/04/24 History tamsulosin 0.4 mg capsule 0.4 mg PO DAILY bph 10/05/24 10/05/24 History Allergy/AdvReac Type Severity Reaction Status Date / Time hydrocodone Allergy rash Verified 10/05/24 09:33 morphine Allergy Vomiting Verified 10/05/24 09:33 Family History (Updated 10/05/24 @ 15:49 by Isha Garcia) Father CAD (coronary artery disease) Mother CAD (coronary artery disease) Sister Cancer Other Atherosclerosis of [place] coronary artery of [place] heart without angina pectoris Surgical History Presence of coronary angioplasty implant and graft (~03/03/14) History of aortic valve replacement with bioprosthetic valve (~01/09/11) History of right hip replacement (03/28/09) Hx of CABG (~01/09/11) History of tonsillectomy Social History Smoking Status: Former smoker how long ago did patient quit smokin.5 years ago alcohol intake: current alcohol intake frequency: holidays/special occasions only caffeine: Yes Type: coffee Number of servings: 1 Physical Exam Const alert, oriented x3 and no apparent distress General Appearance: cooperative HEENT normocephalic and head/scalp atraumatic Eyes PERRL and EOMs intact bilaterally Neck supple and No nodes Resp normal air movement and clear to auscultation bilaterally Cardio regular rate and regular rhythm GI soft to palpation, non-tender and non-distended Extremity General Extremity: edema Skin no rashes or lesions noted Skin Narrative: R knee mild swelling and warmth Neuro CN's II-XII intact bilaterally Lab / Micro Data Attestation: I reviewed the patient's lab results. 10/07/24 07:02 10/07/24 07:02 Labs: Laboratory Results - last 24 hr 10/05/24 14:25: Fl Crystal Path Review Reviewed 10/06/24 11:31: POC Glucose 253 H 10/06/24 16:24: Urine Color Yellow, Urine Clarity Sl. Cloudy, Urine pH 5.0, Ur Specific [place] 1.025, Urine Protein 30 H, Urine Glucose (UA) Normal, Urine Ketones Negative, Urine Occult Blood Negative, Urine Nitrite Negative, Urine Bilirubin Negative, Urine Urobilinogen Normal, Ur Leukocyte Esterase Negative, Urine RBC 0-5 SEEN, Urine WBC 0-5 SEEN, Ur Squamous Epith Cells 5-10 SEEN, Urine Bacteria 0 SEEN, Urine Mucus 0 SEEN 10/06/24 16:32: POC Glucose 217 H 10/06/24 21:46: POC Glucose 159 H 10/07/24 07:02: WBC 16.6 H, RBC 3.79 L, Hgb 11.1 L, Hct 35.3 L, MCV 93.1, MCH 29.3, MCHC 31.4 L, RDW Std Deviation 52.4 H, RDW Coeff of [place] 15.3 H, Plt Count 205, MPV 9.8, Immature Gran % (Auto) 0.500, Neut % (Auto) 81.4 H, Lymph % (Auto) 6.1 L, [place] % (Auto) 10.5 H, Eos % (Auto) 1.1, Baso % (Auto) 0.4, Absolute Neuts (auto) 13.5 H, Absolute Lymphs (auto) 1.02, Nucleated RBC % 0, Differential Comment COMMENT, Sodium 141, Potassium 4.4, Chloride 102, Carbon Dioxide 27.2, Anion Gap 12, BUN 46 H, Creatinine 1.91 H, Estim Creat Clear Calc 47.96 L, Est GFR (MDRD) Non-Af 36 L, BUN/Creatinine Ratio 24.1 H, Glucose 100 H, Calcium 9.0, Total Bilirubin 0.49, AST 16, ALT 7, Alkaline Phosphatase 46, Total Protein 6.9, Albumin 3.2 L, Globulin 3.7, Albumin/Globulin Ratio 0.8 L Imaging Radiology Impression Echocardiogram 10/05/24 15:31 Interpretation Summary The estimated ejection fraction is 55 %. Unable to assess diastolic dysfunction. Ordering Physician: Sona Gimenez Referring Physician: Koko Hamilton Performed By: Purvi Hurtado RCS
[2024-10-07 11:46] LABS: Bedside Glucose 81 mg/dL (74-106)
--- NOTE | 2024-10-07 12:00 | NURSING ---
1155: Dr Parekh at bedside to assess patient and temporary pacer. Temporary pacer and Right femoral sheath removed by Dr Parekh at 1205 and pressure held until hemostasis was achieved at 1210. Verbal order was received to maintain patient in flat, supine position for 1 hour, then may advance activity as tolerated.
--- NOTE | 2024-10-07 13:50 | PCM.PN.CARD ---
Subjective Subjective No further syncopal episodes or long pauses. Patient's nausea and vomiting have also improved. Objective Data Vital Signs: Vital Signs Temp Pulse Resp BP Pulse Ox O2 Del Method O2 Flow Rate 98.1 F 90 18 110/72 98 CPAP 6 10/07/24 12:00 10/07/24 13:00 10/07/24 13:00 10/07/24 13:00 10/07/24 13:00 10/07/24 13:00 10/07/24 13:00 Oxygen Flow Rate (L/min) 6 Oxygen Delivery Method CPAP Weight: 301 lb 13.005 oz Body Mass Index (BMI) 42.0 Intake & Output: Intake and Output for Last 24 Hours 10/05/24 10/06/24 10/07/24 23:59 23:59 23:59 Intake Total 440 / 440 1259 / 1259 375 / 375 Output Total 500 / 500 1050 / 1150 550 / 550 Balance -60 / -60 209 / 109 -175 / -175 Lab / Micro Data 10/07/24 07:02 10/07/24 07:02 Labs: Laboratory Results - last 24 hr 10/06/24 16:24: Urine Color Yellow, Urine Clarity Sl. Cloudy, Urine pH 5.0, Ur Specific [place] 1.025, Urine Protein 30 H, Urine Glucose (UA) Normal, Urine Ketones Negative, Urine Occult Blood Negative, Urine Nitrite Negative, Urine Bilirubin Negative, Urine Urobilinogen Normal, Ur Leukocyte Esterase Negative, Urine RBC 0-5 SEEN, Urine WBC 0-5 SEEN, Ur Squamous Epith Cells 5-10 SEEN, Urine Bacteria 0 SEEN, Urine Mucus 0 SEEN 10/06/24 16:32: POC Glucose 217 H 10/06/24 21:46: POC Glucose 159 H 10/07/24 07:02: WBC 16.6 H, RBC 3.79 L, Hgb 11.1 L, Hct 35.3 L, MCV 93.1, MCH 29.3, MCHC 31.4 L, RDW Std Deviation 52.4 H, RDW Coeff of [place] 15.3 H, Plt Count 205, MPV 9.8, Immature Gran % (Auto) 0.500, Neut % (Auto) 81.4 H, Lymph % (Auto) 6.1 L, [place] % (Auto) 10.5 H, Eos % (Auto) 1.1, Baso % (Auto) 0.4, Absolute Neuts (auto) 13.5 H, Absolute Lymphs (auto) 1.02, Nucleated RBC % 0, Differential Comment COMMENT, Sodium 141, Potassium 4.4, Chloride 102, Carbon Dioxide 27.2, Anion Gap 12, BUN 46 H, Creatinine 1.91 H, Estim Creat Clear Calc 47.96 L, Est GFR (MDRD) Non-Af 36 L, BUN/Creatinine Ratio 24.1 H, Glucose 100 H, Calcium 9.0, Total Bilirubin 0.49, AST 16, ALT 7, Alkaline Phosphatase 46, Total Protein 6.9, Albumin 3.2 L, Globulin 3.7, Albumin/Globulin Ratio 0.8 L 10/07/24 11:28: POC Glucose 81 Micro: Microbiology 10/05/24 14:25 Fluid - Synovial (joint) Gram Stain - Final 10/05/24 14:25 Fluid - Synovial (joint) Body Fluid Culture - Preliminary No growth-Final to follow 10/05/24 14:25 Fluid - Synovial (joint) Anaerobic Culture - Preliminary No growth in 48 hours. Cardiology Labs/Tests 10/06/24 16:24: Urine Color Yellow, Urine Clarity Sl. Cloudy, Urine pH 5.0, Ur Specific [place] 1.025, Urine Protein 30 H, Urine Glucose (UA) Normal, Urine Ketones Negative, Urine Occult Blood Negative, Urine Nitrite Negative, Urine Bilirubin Negative, Urine Urobilinogen Normal, Ur Leukocyte Esterase Negative, Urine RBC 0-5 SEEN, Urine WBC 0-5 SEEN 10/07/24 07:02: WBC 16.6 H, RBC 3.79 L, Hgb 11.1 L, Hct 35.3 L, MCV 93.1, MCH 29.3, MCHC 31.4 L, Plt Count 205, MPV 9.8, Immature Gran % (Auto) 0.500, Neut % (Auto) 81.4 H, Lymph % (Auto) 6.1 L, [place] % (Auto) 10.5 H, Eos % (Auto) 1.1, Baso % (Auto) 0.4, Absolute Neuts (auto) 13.5 H, Nucleated RBC % 0, Sodium 141, Potassium 4.4, Chloride 102, Carbon Dioxide 27.2, Anion Gap 12, BUN 46 H, Creatinine 1.91 H, Est GFR (MDRD) Non-Af 36 L, BUN/Creatinine Ratio 24.1 H, Glucose 100 H, Calcium 9.0, Total Bilirubin 0.49 Rhythm: EKG: ECHO: Stress Test: Cardiac Cath: PCI: CT Surgery: Holter monitor: EPS: PPM: CXR: Chest CT Scan: Radiography Diagnostic Testing: Radiology Impression Chest/Abdomen/Pelvis CTA 10/05/24 11:04 IMPRESSION: No evidence of aortic dissection. No evidence of pulmonary embolism. Findings suggestive of a fat containing polyp in the 3rd portion of the duodenum. Reading Location: [facility] Chest X-Ray 10/06/24 04:38 IMPRESSION: No evidence of acute disease. Reading Location: [facility] Physical Exam Const alert and oriented x3 HEENT normocephalic Eyes no scleral icterus Resp normal respiratory effort Cardio regular rate Assessment & Plan Assessment/Plan (1) Syncope: QUALIFIERS: Syncope type: vasovagal syncope Qualified Code(s): R55 - Syncope and collapse PLAN: This appears to be vasovagal related to patient's nausea. Continue to treat underlying nausea and vomiting. Patient's telemetry overnight was reviewed. No significant pauses or syncopal episodes. Will discontinue the temporary pacemaker. Patient's metoprolol can be restarted at 50 mg p.o. twice daily and titrated as needed. Charges/Coding Visit Charges Inpatient E&M: 702[address] [facility] L1
[2024-10-07] MEDS: Insulin Lispro 100 UNIT/ML INSULN.PEN SC ×2 (16:04→19:52)
[2024-10-07 16:23] LABS: Bedside Glucose 160 mg/dL (74-106)
--- NOTE | 2024-10-07 18:45 | PCM.RX.CS ---
Consult Antibiotic Management Pharmacy has been consulted to manage selected antibiotic: Vancomycin Type of Intervention Type of Consult: Follow-up Suspected Infection Suspected Infection: Sepsis Prior Doses of Antibiotics Prior Doses of Antibiotics Received/Current Regimen: 2000 mg once, 1750 mG Q12H *2 , 1250 mg Q12H *2 Labs Labs: Sodium 141 mmol/L (133-145) 10/07/24 07:02 Potassium 4.4 mmol/L (3.3-5.1) 10/07/24 07:02 Chloride 102 mmol/L (98-108) 10/07/24 07:02 Carbon Dioxide 27.2 mmol/L (21.0-32.0) 10/07/24 07:02 Anion Gap 12 (5-15) 10/07/24 07:02 BUN 46 mg/dL (4-19) H 10/07/24 07:02 Creatinine 1.91 mg/dL (0.70-1.20) H 10/07/24 07:02 Est GFR (MDRD) Non-Af 36 (>60) L 10/07/24 07:02 BUN/Creatinine Ratio 24.1 RATIO (10-20) H 10/07/24 07:02 Glucose 100 mg/dL (70-99) H 10/07/24 07:02 Vancomycin Trough 22.0 ug/mL (5.0-15.0) H 10/07/24 16:49 Microbiology Microbiology: Microbiology 10/05/24 14:25 Fluid - Synovial (joint) Gram Stain - Final 10/05/24 14:25 Fluid - Synovial (joint) Body Fluid Culture - Preliminary No growth-Final to follow 10/05/24 14:25 Fluid - Synovial (joint) Anaerobic Culture - Preliminary No growth in 48 hours. Dosing Weight Weight used for dosin kg Estimated Creatinine Clearance Estimated Creatinine Clearance: 47 Goal Trough Goal Trough: 15-20 mcg/mL Pharmacy Plan for Drug Dosing Pharmacy Plan for Drug Dosing: VANCOMYCIN LEVEL RECEIVED Current Vancomycin Dose: 1250 MG Q12H Number of Doses Received: 3 Vancomycin Level: 22.0 Hours Since Last Dose: 12 Renal Function: SCr 1.91 mg/dL CrCl: 47.96 Renal Function Trend: Downward Lab/Micro: Vancomycin Plan/Comments: Given vancomycin Supra-therapeutic level, deteriorating Renal function, reducing dose to 1000 mg q12h and will continue to monitor. Pending Level: 10/09/2024 @0630 Pharmacy Service will continue to monitor and adjust dosing as required. Follow-Up Labs Follow-Up Labs: Trough: Vancomycin Date/Time Labs Ordered Labs to be done on [date and time ordered]: 10/09/2024 @ 0629
[2024-10-07] MEDS: Vancomycin IV 1,000 MG/200 ML BAG 200 MG IV (18:51)
[2024-10-07] MEDS: Ondansetron 4 MG/2 ML Vial IV (19:52)
[2024-10-07] MEDS: Insulin Glargine-YFGN 100 UNIT/ML Pen 35 UNIT SC (19:53)
[2024-10-07] MEDS: Atorvastatin Calcium 10 MG Tablet PO (20:56)
[2024-10-07] MEDS: Senna Tablet 1 TABLET PO (20:56)
[2024-10-07 21:10] LABS: Bedside Glucose 347 mg/dL (74-106)
[2024-10-07] MEDS: MELATONIN 3 MG TABLET PO (22:15)
[2024-10-07] MEDS: proMETHazine 25 MG/ML Syringe 12.5 MG IM (23:21)
--- NOTE | 2024-10-07 23:30 | NURSING ---
This RN in room with patient watching monitor. RN noted HR dropped to 30s then patient became symptomatic and started to vomit and got diaphoretic. Lasted a couple seconds and HR came back up to 80-90s.
[2024-10-08] VITALS (18 sets, daily range): BP systolic 104–149; BP diastolic 60–84; PULSE 75–100; RESP 12–22; TEMP 35.9–37.9; O2SAT 85–99; BMI 42.0; BMI 43.0
--- NOTE | 2024-10-08 00:05 | EKG12_ITS ---
Test Reason : poss 3rd degree block Blood Pressure : */* mmHG Vent. Rate : 93 BPM Atrial Rate : 93 BPM P-R Int : 192 ms QRS Dur : 158 ms QT Int : 402 ms P-R-T Axes : 61 180 36 degrees QTcB Int : 499 ms Normal sinus rhythm Right bundle branch block Lateral infarct , age undetermined Abnormal ECG When compared with ECG of 05-Oct-2024 20:24, MANUAL COMPARISON REQUIRED DATA IS UNCONFIRMED Confirmed by David Krishnamurthy ([id number]), editor farm journal ANUPAM CARRIZALES ([id number]) on 10/17/2024 1:26:16 PM Referred By: DR Syed Confirmed By: David Krishnamurthy
[2024-10-08 00:06] LABS: Bedside Glucose 319 mg/dL (74-106)
[2024-10-08] MEDS: Scopolamine 1mg/72hr Patch 1 PATCH TD (00:36)
[2024-10-08] MEDS: Ondansetron 4 MG/2 ML Vial IV (02:09)
[2024-10-08] MEDS: 0.9% Saline Lock 10 ML Syringe IV ×2 (02:09→06:32)
--- NOTE | 2024-10-08 05:10 | NURSING ---
Patient had a pause on monitor, when RN entered room patient was vomiting and speaking to RN. HR was back up to 80s BP stable. ADMISSIONS CONSULTANT still called, Patient was transferred to ICU for closer monitoring.
[2024-10-08 05:14] LABS: Hematocrit 35.3 % (40-54); Hemoglobin 11.4 g/dL (13.0-16.5); Mean Corp Hgb Conc 32.3 g/dL (32-36); Mean Corpuscular Hgb 29.2 pg (27.0-32.0); Mean Corpuscular Volume 90.3 fL (80-94); Mean Platelet Vol. 9.8 fl (6.2-12.0); Platelet Count 220 K/mm3 (150-450); RBC Distribution Width CV 14.6 % (11.6-14.6); RBC Distribution Width SD 48.5 fl (35.1-43.9); Red Blood Count 3.91 M/mm3 (4.6-6.2); White Blood Count 14.9 K/mm3 (4.4-11.0)
[2024-10-08 05:41] LABS: Bedside Glucose 223 mg/dL (74-106)
--- NOTE | 2024-10-08 05:45 | PCM.HOSP.N ---
Hospitalist Note I was called twice overnight by MUSICAL INSTRUMENT MAKER OR REPAIRER due to recurrent protracted sinus pauses. Patient was noted to have recent temporary pacer removal with urgent calls placed to cardiology overnight. Patient has been treated with antiemetics including promethazine IM and had a scopolamine patch in place for several hours prior to his most recent event. Upon further questioning of the MUSICAL INSTRUMENT MAKER OR REPAIRER she explained that his initial pause was prior to him developing nausea and vomiting. Nevertheless, due to recurrence of severe pauses he was moved to the ICU for further evaluation and treatment with pre-existing order already placed for IV atropine as needed for persistent bradycardia.
[2024-10-08 05:46] LABS: Anion Gap 13 (5-15); BUN 47 mg/dL (4-19); BUN/Creat Ratio 27.4 RATIO (10-20); Chloride 101 mmol/L (98-108); Creatinine, Serum 1.72 mg/dL (0.70-1.20); EST Glomerular Filtration Rate 41 (>60); Estimated Creatinine Clearance 53.22 ml/min (50-250); Glucose 220 mg/dL (70-99); Potassium 4.3 mmol/L (3.3-5.1); Sodium Level 141 mmol/L (133-145)
--- NOTE | 2024-10-08 05:56 | NURSING ---
Called Joann to update about patient being transferred back up to the ICU
[2024-10-08] MEDS: 0.9% Normal Saline (250mL Bag) 250 ML 15 ML IV (06:32)
[2024-10-08] MEDS: Vancomycin IV 1,000 MG/200 ML BAG 200 MG IV (06:32)
[2024-10-08] MEDS: proMETHazine 25 MG/ML Syringe 12.5 MG IM (07:19)
[2024-10-08] MEDS: Haloperidol Lactate 5 MG/ML Vial 1 MG IV ×2 (08:53→15:03)
[2024-10-08] MEDS: DOPamine IV 800 MG/250 ML IV.SOLN. 6.6 MG CONT INF (08:53)
[2024-10-08] MEDS: Aspirin E.C. 81 MG Tablet PO (10:57)
[2024-10-08] MEDS: Tamsulosin HCl 0.4 MG Capsule PO (10:57)
[2024-10-08] MEDS: Clopidogrel Bisulfate 75 MG Tablet PO (10:57)
[2024-10-08] MEDS: Potassium Chloride Oral Tablet 10 MEQ PO (10:57)
[2024-10-08] MEDS: Colchicine 0.6 MG TABLET PO (10:57)
[2024-10-08] MEDS: Allopurinol 100 MG Tablet PO (10:57)
[2024-10-08] MEDS: Isosorbide Mononitrate 30 MG Tablet PO (10:58)
[2024-10-08] MEDS: Enoxaparin 40 MG/0.4 ML Syringe SC (10:58)
[2024-10-08] MEDS: Senna/Docusate Sodium 1 Tablet PO (10:58)
[2024-10-08] MEDS: Finasteride 5 MG Tablet PO (10:58)
[2024-10-08] MEDS: predniSONE 20 MG Tablet 40 MG PO (11:00)
[2024-10-08] MEDS: Insulin Lispro 100 UNIT/ML INSULN.PEN SC (11:08)
[2024-10-08 11:33] LABS: Bedside Glucose 180 mg/dL (74-106)
--- NOTE | 2024-10-08 12:05 | CT_ITS ---
PROCEDURE: ABDOMEN/PELVIS WITHOUT CONT 10/08/2024 REASON FOR EXAM: NAUSEA/VOMITING TECHNIQUE: Abdomen and pelvis CT without intravenous contrast. Noncontrast technique limits evaluation of the abdominal and pelvic viscera. Coronal and Sagittal reconstruction series were provided. One or more dose reduction techniques were used (e.g., Automated exposure control, adjustment of the mA and/or kV according to patient size, use of iterative reconstruction technique). PATIENT PREPARATION: Per protocol ORAL CONTRAST TYPE: None. AMOUNT: mL COMPARISON: None. FINDINGS: Lung bases: Small volume bilateral pleural effusions. Small patches of airspace consolidating disease with air bronchograms adjacent to the effusions. Liver: Normal. Gallbladder: Several tiny mobile choleliths Spleen: Normal size. Several punctate calcified granulomas Pancreas: Normal Adrenals: Within normal limits Kidneys: Unremarkable Bladder: Reproductive Organs: Bowel: Appendix: Lymph nodes: Vasculature: Peritoneum / Retroperitoneum: Bones: CT/Abdomen/Pelvis without Cont IMPRESSION: OVERALL FINAL ASSESSMENT: . LI-RADS is not meant to be used in patients <18 years or patients with cirrhosi s due to congenital hepatic fibrosis or due to vascular disorders, because these patients have a lower chance of developing HC C. Reading [facility]
--- NOTE | 2024-10-08 12:37 | PN.HOSP_ITS ---
Reason for Visit Reason for Visit: Knee pain Subjective Subjective Patient with recurrent pauses overnight associated with nausea and emesis. It seems that the nausea and emesis is occurring afterwards. Transferred back to the ICU for events and cardiology was notified. He has been placed on dopamine at 2.5 to keep his heart rate up. He said no more events this afternoon. CT of the head and pelvis is pending to see if there is a reason he is having vomiting as cardiology feels that this is vasovagal mediated from his vomiting. Objective Data Objective Data Vital Signs: Vital Signs Temp Pulse Resp BP Pulse Ox O2 Del Method O2 Flow Rate 97.1 F L 100 22 H 104/62 94 Nasal Cannula 6 10/08/24 12:00 10/08/24 12:00 10/08/24 12:00 10/08/24 12:00 10/08/24 12:00 10/08/24 12:00 10/08/24 12:00 Oxygen Flow Rate (L/min) 6 Oxygen Delivery Method Nasal Cannula Weight: 139.9 kg Body Mass Index (BMI) 43.0 Intake & Output: Intake and Output for Last 24 Hours 10/06/24 10/07/24 10/08/24 23:59 23:59 23:59 Intake Total 1259 / 1259 1800.0 / 1800.0 220.57 / 220.57 Output Total 1050 / 1150 1100 / 1100 Balance 209 / 109 700.0 / 700.0 220.57 / 220.57 Lab / Micro Data 10/08/24 04:43 10/08/24 04:43 Labs: Laboratory Results - last 24 hr 10/07/24 16:02: POC Glucose 160 H 10/07/24 16:49: Vancomycin Trough 22.0 H 10/07/24 19:50: POC Glucose 347 H 10/07/24 23:39: POC Glucose 319 H 10/08/24 04:43: WBC 14.9 H, RBC 3.91 L, Hgb 11.4 L, Hct 35.3 L, MCV 90.3, MCH 29.2, MCHC 32.3, RDW Std Deviation 48.5 H, RDW Coeff of Jacquelyn 14.6, Plt Count 220, MPV 9.8, Sodium 141, Potassium 4.3, Chloride 101, Carbon Dioxide 27.0, Anion Gap 13, BUN 47 H, Creatinine 1.72 H, Estim Creat Clear Calc 53.22, Est GFR (MDRD) Non-Af 41 L, BUN/Creatinine Ratio 27.4 H, Glucose 220 H, Calcium 9.0 10/08/24 05:18: POC Glucose 223 H 10/08/24 11:07: POC Glucose 180 H Micro: Microbiology 10/06/24 16:24 Urine, Clean Catch Urine Culture - Preliminary Culture exhibits no growth. 10/05/24 14:25 Fluid - Synovial (joint) Gram Stain - Final 10/05/24 14:25 Fluid - Synovial (joint) Body Fluid Culture - Preliminary No growth-Final to follow 10/05/24 14:25 Fluid - Synovial (joint) Anaerobic Culture - Preliminary No growth in 48 hours. Radiography Diagnostic Testing: Radiology Impression Chest/Abdomen/Pelvis CTA 10/05/24 11:04 IMPRESSION: No evidence of aortic dissection. No evidence of pulmonary embolism. Findings suggestive of a fat containing polyp in the 3rd portion of the duodenum. Reading Location: [facility] Chest X-Ray 10/06/24 04:38 IMPRESSION: No evidence of acute disease. Reading Location: [id number] Physical Exam Const alert, oriented x3, no apparent distress and well nourished; Negative for average body habitus or healthy appearing Constitutional Narrative: Morbidly obese, white male, at bedside, patient lying in his back on BiPAP, does not look toxic or appear uncomfortable at this time HEENT head/scalp atraumatic and moist oral mucous membranes HEENT Narrative: Mallampati 4, no thrush Head and Scalp: normocephalic Eyes conjunctivae normal Eyes Narrative: No scleral icterus Neck supple Neck Narrative: Trachea midline, no thyroid enlargement, neck is short and thick Resp normal respiratory effort, no retractions, no use of accessory muscles and No clear to auscultation bilaterally Resp Narrative: Few crackles at bases and diminished at the bases bilaterally Auscultation: crackles; Negative for rhonchi or wheezes Cardio regular rate, regular rhythm, S1 normal heart sound, S2 normal heart sound, no murmurs, no rub, no gallops and no clicks GI normal to inspection, nondistended, normoactive bowel sounds, soft to palpation and non-tender GI Narrative: Large protuberant abdomen Extremity no clubbing, cyanosis or edema Extremity Narrative: 2+ pedal pulses, bilateral knee with effusion, decreased tenderness, Skin no jaundice, no petechiae and no mottling Neuro oriented x3, moves all extremities and no focal motor deficits Speech: speech normal Psych affect normal Psych Narrative: Eye contact is good, patient interacts appropriately Assessment & Plan Assessment/Plan (1) Sepsis: (2) Effusion, right knee: (3) Syncope: (4) Gout: (5) CHAR (acute kidney injury): PLAN: Plan Sepsis with unknown source - Patient with tachycardia, tachypnea, white count greater than 19,000, fever -Sepsis ruled out with negative cultures--> suspect related to gout flare - Per ID go ahead and stop broad-spectrum antibiotics with negative cultures thus far - Currently seems that sepsis picture may have been related to gout - Urine culture and blood cultures negative - Synovial fluid cultures negative Acute hypoxemic respiratory failure on chronic hypoxic and hypercapnic respiratory failure secondary to pleural effusions/acute on chronic heart failure with preserved ejection fraction - Patient on 3 L chronically at night - Is requiring 6 L now - Pleural effusions appear on CAT scan - 80 mg of IV Lasix now and reassess tomorrow morning for renal function Syncope - Patient with recurrent symptoms last evening - Suspected vasovagal by cardiology - Had a transvenous pacer placed on 10/06/2024 and removed on 10/07/2024 as he has no episodes and pacer was not capturing patient was monitored for 6 hours after transvenous pacer was removed and still no events of transfer to PCU but then had recurrent episodes through the night and transferred back to the ICU - Currently on dopamine 2.5 mg per cardiology recommendation -Per discussion with family they would like transfer to [facility] where he has his primary cardiology service - Continue to hold beta-yohan - Echocardiogram showed EF of 55%, aortic valve is not well-visualized Intermittent nausea and vomiting/constipation - Antiemetics with scopolamine, scheduled Haldol 1 mg every 8 hours, as needed Phenergan - CT of the abdomen pelvis is pending - Scheduled and as needed medications for constipation--> patient has chronic issues with constipation Acute right knee gout with history of gout - Discontinue colchicine - Continue prednisone day 2 of 5 - Patient has known history of gout we will continue home allopurinol Acute on chronic heart failure with preserved ejection fraction - Serum creatinine trended up with diuretic so we will stop - Initial proBNP was elevated slightly at 1800 - Chest x-ray did show mild congestion - Patient seems to be better with regards to his shortness of breath and I am wondering whether or not his shortness of breath may be related to his syncope as noted above - will continue to monitor - Echocardiogram performed and shows an EF of 55% and was otherwise unremarkable Elevated troponin - Secondary to demand ischemia - Echocardiogram without any wall motion abnormality - Per cardiology no further workup at this time CKD stage IIIb - Monitor closely with Lasix use - Avoid nephrotoxin - Repeat chemistry in a.m. EILEEN - Continue home CPAP CAD/essential hypertension/hyperlipidemia - Blood pressures appear to be stabilizing - Continue to reevaluate daily for ability to reinitiate antihypertensives - Hold beta-yohan - Continue home statin DM-2 - Continue basal insulin but increase from 35 to 45 units while patient on steroids his fasting sugar was 220 this morning -Fasting sugar 220 this morning - Continue to monitor for adjustment needs - Hold home oral agents - Accu-Cheks as ordered - SSI as ordered BPH with obstruction - Flomax and Proscar Chronic constipation - Continue home stool softeners and laxatives - Add MiraLAX as patient has not had a bowel movement sometime History of aortic valve replacement with bioprosthetic valve - 29mm [employer] tissue valve 01/09/11 @ [facility] - Plan is for TAVR on 10/28/2024 - Following with cardiology at [facility]-Dr. Wu - Attempting transfer to [facility] given above issues Morbid obesity - BMI is 43 - Recommend weight loss - Complicates treatment, prognosis, outcomes DVT prophylaxis - Continue subcu Lovenox 40 twice daily CODE STATUS Full code Disposition: -Plan is for transfer to [facility] pending acceptance given ongoing cardiac rhythm issues per discussion with patient's family and cardiology input Charges/Coding Visit Charges Inpatient E&M: 27771 [facility] Hosp L3
--- NOTE | 2024-10-08 13:08 | PCM.PN.CARD ---
Subjective Subjective He feels better, on CPAP, still gets occasional sinus bradycardia episodes when he eats or drinks gets nauseated with abdominal pain. No pauses or blocks on EKG. Patient has chronic right bundle branch block. No need for pacemaker. Primary team ordered CT abdomen. I reviewed the history in details patient has history of coronary disease status post CABG, status post bioprosthetic aortic valve replacement years ago, with degenerative aortic valve disease plan for TAVR to be done. Objective Data Vital Signs: Vital Signs Temp Pulse Resp BP Pulse Ox O2 Del Method O2 Flow Rate 97.1 F L 100 22 H 104/62 94 Nasal Cannula 6 10/08/24 12:00 10/08/24 12:00 10/08/24 12:00 10/08/24 12:00 10/08/24 12:00 10/08/24 12:00 10/08/24 12:00 Oxygen Flow Rate (L/min) 6 Oxygen Delivery Method Nasal Cannula Weight: 308 lb 6.827 oz Body Mass Index (BMI) 43.0 Intake & Output: Intake and Output for Last 24 Hours 10/06/24 10/07/24 10/08/24 23:59 23:59 23:59 Intake Total 1259 / 1259 1800.0 / 1800.0 220.57 / 220.57 Output Total 1050 / 1150 1100 / 1100 Balance 209 / 109 700.0 / 700.0 220.57 / 220.57 Lab / Micro Data Attestation: I reviewed the patient's lab results. 10/08/24 04:43 10/08/24 04:43 Labs: Laboratory Results - last 24 hr 10/07/24 16:02: POC Glucose 160 H 10/07/24 16:49: Vancomycin Trough 22.0 H 10/07/24 19:50: POC Glucose 347 H 10/07/24 23:39: POC Glucose 319 H 10/08/24 04:43: WBC 14.9 H, RBC 3.91 L, Hgb 11.4 L, Hct 35.3 L, MCV 90.3, MCH 29.2, MCHC 32.3, RDW Std Deviation 48.5 H, RDW Coeff of Jacquelyn 14.6, Plt Count 220, MPV 9.8, Sodium 141, Potassium 4.3, Chloride 101, Carbon Dioxide 27.0, Anion Gap 13, BUN 47 H, Creatinine 1.72 H, Estim Creat Clear Calc 53.22, Est GFR (MDRD) Non-Af 41 L, BUN/Creatinine Ratio 27.4 H, Glucose 220 H, Calcium 9.0 10/08/24 05:18: POC Glucose 223 H 10/08/24 11:07: POC Glucose 180 H Micro: Microbiology 10/06/24 16:24 Urine, Clean Catch Urine Culture - Preliminary Culture exhibits no growth. 10/05/24 14:25 Fluid - Synovial (joint) Gram Stain - Final 10/05/24 14:25 Fluid - Synovial (joint) Body Fluid Culture - Preliminary No growth-Final to follow 10/05/24 14:25 Fluid - Synovial (joint) Anaerobic Culture - Preliminary No growth in 48 hours. Rhythm Strip Rhythm Strip: Sinus Rhythm Rate: 90 Cardiology Labs/Tests 10/08/24 04:43: WBC 14.9 H, RBC 3.91 L, Hgb 11.4 L, Hct 35.3 L, MCV 90.3, MCH 29.2, MCHC 32.3, Plt Count 220, MPV 9.8, Sodium 141, Potassium 4.3, Chloride 101, Carbon Dioxide 27.0, Anion Gap 13, BUN 47 H, Creatinine 1.72 H, Est GFR (MDRD) Non-Af 41 L, BUN/Creatinine Ratio 27.4 H, Glucose 220 H, Calcium 9.0 Rhythm: EKG: ECHO: Stress Test: Cardiac Cath: PCI: CT Surgery: Holter monitor: EPS: PPM: CXR: Chest CT Scan: Physical Exam Const alert and oriented x3 HEENT normocephalic Eyes PERRL, EOMs intact bilaterally, conjunctivae normal and no scleral icterus Lymph Lymphatic: no lymphadenopathy noted Chest Chest: midline sternotomy incision Resp Auscultation: diminished lung sounds Cardio Cardio Narrative: Normal rate, rhythm, ejection systolic murmur maximally noted in the aortic area, no clicks or gallops. GI GI Narrative: Epigastric tenderness with no rebounding Extremity no pedal edema Assessment & Plan Assessment/Plan PLAN: Plan #Syncope: ? Likely vasovagal, no recurrence. ? Episodic sinus bradycardia likely vasovagal with no evidence of block. ? Blood pressure stable ?Patient with normal sinus rhythm, right bundle branch block which is chronic, rate appears to be stable now. #Sinus bradycardia with questionable sinus pause: ? Likely vasovagal secondary to nausea and vomiting secondary to underlying gastrointestinal etiology to be evaluated by primary team. ? Episodic sinus bradycardia with no pauses or blocks that requires pacemaker insertion. ? Will keep the patient on associate chief nurse, correct electrolytes, kidney function, avoid hypoxia. #Troponin elevation #Coronary disease status post CABG done years ago ? Currently stable, denies active chest pain, mild troponin elevation in the setting of known degenerative aortic valve disease, CHAR likely nonischemic myocardial injury with no evidence of ischemia. ? According to the patient he had recent cardiac catheterization for evaluation of TAVR, they told them that there is no significant obstruction on the left system and they could not evaluate the right coronary artery adequately. ? Continue aspirin, Plavix, high potency statins. Avoid beta-yohan given bradycardic episodes. #Aortic valve disease status post bioprosthetic aortic valve replacement. ? Patient was evaluated for TAVR and he is scheduled to be done next month. ? Continue diuresis to avoid volume overload. Patient would like to be transferred to his [facility] to be evaluated for his GI symptoms and the other facility where they know his case.
[2024-10-08] MEDS: Furosemide 100 MG/10 ML Vial 80 MG IV (15:09)
--- NOTE | 2024-10-08 15:55 | DS.PCM_ITS ---
Providers Date of Admission: 10/05/24 Date of Discharge: 10/08/24 Primary Care Physician: Dr. Koko Hamilton MD Consultations 10/06/24 11:34 Consult: Cardiology Routine Consulting Provider: Anneliese Parekh Reason for Consult: prolonged pauses EMERGENT Consult: No Notified: Yes Date Notified: 10/06/24 Time Notified: 11:34 Method of Notification: Verbal 10/06/24 11:37 Consult: Orthopedics Routine Consulting Provider: Patrick Aceves Reason for Consult: R Knee infection EMERGENT Consult: No Notified: Yes Date Notified: 10/06/24 Time Notified: 11:37 Method of Notification: Verbal 10/06/24 15:21 Consult: Infectious Disease Routine Consulting Provider: Moris Baumann Reason for Consult: sepsis EMERGENT Consult: No Notified: Yes Date Notified: 10/06/24 Time Notified: 15:32 Method of Notification: Text Reason For Visit: HF EXACERBATION Diagnosis Discharge Diagnosis (1) Sepsis: Status: Acute Code(s): A41.9 - Sepsis, unspecified organism (2) Effusion, right knee: Status: Acute Code(s): M25.461 - Effusion, right knee (3) Syncope: Status: Acute Code(s): R55 - Syncope and collapse (4) Gout: Status: Acute Code(s): M10.9 - Gout, unspecified (5) CHRA (acute kidney injury): Status: Acute Code(s): N17.9 - Acute kidney failure, unspecified Medications at Discharge Home Medications clopidogrel 75 mg tablet (Plavix) 75 mg PO QDAY antiplatelet 11/23/17 metformin 1,000 mg tablet 1,000 mg PO BID diabetes 11/23/17 multivitamin,[id number] (Complete Multivitamin tablet) 1 tab PO QDAY supplement 11/23/17 aspirin 81 mg tablet,delayed release (Adult Low Dose Aspirin) 81 mg PO DAILY antiplatelet 07/08/18 omega-3 fatty acids 1,000 mg capsule (Fish Oil Concentrate) 1,000 mg PO BID supplement 07/08/18 vitamin E (dl, acetate) 180 mg (400 unit) capsule 400 unit PO DAILY supplement 07/08/18 lisinopril 10 mg tablet 10 mg PO DAILY bp #90 tabs 08/15/19 allopurinol 100 mg tablet 100 mg PO Q12H gout 12/16/20 rosuvastatin 5 mg tablet 5 mg PO DAILY cholesterol 05/02/20 finasteride 5 mg tablet 5 mg PO DAILY bph 11/08/21 metoprolol tartrate 100 mg tablet 100 mg PO BID heart rate #180 tabs 07/01/23 furosemide 40 mg tablet 40 mg PO BID chf #180 TABLETS 04/27/24 ascorbic acid (vitamin C) 1,000 mg tablet (Vitamin C) 1 g PO DAILY supplement 10/05/24 ergocalciferol (vitamin D2) 1,250 mcg (50,000 unit) capsule (Vitamin D2) 1,250 mcg PO DAILY supplement 10/05/24 glimepiride 1 mg tablet 1 mg PO DAILY dm 10/05/24 insulin glargine 100 unit/mL (3 mL) subcutaneous pen (Basaglar KwikPen U-100 Insulin) 50 unit subcut QHS diabetes 10/05/24 isosorbide mononitrate 30 mg tablet,extended release 24 hr 30 mg PO DAILY heart health 10/05/24 lysine 500 mg tablet 500 mg PO DAILY supplement 10/05/24 potassium chloride 10 mEq tablet,extended release 10 meq PO DAILY supplement 10/05/24 sennosides 25 mg tablet (Laxative (sennosides)) 25 mg PO QHS mowefrsa 10/05/24 sennosides 8.6 mg-docusate sodium 50 mg tablet 1 tab-cap PO DAILY constipation 10/05/24 sitagliptin 50 mg tablet 50 mg PO DAILY dm 10/05/24 tamsulosin 0.4 mg capsule 0.4 mg PO DAILY bph 10/05/24 Hospital Course Operations - (Transvenous pacer placement) Procedures 2-D Echocardiogram, EKG and - (CT ABD/Pelvis/Arthrocentesis) Summary of Care Provided Minutes Spent on Discharge: 41 Hospital Course: Mr. Daugherty is a 74-year-old white male with a complicated past medical history including previous aortic valve repair with upcoming pending TAVR at [facility] and coronary artery disease with previous stenting and CABG who is on chronic oxygen at 3 L and presented to the emergency department with shortness of breath and right knee pain. Patient reported for about 2 weeks he been having intermittent chest pain that was not exertional or radiating. He had no chest pain at the time of arrival but he did have a bit on the morning prior to presentation. He also complained of some severe right knee pain that started about 2 days prior to coming in with no inciting incident or fall. Vital signs on presentation to the emergency department showed a temperature of 98.4, heart rate 101, blood pressure 124/73, respiratory rate was 18 and pulse ox was 86% on room air however his baseline is 3 L. CBC on presentation showed leukocytosis with white count of 19.1, hemoglobin of 12.4 and platelet count was normal. He did have a left shift with an 82.7% neutrophilia. A D-dimer was obtained and found to be elevated at 2.53. Chemistry panel showed mildly elevated serum creatinine at 1.3 which seems to be close to his baseline. BUN was 27. The rest of his chemistry was fairly unremarkable other than a blood glucose of 209. With his right knee pain and history of gout uric acid was obtained and found to be markedly elevated at 12.3. CRP was 89.8, proBNP was 1832 and his initial troponin was 39 with a repeat of 44. Procalcitonin was 0.09 and ESR was 61. Plain film of his right knee showed healing fracture of the proximal tibia was otherwise unremarkable. A CTA of his chest abdomen pelvis was performed with his elevated D-dimer and this showed no PE or dissection and findings consistent suggestive of fat-containing polyp in the third portion of duodenum but was otherwise fairly unremarkable other than chronic findings. Arthrocentesis of the knee was performed and showed a synovial white cell count of 29 that had a differential of 97% neutrophilia. We were initially concerned about septic joint with somewhat of a mixed picture clinically and he was admitted to the floor until we could get crystals. Initially antibiotics were held at the time of admission. He was also diagnosed with mild exacerbation of acute on chronic heart failure with preserved ejection fraction and placed on IV Lasix. The serum creatinine bumped the next day so his Lasix was discontinued and he had a fever through the night so broad-spectrum antibiotics with vancomycin and Zosyn were obtained and cultures were obtained blood and urine. Chest x-ray was not impressive for any infiltrate or signs of pneumonia. Through the night, patient also experienced some sinus pauses as long as 7 seconds. Initially it was felt that this may be vasovagal mediated with some nausea and vomiting however upon observation later in the day it seemed that he was having the sinus pauses and then having nausea and vomiting however the patient was a poor historian and found it difficult to give us a good history over what he was experiencing. Given these findings an echocardiogram was performed and cardiology was consulted. A transvenous pacer was placed however there was never great capture. The patient was transferred to the ICU and monitored overnight after transvenous pacer was placed. He had no further events and the pacer was not fully functioning therefore it was discontinued by cardiology the following day. An echocardiogram was obtained and showed no wall motion abnormality, EF of 55%. The patient was monitored for 6 hours in the ICU following pacer removal and had no events and was transferred back to the telemetry floor. Again through the night, he experienced as long as a 10-second pause. This again was associated with nausea and vomiting and cardiology talk it up to vasovagal events however we did transfer back to the unit and placed him on low-dose dopamine. I did get a CT of his abdomen pelvis to rule out any etiology intra- abdominal he that would be causing nausea and vomiting since cardiology felt that this was all related to his GI tract. CT of the abdomen pelvis showed no evidence of obstruction air in the stomach however the patient was on BiPAP and question of infectious or secondary enteritis with bilateral lower lobe pleural effusions that were small and what appeared to be compressive atelectasis. Patient's oxygen demand had increased some during his hospital stay and he was restarted on diuretics. He was maintained on vancomycin and Zosyn for his hospital stay. Cultures were negative at the time of discharge. Given the ongoing issues with sinus pauses and unidentifiable etiology with significant cardiac history and the fact the patient followed [facility] I did call [facility] transfer service and they accepted him for transfer and he was flown to [facility] to cardiac unit on 10/08/2024. Transferred in stable condition on dopamine drip at 2.5 mcg. Discharge diagnoses: Sepsis-ruled out-->all cultures negative SIRS secondary to acute gout Acute hypoxic respiratory failure on chronic hypoxic and hypercapnic respiratory failure secondary to pleural effusions and acute on chronic heart failure with preserved ejection fraction Syncope mediated by sinus pauses Intermittent nausea and vomiting Acute on chronic constipation Acute gout of the right knee History of gout Acute on chronic heart failure with preserved ejection fraction Elevated troponin CKD stage IIIb EILEEN CAD Essential hypertension Hyperlipidemia DM-2 BPH with obstruction Chronic constipation History of aortic valve replacement with bioprosthetic valve and upcoming TAVR planned for 10/28/2024 Morbid obesity Physical Exam Const alert, oriented x3, no apparent distress and well nourished; Negative for average body habitus or healthy appearing Constitutional Narrative: Morbidly obese, white male, at bedside, patient lying in his back on BiPAP, does not look toxic or appear uncomfortable at this time General Appearance: cooperative, comfortable, well kempt and well developed HEENT normocephalic, head/scalp atraumatic and moist oral mucous membranes HEENT Narrative: Mallampati 4 Eyes EOMs intact bilaterally and conjunctivae normal Eyes Narrative: No scleral icterus Neck supple Neck Narrative: Trachea midline, no thyroid enlargement, neck is short and thick Resp normal respiratory effort, no retractions, no use of accessory muscles and No clear to auscultation bilaterally Resp Narrative: Few crackles at bases and diminished at the bases bilaterally Auscultation: crackles; Negative for rales, rhonchi or wheezes Cardio regular rate, regular rhythm, S1 normal heart sound, S2 normal heart sound, no rub, no gallops and no clicks; Negative for no murmurs GI normal to inspection, nondistended, normoactive bowel sounds, soft to palpation and non-tender GI Narrative: Large protuberant abdomen Extremity no clubbing, cyanosis or edema Extremity Narrative: 2+ pedal pulses, bilateral knee with effusion, decreased tenderness, no significant erythema Skin skin turgor normal, no jaundice, no petechiae and no mottling Neuro oriented x3, moves all extremities and no focal motor deficits Speech: speech normal Psych affect normal Psych Narrative: Eye contact is good, patient interacts appropriately Weight / BMI Weight Weight: 139.9 kg Body Mass Index (BMI) 43.0 ABG / Lab / Microbiology Data 10/08/24 04:43 10/08/24 04:43 Laboratory: Laboratory Results - last 24 hr 10/08/24 11:07: POC Glucose 180 H 10/08/24 16:45: POC Glucose 281 H Microbiology: Microbiology 10/06/24 16:24 Urine, Clean Catch Urine Culture - Final Culture exhibits no growth. 10/06/24 05:21 Blood Culture (Wb) - Left Hand Blood Culture - Preliminary No growth in 48 hours. 10/06/24 05:14 Blood Culture (Wb) - Anticubital Right Blood Culture - Preliminary No growth in 48 hours. 10/05/24 14:25 Fluid - Synovial (joint) Gram Stain - Final 10/05/24 14:25 Fluid - Synovial (joint) Body Fluid Culture - Preliminary No growth-Final to follow 10/05/24 14:25 Fluid - Synovial (joint) Anaerobic Culture - Preliminary No growth in 48 hours. Radiography Diagnostic Testing: Radiology Impression Abdomen/Pelvis CT 10/08/24 12:05 IMPRESSION: OVERALL FINAL ASSESSMENT: . LI-RADS is not meant to be used in patients <18 years or patients with cirrhosis due to congenital hepatic fibrosis or due to vascular disorders, because these patients have a lower chance of developing HCC. Reading Location: [facility] D/C Instructions DC O2, CPAP, BIPAP Needs Home O2 Discharge instructions: No DC home with Oxygen: No Meaningful Use Info Meaningful Use Meaningful Use Diagnoses (Choose all that apply): None applicable Ischemic Stroke Statin Dosing Therapy Reference: STATIN DOSE THERAPY REFERENCE: * Patients > 75 years receive moderate or high dose statin therapy. * Patients 75 years or YOUNGER should receive HIGH intensity statin dose unless contraindicated. You will be required to document reason for non-treatment if statin daily dose does not meet guidelines. HIGH DOSE STATIN THERAPY DAILY Atorvastatin > than or = to 40 mg Rosuvastatin > than or = to 20 mg Amlodipine + Atorvastatin > than or = to 2.5/40 mg Ezetimibe + Simvastatin 10/80 mg Simvastatin 80mg Discharge Plan Admission Admit Date/Time: 10/05/24 14:50 Primary Reason for Your Visit: Knee pain Attending Provider: Dhara Kelly Primary Care Provider: Koko Hamilton Consulting Providers: Sona Gimenez; Anneliese Parekh; Moris Baumann; Patrick Aceves Discharge Orders/Prescriptions Prescriptions: No Action multivitamin,[id number] [Complete Multivitamin] tablet 1 tab PO QDAY metformin 1,000 mg tablet 1,000 mg PO BID clopidogrel [Plavix] 75 mg tablet 75 mg PO QDAY rosuvastatin 5 mg tablet 5 mg PO DAILY vitamin E (dl, acetate) 400 unit capsule 400 unit PO DAILY omega-3 fatty acids [Fish Oil Concentrate] 1,000 mg capsule 1,000 mg PO BID aspirin [Adult Low Dose Aspirin] 81 mg tablet,delayed release (DR/EC) 81 mg PO DAILY allopurinol 100 mg tablet 100 mg PO Q12H finasteride 5 mg tablet 5 mg PO DAILY glimepiride 1 mg tablet 1 mg PO DAILY isosorbide mononitrate 30 mg tablet extended release 24 hr 30 mg PO DAILY lysine 500 mg tablet 500 mg PO DAILY sitagliptin 50 mg tablet 50 mg PO DAILY ascorbic acid (vitamin C) [Vitamin C] 1,000 mg tablet 1 g PO DAILY potassium chloride 10 mEq tablet extended release 10 meq PO DAILY ergocalciferol (vitamin D2) [Vitamin D2] 1,250 mcg (50,000 unit) capsule 1,250 mcg PO DAILY tamsulosin 0.4 mg capsule 0.4 mg PO DAILY insulin glargine [Basaglar KwikPen U-100 Insulin] 100 unit/mL (3 mL) insulin pen 50 unit subcut QHS sennosides-docusate sodium 8.6-50 mg tablet 1 tab-cap PO DAILY Laxative (sennosides) 25 mg tablet 25 mg PO QHS lisinopril 10 mg tablet 10 mg PO DAILY Qty: 90 3RF metoprolol tartrate 100 mg tablet 100 mg PO BID Qty: 180 3RF furosemide 40 mg tablet 40 mg PO BID Qty: 180 3RF Referrals / Follow Up: Koko Hamilton MD [Primary Care Provider] - Disposition Disposition (needs filled in before D/C Order can be placed): Acute Care Hospital Charges/Coding Visit Charges Inpatient E&M: 00694 Disch Hosp >30min
--- NOTE | 2024-10-08 16:23 | NURSING ---
Report called to icu nurse Estefania at [facility] [phone]
[2024-10-08 17:02] LABS: Bedside Glucose 281 mg/dL (74-106)
--- NOTE | 2024-10-08 17:17 | NURSING ---
life flight just left with patient and home cpap report given face to face patient stable called [facility] let them know of departure time
== END 2024-10-08 17:16 | disposition short-term general hospital (02) | DRG 871 ==
LOC: ED 14:51 → PCU 14:59 → ICU 10-07 13:53 → PCU 10-07 17:28 → ICU 10-08 06:52
PROVIDERS: Internal Medicine; Admitting Provider Internal Medicine; Emergency Provider Emergency Medicine; PCP Family Medicine; Visit Provider Internal Medicine
DX: A41.9 Sepsis, unspecified organism (principal); I50.33 Acute on chronic diastolic (congestive) heart failure; I24.89 Other forms of acute ischemic heart disease; Z68.41 Body mass index [BMI] 40.0-44.9, adult; I13.0 Hypertensive heart and chronic kidney disease with heart failure and stage 1 through stage 4 chronic kidney disease, or unspecified chronic kidney disease; J96.11 Chronic respiratory failure with hypoxia; N13.8 Other obstructive and reflux uropathy; I49.5 Sick sinus syndrome; J44.9 Chronic obstructive pulmonary disease, unspecified; E11.22 Type 2 diabetes mellitus with diabetic chronic kidney disease; N18.32 Chronic kidney disease, stage 3b; E11.65 Type 2 diabetes mellitus with hyperglycemia; E66.01 Morbid (severe) obesity due to excess calories; M79.604 Pain in right leg; K21.9 Gastro-esophageal reflux disease without esophagitis; G47.33 Obstructive sleep apnea (adult) (pediatric); I25.10 Atherosclerotic heart disease of native coronary artery without angina pectoris; E78.00 Pure hypercholesterolemia, unspecified; Z79.4 Long term (current) use of insulin; M10.061 Idiopathic gout, right knee; M25.561 Pain in right knee; K31.7 Polyp of stomach and duodenum; I89.0 Lymphedema, not elsewhere classified; R07.9 Chest pain, unspecified; Z95.5 Presence of coronary angioplasty implant and graft; Z79.82 Long term (current) use of aspirin; S82.401D Unspecified fracture of shaft of right fibula, subsequent encounter for closed fracture with routine healing; Z87.891 Personal history of nicotine dependence; Z79.02 Long term (current) use of antithrombotics/antiplatelets; Z79.84 Long term (current) use of oral hypoglycemic drugs; N40.1 Benign prostatic hyperplasia with lower urinary tract symptoms; Z79.01 Long term (current) use of anticoagulants; R55 Syncope and collapse; Z79.899 Other long term (current) drug therapy; Z99.81 Dependence on supplemental oxygen; Z95.1 Presence of aortocoronary bypass graft
CPT/HCPCS: 33210; 36415; 71045; 71275; 73564; 74174; 74176; 80048; 80053; 80202; 81001; 82962; 83605; 83735; 83880; 84100; 84145; 84484; 84550; 85025; 85027; 85379; 85652; 86140; 87040; 87070; 87075; 87086; 87205; 89050; 89051; 89060; 93005; 93306; 93971; 94668; 94762; 99252; 99285; Q9967; A4216; C1894; G0463; J1938; J2405

== ENCOUNTER → 2024-12-06 | Outpatient (CLI) | payer MEDICARE, OTHER, SELFPAY ==
--- NOTE | 2024-12-06 12:53 | PCM.CR.HP2 ---
CR - History & Physical General Arrival date:: 12/06/24 Arrival time:: 12:53 Date of Referral:: 11/28/24 Date of CR Evaluation:: 12/06/24 Referring Physician: Dr. Alexey Chattereje Primary Diagnosis: S/P TAVR History of Present Cardiac Event Onset Date Heart valve replacement or repair:: Yes (11/25/2024) Medications Ambulatory Orders Medication Instructions Recorded clopidogrel 75 mg tablet (Plavix) 75 mg PO QDAY antiplatelet 11/23/17 metformin 1,000 mg tablet 1,000 mg PO BID diabetes 11/23/17 multivitamin,jj-olol-meujjqjx 1 tab PO QDAY supplement 11/23/17 (Complete Multivitamin tablet) aspirin 81 mg tablet,delayed 81 mg PO DAILY antiplatelet 07/08/18 release (Adult Low Dose Aspirin) omega-3 fatty acids 1,000 mg 1,000 mg PO BID supplement 07/08/18 capsule (Fish Oil Concentrate) vitamin E (dl, acetate) 180 mg 400 unit PO DAILY supplement 07/08/18 (400 unit) capsule lisinopril 10 mg tablet 10 mg PO DAILY bp #90 tabs 08/15/19 allopurinol 100 mg tablet 100 mg PO Q12H gout 05/02/20 rosuvastatin 5 mg tablet 5 mg PO DAILY cholesterol 05/02/20 finasteride 5 mg tablet 5 mg PO DAILY bph 11/08/21 metoprolol tartrate 100 mg tablet 100 mg PO BID heart rate #180 tabs 07/01/23 furosemide 40 mg tablet 40 mg PO BID chf #180 TABLETS 04/27/24 ascorbic acid (vitamin C) 1,000 mg 1 g PO DAILY supplement 10/05/24 tablet (Vitamin C) ergocalciferol (vitamin D2) 1,250 1,250 mcg PO DAILY supplement 10/05/24 mcg (50,000 unit) capsule (Vitamin D2) glimepiride 1 mg tablet 1 mg PO DAILY dm 10/05/24 insulin glargine 100 unit/mL (3 50 unit subcut QHS diabetes 10/05/24 mL) subcutaneous pen (Basaglar KwikPen U-100 Insulin) isosorbide mononitrate 30 mg 30 mg PO DAILY heart health 10/05/24 tablet,extended release 24 hr lysine 500 mg tablet 500 mg PO DAILY supplement 10/05/24 sennosides 25 mg tablet (Laxative 25 mg PO QHS mowefrsa 10/05/24 (sennosides)) sennosides 8.6 mg-docusate sodium 1 tab-cap PO DAILY constipation 10/05/24 50 mg tablet sitagliptin 50 mg tablet 50 mg PO DAILY dm 10/05/24 tamsulosin 0.4 mg capsule 0.4 mg PO DAILY bph 10/05/24 potassium chloride 10 mEq 10 meq PO DAILY supplement #90 tabs 10/20/24 tablet,extended release Allergies Allergies hydrocodone Allergy (Verified 10/05/24 09:33) rash rash morphine Allergy (Verified 10/05/24 09:33) Vomiting Sleep Disorder Evaluation Hx of Sleep Apnea: Yes Do you snore loudly (louder than talking or can be heard through closed doors)?: No Do you often feel tired/ fatigued/ sleepy during daytime?: No Has anyone observed you stop breathing during sleep?: No History of Hypertension (for STOP score): No STOP Results: Negative Advanced Directives Advanced Directives Do you have a Healthcare Power of Dust Collector Attendant?: Yes Living Will: Yes Advance Directives Information Provided: Yes Advance Directives on File: Yes DNR Order?:: No Past Medical History Covid-19 Screening Physicial Symptoms Other Clinical Concerns Exposure Risk Pertinent Comorbidities 65 years or older:: Yes Has a serious heart condition:: Yes Diabetic:: Yes Past Medical Illness Medical History Right knee pain Loss of hearing Wears glasses Wears dentures Alcohol use Diabetes Arthritis Prostate disease High cholesterol Back pain Loss of consciousness Dietary restriction Gastric reflux Former smoker CPAP (continuous positive airway pressure) dependence COPD (chronic obstructive pulmonary disease) Shortness of breath on exertion Leg cramps History of pain when walking History of Holter monitoring History of echocardiogram Cardiology follow-up encounter History of CHF (congestive heart failure) Left bundle branch block CAD (coronary artery disease) Presence of stent in coronary artery (~03/03/14) Pure hypercholesterolemia Essential hypertension Atherosclerosis of [place] coronary artery of [place]inee heart without angina pectoris Benign prostate hyperplasia Past Surgical History Past Surgical History (Updated 10/13/24 @ 00:01 by Background Danitza) Presence of coronary angioplasty implant and graft (~03/03/14) Z95.5 PTCA/ANY to mid RCA 03/18/11 @ [facility]; PTCA/ANY to the mid RCA 06/20/11 @ [facility]; PTCA/ANY to diagonal branch of LAD 03/03/14 @ [facility] History of aortic valve replacement with bioprosthetic valve (~01/09/11) Z95.3 29mm [employer] tissue valve 01/09/11 @ [facility] History of right hip replacement (03/28/09) Z96.641 Hx of CABG (~01/09/11) Z95.1 CABG x4- MERRITT to LAD, SVG to OM2, and Sequential SVG to RPDA and RPL 01/09/11 @ [facility] History of tonsillectomy Z90.89 Surgical History: total hip arthroplasty Family History Summary Family History (Updated 10/05/24 @ 15:49 by Isha Zacarias) Father CAD (coronary artery disease) Mother CAD (coronary artery disease) Sister Cancer Other Atherosclerosis of [place] coronary artery of [place] heart without angina pectoris Social History Smoking History Smoking Status: Former smoker Years Smokin Packs Smoked per Day: 1.5 (stopped in Mar) Alcohol Use Alcohol Usage: Yes (rare) Occupation Occupation (List type of work in comments):: Retired Social Environment Status Marital Status: Current Living Arrangements Living Environment:: Spouse Safety Do you feel safe in your surroundings?: Yes Assistance Do you need any assistance at home?: no Review of Systems Review of Systems Hints Review of Present Symptoms: Reports Shortness of Breath with Exertion, Dizziness/Lightheadedness, Fatigue, Appetite - Normal, Appetite - Special Diet and Sleep - Normal; Denies Shortness of Breath at Rest, PVD, Operative Discomfort, Angina, Wound Healing, Heart Arrhythmia/Irregularities or Sexual Changes Pain Is Patient Pain Free?: Yes Risk Factor Assessment Chief Complaint Chief Complaint: S/P TAVR Vital Signs Pulse Ox: 93 Blood Pressure: 110/52 Pulse Pulse Rate: 71 Pulse Rhythm: Regular Hypertension Blood Pressure Sitting - Right Arm: 110/52 Diabetes Diabetic History: Type II Nutrition Referral for Diabetes: No Obesity Height: 5 ft 11 in Weight:: 308 lb Weight in Pounds: 308.0 lbs Body Mass Index (BMI): 42.9 Nutritional Referral for Obesity: No Physical Inactivity Physical Inactivity: None Risk Stratification Risk Guidelines: Moderate Risk: Risk Factor for Smoking, Risk Factor for Sedentary Lifestyle and Risk Factor for Depression and Highest Risk: Risk Factor for Dyslipidemia, Risk Factor for Diabetes, Risk Factor for Obesity and Risk Factor for Hypertension For Smoking Smoking Risk Guidelines For Dyslipidemia Dyslipidemia Risk Guidelines For Diabetes Mellitus Diabetes Risk Guidelines For Obesity/Overweight Obesity/Overweight Risk Guidelines For Hypertension Hypertension Risk Guidelines For Sedentary Lifestyle Sedentary Lifestyle Risk Guidelines For Depression Depression Risk Guidelines Family History Family History (Updated 10/05/24 @ 15:49 by Isha Zacarias) Father CAD (coronary artery disease) Mother CAD (coronary artery disease) Sister Cancer Other Atherosclerosis of [place]inee coronary artery of [place] heart without angina pectoris Motivation Motivation to Participate On a scale of 1 to 10, how prepared are you to commit to attending program?: 7 What do you see as barriers to successfully being able to complete the program?: nothing What do you see as the benefits of succesfully completing the program? In other words, what do you hope to get out of participating in the program?: get back to work Are there issues you are dealing with that will interfere with completing the program?: no Do you have a spouse or signficant other, family or friends who will help support you to complete the program?: yes
--- NOTE | 2024-12-06 13:01 | PCM.CR.ITP ---
Diagnosis General Information Admitting Diagnosis: S/P TAVR Personal Learning Style:: Audio/Visual Barriers to Learning: No Barriers Stage of change r/t lifestyle modifications:: Contemplation Gave educational material for:: Treating Heart Disease, How The Heart Works, What it means to have Heart Disease, How Coronary Artery Disease is Diagnosed, Heart Procedures, What Heart Medications Do, Risk Factors & Modifications, Living an Active Life, Nutrition, Emotions & Heart Disease, Stress Management & Relaxation and Sleep Disorders & Heart Disease Education/Goals Cardiac Rehabilitation Goals Personal Goals: Initial Assessment: Improve energy level, Participate in home exercise program, Get back to work, or to resume activities faster, Improve knowledge of cardiac disease, Improve muscle strength and endurance, Improve diet and eating habits (eat healthier) and Control risk factors (learn risk factor modification) Scale for measuring improvement of personal goals Diagnosis & Disease Process Outcomes/Goals: Pt IDs own risk factors & lifestyle modifications by Session 10, Verbalizes symptoms of angina & response by session 3., Pt independently manages and Other Additional Outcomes/Goals: Plan/Interventions: Assist Pt to ID & engage in lifestyle modification to reduce CVD risk, Instruct on individual risk factors, Review symptoms of angina & emergency actions, Review secondary diagnosis & identify educational needs. and Other see comment 30 day Reassessments:: Not Met 30 day Reassessments:: Not Met 30 day Reassessments:: Not Met 30 day Reassessments:: Not Met Final Reassessments:: Not Met Safety Referral to Physical Therapy: No Referral to [facility] Case Management: No Fall Risk Assessed:: Yes Assistive Devices:: Wheelchair Exercise - Initial Assessment Visit Date of Eval: 12/06/24 (initial eval ) Mets: Pre-: >3 METS for 30 minutes by discharge, >5 METS for 30 minutes by discharge, >7 METS for 30 minutes by discharge and Unable to meet goal due to: (see comment below) Physician Prescribed Exercise Modalities: Treadmill, Rower, Schwinn Airdyne AD-7, SciFit Stepper, SciFit Pro-II Ergometer and SciFit Lateral Admissions Gate Attendant Frequency: 3x/week for 12 weeks [36 sessions] Intensity: 60-80% of age predicted maximum heart rate reserve Duration: 30 - 45 minutes Current METSs:: 3 Target Heart Rate:: 88-110 Resting Blood Pressure: 110/52 EKG Type: NSR RBBB Outcomes & Goals Goals:: Verbalizes understanding of THR, RPE & goal METS by session 6, Documents in home exercise log/reports 30 min aerobic 5 day/wk by DC, Demonstrates accurate pulse taking by DC and Other additional outcome/goals: see below Intervention & Plan Exercise Program Goals: Instruct on personal THR & RPE, Instruct on MET level & personal MET goal, Show patient to take own pulse /validate performance until accurate, Instruct on home exercise and Other additional plan/int Physical Activity Home Exercise Physical Activity - Home Exercise: Safe Exercise, Warm-up, Self-monitoring, Cool-Down, Home Exercise > 30 min Daily and Sitting Time <3 hours/daily Outcomes & Goals Outcomes/Goals: Demonstrates correct Warm-up/exercise Cool-Down (S3) if = 2.5 METs, Verbalizes symptoms of exercise intolerance by Session 3 (S3), Demonstrate safe equipment use (S3) & follows exercise prescrition (6) and Other: See below Intervention & Plan Plan/Intervention: Instruct warm-up & cool-down if exercising at > 2 METs, Instruct on symptoms of exercise intolerance & actions to take, Instruct & monitor on saf, Assess intial functional capacity & safety risk and Other See below Nutrition - Initial Assessment Program Goals Nutrition Program Goals Patient has diagnosis of Hyperlipidemia (ICD E78)?: Yes Visit Date of Eval: 12/06/24 (initial eval ) Cholesterol/Lipids (Other Core Measures) Determine presence & major risk factors that modify LDL goal: Cigarette smoking, Hypertension or hypertensive medication, Low HDL cholesterol <40 mg/dL*, Family history of premature CHD in Male < 55 years: female <65 yearsFa and Age men > 45 years; women >/= 55 years Outcomes/Goals: Pt IDs own risk factors & lifestyle modifications by Session 10, Verbalizes symptoms of angina & response by session 3., Pt independently manages and Other Additional Outcomes/Goals: Intervention/Plan: Advocate for lipid panel cholesterol medication if applicable, Instruct on personal lipid levels & lipid goals/NCEP guidelines, Instruct on cholesterol and Other additional plan/int Diabetes (Other Core Measures) Diabetes Type: Diagnosis Type II ICD-10 E11 Insulin dependent injection/pump?: Yes Non-Insulin Dependent?: No Do you monitor your blood sugar at home?: Yes Weight Mgt (Other Care) Height: 5 ft 11 in Weight:: 308 lb BMI: 42.9 Diagnosis Overweight/Obesity BMI> 30% ICD-10 E66: Yes Diagnosis High BMI/Morbid Obesity BMI> 35% ICD-10 Z68: Yes Outcomes/Goals: Pt sets, maintains & shows weight loss goal & trend during rehab and Other additional outcomes/goals Intervention/Plan: Instruct on ideal BMI & set weight loss goal w/patient, Assist pt to ID & incorporate diet changes for weight loss by S9, Refer to Structured Weight Loss program as appropriate, Encourage goal of using 250-300dcal per session for weight loss and Other additional plan/interventions Healthy Eating Habits Will attend diet classes:: Yes Outcomes/Goals:: Consume diet rich in vegs,fruits,whole grain/high fiber,fish,lean meat, Limit sat/trans fats,cholesterol & added salts & sugars and Other additional outcome/goals: Intervention/Plan:: Assess current eating habits and Other Additional plan/interventions Education Gave educational materials for:: Signs & symptoms of hypoglycemia, Signs & symptoms of hyperglycemia, Relate diabetes to coronary artery disease and Healthy eating Core - Initial Assessment Visit Date of Eval: 12/06/24 (initial eval ) Medication Compliance Preventative Medication(s):: Aspirin, SYLVIA inhibitor, Clopidogrel/P2Y12 inhibit and Statin/lipid H/O mental health issues: depression, anxiety, or addiction?: No Doesn’t believe in the benefits of treatment?: No Believes medications are unnecessary or harmful?: No Has a concern about medication side effects?: No Expresses concern over the cost of medications?: No Outcomes/Goals: Verbalizes medications,desired effect & common side effects @ DC, Pt self-reports following medication regimen, Keeps card in wallet w/medications listed by DC and Other additional outcome/goals: Interventions/plans: Instruct on medication effects & side effects, Review medication list w/patient every two weeks, Instruct importance of taking meds as ordered & assist problem solving and Other additional Tobacco Use Tobacco Use: Non-smoker How long ago did you quit using tobacco products?: Greater than or equal to 6 months ago Years Smokin (stopped in 2008) Outcomes/Goals: Smoking cessation achieved or maintained by discharge, Identify aids/strategies for achieving smoking cessation by session 6 and Other additional outcome/goals Interventions/plan: Instruct on effects of smoking & provide smoking cessation resource, Assist pt to set quit date & provide encouragement, Assist pt to develop strategies to achieve/maintain quit date, Assist pt w/nicotine replacement & medication for cessation success and Other additional plan/interventions Hypertension Hypertension Diagnosis:: Hypertension ICD-10 I10 Resting Blood Pressure:: 110/52 [employer] Hypertension Guidelines Outcomes/Goals: Able to verbalize/achieve optimal blood pressure <130/80, Incorporates diet changes & exercise for blood pressure control by DC and Other additional outcomes/goals Interventions/plan: Instruct on optimal blood pressure, hypertension & medications, Instruct on effects of sodium, alcohol, stress, exercise &hypertension and Other additional plan/interventions Tobacco Cessation Referral Smoking Cessation Referral:: No Individual Education/Counseling:: No Education Schedule Given:: Yes Psychosocial - Initial Assess VIsit Date of Eval: 12/06/24 (initial eval ) History of previous Mental disease:: No Target Goals Target Goals Psychosocial Test Tool Used:: PHQ-9 Questionnaire phq-9 Severity See PHQ-9 Score: 2 Referral to Behavioral Health PS - Interventions: Yes: Attend Stress Management Classes Outcomes/Goals: See list Psychosocial Outcomes/Goals:: ID's personal stressors & 2 strategies to manage stress by discharge and Other Additional outcome/goals: Intervention/Plan: See List Interventions/Plan:: Assess stressors,coping strategies & signs of derpression on admission, Instruct/assist pt to develop coping & personal stress Mgt strategies, Refer to Behavioral Health if appropriate, Refer to Physician if appropriate, Instruct patient to recognize signs & symptoms of depression, Instruct patient to recog and Other additional plan/intervention Patient Health Questionnaire PHQ-9 Screening Initial Assessment: 1. Little interest or pleasure in doing things: Not at all 2. Feeling down, depressed, or hopeless: Not at all 3. Trouble falling or staying asleep, or sleeping too much: Several days 4. Feeling tired or having little energy: Several days 5. Poor appetite or overeating: Not at all 6. Feeling bad about yourself -- or that you are a failure or have let yourself or your family down: Not at all 7. Trouble concentrating on things, such as reading the newspaper or watching television: Not at all 8. Moving or speaking so slowly that other people could have noticed. Or the opposite - being so fidgety or restless that you have been moving around a lot more than usual: Not at all 9. Thoughts that you would be better off , or of hurting yourself in some way: Not at all How difficult have these problems made it for you to do your work, take care of things at home, or get along with other people?: Somewhat difficult Total Score: 2 TYLER-Q SV Test Statements CAD is a disease of the arteries in the heart: False Examples of risk factors for heart disease: True Angina is chest pain or discomfort: True The benefits of resistance training include: True Eating more meat and dairy products: I Don't Know Anti-platelet medications such as aspirin are important: True The only effective way to manage stress: False An exercise warm-up slowly increases heart rate: I Don't Know Prepared, processed foods usually have high sodium: True Depression is common after a heart attack: True The statin medications lower cholesterol: True To control blood pressure, lower the amount of sodium: True If someone gets chest discomfort during walking: False Transfats are partially hydrogenated vegetable oils: I Don't Know Sleep apnea that is not treated increases the risk: True To control cholesterol, one should become a vegetarian: False Someone knows if he/she is exercising at the right level: True Diabetes cannot be prevented with exercise & health eating: False Stress is a large risk for heart attack: True A diet that can help lower blood pressure is rich in: True Total Score Total Correct Responses: 16 Self-Efficacy 6-Item Scale Initial Assessment: We would like to know how confident you are in doing certain activities. Please select your confidence level for: Fatigue Select Number: 7 Physical Discomfort or Pain Select Number: 7 Emotional Distress Select Number: 9 Other Symptoms or Health Problems Select Number: 9 Different Tasks and Activities Select Number: 7 Medication Select Number: 7 Total Score:: 7 Nutrition Survey Nutrition Survey Instructions Scoring Instructions Nutrition Survey Initial: Have you lost >10 lbs over the past 2 months without trying?: Yes Are you following a special diet at home for diabetes, low fat, or low salt?: No Are you interested in meeting with a dietitian for help understanding your diet?: No Do you eat less than 3 meals a day?: Yes Do you eat fatty meats (simon, sausage, ribs, etc), fried foods, desserts, large amounts of salad dressings, margarine, butter, or cheese most days?: Yes Do you have food allergies? [Enter types in comment field]: No Do you eat in restaurants more than 3 times a week?: No Do you season food with salt, seasoning salt, or garlic salt?: Yes Do you used canned, boxed, frozen meals, or soups, seasoning packets?: Yes Total Score:: 5 Exercise - 30-day Assessment Physician Prescribed Exercise Modalities: Treadmill, Rower, Schwinn Airdyne AD-7, SciFit Stepper, SciFit Pro-II Ergometer and SciFit Lateral Admissions Gate Attendant Exercise - 60-day Assessment Physician Prescribed Exercise Modalities: Treadmill, Rower, Schwinn Airdyne AD-7, SciFit Stepper, SciFit Pro-II Ergometer and SciFit Lateral Admissions Gate Attendant Exercise - 90-day Assessment Physician Prescribed Exercise Modalities: Treadmill, Rower, Schwinn Airdyne AD-7, SciFit Stepper, SciFit Pro-II Ergometer and SciFit Lateral Admissions Gate Attendant Exercise - Final/Discharge Physician Prescribed Exercise Modalities: Treadmill, Rower, Schwinn Airdyne AD-7, SciFit Stepper, SciFit Pro-II Ergometer and SciFit Lateral [place] Frequency: 3x/week for 12 weeks [36 sessions] Intensity: 60-80% of age predicted maximum heart rate reserve Current METSs:: 3 Target Heart Rate:: 88-110 Nutrition - 30-Day Assessment Weight Mgt (Other Care) Height: 5 ft 11 in Weight:: 308 lb BMI: 42.9 Nutrition - 60-Day Assessment Weight Mgt (Other Care) Height: 5 ft 11 in Weight:: 308 lb BMI: 42.9 Core - 30-Day Assessment Tobacco Use Years Smokin (stopped in 2008) Core - Final Assessment Hypertension Resting Blood Pressure:: 110/52 [employer] Hypertension Guidelines Core - 60-Day Assessment Hypertension Resting Blood Pressure:: 110/52 [employer] Hypertension Guidelines Psychosocial - 30-Day Assess Target Goals Target Goals Referral to Behavioral Health PS - Interventions: Yes: Attend Stress Management Classes Psychosocial - 60-Day Assess Target Goals Target Goals Referral to Behavioral Health PS - Interventions: Yes: Attend Stress Management Classes Psychosocial - 90-Day Assess Target Goals Target Goals Referral to Behavioral Health PS - Interventions: Yes: Attend Stress Management Classes Psychosocial - Final Assessmen Target Goals Target Goals Psychosocial Test phq-9 Severity See PHQ-9 Score: 2 Referral to Behavioral Health PS - Interventions: Yes: Attend Stress Management Classes Nutrition - 90-Day Assessment Weight Mgt (Other Care) Height: 5 ft 11 in Weight:: 308 lb BMI: 42.9 Nutrition - Final Assessment Program Goals Patient has diagnosis of Hyperlipidemia (ICD E78)?: Yes Weight Mgt (Other Care) Height: 5 ft 11 in Weight:: 308 lb BMI: 42.9
[2024-12-06 13:18] VITALS: BP 110/52; PULSE 71; O2SAT 93
[2024-12-06 13:59] VITALS: BP 110/52; BMI 42.9
[2024-12-06 14:00] VITALS: BMI 42.9
== END | disposition home or self-care (01) ==
PROVIDERS: PCP Family Medicine
DX: Z95.2 Presence of prosthetic heart valve (principal)

== ENCOUNTER 2024-12-14 10:25 | Outpatient (RCR) | payer MEDICARE, OTHER, SELFPAY ==
[2024-12-06 13:59] VITALS: BMI 42.9
== END 2024-12-15 23:59 ==
LOC: CR 10:25
PROVIDERS: PCP Family Medicine
DX: Z95.2 Presence of prosthetic heart valve (principal)
CPT/HCPCS: 93798

== ENCOUNTER 2024-12-16 14:09 | Outpatient (CLI) | payer MEDICARE, OTHER, SELFPAY ==
[2024-12-06 13:59] VITALS: BMI 42.9
[2024-12-16 18:25] LABS: Anion Gap 16 (5-15); BUN 43 mg/dL (4-19); BUN/Creat Ratio 24.5 RATIO (10-20); Calcium,Total 9.4 mg/dL (7.6-11.0); Carbon Dioxide 18.9 mmol/L (21.0-32.0); Chloride 104 mmol/L (98-108); Cholesterol 137 mg/dL (<=200); Glucose 265 mg/dL (70-99); Low Density Lipoprotein Calc. 35 mg/dL; Potassium 4.8 mmol/L (3.3-5.1); Triglycerides 359 mg/dL; Very Low Density Lipoprotein 72 mg/dL (5-40); cholesterol:hdl ratio screen 4.46
== END 2024-12-16 23:59 | disposition home or self-care (01) ==
LOC: MFPLAB 14:10
PROVIDERS: PCP Family Medicine; Visit Provider Family Medicine
DX: I42.9 Cardiomyopathy, unspecified (principal)
CPT/HCPCS: 36415; 80048; 80061

== ENCOUNTER 2025-01-13 10:15 | Outpatient (RCR) | payer MEDICARE, OTHER, SELFPAY ==
[2024-12-06 13:59] VITALS: BMI 42.9
--- NOTE | 2025-01-03 09:12 | PCM.CR.ITP ---
Exercise - Initial Assessment Visit Session #:: 7 Physician Prescribed Exercise Modalities: SciFit Stepper, SciFit Pro-II Ergometer and SciFit Lateral [place] Nutrition - Initial Assessment Weight Mgt (Other Care) Height: 5 ft 11 in Weight:: 297 lb BMI: 41.4 BMI (Report if calculated above): 41 Core - Initial Assessment Tobacco Use Years Smokin (stopped in 2008) Psychosocial - Initial Assess Target Goals Target Goals Referral to Behavioral Health PS - Interventions: Yes: Attend Stress Management Classes Patient Health Questionnaire PHQ-9 Screening 30-Day Re-eval Assessment: 1. Little interest or pleasure in doing things: Not at all 2. Feeling down, depressed, or hopeless: Not at all 3. Trouble falling or staying asleep, or sleeping too much: Several days 4. Feeling tired or having little energy: Several days 5. Poor appetite or overeating: Not at all 6. Feeling bad about yourself -- or that you are a failure or have let yourself or your family down: Not at all 7. Trouble concentrating on things, such as reading the newspaper or watching television: Not at all 8. Moving or speaking so slowly that other people could have noticed. Or the opposite - being so fidgety or restless that you have been moving around a lot more than usual: Not at all 9. Thoughts that you would be better off , or of hurting yourself in some way: Not at all How difficult have these problems made it for you to do your work, take care of things at home, or get along with other people?: Somewhat difficult Total Score: 2 Self-Efficacy 6-Item Scale 30-Day Re-eval Assessment: We would like to know how confident you are in doing certain activities. Please select your confidence level for: Fatigue Select Number: 7 Physical Discomfort or Pain Select Number: 7 Emotional Distress Select Number: 9 Other Symptoms or Health Problems Select Number: 9 Different Tasks and Activities Select Number: 7 Medication Select Number: 7 Total Score:: 7 Nutrition Survey Nutrition Survey Instructions Scoring Instructions Exercise - 30-day Assessment Visit Date of Eval: 01/03/25 Session #:: 7 Physician Prescribed Exercise Modalities: SciFit Stepper, SciFit Pro-II Ergometer and SciFit Lateral [place] Frequency: 3x/week for 12 weeks [36 sessions] Intensity: 60-80% of age predicted maximum heart rate reserve Duration: 30 - 45 minutes METs - Progression 0.5-1.0 weekly:: 0.5-1.0 Current METSs:: 3 Target Heart Rate:: 88-110 Target RPE 12-16:: 12-16 Current RPE:: 12 Maximum Excercise HR:: 102 Resting Blood Pressure: 142/66 Maximum Exercise Blood Pressure: 128/70 EKG Type: NSR RBBB to ST with occ PACs/multifocal PVCs Current Physical Activity or Exercising minutes: 30-45 Outcomes & Goals Goals:: Verbalizes understanding of THR, RPE & goal METS by session 6, Documents in home exercise log/reports 30 min aerobic 5 day/wk by DC and Demonstrates accurate pulse taking by DC Intervention & Plan Exercise Program Goals: Instruct on personal THR & RPE, Instruct on MET level & personal MET goal, Show patient to take own pulse /validate performance until accurate and Instruct on home exercise 30-day Reassessments 30 day Reassessments:: Progressing Reassessment Notes & Comments:: Pt instructed on RPE scale and able to verbalize understanding of scale and uses appropriately during exercise sessions. Physical Activity Home Exercise Physical Activity - Home Exercise: Safe Exercise, Warm-up, Self-monitoring, Cool-Down, Home Exercise > 30 min Daily and Sitting Time <3 hours/daily Outcomes & Goals Outcomes/Goals: Demonstrates correct Warm-up/exercise Cool-Down (S3) if = 2.5 METs, Verbalizes symptoms of exercise intolerance by Session 3 (S3) and Demonstrate safe equipment use (S3) & follows exercise prescrition (6) Intervention & Plan Plan/Intervention: Instruct warm-up & cool-down if exercising at > 2 METs, Instruct on symptoms of exercise intolerance & actions to take, Instruct & monitor on saf and Assess intial functional capacity & safety risk Comment: Pt demonstrates correct warm up and cool down during exercise session. 30-day Reassessments 30 day Reassessments:: Progressing Exercise - 60-day Assessment Physician Prescribed Exercise Modalities: SciFit Stepper, SciFit Pro-II Ergometer and SciFit Lateral [place] Exercise - 90-day Assessment Physician Prescribed Exercise Modalities: SciFit Stepper, SciFit Pro-II Ergometer and SciFit Lateral [place] Exercise - Final/Discharge Physician Prescribed Exercise Modalities: SciFit Stepper, SciFit Pro-II Ergometer and SciFit Lateral [place] Nutrition - 30-Day Assessment Program Goals Nutrition Program Goals Patient has diagnosis of Hyperlipidemia (ICD E78)?: Yes Visit Date of Eval: 01/03/25 Session #:: 7 Cholesterol/Lipids (Other Core Measures) Triglycerides (mg/dL): 359 Total Cholesterol (mg/dL): 137 LDL Cholesterol (mg/dL): 35 HDL Cholesterol (mg/dL): 31 Lipid Medication: rosuvastatin 5mg daily Determine presence & major risk factors that modify LDL goal: Cigarette smoking, Hypertension or hypertensive medication, Low HDL cholesterol <40 mg/dL* and Age men > 45 years; women >/= 55 years Outcomes/Goals: Pt IDs own risk factors & lifestyle modifications by Session 10, Verbalizes symptoms of angina & response by session 3. and Pt independently manages Intervention/Plan: Advocate for lipid panel cholesterol medication if applicable, Instruct on personal lipid levels & lipid goals/NCEP guidelines, Instruct on cholesterol and Other additional plan/int 30-day Reassessments:: Progressing Reassessment Notes & Comments:: Pt taking lipid medication as prescribed. Pt with recent lipid panel. Diabetes (Other Core Measures) Diabetes Type: Diagnosis Type II ICD-10 E11 Hgb A1C (4.2 -6.3): 6.8 Insulin dependent injection/pump?: No Non-Insulin Dependent?: Yes Do you monitor your blood sugar at home?: Yes Outcomes/Goals:: Able to state symptoms of (hyper/hypoglycemia, actions to take & relationship) Intervention/Plan:: Instruct on (monitoring blood sugars at home ) 30-day Reassessments:: Progressing Reassessment Notes & Comments:: Pt taking all diabetic medications as prescribed and monitoring blood sugars Weight Mgt (Other Care) Not Applicable: Yes Height: 5 ft 11 in Weight:: 297 lb BMI: 41.4 BMI (Report if calculated above): 41 Diagnosis Overweight/Obesity BMI> 30% ICD-10 E66: Yes Diagnosis High BMI/Morbid Obesity BMI> 35% ICD-10 Z68: Yes Outcomes/Goals: Pt sets, maintains & shows weight loss goal & trend during rehab Intervention/Plan: Instruct on ideal BMI & set weight loss goal w/patient, Assist pt to ID & incorporate diet changes for weight loss by S9, Refer to Structured Weight Loss program as appropriate and Encourage goal of using 250-300dcal per session for weight loss 30 day Reassessments:: Progressing Reassessment Notes & Comments:: Pt continues to monitor weekly weight in class, pt showing weight loss trend so far in rehab. Healthy Eating Habits Will attend diet classes:: Yes Outcomes/Goals:: Consume diet rich in vegs,fruits,whole grain/high fiber,fish,lean meat and Limit sat/trans fats,cholesterol & added salts & sugars Intervention/Plan:: Assess current eating habits 30-day Reassessments:: Progressing Reassessment Notes & Comments:: Pt to attend healthy eating habits classes. Education Gave educational materials for:: Signs & symptoms of hypoglycemia, Signs & symptoms of hyperglycemia, Relate diabetes to coronary artery disease and Healthy eating Nutrition - 60-Day Assessment Weight Mgt (Other Care) Height: 5 ft 11 in Weight:: 297 lb BMI: 41.4 BMI (Report if calculated above): 41 Core - 30-Day Assessment Visit Date of Eval: 01/03/25 Session #:: 7 Medication Compliance Preventative Medication(s):: Aspirin, SYLVIA inhibitor, Clopidogrel/P2Y12 inhibit, Statin/lipid and Beta yohan H/O mental health issues: depression, anxiety, or addiction?: No Doesn?t believe in the benefits of treatment?: No Believes medications are unnecessary or harmful?: No Has a concern about medication side effects?: No Expresses concern over the cost of medications?: No Outcomes/Goals: Verbalizes medications,desired effect & common side effects @ DC, Pt self-reports following medication regimen and Keeps card in wallet w/medications listed by DC Interventions/plans: Instruct on medication effects & side effects, Review medication list w/patient every two weeks and Instruct importance of taking meds as ordered & assist problem solving 30-day Reassessments:: Progressing Reassessment Notes & Comments:: Pt taking all medications as prescribed. Tobacco Use Tobacco Use: Non-smoker How long ago did you quit using tobacco products?: Greater than or equal to 6 months ago Years Smokin (stopped in 2008) Outcomes/Goals: Smoking cessation achieved or maintained by discharge 30-day Reassessments:: Met Reassessment Notes & Comments:: Pt quit smoking in 2008 Hypertension Hypertension Diagnosis:: Hypertension ICD-10 I10 Resting Blood Pressure:: 142/66 [place] [employer] Hypertension Guidelines Peak Exercise Blood Pressure:: 128/70 Outcomes/Goals: Able to verbalize/achieve optimal blood pressure <130/80 and Incorporates diet changes & exercise for blood pressure control by DC Interventions/plan: Instruct on optimal blood pressure, hypertension & medications and Instruct on effects of sodium, alcohol, stress, exercise &hypertension 30 day Reassessments:: Progressing Reassessment Notes & Comments:: Pt taking all antihypertensive medications as prescribed. Pt instructed on optimal blood pressure and low sodium diet. Pt verbalizes understanding. Core - Final Assessment Hypertension [place] [employer] Hypertension Guidelines Reassessment Notes & Comments:: Pt taking all antihypertensive medications as prescribed. Pt instructed on optimal blood pressure and low sodium diet. Pt verbalizes understanding. Core - 90 Day Assessment Hypertension [place] [employer] Hypertension Guidelines Reassessment Notes & Comments:: Pt taking all antihypertensive medications as prescribed. Pt instructed on optimal blood pressure and low sodium diet. Pt verbalizes understanding. Psychosocial - 30-Day Assess VIsit Date of Eval: 01/03/25 Session #:: 7 History of previous Mental disease:: No History of Emotional Disorders: None Target Goals Target Goals Psychosocial Test Tool Used:: PHQ-9 Questionnaire phq-9 Severity See PHQ-9 Score: 2 Total Score:: 2 Referral to Behavioral Health PS - Interventions: Yes: Attend Stress Management Classes Outcomes/Goals: See list Psychosocial Outcomes/Goals:: ID's personal stressors & 2 strategies to manage stress by discharge Intervention/Plan: See List Interventions/Plan:: Assess stressors,coping strategies & signs of derpression on admission, Instruct/assist pt to develop coping & personal stress Mgt strategies, Refer to Behavioral Health if appropriate, Refer to Physician if appropriate and Instruct patient to recognize signs & symptoms of depression 30-day Reassessments: 30 day Reassessments:: Progressing Reassessment Notes & Comments:: Pt denies any psychosocial needs at this time. Pt to attend stress management classes. Psychosocial - 60-Day Assess Target Goals Target Goals Referral to Behavioral Health PS - Interventions: Yes: Attend Stress Management Classes Outcomes/Goals: See list Psychosocial Outcomes/Goals:: ID's personal stressors & 2 strategies to manage stress by discharge Psychosocial - 90-Day Assess Target Goals Target Goals Referral to Behavioral Health PS - Interventions: Yes: Attend Stress Management Classes Psychosocial - Final Assessmen Target Goals Target Goals Referral to Behavioral Health PS - Interventions: Yes: Attend Stress Management Classes Nutrition - 90-Day Assessment Weight Mgt (Other Care) Height: 5 ft 11 in Weight:: 297 lb BMI: 41.4 BMI (Report if calculated above): 41 Nutrition - Final Assessment Weight Mgt (Other Care) Height: 5 ft 11 in Weight:: 297 lb BMI: 41.4 BMI (Report if calculated above): 41
[2025-01-03 09:23] VITALS: BP 142/66
[2025-01-03 09:37] VITALS: BMI 41.0; BMI 41.4
[2025-01-03 09:42] VITALS: BP 142/66
== END 2025-01-15 23:59 ==
LOC: CR 10:15
PROVIDERS: PCP Family Medicine
DX: Z95.2 Presence of prosthetic heart valve (principal)
CPT/HCPCS: 93798

== ENCOUNTER → 2025-01-31 | Outpatient (CLI) | payer MEDICARE, OTHER, SELFPAY ==
[2025-01-03 09:37] VITALS: BMI 41.4
[2025-01-31 12:47] LABS: PSA,Total - Annual Screen 42.80 ng/mL (0.02-4.00)
== END | disposition home or self-care (01) ==
LOC: MFPLAB 10:02
PROVIDERS: PCP Family Medicine; Visit Provider Nurse Practitioner Family
DX: Z12.5 Encounter for screening for malignant neoplasm of prostate (principal)
CPT/HCPCS: 36415; 84153; G0103

== ENCOUNTER 2025-02-08 10:15 | Outpatient (RCR) | payer MEDICARE, OTHER, SELFPAY ==
[2025-01-03 09:37] VITALS: BMI 41.4
--- NOTE | 2025-02-01 08:23 | CR.ITP_ITS ---
Exercise - Initial Assessment Physician Prescribed Exercise Modalities: SciFit Stepper and Koko Pro-II Ergometer Nutrition - Initial Assessment Weight Mgt (Other Care) Height: 5 ft 11 in Weight:: 297 lb BMI: 41.4 BMI (Report if calculated above): 41 Core - Initial Assessment Hypertension Resting Blood Pressure:: 122/64 [place] [employer] Hypertension Guidelines Psychosocial - Initial Assess Referral to Behavioral Health PS - Interventions: Yes: Attend Stress Management Classes Patient Health Questionnaire PHQ-9 Screening 60-Day Re-eval Assessment: 1. Little interest or pleasure in doing things: Not at all 2. Feeling down, depressed, or hopeless: Not at all 3. Trouble falling or staying asleep, or sleeping too much: Several days 4. Feeling tired or having little energy: Several days 5. Poor appetite or overeating: Not at all 6. Feeling bad about yourself -- or that you are a failure or have let yourself or your family down: Not at all 7. Trouble concentrating on things, such as reading the newspaper or watching television: Not at all 8. Moving or speaking so slowly that other people could have noticed. Or the opposite - being so fidgety or restless that you have been moving around a lot more than usual: Not at all 9. Thoughts that you would be better off , or of hurting yourself in some way: Not at all How difficult have these problems made it for you to do your work, take care of things at home, or get along with other people?: Somewhat difficult Total Score: 2 Self-Efficacy 6-Item Scale 60-Day Re-eval Assessment: We would like to know how confident you are in doing certain activities. Please select your confidence level for: Fatigue Select Number: 7 Physical Discomfort or Pain Select Number: 7 Emotional Distress Select Number: 9 Other Symptoms or Health Problems Select Number: 9 Different Tasks and Activities Select Number: 7 Medication Select Number: 7 Total Score:: 7 Nutrition Survey Nutrition Survey Discharge: Have you lost >10 lbs over the past 2 months without trying?: Yes Are you following a special diet at home for diabetes, low fat, or low salt?: No Are you interested in meeting with a dietitian for help understanding your diet?: No Do you eat less than 3 meals a day?: Yes Do you eat fatty meats (simon, sausage, ribs, etc), fried foods, desserts, large amounts of salad dressings, margarine, butter, or cheese most days?: Yes Do you have food allergies? [Enter types in comment field]: No Do you eat in restaurants more than 3 times a week?: No Do you season food with salt, seasoning salt, or garlic salt?: Yes Do you used canned, boxed, frozen meals, or soups, seasoning packets?: Yes Total Score:: 5 Exercise - 30-day Assessment Physician Prescribed Exercise Modalities: SciFit Stepper and Koko Pro-II Ergometer Exercise - 60-day Assessment Visit Date of Eval: 02/01/25 Session #:: 13 Physician Prescribed Exercise Modalities: SciFit Stepper and CIRQYFit Pro-II Ergometer Frequency: 3x/week for 12 weeks [36 sessions] Intensity: 60-80% of age predicted maximum heart rate reserve Duration: 30 - 45 minutes METs - Progression 0.5-1.0 weekly:: 0.5-1.0 Current METSs:: 4 Target Heart Rate:: 88-110 Target RPE 11-14 Current RPE:: 11-14 Current RPE:: 14 Maximum Excercise HR:: 109 Resting Blood Pressure: 106/60 Maximum Exercise Blood Pressure: 120/60 EKG Type: NSR to ST RBBB occ PACs/multifocal pvcs Current Physical Activity or Exercising minutes: 30-45 Outcomes & Goals Goals:: Verbalizes understanding of THR, RPE & goal METS by session 6, Documents in home exercise log/reports 30 min aerobic 5 day/wk by DC and Demonstrates accurate pulse taking by DC Intervention & Plan Exercise Program Goals: Instruct on personal THR & RPE, Instruct on MET level & personal MET goal, Show patient to take own pulse /validate performance until accurate and Instruct on home exercise 30-day Reassessments 30 day Reassessments:: Met Physical Activity Home Exercise Physical Activity - Home Exercise: Safe Exercise, Warm-up, Self-monitoring, Cool-Down, Home Exercise > 30 min Daily and Sitting Time <3 hours/daily Outcomes & Goals Outcomes/Goals: Demonstrates correct Warm-up/exercise Cool-Down (S3) if = 2.5 METs, Verbalizes symptoms of exercise intolerance by Session 3 (S3) and Demonstrate safe equipment use (S3) & follows exercise prescrition (6) Intervention & Plan Plan/Intervention: Instruct warm-up & cool-down if exercising at > 2 METs, Instruct on symptoms of exercise intolerance & actions to take, Instruct & monitor on saf and Assess intial functional capacity & safety risk 30-day Reassessments 30 day Reassessments:: Progressing Reassessment Notes & Comments:: Pt demonstrates correct warm up/cool down with minimal direction, pt demonstrates safe use of equipment Exercise - 90-day Assessment Physician Prescribed Exercise Modalities: SciFit Stepper and SciFit Pro-II Ergometer Exercise - Final/Discharge Physician Prescribed Exercise Modalities: SciFit Stepper and SciFit Pro-II Ergometer Nutrition - 30-Day Assessment Weight Mgt (Other Care) Height: 5 ft 11 in Weight:: 297 lb BMI: 41.4 BMI (Report if calculated above): 41 Nutrition - 60-Day Assessment Program Goals Nutrition Program Goals Patient has diagnosis of Hyperlipidemia (ICD E78)?: Yes Visit Date of Eval: 02/01/25 Session #:: 13 Cholesterol/Lipids (Other Core Measures) Total Triglycerides (mg/dL): 359 Total Cholesterol: 137 LDL Cholesterol (mg/dL): 35 HDL Cholesterol (mg/dL): 31 Lipid Medication: Rosuvastatin 5mg daily Determine presence & major risk factors that modify LDL goal: Cigarette smoking, Hypertension or hypertensive medication, Low HDL cholesterol <40 mg/dL*, Family history of premature CHD in Male < 55 years: female <65 yearsFa and Age men > 45 years; women >/= 55 years Outcomes/Goals: Pt IDs own risk factors & lifestyle modifications by Session 10, Verbalizes symptoms of angina & response by session 3., Pt independently manages and Other Additional Outcomes/Goals: Intervention/Plan: Advocate for lipid panel cholesterol medication if applicable, Instruct on personal lipid levels & lipid goals/NCEP guidelines and Instruct on cholesterol 30-day Reassessments:: Progressing Reassessment Notes & Comments:: Pt with recent lipid panel and taking lipid medication as prescribed, pt encouraged to include dietary and lifestyle changes to promote lower cholesterol Diabetes (Other Core Measures) Diabetes Type: Diagnosis Type II ICD-10 E11 Hgb A1C (4.2 -6.3): 6.8 Insulin dependent injection/pump?: No Non-Insulin Dependent?: Yes Do you monitor your blood sugar at home?: Yes 30-day Reassessments:: Progressing Reassessment Notes & Comments:: Pt monitoring BS at home, A1C 6.8, pt encouraged to follow Carb controlled cardiac diet and exercise at home Weight Mgt (Other Care) Not Applicable: Yes Height: 5 ft 11 in Weight:: 297 lb BMI: 41.4 BMI (Report if calculated above): 41 Diagnosis Overweight/Obesity BMI> 30% ICD-10 E66: Yes Diagnosis High BMI/Morbid Obesity BMI> 35% ICD-10 Z68: Yes Outcomes/Goals: Pt sets, maintains & shows weight loss goal & trend during rehab Intervention/Plan: Instruct on ideal BMI & set weight loss goal w/patient, Assist pt to ID & incorporate diet changes for weight loss by S9, Refer to Structured Weight Loss program as appropriate and Encourage goal of using 250- 300dcal per session for weight loss 30 day Reassessments:: Progressing Reassessment Notes & Comments:: Pt continues to monitor weekly weight in rehab, pt encouraged to incorporate dietary and lifestyle changes to promote weight loss Healthy Eating Habits Will attend diet classes:: Yes Outcomes/Goals:: Consume diet rich in vegs,fruits,whole grain/high fiber,fish,lean meat and Limit sat/trans fats,cholesterol & added salts & sugars Intervention/Plan:: Assess current eating habits 30-day Reassessments:: Progressing Reassessment Notes & Comments:: Pt to attend dietary classes while in rehab Education Gave educational materials for:: Signs & symptoms of hypoglycemia, Signs & symptoms of hyperglycemia, Relate diabetes to coronary artery disease and Healthy eating Core - Final Assessment Tobacco Use Years Smokin (Pt stopped smoking in 2008) Hypertension Resting Blood Pressure:: 122/64 [place] [employer] Hypertension Guidelines Core - 60-Day Assessment Visit Date of Eval: 02/01/25 Session #:: 13 Medication Compliance Preventative Medication(s):: Aspirin, SYLVIA inhibitor, Clopidogrel/P2Y12 inhibit, Statin/lipid and Beta yohan H/O mental health issues: depression, anxiety, or addiction?: No Doesn?t believe in the benefits of treatment?: No Believes medications are unnecessary or harmful?: No Has a concern about medication side effects?: No Expresses concern over the cost of medications?: No Outcomes/Goals: Verbalizes medications,desired effect & common side effects @ DC, Pt self-reports following medication regimen and Keeps card in wallet w/medications listed by DC Interventions/plans: Instruct on medication effects & side effects, Review medication list w/patient every two weeks and Instruct importance of taking meds as ordered & assist problem solving 30-day Reassessments:: Met Reassessment Notes & Comments:: Pt verbalizes taking all medications as prescribed. Tobacco Use Tobacco Use: Non-smoker How long ago did you quit using tobacco products?: Greater than or equal to 6 months ago Years Smokin (Pt stopped smoking in 2008) Outcomes/Goals: Smoking cessation achieved or maintained by discharge and Identify aids/strategies for achieving smoking cessation by session 6 Interventions/plan: Instruct on effects of smoking & provide smoking cessation resource, Assist pt to set quit date & provide encouragement, Assist pt to develop strategies to achieve/maintain quit date and Assist pt w/nicotine replacement & medication for cessation success 30-day Reassessments:: Met Hypertension Hypertension Diagnosis:: Hypertension ICD-10 I10 Resting Blood Pressure:: 106/60 Resting Blood Pressure:: 122/64 [place] [employer] Hypertension Guidelines Peak Exercise Blood Pressure:: 120/60 Outcomes/Goals: Able to verbalize/achieve optimal blood pressure <130/80 and Incorporates diet changes & exercise for blood pressure control by DC Interventions/plan: Instruct on optimal blood pressure, hypertension & medications and Instruct on effects of sodium, alcohol, stress, exercise &hypertension 30 day Reassessments:: Met Reassessment Notes & Comments:: Pt BP WNL Tobacco Cessation Referral Education Schedule Given:: Yes Psychosocial - 30-Day Assess Referral to Behavioral Health PS - Interventions: Yes: Attend Stress Management Classes Outcomes/Goals: See list Psychosocial Outcomes/Goals:: ID's personal stressors & 2 strategies to manage stress by discharge Psychosocial - 60-Day Assess VIsit Date of Eval: 02/01/25 Session #:: 13 History of previous Mental disease:: No History of Emotional Disorders: None Psychosocial Test Tool Used:: PHQ-9 Questionnaire phq-9 Severity See PHQ-9 Score: 2 Referral to Behavioral Health PS - Interventions: Yes: Attend Stress Management Classes Outcomes/Goals: See list Psychosocial Outcomes/Goals:: ID's personal stressors & 2 strategies to manage stress by discharge Intervention/Plan: See List Interventions/Plan:: Assess stressors,coping strategies & signs of derpression on admission, Instruct/assist pt to develop coping & personal stress Mgt strategies, Refer to Behavioral Health if appropriate, Refer to Physician if ap propriate and Instruct patient to recognize signs & symptoms of depression 30-day Reassessments: 30 day Reassessments:: Progressing Reassessment Notes & Comments:: Pt denies any psychosocial needs at this time. Pt to attend stress management classes while in rehab. Psychosocial - 90-Day Assess Referral to Behavioral Health PS - Interventions: Yes: Attend Stress Management Classes Psychosocial - Final Assessmen Referral to Behavioral Health PS - Interventions: Yes: Attend Stress Management Classes Nutrition - 90-Day Assessment Weight Mgt (Other Care) Height: 5 ft 11 in Weight:: 297 lb BMI: 41.4 BMI (Report if calculated above): 41 Nutrition - Final Assessment Weight Mgt (Other Care) Height: 5 ft 11 in Weight:: 297 lb BMI: 41.4 BMI (Report if calculated above): 41
[2025-02-01 08:27] VITALS: BP 106/60
[2025-02-01 08:38] VITALS: BP 106/60; BP 122/64; BMI 41.0
[2025-02-01 09:19] VITALS: BMI 41.4
== END 2025-02-14 23:59 ==
LOC: CR 10:15
PROVIDERS: PCP Family Medicine
DX: Z95.2 Presence of prosthetic heart valve (principal)
CPT/HCPCS: 93798

== ENCOUNTER → 2025-02-16 | Outpatient (CLI) | payer MEDICARE, OTHER, SELFPAY ==
[2025-02-01 09:19] VITALS: BMI 41.4
--- NOTE | 2025-02-16 07:33 | CT_ITS ---
PROCEDURE: LOW DOSE CT LUNG SCREENING 02/16/2025 REASON FOR EXAM: SCREEN TECHNIQUE: Procedure Code: [id number] Modality: CT Procedure: LOW DOSE CT LUNG SCREENING Coronal and Sagittal reconstruction series were provided. One or more dose reduction techniques were used (e.g., Automated exposure control, adjustment of the mA and/or kV according to patient size, use of iterative reconstruction technique). RADIATION DOSE SUMMARY: DLP: 141.95 mGycm COMPARISON: 10/05/2024 FINDINGS: Pulmonary Nodules: Calcified granulomata. No suspicious nodule or ground-glass opacity. Hardware:Status post TAVR. 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 Lymph Nodes:Calcified mediastinal and hilar lymph nodes Heart and Vasculature: Cardiomegaly. Status post median sternotomy for CABG. Status post TAVR. Calcifications of the mitral annulus. No pericardial effusion. Atherosclerosis of the aorta. No aneurysm. Lungs and Airways: Clear. No focal consolidation or mass. Pleura:No pneumothorax or effusion Upper Abdomen:Unremarkable Bones:Multilevel degenerative disc disease and spondylosis. No acute fracture. CT/Low Dose CT Lung Screening IMPRESSION: No suspicious pulmonary nodule or mass. Calcified granulomatous changes in the lung with calcified mediastinal lymph nodes. No acute cardiopulmonary process. Lung-RADS Category: 2 BENIGN (BASED ON IMAGING FEATURES OR INDOLENT BEHAVIOR). RECOMMEND 12-MONTH SCREENING LDCT. Other Significant Findings: None Reading Location: [id number]
[2025-02-16 12:50] LABS: PSA,Total- Diagnostic 44.10 ng/mL (0.00-4.00)
== END | disposition home or self-care (01) ==
PROVIDERS: PCP Family Medicine; Referring Provider Nurse Practitioner Family; Visit Provider Nurse Practitioner Family
DX: R97.20 Elevated prostate specific antigen [PSA] (principal); F17.210 Nicotine dependence, cigarettes, uncomplicated
CPT/HCPCS: 36415; 71271; 84153

== ENCOUNTER 2025-03-17 10:15 | Outpatient (RCR) | payer MEDICARE, OTHER, SELFPAY ==
[2025-02-01 09:19] VITALS: BMI 41.4
--- NOTE | 2025-03-01 09:49 | PCM.CR.ITP ---
Exercise - Initial Assessment Physician Prescribed Exercise Modalities: SciFit Stepper and SciFit Pro-II Ergometer Nutrition - Initial Assessment Weight Mgt (Other Care) Height: 5 ft 11 in Weight:: 299 lb BMI: 41.7 Psychosocial - Initial Assess Referral to Behavioral Health PS - Interventions: Yes: Attend Stress Management Classes Exercise - 30-day Assessment Physician Prescribed Exercise Modalities: SciFit Stepper and SciFit Pro-II Ergometer Exercise - 60-day Assessment Physician Prescribed Exercise Modalities: SciFit Stepper and SciFit Pro-II Ergometer Exercise - 90-day Assessment Visit Date of Eval: 03/01/25 Session #:: 21 Physician Prescribed Exercise Modalities: SciFit Stepper and SciFit Pro-II Ergometer Frequency: 3x/week for 12 weeks [36 sessions] Intensity: 60-80% of age predicted maximum heart rate reserve Duration: 30 - 45 minutes Current METSs:: 3.7 Target Heart Rate:: 88-117 Current RPE:: 11-13 Maximum Excercise HR:: 87 Resting Blood Pressure: 116/52 Maximum Exercise Blood Pressure: 132/68 EKG Type: NSR RBBB rare PAC/ multifocal PVC's Outcomes & Goals Goals:: Verbalizes understanding of THR, RPE & goal METS by session 6, Documents in home exercise log/reports 30 min aerobic 5 day/wk by DC, Demonstrates accurate pulse taking by DC and Other additional outcome/goals: see below Intervention & Plan Exercise Program Goals: Instruct on personal THR & RPE, Instruct on MET level & personal MET goal, Show patient to take own pulse /validate performance until accurate, Instruct on home exercise and Other additional plan/int Physical Activity Home Exercise Physical Activity - Home Exercise: Safe Exercise, Warm-up, Self-monitoring, Cool-Down, Home Exercise > 30 min Daily and Sitting Time <3 hours/daily Outcomes & Goals Outcomes/Goals: Demonstrates correct Warm-up/exercise Cool-Down (S3) if = 2.5 METs, Verbalizes symptoms of exercise intolerance by Session 3 (S3), Demonstrate safe equipment use (S3) & follows exercise prescrition (6) and Other: See below Intervention & Plan Plan/Intervention: Instruct warm-up & cool-down if exercising at > 2 METs, Instruct on symptoms of exercise intolerance & actions to take, Instruct & monitor on saf, Assess intial functional capacity & safety risk and Other See below 30-day Reassessments 30 day Reassessments:: Progressing Reassessment Notes & Comments:: Pt is progressing his exercise intensity. Will continue to encourage and increase intensity as tolerated. METS explained in exercise class. Exercise - Final/Discharge Physician Prescribed Exercise Modalities: SciFit Stepper and SciFit Pro-II Ergometer Nutrition - 30-Day Assessment Weight Mgt (Other Care) Height: 5 ft 11 in Weight:: 299 lb BMI: 41.7 Nutrition - 60-Day Assessment Weight Mgt (Other Care) Height: 5 ft 11 in Weight:: 299 lb BMI: 41.7 Core - 30-Day Assessment Hypertension [place] [employer] Hypertension Guidelines Reassessment Notes & Comments:: Pt's BP's are within AHA normal limits on most days. Weight loss and a low sodium heart healthy diet encouraged. Will continue to monitor and report to pt's physician if necessary. Core - Final Assessment Hypertension [place] [employer] Hypertension Guidelines Reassessment Notes & Comments:: Pt's BP's are within AHA normal limits on most days. Weight loss and a low sodium heart healthy diet encouraged. Will continue to monitor and report to pt's physician if necessary. Core - 90 Day Assessment Visit Date of Eval: 03/01/25 Session #:: 21 Medication Compliance Preventative Medication(s):: Aspirin, SYLVIA inhibitor, Clopidogrel/P2Y12 inhibit, Statin/lipid and Beta yohan H/O mental health issues: depression, anxiety, or addiction?: No Doesn’t believe in the benefits of treatment?: No Believes medications are unnecessary or harmful?: No Has a concern about medication side effects?: No Expresses concern over the cost of medications?: No Outcomes/Goals: Verbalizes medications,desired effect & common side effects @ DC, Pt self-reports following medication regimen, Keeps card in wallet w/medications listed by DC and Other additional outcome/goals: Interventions/plans: Instruct on medication effects & side effects, Review medication list w/patient every two weeks, Instruct importance of taking meds as ordered & assist problem solving and Other additional 30-day Reassessments:: Met Reassessment Notes & Comments:: Pt is currently taking meds as prescribed. Pt to attend cardiac meds class. Tobacco Use Tobacco Use: Non-smoker Hypertension Hypertension Diagnosis:: Hypertension ICD-10 I10 Resting Blood Pressure:: 116/52 [place] [employer] Hypertension Guidelines Peak Exercise Blood Pressure:: 132/68 Outcomes/Goals: Able to verbalize/achieve optimal blood pressure <130/80, Incorporates diet changes & exercise for blood pressure control by DC and Other additional outcomes/goals Interventions/plan: Instruct on optimal blood pressure, hypertension & medications, Instruct on effects of sodium, alcohol, stress, exercise &hypertension and Other additional plan/interventions 30 day Reassessments:: Met Reassessment Notes & Comments:: Pt's BP's are within AHA normal limits on most days. Weight loss and a low sodium heart healthy diet encouraged. Will continue to monitor and report to pt's physician if necessary. Tobacco Cessation Referral Smoking Cessation Referral:: No Individual Education/Counseling:: No Education Schedule Given:: Yes Psychosocial - 30-Day Assess Referral to Behavioral Health PS - Interventions: Yes: Attend Stress Management Classes Psychosocial - 60-Day Assess Referral to Behavioral Health PS - Interventions: Yes: Attend Stress Management Classes Psychosocial - 90-Day Assess VIsit Date of Eval: 03/01/25 Session #:: 21 History of previous Mental disease:: No Psychosocial Test Tool Used:: [employer] QOL Cardiac and PHQ-9 Questionnaire phq-9 Severity See PHQ-9 Score: 2 Referral to Behavioral Health PS - Interventions: Yes: Attend Stress Management Classes Outcomes/Goals: See list Psychosocial Outcomes/Goals:: ID's personal stressors & 2 strategies to manage stress by discharge and Other Additional outcome/goals: Intervention/Plan: See List Interventions/Plan:: Assess stressors,coping strategies & signs of derpression on admission, Instruct/assist pt to develop coping & personal stress Mgt strategies, Refer to Behavioral Health if appropriate, Refer to Physician if appropriate, Instruct patient to recognize signs & symptoms of depression, Instruct patient to recog and Other additional plan/intervention 30-day Reassessments: 30 day Reassessments:: Met Reassessment Notes & Comments:: Pt denies any psychosocial issues at this time. Pt to attend stress management class. Will reassess every 30 days. Psychosocial - Final Assessmen Referral to Behavioral Health PS - Interventions: Yes: Attend Stress Management Classes Nutrition - 90-Day Assessment Program Goals Nutrition Program Goals Patient has diagnosis of Hyperlipidemia (ICD E78)?: Yes Visit Date of Eval: 03/01/25 Session #:: 21 (Nutrition survey score of 5.) Cholesterol/Lipids (Other Core Measures) Determine presence & major risk factors that modify LDL goal: Hypertension or hypertensive medication, Low HDL cholesterol <40 mg/dL*, Family history of premature CHD in Male < 55 years: female <65 yearsFa and Age men > 45 years; women >/= 55 years Outcomes/Goals: Pt IDs own risk factors & lifestyle modifications by Session 10, Verbalizes symptoms of angina & response by session 3., Pt independently manages and Other Additional Outcomes/Goals: Intervention/Plan: Advocate for lipid panel cholesterol medication if applicable, Instruct on personal lipid levels & lipid goals/NCEP guidelines, Instruct on cholesterol and Other additional plan/int Diabetes (Other Core Measures) Diabetes Type: Diagnosis Type II ICD-10 E11 Hgb A1C (4.2 -6.3): 6.8 Insulin dependent injection/pump?: No Non-Insulin Dependent?: Yes Do you monitor your blood sugar at home?: Yes 30-day Reassessments:: Progressing Reassessment Notes & Comments:: Pt has attended nutrition class. Pt understands the benefits of a hearth healthy low sodium diet. Pt encouraged to keep a food diary for our review. Weight Mgt (Other Care) Height: 5 ft 11 in Weight:: 299 lb BMI: 41.7 Diagnosis Overweight/Obesity BMI> 30% ICD-10 E66: Yes Diagnosis High BMI/Morbid Obesity BMI> 35% ICD-10 Z68: Yes Outcomes/Goals: Pt sets, maintains & shows weight loss goal & trend during rehab and Other additional outcomes/goals Healthy Eating Habits Will attend diet classes:: Yes Outcomes/Goals:: Consume diet rich in vegs,fruits,whole grain/high fiber,fish,lean meat, Limit sat/trans fats,cholesterol & added salts & sugars and Other additional outcome/goals: Intervention/Plan:: Assess current eating habits and Other Additional plan/interventions 30-day Reassessments:: Progressing Reassessment Notes & Comments:: Pt has attended nutrition class. Pt understands the benefits of a hearth healthy low sodium diet. Pt encouraged to keep a food diary for our review. Education Gave educational materials for:: Signs & symptoms of hypoglycemia, Signs & symptoms of hyperglycemia, Relate diabetes to coronary artery disease and Healthy eating Nutrition - Final Assessment Weight Mgt (Other Care) Height: 5 ft 11 in Weight:: 299 lb BMI: 41.7
[2025-03-01 10:02] VITALS: BP 116/52; BMI 41.7
== END 2025-03-17 23:59 ==
LOC: CR 10:15
PROVIDERS: PCP Family Medicine
DX: Z95.2 Presence of prosthetic heart valve (principal)
CPT/HCPCS: 93798

== ENCOUNTER → 2025-03-31 | Outpatient (CLI) | payer MEDICARE, OTHER, SELFPAY ==
[2025-03-30 10:22] VITALS: BMI 41.5
[2025-03-31 10:27] LABS: AST(SGOT) 23 U/L (<=37); Alanine Aminotransfer ALT/SGPT 13 U/L (<=46); Albumin, Serum 4.1 g/dL (3.4-4.8); Alkaline Phosphatase 49 U/L (40-129); Anion Gap 12 (5-15); BUN 39 mg/dL (4-19); BUN/Creat Ratio 20.2 RATIO (10-20); Calcium,Total 9.5 mg/dL (7.6-11.0); Carbon Dioxide 21.4 mmol/L (21.0-32.0); Chloride 108 mmol/L (98-108); Cholesterol 150 mg/dL (<=200); Globulin 3.1 g/dL (2.2-4.2); Glucose 67 mg/dL (70-99); Low Density Lipoprotein Calc. 65 mg/dL; Potassium 4.5 mmol/L (3.3-5.1); Triglycerides 317 mg/dL; Very Low Density Lipoprotein 63 mg/dL (5-40); cholesterol:hdl ratio screen 4.31
== END | disposition home or self-care (01) ==
LOC: LAB 09:23
PROVIDERS: PCP Family Medicine; Referring Provider Family Medicine; Visit Provider Family Medicine
DX: E11.9 Type 2 diabetes mellitus without complications (principal)
CPT/HCPCS: 36415; 80053; 80061

== ENCOUNTER 2025-04-05 10:15 | Outpatient (RCR) | payer MEDICARE, OTHER, SELFPAY ==
[2025-03-01 10:02] VITALS: BMI 41.7
--- NOTE | 2025-03-30 10:09 | PCM.CR.ITP ---
Exercise - Initial Assessment Physician Prescribed Exercise Modalities: SciFit Stepper and SciFit Pro-II Ergometer Nutrition - Initial Assessment Weight Mgt (Other Care) Height: 5 ft 11 in Weight:: 298 lb BMI: 41.5 Psychosocial - Initial Assess Referral to Behavioral Health PS - Interventions: Yes: Attend Stress Management Classes Exercise - 30-day Assessment Physician Prescribed Exercise Modalities: SciFit Stepper and SciFit Pro-II Ergometer Exercise - 60-day Assessment Physician Prescribed Exercise Modalities: SciFit Stepper and SciFit Pro-II Ergometer Exercise - 90-day Assessment Visit Date of Eval: 03/30/25 (120 day ITP) Session #:: 33 Physician Prescribed Exercise Modalities: SciFit Stepper and SciFit Pro-II Ergometer Frequency: 3x/week for 12 weeks [36 sessions] Intensity: 60-80% of age predicted maximum heart rate reserve Duration: 30 - 45 minutes Current METSs:: 3.7 Target Heart Rate:: 88-117 Current RPE:: 13-14 Maximum Excercise HR:: 86 Resting Blood Pressure: 110/52 Maximum Exercise Blood Pressure: 120/58 EKG Type: NSR to ST w/RBBB freq PAC/multifocal PVC's. Outcomes & Goals Goals:: Verbalizes understanding of THR, RPE & goal METS by session 6, Documents in home exercise log/reports 30 min aerobic 5 day/wk by DC, Demonstrates accurate pulse taking by DC and Other additional outcome/goals: see below Intervention & Plan Exercise Program Goals: Instruct on personal THR & RPE, Instruct on MET level & personal MET goal, Show patient to take own pulse /validate performance until accurate, Instruct on home exercise and Other additional plan/int Physical Activity Home Exercise Physical Activity - Home Exercise: Safe Exercise, Warm-up, Self-monitoring, Cool-Down, Home Exercise > 30 min Daily and Sitting Time <3 hours/daily Outcomes & Goals Outcomes/Goals: Demonstrates correct Warm-up/exercise Cool-Down (S3) if = 2.5 METs, Verbalizes symptoms of exercise intolerance by Session 3 (S3), Demonstrate safe equipment use (S3) & follows exercise prescrition (6) and Other: See below Intervention & Plan Plan/Intervention: Instruct warm-up & cool-down if exercising at > 2 METs, Instruct on symptoms of exercise intolerance & actions to take, Instruct & monitor on saf, Assess intial functional capacity & safety risk and Other See below 30-day Reassessments 30 day Reassessments:: Progressing Reassessment Notes & Comments:: Pt has 3 sessions remaining. Pt has met his exercise goals. Pt was working at 3.7 METS. Pt will be given his exercise prescription as well as community resources to continue his exercise. Pt understands the importance of warming up and cooling down. Pt also understands symptoms of exercise intolerance and how to exercise safely. Exercise - Final/Discharge Physician Prescribed Exercise Modalities: SciFit Stepper and SciFit Pro-II Ergometer Nutrition - 30-Day Assessment Weight Mgt (Other Care) Height: 5 ft 11 in Weight:: 298 lb BMI: 41.5 Nutrition - 60-Day Assessment Weight Mgt (Other Care) Height: 5 ft 11 in Weight:: 298 lb BMI: 41.5 Core - 30-Day Assessment Hypertension [place] [employer] Hypertension Guidelines Reassessment Notes & Comments:: Pt's BP's are within AHA normal limits. Will continue to monitor and report to pt's physician if necessary. Core - Final Assessment Hypertension [place] [employer] Hypertension Guidelines Reassessment Notes & Comments:: Pt's BP's are within AHA normal limits. Will continue to monitor and report to pt's physician if necessary. Core - 90 Day Assessment Visit Date of Eval: 03/30/25 Session #:: 33 Medication Compliance Preventative Medication(s):: Aspirin, SYLVIA inhibitor, Clopidogrel/P2Y12 inhibit, Statin/lipid and Beta yohan H/O mental health issues: depression, anxiety, or addiction?: No Doesn’t believe in the benefits of treatment?: No Believes medications are unnecessary or harmful?: No Has a concern about medication side effects?: No Expresses concern over the cost of medications?: No Outcomes/Goals: Verbalizes medications,desired effect & common side effects @ DC, Pt self-reports following medication regimen, Keeps card in wallet w/medications listed by DC and Other additional outcome/goals: Interventions/plans: Instruct on medication effects & side effects, Review medication list w/patient every two weeks, Instruct importance of taking meds as ordered & assist problem solving and Other additional 30-day Reassessments:: Met Reassessment Notes & Comments:: Pt is currently taking meds as prescribed. Tobacco Use Tobacco Use: Non-smoker Hypertension Hypertension Diagnosis:: Hypertension ICD-10 I10 Resting Blood Pressure:: 110/52 [place] [employer] Hypertension Guidelines Peak Exercise Blood Pressure:: 120/58 Outcomes/Goals: Able to verbalize/achieve optimal blood pressure <130/80, Incorporates diet changes & exercise for blood pressure control by DC and Other additional outcomes/goals Interventions/plan: Instruct on optimal blood pressure, hypertension & medications, Instruct on effects of sodium, alcohol, stress, exercise &hypertension and Other additional plan/interventions 30 day Reassessments:: Met Reassessment Notes & Comments:: Pt's BP's are within AHA normal limits. Will continue to monitor and report to pt's physician if necessary. Tobacco Cessation Referral Smoking Cessation Referral:: No Individual Education/Counseling:: No Education Schedule Given:: Yes Psychosocial - 30-Day Assess Referral to Behavioral Health PS - Interventions: Yes: Attend Stress Management Classes Psychosocial - 60-Day Assess Referral to Behavioral Health PS - Interventions: Yes: Attend Stress Management Classes Psychosocial - 90-Day Assess VIsit Date of Eval: 03/30/25 Session #:: 33 History of previous Mental disease:: No Psychosocial Test Tool Used:: [place] QOL Cardiac and PHQ-9 Questionnaire phq-9 Severity See PHQ-9 Score: 2 Referral to Behavioral Health PS - Interventions: Yes: Attend Stress Management Classes Outcomes/Goals: See list Psychosocial Outcomes/Goals:: ID's personal stressors & 2 strategies to manage stress by discharge and Other Additional outcome/goals: Intervention/Plan: See List Interventions/Plan:: Assess stressors,coping strategies & signs of derpression on admission, Instruct/assist pt to develop coping & personal stress Mgt strategies, Refer to Behavioral Health if appropriate, Refer to Physician if appropriate, Instruct patient to recognize signs & symptoms of depression, Instruct patient to recog and Other additional plan/intervention 30-day Reassessments: 30 day Reassessments:: Met Reassessment Notes & Comments:: Pt denies any psychosocial issues at this time Psychosocial - Final Assessmen Referral to Behavioral Health PS - Interventions: Yes: Attend Stress Management Classes Nutrition - 90-Day Assessment Program Goals Nutrition Program Goals Patient has diagnosis of Hyperlipidemia (ICD E78)?: Yes Visit Date of Eval: 03/30/25 Session #:: 33 Cholesterol/Lipids (Other Core Measures) Determine presence & major risk factors that modify LDL goal: Cigarette smoking, Hypertension or hypertensive medication, Low HDL cholesterol <40 mg/dL*, Family history of premature CHD in Male < 55 years: female <65 yearsFa and Age men > 45 years; women >/= 55 years Outcomes/Goals: Pt IDs own risk factors & lifestyle modifications by Session 10, Verbalizes symptoms of angina & response by session 3., Pt independently manages and Other Additional Outcomes/Goals: Intervention/Plan: Advocate for lipid panel cholesterol medication if applicable, Instruct on personal lipid levels & lipid goals/NCEP guidelines, Instruct on cholesterol and Other additional plan/int Diabetes (Other Core Measures) Diabetes Type: Diagnosis Type II ICD-10 E11 Hgb A1C (4.2 -6.3): 6.8 Insulin dependent injection/pump?: Yes Non-Insulin Dependent?: Yes Do you monitor your blood sugar at home?: Yes 30-day Reassessments:: Met Reassessment Notes & Comments:: Pt encouraged to monitor her BS at home as instructed by her physician. Weight Mgt (Other Care) Height: 5 ft 11 in Weight:: 298 lb BMI: 41.5 Diagnosis Overweight/Obesity BMI> 30% ICD-10 E66: Yes Diagnosis High BMI/Morbid Obesity BMI> 35% ICD-10 Z68: Yes Outcomes/Goals: Pt sets, maintains & shows weight loss goal & trend during rehab and Other additional outcomes/goals Intervention/Plan: Instruct on ideal BMI & set weight loss goal w/patient, Assist pt to ID & incorporate diet changes for weight loss by S9, Refer to Structured Weight Loss program as appropriate, Encourage goal of using 250-300dcal per session for weight loss and Other additional plan/interventions Healthy Eating Habits Will attend diet classes:: Yes Outcomes/Goals:: Consume diet rich in vegs,fruits,whole grain/high fiber,fish,lean meat, Limit sat/trans fats,cholesterol & added salts & sugars and Other additional outcome/goals: Intervention/Plan:: Assess current eating habits and Other Additional plan/interventions 30-day Reassessments:: Met Reassessment Notes & Comments:: Pt has attended nutrition class. Pt understands the benefits of a hearth healthy low sodium diet. Pt has been given the tools to maintain a healthy diet. Education Gave educational materials for:: Signs & symptoms of hypoglycemia, Signs & symptoms of hyperglycemia, Relate diabetes to coronary artery disease and Healthy eating Nutrition - Final Assessment Weight Mgt (Other Care) Height: 5 ft 11 in Weight:: 298 lb BMI: 41.5
[2025-03-30 10:13] VITALS: BP 110/52
[2025-03-30 10:22] VITALS: BMI 41.5
[2025-03-30 10:27] VITALS: BP 110/52
== END 2025-04-16 23:59 ==
LOC: CR 10:15
PROVIDERS: PCP Family Medicine
DX: Z95.2 Presence of prosthetic heart valve (principal)
CPT/HCPCS: 93798

== ENCOUNTER 2025-04-18 08:47 | Outpatient (RCR) | payer SELFPAY ==
[2025-03-30 10:22] VITALS: BMI 41.5
== END 2025-05-17 23:59 ==
LOC: CR 08:47
PROVIDERS: PCP Family Medicine
DX: Z00.00 Encounter for general adult medical examination without abnormal findings (principal)